=== PATIENT | female | born 1940 | race Caucasian/White ===

== ENCOUNTER 2016-08-24 09:14 | Outpatient (CLI) | payer MEDICARE | END 2016-08-24 09:15 | disposition home or self-care (01) | DX: Z12.31 Encounter for screening mammogram for malignant neoplasm of breast (principal) ==

== ENCOUNTER 2016-11-21 10:59 | Outpatient (CLI) | payer MEDICARE, OTHER ==
--- NOTE | 2016-11-21 13:09 | XRAY Report ---
BILATERAL HIPS AND PELVIS: 11/21/2016 CLINICAL INDICATION: Hip pain. FINDINGS: Frontal view of the hips and pelvis and bilateral frogleg lateral views of the hips were o btained. There is moderate right and mild left hip osteoarthritis. There is no evidence of acute frac ture or dislocation. Vascular calcifications are noted. IMPRESSION: RIGHT WORSE THAN LEFT OSTEOARTHRITIS. JOB #: [id number] EXT JOB #:[id number]
== END 2016-11-21 11:00 | disposition home or self-care (01) ==
LOC: DI 10:59
PROVIDERS: ATTEND Family Medicine
DX: M16.0 Bilateral primary osteoarthritis of hip (principal)
CPT/HCPCS: 73521

== ENCOUNTER 2017-01-02 12:12 | Outpatient (CLI) | payer MEDICARE ==
--- NOTE | 2017-01-02 14:59 | MRI Report ---
EXAM: MRI LUMBAR SPINE WITHOUT CONTRAST EXAM DATE: 01/02/2017 01:00 PM. CLINICAL HISTORY: Lumbar spinal stenosis. COMPARISON: None. TECHNIQUE: Multiplanar, multisequence T1-weighted and fluid-sensitive sequences of the lumbar spine f rom T12 to S1 without contrast. Other: None. FINDINGS: Spinal Cord: The conus terminates at L1-L2. No signal abnormality in the visualized spinal cord. Alignment: Normal. No scoliosis or spondylolisthesis. Bone Marrow: Five juj-sbj-sowxbzj lumbar vertebral bodies are assumed. No fractures. No marrow edema. Benign hemangiomas within T12. Disk Levels/Facets: All visualized intervertebral disks are desiccated. T9-T10: Unremarkable. T10-T11: Unremarkable. T11-T12: Unremarkable. T12-L1: Unremarkable. L1-L2: Unremarkable. L2-L3: A broad-based disk bulge and severe ligamentum flavum hypertrophy cause mild spinal canal, min imal right foraminal, and mild left foraminal narrowing. Type II endplate change is present. L3-L4: Anterior endplate spurring is seen. A broad-based disk bulge, severe ligamentum flavum hypertr ophy cause moderate spinal canal, minimal right foraminal, and mild left foraminal narrowing. L4-L5: A broad-based disk bulge, severe ligamentum flavum hypertrophy, and moderate facet hypertrophy cause moderate to severe spinal canal and moderate bilateral foraminal narrowing. L5-S1: A central posterior disk protrusion, moderate ligamentum flavum hypertrophy, and mild facet hy pertrophy result in mild spinal canal and bilateral foraminal narrowing. The protrusion abuts the lef t S1 nerve root in the subarticular zone. Musculature: Normal. No edema or fatty atrophy. Other: The visualized pelvic cavity is unremarkable. IMPRESSION: 1. Benign hemangioma within T12. 2. Mild spinal canal and left foraminal narrowing at L2-L3 due to disk and posterior element degenera tive changes. 3. Moderate spinal canal and mild left foraminal narrowing at L3-L4 due to disk and posterior element degenerative changes. 4. Moderate to severe spinal canal and moderate bilateral foraminal narrowing at L4-L5 due to disk an d posterior element degenerative changes. 5. Mild spinal canal and bilateral foraminal narrowing at L5-S1 due to disk and posterior element deg enerative changes. Comment: The following findings are so common in adults without low back pain that while we report th eir presence, they must be interpreted with caution and in the context of the clinical situation. (Re ascencion Huang et al, Spine 2001) Prevalence of findings in patients without low back pain: Disk degeneration (any evidence): 92% Disk desiccation/T2 signal loss: 83% Disk height loss: 56% Disk bulge: 64% Disk protrusion: 32% Annular tear/high intensity zone: 38% [facility] Referring Provider Line: [phone] SITE ID: [id number]
== END 2017-01-02 12:13 | disposition home or self-care (01) ==
LOC: DI 12:12
PROVIDERS: ATTEND Family Medicine
DX: M51.36 Other intervertebral disc degeneration, lumbar region (principal); M46.06 Spinal enthesopathy, lumbar region; M51.27 Other intervertebral disc displacement, lumbosacral region; D18.09 Hemangioma of other sites
CPT/HCPCS: 72148

== ENCOUNTER 2017-08-28 10:34 | Outpatient (CLI) | payer MEDICARE ==
--- NOTE | 2017-08-28 13:45 | XRAY Report ---
THREE VIEW LEFT KNEE: 08/28/2017 CLINICAL INDICATION: Osteoarthritis. FINDINGS: Frontal, lateral, sunrise views of the left knee demonstrate mild osteoarthritis, with small osteophytes. There is no evidence of fracture or dislocation. No effusion is present. IMPRESSION: MILD LEFT KNEE OSTEOARTHRITIS. TD: 08/28/2017 13:44
== END 2017-08-28 10:35 | disposition home or self-care (01) ==
LOC: DI 10:34
PROVIDERS: ATTEND Family Medicine
DX: M17.12 Unilateral primary osteoarthritis, left knee (principal)

== ENCOUNTER 2018-02-14 15:12 | Outpatient (CLI) | payer MEDICARE ==
[2018-02-14 19:48] LABS: BASOPHILS # (AUTO) 0.1 10^3/uL (0.0-0.1); BASOPHILS % (AUTO) 1.6 %; EOSINOPHILS # (AUTO) 0.2 10^3/uL (0.0-0.7); EOSINOPHILS % (AUTO) 3.1 %; HGB - HEMOGLOBIN 12.9 g/dL (12.0-16.0); LYMPHOCYTES % (AUTO) 28.1 %; MEAN CORPUSCULAR HGB CONC 34.1 g/dL (32.0-36.0); MEAN CORPUSCULAR VOLUME 96.8 fL (81.0-99.0); MEAN PLATELET VOLUME 8.4 fL (7.9-10.8); MONOCYTES # (AUTO) 0.6 10^3/uL (0.0-1.0); MONOCYTES % (AUTO) 8.5 %; NEUTROPHILS # (AUTO) 4.3 10^3/uL (1.5-6.6); NEUTROPHILS % (AUTO) 58.7 %; PLT - PLATELET COUNT 263 10^3/uL (130-450); RED CELL DISTRIBUTION WIDTH 17.4 % (12.0-15.0); WHITE BLOOD COUNT 7.3 x10^3/uL (4.8-10.8)
[2018-02-14 20:36] LABS: HB2 TOTAL 13.3 g/dL; HEMOGLOBIN A1C 0.51 g/dL; HEMOGLOBIN A1C % 5.7 % (4.6-6.2)
== END 2018-02-14 15:13 ==
LOC: LAB.WCP 15:12
PROVIDERS: ATTEND Family Medicine
DX: R73.01 Impaired fasting glucose (principal); E78.5 Hyperlipidemia, unspecified; I73.9 Peripheral vascular disease, unspecified
CPT/HCPCS: 36415; 80053; 80061; 83036; 83721; 85025

== ENCOUNTER 2018-02-15 08:00 | Outpatient (CLI) | payer MEDICARE ==
[2018-02-15 19:14] LABS: ALBUMIN 4.1 g/dL (3.2-5.5); ALBUMIN/GLOBULIN RATIO 1.4 (1.0-2.2); ALKALINE PHOSPHATASE 76 IU/L (42-121); ALT ALANINE AMINOTRANSFERASE 26 IU/L (10-60); AST ASPARTATE AMINOTRANSFERASE 29 IU/L (10-42); BILIRUBIN,TOTAL 0.6 mg/dL (0.2-1.0); BUN - BLOOD UREA NITROGEN 25 mg/dL (6-20); CALCIUM 9.6 mg/dL (8.5-10.3); CARBON DIOXIDE - CO2 30 mmol/L (21-32); CHLORIDE 102 mmol/L (101-111); CHOLESTEROL 145 mg/dL; CREATININE 0.7 mg/dL (0.4-1.0); GFR - MDRD 81 (>89); GLUCOSE 104 mg/dL (70-100); HDL CHOLESTEROL 48 mg/dL; LDL CHOLESTEROL,CALCULATED 70 mg/dL; LDL/HDL RATIO 1.5 (<4.4); SODIUM 141 mmol/L (135-145); VLDL CHOLESTEROL 27 mg/dL
== END 2018-02-15 08:01 ==
LOC: LAB.WCP 08:00
PROVIDERS: ATTEND Family Medicine
DX: R73.01 Impaired fasting glucose (principal); E78.5 Hyperlipidemia, unspecified
CPT/HCPCS: 80053; 80061; 83721

== ENCOUNTER 2018-07-24 10:09 | Outpatient (CLI) | payer MEDICARE ==
--- NOTE | 2018-07-26 08:46 | DEXA Report ---
Reason: BONE DISORDER Procedure Date: 07/24/2018 Accession Number: [id number] / [id number] Procedure: DEX - Dexa Spine and/or Hip CPT Code: FULL RESULT: EXAM: Dexa Spine and/or Hip DATE: 07/24/2018 10:49 AM CLINICAL HISTORY: BONE DISORDER TECHNIQUE: Dual energy x-ray absorptiometry (DXA) was performed on a [employer] System. Regions measured are the AP Spine, femoral neck, and if needed forearm. COMPARISON: None. In accordance with the International Society for Clinical Densitometry (ISCD) guidelines, data from previous exams may be reanalyzed using current recommendations and techniques. This is done to allow a more accurate basis for comparison with the current study. FINDINGS: The data for the lumbar spine is as follows: BMD (g/cm/cm) T-SCORE Z-SCORE REGION L1 1.157 0.2 1.9 L2 1.194 -0.1 1.7 L3 1.255 0.5 2.2 L4 1.240 0.3 2.1 TOTAL 1.215 0.3 2.0 NOTE: All evaluable vertebrae are used for classification The data for the hip is as follows: BMD (g/cm/cm) T-SCORE Z-SCORE REGION Neck 0.916 -0.9 1.1 TOTAL 0.959 -0.4 1.4 NOTE: The femoral neck or total proximal femur, whichever is lowest, is used for classification. IMPRESSION: THE WHO CLASSIFICATION BASED ON THE INTERNATIONAL REFERENCE STANDARD IS NORMAL. THE FRACTURE RISK IS NOT INCREASED. RECOMMENDATION: Patients with diagnosis of osteoporosis or osteopenia should have regular bone mineral density assessment. For those eligible for Medicare, routine testing is allowed once every 2 years. Testing frequency can be increased for patients who have rapidly progressing disease or for those who are receiving medical therapy to restore bone mass. COMMENT: World Health Organization (WHO) definitions for osteoporosis and osteopenia: NORMAL BMD: T-score at -1.0 or higher, fracture risk is low OSTEOPENIA BMD: T-score between -1.0 and -2.5, fracture risk is increased. OSTEOPOROSIS BMD: T-score at -2.5 or lower, fracture risk is high. National Osteoporosis Foundation recommends: 1. Obtain adequate dietary calcium (at least 1200 mg per day) and vitamin D (400-800 international units per day). 2. Participate, as appropriate, in regular weightbearing and muscle-strengthening exercise. 3. Avoid tobacco use and reduce alcohol and caffeine intake. 4. For more detailed information see the website at www.NOF.org.
== END 2018-07-24 10:10 | disposition home or self-care (01) ==
LOC: DI 10:09
PROVIDERS: ATTEND Family Medicine
DX: M89.9 Disorder of bone, unspecified (principal)
CPT/HCPCS: 77080

== ENCOUNTER 2018-11-08 08:40 | Outpatient (CLI) | payer MEDICARE ==
[2018-11-08 12:28] LABS: BASOPHILS # (AUTO) 0.1 10^3/uL (0.0-0.1); BASOPHILS % (AUTO) 1.4 %; EOSINOPHILS # (AUTO) 0.1 10^3/uL (0.0-0.7); EOSINOPHILS % (AUTO) 1.3 %; HGB - HEMOGLOBIN 13.8 g/dL (12.0-16.0); LYMPHOCYTES # (AUTO) 1.4 10^3/uL (1.5-3.5); LYMPHOCYTES % (AUTO) 13.4 %; MEAN CORPUSCULAR HEMOGLOBIN 32.2 pg (27.0-31.0); MEAN CORPUSCULAR HGB CONC 30.9 g/dL (32.0-36.0); MEAN CORPUSCULAR VOLUME 104.2 fL (81.0-99.0); MEAN PLATELET VOLUME 10.5 fL (7.9-10.8); MONOCYTES # (AUTO) 0.8 10^3/uL (0.0-1.0); MONOCYTES % (AUTO) 7.4 %; NEUTROPHILS # (AUTO) 7.7 10^3/uL (1.5-6.6); NEUTROPHILS % (AUTO) 76.1 %; PLT - PLATELET COUNT 258 10^3/uL (130-450); RED BLOOD COUNT 4.29 10^6/uL (4.20-5.40); RED CELL DISTRIBUTION WIDTH 14.5 % (12.0-15.0); WHITE BLOOD COUNT 10.1 x10^3/uL (4.8-10.8)
[2018-11-08 14:54] LABS: ALBUMIN 4.1 g/dL (3.2-5.5); ALBUMIN/GLOBULIN RATIO 1.3 (1.0-2.2); BILIRUBIN,TOTAL 0.8 mg/dL (0.2-1.0); CALCIUM 9.5 mg/dL (8.5-10.3); CREATININE 0.7 mg/dL (0.4-1.0); TOTAL PROTEIN 7.3 g/dL (6.7-8.2)
== END 2018-11-08 08:41 | disposition home or self-care (01) ==
LOC: LAB.WCP 08:40
PROVIDERS: ATTEND Physician Assistant
DX: L40.0 Psoriasis vulgaris (principal)
CPT/HCPCS: 36415; 80053; 85025

== ENCOUNTER 2019-01-15 11:34 | Outpatient (CLI) | payer MEDICARE ==
--- NOTE | 2019-01-15 13:48 | XRAY Report ---
Reason: CHRONIC LOW BACK PAIN Procedure Date: 01/15/2019 Accession Number: [id number] / [id number] Procedure: WCP - Lumbar Spine 2 View CPT Code: FULL RESULT: EXAM: LUMBOSACRAL SPINE RADIOGRAPHY EXAM DATE: 01/15/2019 11:34 AM. CLINICAL HISTORY: Chronic low back pain. No known injury. COMPARISONS: LUMBAR SPINE 2 VIEW 06/28/2016 2:09 PM. TECHNIQUE: 2 views. FINDINGS: Alignment: Increasing dextroscoliosis now 12 degrees centered at L4. Bones: Five vad-jrp-hdoddkf lumbar vertebral bodies are present. Old mild anterior wedging L3 and L4. Trabecular and cortical patterns are intact. Disks: Stable multilevel mild degenerative disk disease. Facets: Marked degenerative changes left L4-L5 facets. Sacroiliac Joints: Unremarkable. Soft Tissues: Remote stent placement in a right common iliac vessel. IMPRESSION: 1. Increasing mild dextroscoliosis. 2. Multilevel mild degenerative changes. [facility]
== END 2019-01-15 23:59 | disposition home or self-care (01) ==
LOC: DI.WCP 11:34 → EDSTATUS 13:20 → DI.WCP 23:59
PROVIDERS: ATTEND Family Medicine
DX: M51.36 Other intervertebral disc degeneration, lumbar region (principal); M47.816 Spondylosis without myelopathy or radiculopathy, lumbar region; M41.9 Scoliosis, unspecified
CPT/HCPCS: 72100

== ENCOUNTER 2019-01-29 10:50 | Outpatient (CLI) | payer MEDICARE ==
[2019-01-29 13:04] LABS: CHOL/HDL RATIO 2.9 (<4.4); CHOLESTEROL 132 mg/dL; HDL CHOLESTEROL 46 mg/dL; LDL CHOLESTEROL,CALCULATED 72 mg/dL; LDL/HDL RATIO 1.6 (<4.4); VLDL CHOLESTEROL 14 mg/dL
== END 2019-01-29 23:59 | disposition home or self-care (01) ==
LOC: LAB.WCP 10:50
PROVIDERS: ATTEND Family Medicine
DX: E78.5 Hyperlipidemia, unspecified (principal); M89.9 Disorder of bone, unspecified; M17.9 Osteoarthritis of knee, unspecified
CPT/HCPCS: 36415; 80061; 83721; 84443

== ENCOUNTER 2020-09-11 07:35 | Outpatient (CLI) | payer MEDICARE, OTHER ==
[2020-09-11 12:20] LABS: BASOPHILS # (AUTO) 0.1 10^3/uL (0.0-0.1); BASOPHILS % (AUTO) 1.9 %; EOSINOPHILS # (AUTO) 0.2 10^3/uL (0.0-0.7); EOSINOPHILS % (AUTO) 3.7 %; HGB - HEMOGLOBIN 11.9 g/dL (12.0-16.0); LYMPHOCYTES # (AUTO) 1.4 10^3/uL (1.5-3.5); LYMPHOCYTES % (AUTO) 22.3 %; MEAN CORPUSCULAR HEMOGLOBIN 32.9 pg (27.0-31.0); MEAN CORPUSCULAR HGB CONC 32.2 g/dL (32.0-36.0); MEAN CORPUSCULAR VOLUME 102.2 fL (81.0-99.0); MEAN PLATELET VOLUME 10.6 fL (7.9-10.8); MONOCYTES # (AUTO) 0.6 10^3/uL (0.0-1.0); MONOCYTES % (AUTO) 9.1 %; NEUTROPHILS # (AUTO) 4.1 10^3/uL (1.5-6.6); NEUTROPHILS % (AUTO) 62.8 %; PLT - PLATELET COUNT 218 10^3/uL (130-450); RED BLOOD COUNT 3.62 10^6/uL (4.20-5.40); RED CELL DISTRIBUTION WIDTH 14.1 % (12.0-15.0); WHITE BLOOD COUNT 6.5 x10^3/uL (4.8-10.8)
[2020-09-11 12:35] LABS: ALBUMIN 4.2 g/dL (3.2-5.5); ALBUMIN/GLOBULIN RATIO 1.4 (1.0-2.2); ALKALINE PHOSPHATASE 71 IU/L (42-121); ALT ALANINE AMINOTRANSFERASE 28 IU/L (10-60); AST ASPARTATE AMINOTRANSFERASE 36 IU/L (10-42); BILIRUBIN,TOTAL 0.5 mg/dL (0.2-1.0); BUN - BLOOD UREA NITROGEN 20 mg/dL (6-20); CALCIUM 9.5 mg/dL (8.5-10.3); CARBON DIOXIDE - CO2 28 mmol/L (21-32); CHLORIDE 102 mmol/L (101-111); CHOL/HDL RATIO 2.5 (<4.4); CHOLESTEROL 142 mg/dL; CREATININE 0.7 mg/dL (0.4-1.0); GFR - MDRD 81 (>89); GLUCOSE 117 mg/dL (70-100); HDL CHOLESTEROL 56 mg/dL; LDL CHOLESTEROL,CALCULATED 66 mg/dL; LDL/HDL RATIO 1.2 (<4.4); POTASSIUM 3.8 mmol/L (3.5-5.0); SODIUM 139 mmol/L (135-145); TOTAL PROTEIN 7.1 g/dL (6.7-8.2); TRIGLYCERIDES 101 mg/dL; URIC ACID 5.9 mg/dL (2.6-7.2); VLDL CHOLESTEROL 20 mg/dL
[2020-09-11 12:45] LABS: THYROID STIMULATING HORMONE 3.25 uIU/mL (0.34-5.60)
[2020-09-11 13:02] LABS: CRP - C-REACTIVE PROTEIN < 1.0 mg/dL (0-1.0)
[2020-09-11 13:19] LABS: ESTIMATED AVERAGE GLUCOSE 111 mg/dL (70-100); HEMOGLOBIN A1c% 5.5 % (4.27-6.07)
== END 2020-09-11 07:36 | disposition home or self-care (01) ==
LOC: LAB.N 07:35
PROVIDERS: ATTEND Family Medicine
DX: I73.81 Erythromelalgia (principal); E78.5 Hyperlipidemia, unspecified; R73.01 Impaired fasting glucose; I10 Essential (primary) hypertension
CPT/HCPCS: 36415; 80053; 80061; 83036; 83721; 84443; 84550; 85025; 85651; 86140

== ENCOUNTER 2020-09-11 07:43 | Outpatient (CLI) | payer MEDICARE, OTHER ==
--- NOTE | 2020-09-11 14:06 | XRAY Report ---
PROCEDURE: Hand 3 View BILAT INDICATIONS: BILATERALA HAND PAIN Hx OF PSORIASIS TECHNIQUE: 3 views of each hand(s) acquired. COMPARISON: None FINDINGS: Bones: Diffuse osteopenia. No acute fracture or dislocation. No suspicious osseous lesions. Left hand: Moderate degenerative changes of the left thumb interphalangeal joint, second and third di stal interphalangeal joint, and fifth distal interphalangeal joint. There is minimal subchondral luce ncy involving the head of the left third finger middle phalanx. Otherwise, no periarticular osteopeni a or other areas of suspicious osseous erosions. Right hand: Moderate degenerative changes of the right hand most pronounced in the interphalangeal keena int of the right thumb and distal interphalangeal joint of the right second finger. There are also de generative changes of the right fifth distal interphalangeal joint. Periarticular lucencies noted in the proximal phalanx of the right thumb. Soft tissues: No suspicious soft tissue calcifications. IMPRESSION: Moderate polyarticular degenerative changes of the bilateral hand most pronounced in the distal inter phalangeal joints of the bilateral index finger as well as the interphalangeal joints of the bilatera l thumb. There are small periarticular lucencies noted at the head of the right thumb proximal phalan x as well as the head of the third finger middle phalanx. These may represent osseous erosions and co mpatible with reported history of psoriatic arthritis. No acute osseous abnormalities identified. Reviewed by: Garret Doyle MD on 09/11/2020 1:05 PM JESUS Approved by: Garret Doyle MD on 09/11/2020 1:05 PM JESUS Station ID: [id number]
== END 2020-09-11 07:44 | disposition home or self-care (01) ==
LOC: DI.N 07:43
PROVIDERS: ATTEND Family Medicine
DX: M19.042 Primary osteoarthritis, left hand (principal); M19.041 Primary osteoarthritis, right hand; I73.81 Erythromelalgia; E78.5 Hyperlipidemia, unspecified; I10 Essential (primary) hypertension; R73.01 Impaired fasting glucose
CPT/HCPCS: 36415; 80053; 80061; 83036; 83721; 84443; 84550; 85025; 85651; 86140

== ENCOUNTER 2020-10-26 15:18 | Outpatient (CLI) | payer MEDICARE, OTHER ==
--- NOTE | 2020-10-27 09:09 | Ultrasound Report ---
PROCEDURE: Duplex Upr Ext Arterial Bilat INDICATIONS: ERYTHROMELALGIA, PERIPHERAL VASCULAR DISEASE TECHNIQUE: Color and pulse Doppler interrogation was performed of both upper extremity arterial systems, with im age documentation. COMPARISON: None. FINDINGS: Right upper extremity: Subclavian artery (mid): 56 cm/sec, with biphasic flow. Axillary artery: 67 cm/sec, with biphasic flow. Brachial artery (mid): 71 cm/sec, with biphasic flow. Radial artery (proximal): 39.5 cm/sec, with monophasic flow. Radial artery (mid): 37.5 cm/sec, with monophasic flow. Radial artery (distal): 36.1 cm/sec, with monophasic flow. Ulnar artery (proximal): 28.5 cm/sec, with biphasic flow. Ulnar artery (mid): 19.8 cm/sec. with biphasic flow. Ulnar artery (distal): 12.4 cm/sec, with biphasic flow. Bishop-scale imaging description: Mild scattered calcified plaque. Left upper extremity: Subclavian artery (mid): 87 cm/sec, with biphasic flow. Axillary artery: 56.2 cm/sec, with biphasic flow. Brachial artery (mid): 55.7 cm/sec, with biphasic flow. Radial artery (proximal): 53.0 cm/sec, wit h biphasic flow. Radial artery (mid): 55.7 cm/sec, with biphasic flow. Radial artery (distal): 48.8 cm/sec. with biphasic flow. Ulnar artery (proximal): 31.3 cm/sec, with biphasic flow. Ulnar artery (mid): 27.7 cm/sec, with biphasic flow. Ulnar artery (distal): 25.7 cm/sec. with biphasic flow. Bishop-scale imaging description: Mild scattered calcified plaque IMPRESSION: 1. Mild calcified atherosclerotic plaque with no significant focal stenosis in both arms. 2. Monophasic flow in the right radial artery with no elevated velocities consistent with diffuse ath erosclerotic disease. Reviewed by: Donovan Johnston on 10/27/2020 9:08 AM PDT Approved by: Donovan Johnston on 10/27/2020 9:08 AM PDT Station ID: [id number]
== END 2020-10-26 15:19 | disposition home or self-care (01) ==
LOC: DI 15:18
PROVIDERS: ATTEND Family Medicine
DX: I70.208 Unspecified atherosclerosis of native arteries of extremities, other extremity (principal)
CPT/HCPCS: 93930

== ENCOUNTER 2021-02-05 08:00 | Outpatient (CLI) | payer MEDICARE, OTHER ==
[2021-02-05 13:36] LABS: BASOPHILS # (AUTO) 0.1 10^3/uL (0.0-0.1); BASOPHILS % (AUTO) 1.2 %; EOSINOPHILS # (AUTO) 0.3 10^3/uL (0.0-0.7); EOSINOPHILS % (AUTO) 2.8 %; HCT - HEMATOCRIT 31.4 % (37.0-47.0); HGB - HEMOGLOBIN 9.5 g/dL (12.0-16.0); LYMPHOCYTES # (AUTO) 1.8 10^3/uL (1.5-3.5); LYMPHOCYTES % (AUTO) 20.1 %; MEAN CORPUSCULAR HEMOGLOBIN 29.3 pg (27.0-31.0); MEAN CORPUSCULAR HGB CONC 30.3 g/dL (32.0-36.0); MEAN CORPUSCULAR VOLUME 96.9 fL (81.0-99.0); MEAN PLATELET VOLUME 10.8 fL (7.9-10.8); MONOCYTES # (AUTO) 0.7 10^3/uL (0.0-1.0); MONOCYTES % (AUTO) 7.4 %; NEUTROPHILS % (AUTO) 68.2 %; PLT - PLATELET COUNT 246 10^3/uL (130-450); RED BLOOD COUNT 3.24 10^6/uL (4.20-5.40); RED CELL DISTRIBUTION WIDTH 16.1 % (12.0-15.0); WHITE BLOOD COUNT 8.9 x10^3/uL (4.8-10.8)
[2021-02-05 14:09] LABS: FERRITIN 10.5 ng/mL (11.0-306.8)
[2021-02-05 14:15] LABS: % IRON SATURATION 5 % (20-50); ALBUMIN/GLOBULIN RATIO 1.4 (1.0-2.2); ALKALINE PHOSPHATASE 62 IU/L (42-121); ALT ALANINE AMINOTRANSFERASE 24 IU/L (10-60); AST ASPARTATE AMINOTRANSFERASE 29 IU/L (10-42); BILIRUBIN,TOTAL 0.5 mg/dL (0.2-1.0); BUN - BLOOD UREA NITROGEN 23 mg/dL (6-20); CALCIUM 9.5 mg/dL (8.5-10.3); CARBON DIOXIDE - CO2 26 mmol/L (21-32); CHLORIDE 104 mmol/L (101-111); CHOL/HDL RATIO 2.7 (<4.4); CHOLESTEROL 137 mg/dL; CREATININE 0.7 mg/dL (0.4-1.0); GFR - MDRD 81 (>89); GLUCOSE 101 mg/dL (70-100); HDL CHOLESTEROL 50 mg/dL; IRON 26 ug/dL (28-170); LDL CHOLESTEROL,CALCULATED 65 mg/dL; LDL/HDL RATIO 1.3 (<4.4); SODIUM 140 mmol/L (135-145); TOTAL IRON BINDING CAPACITY 501 ug/dL (250-450); TOTAL PROTEIN 6.8 g/dL (6.7-8.2); TRANSFERRIN 358 mg/dL (192-382); TRIGLYCERIDES 109 mg/dL; VLDL CHOLESTEROL 22 mg/dL
[2021-02-05 15:01] LABS: ESTIMATED AVERAGE GLUCOSE 117 mg/dL (70-100); HEMOGLOBIN A1c% 5.7 % (4.27-6.07)
== END 2021-02-05 23:59 | disposition home or self-care (01) ==
LOC: LAB.WCP 08:00
PROVIDERS: ATTEND Family Medicine
DX: R73.01 Impaired fasting glucose (principal); D64.9 Anemia, unspecified; E78.5 Hyperlipidemia, unspecified
CPT/HCPCS: 36415; 80053; 80061; 82607; 82728; 83036; 83540; 83721; 84466; 85025

== ENCOUNTER 2021-02-09 08:00 | Outpatient (CLI) | payer MEDICARE, OTHER ==
[2021-02-09 13:48] LABS: FECAL OCCULT BLOOD (FIT) POSITIVE (NEGATIVE)
== END 2021-02-09 23:59 ==
LOC: LAB.R 08:00
PROVIDERS: ATTEND Family Medicine
DX: D64.9 Anemia, unspecified (principal)
CPT/HCPCS: 82274

== ENCOUNTER 2021-04-05 11:48 | Day surgery (SDC) | payer MEDICARE, OTHER ==
[2021-04-05 12:08] VITALS: BP 112/60
[2021-04-05] MEDS ORDERED: LACTATED RINGERS 1,000 ML IV ONE (12:15)
== END 2021-04-05 11:49 | disposition home or self-care (01) ==
LOC: SDS 11:48
PROVIDERS: ATTEND Surgery
DX: Z53.9 Procedure and treatment not carried out, unspecified reason (principal)

== ENCOUNTER 2021-04-19 06:22 | Day surgery (SDC) | payer MEDICARE, OTHER ==
[2021-04-19] MEDS ORDERED: LACTATED RINGERS 1,000 ML IV ONE ×2 (06:46→09:14)
--- NOTE | 2021-04-19 07:02 | ANESTHESIA ---
Pre-Anesthesia VS, & Labs - Diagnosis microcytic anemia, hx of colon polyps - Procedure EGD, Colonoscopy Vital Signs: Temp Pulse Resp BP Pulse Ox 36.3 C L 88 17 96/51 L 96 04/19/21 06:42 04/19/21 06:42 04/19/21 06:42 04/19/21 06:42 04/19/21 06:42 Height: 5 ft 3 in Weight (kg): 64.2 kg Body Mass Index: 25.0 BMI Classification: Overweight - NPO >8 hours - Is Patient ?: Not Applicable - Lab Results Lab results reviewed: Yes Home Medications and Allergies atenoloL [Tenormin] 50 mg PO DAILY 01/30/13 hydroCHLOROthiazide [Hydrodiuril] 12.5 mg PO DAILY 01/30/13 Aspirin 81 mg PO DAILY 01/31/13 Atorvastatin Calcium [Lipitor] 80 mg PO DAILY 04/01/21 Cholecalciferol (Vitamin D3) [Vitamin D3] 50 mcg PO DAILY 04/01/21 Clopidogrel [Plavix] 75 mg PO DAILY 04/01/21 Multivitamin 1 each PO DAILY 04/01/21 Allergies/Adverse Reactions: Allergies Allergy/AdvReac Type Severity Reaction Status Date / Time No Known Drug Allergies Allergy Verified 01/30/13 14:44 Anes History & Medical History - Anesthetic History Anesthesia Complications: reports: No previous complications Family history of Anesthesia Complications: Denies Family history of Malignant Hyperthermia: Denies - Medical History Cardiovascular: reports: Hypertension, High cholesterol, Coronary artery disease, Other (cardiac stents in 2008, no chest pains or problems since. Off Plavix on 04/15, ASA 81 mg instead per dispatcher motor vehicle) Pulmonary: reports: None Gastrointestinal: reports: Colon polyps Urinary: reports: None Neuro: reports: TIA Musculoskeletal: reports: None Endocrine/Autoimmune: reports: None Skin: reports: Psoriasis - Surgical History General: reports: Colonoscopy Cardiothoracic: reports: Coronary stent Orthopedic: reports: Other Exam General: Alert, Oriented x3, Cooperative, No acute distress Dental: WNL, Poor dentition Mouth Openin Fingerbreadth Neck Mobility: Normal Mallampati classification: II Respiratory: Lungs clear, Normal breath sounds, No respiratory distress, No accessory muscle use Cardiovascular: Regular rate, Normal S1, Normal S2, No murmurs Plan Anesthesia Type: General, Total IV Consent for Procedure(s) Verified and Reviewed: Yes Code Status: Attempt Resuscitation ASA classification: 3-Severe systemic disease Is this case an emergency?: No
[2021-04-19] MEDS ORDERED: NALOXONE 0.4 MG/ML VIAL IVP PRN (07:05)
[2021-04-19] MEDS ORDERED: HYDROmorphone 0.5 MG/0.5 ML SYRINGE IVP PRN (07:05)
[2021-04-19] MEDS ORDERED: METOCLOPRAMIDE 10 MG/2 ML VIAL IVP PRN (07:05)
[2021-04-19] MEDS ORDERED: ATROPINE ABBOJECT 1 MG/10 ML SYRINGE IVP PRN (07:05)
[2021-04-19] MEDS ORDERED: MORPHINE 2 MG/ML CARPUJECT IVP PRN (07:05)
[2021-04-19] MEDS ORDERED: ePHEDrine 50 MG/ML VIAL IVP PRN (07:05)
[2021-04-19] MEDS ORDERED: ONDANSETRON 4 MG/2 ML VIAL IVP PRN (07:05)
[2021-04-19] MEDS ORDERED: fentaNYL 100 MCG/2 ML VIAL IVP PRN (07:05)
[2021-04-19] MEDS ORDERED: PROPOFOL 500 MG/50 ML 500 MG/50 ML VIAL ONE (07:22)
[2021-04-19] MEDS ORDERED: LIDOCAINE-MPF 2% 5 ML VIAL ONE (07:22)
[2021-04-19] MEDS ORDERED: LACTATED RINGERS 1,000 ML IV SCH (08:00)
[2021-04-19] MEDS ORDERED: PHENYLEPHRINE 10 MG/ML VIAL ONE (08:24)
[2021-04-19 09:32] VITALS: BP 109/70
--- NOTE | 2021-04-19 10:42 | ANESTHESIA POST OP EVALUATION ---
Anesthesia Post Eval - Post Anesthesia Eval Vitals: Last Vital Signs Temp 36.2 C L 04/19/21 09:31 Pulse 72 04/19/21 09:31 Resp 14 04/19/21 09:31 BP 109/70 04/19/21 09:31 Pulse Ox 99 04/19/21 09:31 CV Function Including HR & BP: Stable Pain Control: Satisfactory Nausea & Vomiting: Negative Mental Status: Baseline Respiratory Status: Airway Patent Hydration Status: Satisfactory Anesthesia Complications: None
== END 2021-04-19 06:23 | disposition home or self-care (01) ==
LOC: SDS 06:22
PROVIDERS: ATTEND Surgery
PROC: 0DBP8ZZ Excision of Rectum, Via Natural or Artificial Opening Endoscopic (ICD-10-PCS; 2021-04-19)
PROC: 0DBN8ZZ Excision of Sigmoid Colon, Via Natural or Artificial Opening Endoscopic (ICD-10-PCS; 2021-04-19)
PROC: 0DB98ZX Excision of Duodenum, Via Natural or Artificial Opening Endoscopic, Diagnostic (ICD-10-PCS; 2021-04-19)
PROC: 0DB68ZX Excision of Stomach, Via Natural or Artificial Opening Endoscopic, Diagnostic (ICD-10-PCS; 2021-04-19)
PROC: 0DB58ZX Excision of Esophagus, Via Natural or Artificial Opening Endoscopic, Diagnostic (ICD-10-PCS; 2021-04-19)
PROC: 0DBH8ZZ Excision of Cecum, Via Natural or Artificial Opening Endoscopic (ICD-10-PCS; principal; 2021-04-19 07:30)
PROC: 0DBL8ZZ Excision of Transverse Colon, Via Natural or Artificial Opening Endoscopic (ICD-10-PCS; 2021-04-19 07:30)
DX: D50.9 Iron deficiency anemia, unspecified (principal); R19.5 Other fecal abnormalities; K44.9 Diaphragmatic hernia without obstruction or gangrene; K22.2 Esophageal obstruction; D12.0 Benign neoplasm of cecum; D12.3 Benign neoplasm of transverse colon; D12.5 Benign neoplasm of sigmoid colon; K62.1 Rectal polyp; K57.30 Diverticulosis of large intestine without perforation or abscess without bleeding; K64.8 Other hemorrhoids; K64.4 Residual hemorrhoidal skin tags; I65.29 Occlusion and stenosis of unspecified carotid artery; I73.9 Peripheral vascular disease, unspecified; K29.50 Unspecified chronic gastritis without bleeding; K92.1 Melena
CPT/HCPCS: 43239; 45380; 45385; J7120

== ENCOUNTER 2021-07-13 11:50 | Outpatient (CLI) | payer MEDICARE, OTHER ==
[2021-07-13 18:41] LABS: BASOPHILS # (AUTO) 0.1 10^3/uL (0.0-0.1); BASOPHILS % (AUTO) 1.3 %; EOSINOPHILS # (AUTO) 0.2 10^3/uL (0.0-0.7); EOSINOPHILS % (AUTO) 1.3 %; HCT - HEMATOCRIT 41.1 % (37.0-47.0); HGB - HEMOGLOBIN 13.2 g/dL (12.0-16.0); LYMPHOCYTES # (AUTO) 2.2 10^3/uL (1.5-3.5); MEAN CORPUSCULAR HEMOGLOBIN 32.8 pg (27.0-31.0); MEAN CORPUSCULAR HGB CONC 32.1 g/dL (32.0-36.0); MEAN CORPUSCULAR VOLUME 102.2 fL (81.0-99.0); MONOCYTES % (AUTO) 9.1 %; NEUTROPHILS # (AUTO) 7.6 10^3/uL (1.5-6.6); NEUTROPHILS % (AUTO) 67.9 %; PLT - PLATELET COUNT 250 10^3/uL (130-450); RED BLOOD COUNT 4.02 10^6/uL (4.20-5.40); RED CELL DISTRIBUTION WIDTH 13.9 % (12.0-15.0); WHITE BLOOD COUNT 11.2 x10^3/uL (4.8-10.8)
[2021-07-13 19:00] LABS: ALBUMIN 4.1 g/dL (3.2-5.5); ALBUMIN/GLOBULIN RATIO 1.2 (1.0-2.2); BILIRUBIN,TOTAL 0.7 mg/dL (0.2-1.0); CALCIUM 9.6 mg/dL (8.5-10.3); CREATININE 0.7 mg/dL (0.4-1.0); POTASSIUM 3.6 mmol/L (3.5-5.0); TOTAL PROTEIN 7.5 g/dL (6.7-8.2)
== END 2021-07-13 11:51 | disposition home or self-care (01) ==
LOC: LAB.N 11:50
PROVIDERS: ATTEND Family Medicine
DX: D64.9 Anemia, unspecified (principal)
CPT/HCPCS: 36415; 80053; 82728; 83540; 84466; 85025

== ENCOUNTER 2021-10-12 15:47 | Outpatient (CLI) | payer MEDICARE, OTHER ==
--- NOTE | 2021-10-12 17:24 | XRAY Report ---
PROCEDURE: Ribs w/PA Chest LT INDICATIONS: L SIDE RIB PX TECHNIQUE: 3 views of the left ribs were acquired, along with a single view chest. COMPARISON: None FINDINGS: Surgical changes and devices: None. Bones and chest wall: No fractures or dislocations. No suspicious bony lesions. Overlying soft tis sues appear unremarkable. Lungs and pleura: No pleural effusions or pneumothorax. Lungs appear clear. Mediastinum: Mediastinal contours appear normal. Heart size is normal. IMPRESSION: No displaced left rib fractures. Reviewed by: CESILIA Manzanares on 10/12/2021 5:22 PM PDT Approved by: Mary Govea MD on 10/12/2021 5:22 PM PDT Station ID: [id number]
== END 2021-10-12 15:48 | disposition home or self-care (01) ==
LOC: DI.N 15:47
PROVIDERS: ATTEND Family Medicine
DX: R07.81 Pleurodynia (principal)

== ENCOUNTER 2021-12-20 14:33 | Outpatient (CLI) | payer MEDICARE, OTHER ==
--- NOTE | 2021-12-21 09:12 | Mammography Report ---
BILATERAL DIGITAL SCREENING MAMMOGRAM 3D/2D: 12/20/2021 CLINICAL: Routine screening. Comparison is made to exams dated: 08/24/2016 mammogram, 08/24/2015 mammogram, 07/12/2014 mammogram, and 06/26/2013 mammogram - [facility]. There are scattered fibroglandular elements in adam th breasts. There are benign vascular calcifications in both breasts. No significant masses, calcifications, or other findings are seen in either breast. There has been no significant interval change. IMPRESSION: BENIGN There is no mammographic evidence of malignancy. A 1 year screening mammogram is recommended. Based on the Tyrer Cuzick model (a risk assessment model) the patients lifetime risk is 1.3% and her 10 year risk is 0.0%. According to the ACR, ACS, and NCCN guidelines, an annual breast MRI exam duane g with mammogram is recommended if the patients lifetime risk is 20% or greater. This exam was interpreted at Station ID: [id number]. NOTE: For mammograms, a report in lay terms will be sent to the patient. Approximately 15% of breast malignancies will not be visualized mammographically. In the management of a palpable breast mass, a negative mammogram must not discourage biopsy of a clinically suspicious lesion. Electronically Signed By: Calvin pryor/lilian:12/21/2021 07:46:23 ACR BI-RADS Category 2: Benign Finding(s) 3342F PARENCHYMAL PATTERN: (A) - The breast(s) demonstrate(s) scattered fibroglandular densities. BI-RADS CATEGORY: (2) - 2 RECOMMENDATION: (ANNUAL) - Recommend routine annual screening mammography. [id number] 1 year screening LATERALITY: (B)
== END 2021-12-20 14:34 | disposition home or self-care (01) ==
LOC: DI 14:33
DX: Z12.31 Encounter for screening mammogram for malignant neoplasm of breast (principal)

== ENCOUNTER 2022-02-15 09:01 | Outpatient (CLI) | payer MEDICARE, OTHER ==
[2022-02-15 12:25] LABS: HCT - HEMATOCRIT 31.4 % (37.0-47.0); HGB - HEMOGLOBIN 10.4 g/dL (12.0-16.0); MEAN CORPUSCULAR HEMOGLOBIN 32.8 pg (27.0-31.0); MEAN CORPUSCULAR HGB CONC 33.1 g/dL (32.0-36.0); MEAN CORPUSCULAR VOLUME 99.1 fL (81.0-99.0); MEAN PLATELET VOLUME 10.9 fL (7.9-10.8); RED BLOOD COUNT 3.17 10^6/uL (4.20-5.40); RED CELL DISTRIBUTION WIDTH 13.9 % (12.0-15.0); WHITE BLOOD COUNT 9.8 x10^3/uL (4.8-10.8)
[2022-02-15 13:03] LABS: ALBUMIN 3.6 g/dL (3.2-5.5); ALBUMIN/GLOBULIN RATIO 1.2 (1.0-2.2); ALKALINE PHOSPHATASE 83 IU/L (42-121); ALT ALANINE AMINOTRANSFERASE 26 IU/L (10-60); AST ASPARTATE AMINOTRANSFERASE 35 IU/L (10-42); BILIRUBIN,TOTAL 0.9 mg/dL (0.2-1.0); BUN - BLOOD UREA NITROGEN 20 mg/dL (6-20); CALCIUM 9.7 mg/dL (8.5-10.3); CARBON DIOXIDE - CO2 29 mmol/L (21-32); CHLORIDE 96 mmol/L (101-111); CHOL/HDL RATIO 2.7 (<4.4); CHOLESTEROL 122 mg/dL; CREATININE 0.8 mg/dL (0.4-1.0); GFR - MDRD 69 (>89); GLUCOSE 107 mg/dL (70-100); HDL CHOLESTEROL 45 mg/dL; LDL CHOLESTEROL,CALCULATED 65 mg/dL; LDL/HDL RATIO 1.4 (<4.4); POTASSIUM 3.9 mmol/L (3.5-5.0); SODIUM 134 mmol/L (135-145); TOTAL PROTEIN 6.7 g/dL (6.7-8.2); TRIGLYCERIDES 60 mg/dL; VLDL CHOLESTEROL 12 mg/dL
== END 2022-02-15 09:02 | disposition home or self-care (01) ==
LOC: LAB.N 09:01
PROVIDERS: ATTEND Nurse Practitioner
DX: I65.23 Occlusion and stenosis of bilateral carotid arteries (principal); I73.9 Peripheral vascular disease, unspecified; E78.5 Hyperlipidemia, unspecified
CPT/HCPCS: 36415; 80053; 80061; 83721; 85027

== ENCOUNTER 2022-04-03 12:16 | Outpatient (CLI) | payer MEDICARE, OTHER | END 2022-04-03 23:59 | disposition critical access hospital (66) | LOC: EMS 12:16 | DX: R47.9 Unspecified speech disturbances (principal) | CPT/HCPCS: A0425; A0429 ==

== ENCOUNTER 2022-04-03 12:27 | Emergency (ER) | payer MEDICARE, OTHER ==
[2022-04-03 13:16] LABS: BASOPHILS # (AUTO) 0.1 10^3/uL (0.0-0.1); BASOPHILS % (AUTO) 1.3 %; EOSINOPHILS # (AUTO) 0.2 10^3/uL (0.0-0.7); EOSINOPHILS % (AUTO) 2.6 %; HCT - HEMATOCRIT 30.8 % (37.0-47.0); HGB - HEMOGLOBIN 9.6 g/dL (12.0-16.0); LYMPHOCYTES # (AUTO) 1.3 10^3/uL (1.5-3.5); LYMPHOCYTES % (AUTO) 14.7 %; MEAN CORPUSCULAR HEMOGLOBIN 29.3 pg (27.0-31.0); MEAN CORPUSCULAR HGB CONC 31.2 g/dL (32.0-36.0); MEAN CORPUSCULAR VOLUME 93.9 fL (81.0-99.0); MEAN PLATELET VOLUME 10.6 fL (7.9-10.8); MONOCYTES # (AUTO) 0.8 10^3/uL (0.0-1.0); MONOCYTES % (AUTO) 8.6 %; NEUTROPHILS # (AUTO) 6.5 10^3/uL (1.5-6.6); NEUTROPHILS % (AUTO) 72.6 %; PLT - PLATELET COUNT 228 10^3/uL (130-450); RED BLOOD COUNT 3.28 10^6/uL (4.20-5.40); RED CELL DISTRIBUTION WIDTH 14.5 % (12.0-15.0)
--- NOTE | 2022-04-03 13:19 | XRAY Report ---
PROCEDURE: Chest 1 View X-Ray INDICATIONS: Chest Pain TECHNIQUE: One view of the chest was acquired. COMPARISON: None. FINDINGS: Surgical changes and devices: None. Lungs and pleura: Mildly prominent interstitium without consolidation or pleural Mediastinum: Heart size is within normal limits. There are aortic calcifications. Bones and chest wall: No suspicious bony lesions. Overlying soft tissues appear unremarkable. IMPRESSION: Prominence of the interstitium could represent mild edema or senescent lung markings. No dense consol idation. No pleural effusion. Reviewed by: Toby Beaver MD on 04/03/2022 1:18 PM PST Approved by: Toby Beaver MD on 04/03/2022 1:18 PM PST Station ID: [id number]
[2022-04-03] MEDS ORDERED: SODIUM CHLORIDE 0.9% 1,000 ML IV STA (13:21)
--- NOTE | 2022-04-03 13:23 | ED Physician Documentation ---
History of Present Illness - Stated complaint Stated Complaint: TIA - Chief complaint Chief Complaint: Neuro - Additonal information Additional information: 81-year-old female presents to the emergency department for evaluation of what she believes to be a TIA. She reports that around noon she began to get suddenly confused and had difficulty getting her words out. 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 She states that when EMS arrived today showed her a pen but she was unable to say what it was. The symptoms fully resolved after about 15 minutes. She was not hypoglycemic. On presentation to the ER her symptoms have fully resolved and she is now an NIHSS of 0. The patient denies any history of atrial fibrillation. She denies Any previous CVA but does endorse TIAs. At the time of the initial complaint there were no palpitations, reports of chest pain or dyspnea. 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 Currently takes Plavix daily. She does have a history of hypotension for which she is taking half doses of hydrochlorothiazide and atenolol. Her blood pressure here is 103/38. She reports that it is high for her and she is typically in the 90s over 50s. Review of Systems Constitutional: reports: Reviewed and negative Eyes: denies: Loss of vision Ears: reports: Reviewed and negative Throat: reports: Reviewed and negative Cardiac: reports: Reviewed and negative Respiratory: reports: Reviewed and negative GI: reports: Reviewed and negative : reports: Reviewed and negative Skin: reports: Reviewed and negative Musculoskeletal: reports: Reviewed and negative Neurologic: reports: Difficulty speaking. denies: Focal weakness, Numbness, Near syncope, Syncope, Seizure, Confused, Headache, Head injury, LOC Psychiatric: reports: Reviewed and negative Endocrine: reports: Reviewed and negative PD PAST MEDICAL HISTORY - Past Medical History Past Medical History: Yes Cardiovascular: Hypertension, High cholesterol, Coronary artery disease, Other Respiratory: None Neuro: TIA Endocrine/Autoimmune: None GI: Colon polyps : None HEENT: None Psych: None Musculoskeletal: None Derm: Psoriasis - Past Surgical History General: Colonoscopy Ortho: Other Cardiovascular: Coronary stent - Present Medications Home Medications: Ambulatory Orders Medication Instructions Recorded Confirmed atenoloL [Tenormin] 50 mg PO DAILY 01/30/13 04/19/21 hydroCHLOROthiazide [Hydrodiuril] 12.5 mg PO DAILY 01/30/13 04/19/21 Aspirin 81 mg PO DAILY 01/31/13 04/19/21 Atorvastatin Calcium [Lipitor] 80 mg PO DAILY 04/01/21 04/19/21 Cholecalciferol (Vitamin D3) 50 mcg PO DAILY 04/01/21 04/19/21 [Vitamin D3] Clopidogrel [Plavix] 75 mg PO DAILY 04/01/21 04/19/21 Multivitamin 1 each PO DAILY 04/01/21 04/19/21 - Allergies Allergies/Adverse Reactions: Allergies Allergy/AdvReac Type Severity Reaction Status Date / Time No Known Drug Allergies Allergy Verified 01/30/13 14:44 - Social History Does the pt smoke?: No Smoking Status: Never smoker PD ED PE EXPANDED - General General: Alert, No acute distress, Well developed/nourished - Cardiac Cardiac: Regular Rate, Radial strong equal, Pedal strong equal, Cap refill < 2 sec. No: Murmur Present - Respiratory Respiratory: Clear to ausultation imtiaz. No: Distress, Labored - Abdomen Abdomen: Normal Bowel sounds. No: Tender to palpation - Derm Derm: Normal color, Warm and dry. No: Rash - Neuro Neuro: Alert and Oriented X 3, CNII-XII intact, Normal gait, Normal finger nose, Normal speech - GCS Eye Opening: Spontaneous Motor: Obeys Commands Verbal: Oriented Total: 15 Results - Vitals Vitals: Vital Signs - 24 hr 04/03/22 04/03/22 04/03/22 12:30 13:32 15:27 Temperature 37.0 C Heart Rate 79 Heart Rate [ 84 87 Sitting] Heart Rate [ 96 89 Standing] Heart Rate [ 78 99 Supine] Respiratory 18 Rate Blood Pressure 125/76 Blood Pressure 80/61 L 116/50 L [Sitting] Blood Pressure 85/48 L 115/50 L [Standing] Blood Pressure 111/45 L 92/58 L [Supine] O2 Saturation 99 04/03/22 04/03/22 16:05 16:30 Temperature Heart Rate 94 86 Heart Rate [ Sitting] Heart Rate [ Standing] Heart Rate [ Supine] Respiratory 22 21 Rate Blood Pressure 126/53 L 149/85 H Blood Pressure [Sitting] Blood Pressure [Standing] Blood Pressure [Supine] O2 Saturation 97 97 Oxygen O2 Source Room air - EKG (time done) 1323 Rate: Rate (enter#) (78) Rhythm: NSR [place]: Normal Intervals: No: Prolonged QT QRS: Normal Ischemia: Non specific changes Compare to prior EKG: Unchanged from prior EKG Computer interpretation: Agree with computer - Labs Labs: Laboratory Tests 04/03/22 04/03/22 04/03/22 13:07 13:07 13:07 WBC 9.0 RBC 3.28 L Hgb 9.6 L Hct 30.8 L MCV 93.9 MCH 29.3 MCHC 31.2 L RDW 14.5 Plt Count 228 MPV 10.6 Neut # (Auto) 6.5 Lymph # (Auto) 1.3 L [place] # (Auto) 0.8 Eos # (Auto) 0.2 Baso # (Auto) 0.1 Absolute Nucleated RBC 0.00 Nucleated RBC % 0.0 Sodium 133 L Potassium 3.7 Chloride 97 L Carbon Dioxide 28 Anion Gap 8.0 BUN 14 Creatinine 0.8 Estimated GFR (MDRD) 69 L Glucose 111 H Calcium 9.4 Total Bilirubin 0.7 AST 33 ALT 21 Alkaline Phosphatase 84 Troponin I High Sens 8.2 B-Natriuretic Peptide Total Protein 6.6 L Albumin 3.7 Globulin 2.9 Albumin/Globulin Ratio 1.3 Lipase 29 04/03/22 13:07 WBC RBC Hgb Hct MCV MCH MCHC RDW Plt Count MPV Neut # (Auto) Lymph # (Auto) [place] # (Auto) Eos # (Auto) Baso # (Auto) Absolute Nucleated RBC Nucleated RBC % Sodium Potassium Chloride Carbon Dioxide Anion Gap BUN Creatinine Estimated GFR (MDRD) Glucose Calcium Total Bilirubin AST ALT Alkaline Phosphatase Troponin I High Sens B-Natriuretic Peptide 265 H Total Protein Albumin Globulin Albumin/Globulin Ratio Lipase - Rads (name of study) CTA head Radiology: Final report received (High-grade irregularity of the right vertebral artery which is occluded more proximally on the same day CT neck concerning for dissection or thromboembolism) CTA neck Radiology: Final report received (Suspected occlusion/dissection of the right vertebral artery. There may also be dissection of the left vertebral artery) PD MEDICAL DECISION MAKING - ED course Complexity details: reviewed results, re-evaluated patient, considered differential, d/w patient, d/w family ED course: This is a very pleasant and well-appearing 81-year-old female that presents to the emergency department for evaluation of what she calls TIA-like event. She states she got suddenly confused and had difficulty speaking. The symptoms lasted about 15 minutes before fully resolving. The patient's [id number] who is incidentally a nurse as well as an [employer] student presented to the emergency department with the patient. Here in the emergency department her NIHSS is 0. She has no focal or obvious cerebellar deficits. She does not describe being dizzy or off balance. The patient is followed closely by blocking machine operator Dr. Wu in [place]. She does have a history of hypertension and over the last few months they have been having to slowly titrate her blood pressure medications down due to hypotension. She reports that she routinely has blood pressures in the 80s or 90s at home but has no history of syncope. Here in the emergency department CBC and electrolytes were obtained without acute worrisome findings. Her EKG is sinus rhythm and she has not had entered into any atrial fibrillation or ectopic arrhythmia while being monitored in the ER. Her high-sensitivity troponin is negative. We did obtain CT angios of the head and neck. 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 CT imaging was forwarded to [facility]. I did speak on the phone with neurologist Dr. Jefferson. He was able to fully review the imaging and he also spoke with his attending. The patient's presenting symptoms are not consistent with vertebral artery occlusion. He feels that these are most likely chronic in nature. He would recommend the patient to have an MRI within the week. I did offer the patient and her daughter to board in the emergency department to obtain an MRI tomorrow but they feel that they can adequately do this as an outpatient which is reasonable given her lack of focal findings at this time. Dr. Jefferson would also recommend dual antiplatelet therapy for 21 days. She was loaded with aspirin here in the emergency department. At this time she is stable for discharge home. We discussed that should she have any other TIA like event she should return immediately to the ER. Departure - Departure Disposition: 01 Home, Self Care Clinical Impression: Stroke-like symptoms, History of orthostatic hypotension Condition: Stable Record reviewed to determine appropriate education?: Yes Comments: Trinh you came to the emergency department today because at home you began to get confused and had difficulty speaking. By the time he arrived to the emergency department all of the symptoms had fully resolved. It is possible that you had a mini stroke or a TIA. We did do a CT angiogram of your head and neck. The most worrisome findings were that which suggested right and left vertebral artery occlusion/dissection. However your neurological findings do not go along with vertebral artery disease. Your CT imaging was discussed with [facility] neurologist Dr. Jefferson. After discussion he feels that the vertebral artery findings are likely chronic in nature and do not explain the symptoms today However the recommendation is for you to follow closely with your blocking machine operator. You should have a repeat echocardiogram done. You should also obtain an outpatient MRI of your brain. This MRI should be done within the week. You should also begin taking aspirin 81 mg every day for the next 3 weeks. If at any point at home you have worsening symptoms, slurred speech, facial droop, feel suddenly off balance or have uncontrolled vomiting you should return immediately to the emergency department. NIHSS - Time Time: 13:15 - Level of Consciousness Level of consciousness: (0) Alert, Keenly responsive LOC Questions: (0) Answers both Q's correct LOC Commands: (0) Performs both correctly - Gaze Best Gaze: (0) Normal - Visual Visual: (0) No loss - Facial Palsy Facial Palsy: (0) Normal, symmetrical movement - Motor Arms (both separate) Motor Arm (right): (0) No drift Motor Arm (left): (0) No drift - Motor Legs (both separate) Motor Leg (right): (0) No drift - Limb Ataxia Limb Ataxia: (0) Absent - Sensory Sensory: (0) Normal - Dysarthria Dysarthria: (0) Normal - Extinction and Inattention (formally neg Extinction and inattention: (0) No abnormality
[2022-04-03] MEDS ORDERED: iohexoL-300 100 ML VIAL ONE (13:25)
[2022-04-03 13:32] LABS: ALBUMIN 3.7 g/dL (3.2-5.5); ALBUMIN/GLOBULIN RATIO 1.3 (1.0-2.2); BILIRUBIN,TOTAL 0.7 mg/dL (0.2-1.0); CALCIUM 9.4 mg/dL (8.5-10.3); CREATININE 0.8 mg/dL (0.4-1.0); POTASSIUM 3.7 mmol/L (3.5-5.0); TOTAL PROTEIN 6.6 g/dL (6.7-8.2)
[2022-04-03] MEDS ORDERED: iohexoL-300 100 ML VIAL IVP ONE (14:05)
--- NOTE | 2022-04-03 14:25 | CT Report ---
PROCEDURE: ANGIO HEAD W/WO INDICATIONS: confusion difficulty word finding CONTRAST: 80ML OMNI 300 TECHNIQUE: Precontrast 4.5 mm thick angled axial sections acquired from the foramen magnum to the vertex. Afte r the administration of intravenous contrast, 1 mm thick sections acquired through the [place] of [place] is. Postcontrast 4.5 mm thick sections then re-acquired from the foramen magnum to the vertex. 3-di mensional gnroymq-gameyiidy-hcdoecclni (MIP) and/or volume rendering reformats were acquired of the c entral intracranial vasculature. For radiation dose reduction, the following was used: automated ex posure control, adjustment of mA and/or kV according to patient size. COMPARISON: None FINDINGS: Image quality: Excellent CSF spaces: Basal cisterns are patent. Lateral ventricles are symmetric. Volume: Lateral brain moderate Brain: No intracranial hemorrhage. Bishop-white differentiation is grossly maintained. Craniofacial structures: No displaced fracture. Left maxillary cyst. Orbits are intact. Head angiography Anterior circulation: ICAs: Mild to moderate cavernous calcifications. This is seen bilaterally. Noncalcified plaque is pre sent, slightly more on the left side. ACAs: normal and symmetric MCAs: normal and symmetric AComm: no aneurysm Posterior circulation: Dominance: Left Vertebral arteries: High-grade irregularity of the right vertebral artery at the V3 and V4 segments. Extradural portion of the left posterior inferior cerebellar artery Basilar artery: unremarkable PComms: no aneurysm cookie padder: normal and symmetric The dural venous sinuses are patent on this arterial phase study. IMPRESSION: High-grade irregularity of the right vertebral artery, which is occluded more proximally on same-day CT neck concerning for dissection or thromboembolism On noncontrast CT head, there is no acute intracranial abnormality. Consider MRI for further evaluati on for infarction if there is sufficient. Bilateral cavernous carotid narrowing as above. Reviewed by: Toby Beaver MD on 04/03/2022 2:23 PM PST Approved by: Toby Beaver MD on 04/03/2022 2:23 PM PST Station ID: [id number]
--- NOTE | 2022-04-03 14:30 | CT Report ---
PROCEDURE: ANGIO NECK W INDICATIONS: confusion; difficulty word finding CONTRAST: 80ML OMNI 300 TECHNIQUE: After the administration of intravenous contrast, 1.5 mm axial sections acquired from the aortic arch to the [place] of [place]. Coronal 3-D maximum intensity projection (MIP) and/or volume rendering ref ormats were then performed. For radiation dose reduction, the following was used: automated exposur e control, adjustment of mA and/or kV according to patient size. COMPARISON: None. FINDINGS: Neck angiography Aortic arch and subclavian arteries: Mild to moderate atherosclerotic calcifications of the arch. Mod erate to severe atherosclerotic calcifications of the right brachiocephalic artery, left subclavian. CCAs: Moderate atherosclerotic calcifications of the left CCA. Mild atherosclerotic calcifications of the right CCA. ICA origins (by NASCET criteria): About 50-70% narrowing of the left ICA origin. About 30-50% narrowi ng right ICA origin. ICAs: Please also see separately dictated CT report. There is kinking of the mid right cervical ICA. ECAs: origins are patent. Vertebral arteries: Mild narrowing of the left vertebral origin, which is dominant. There is irregula rity of the left vertebral artery at the level of C1 There is occlusion of the V1 and V2 segments of the right vertebral artery with incomplete reconstitu tion distally. Soft tissues: mo significant mass, aneurysm, or lymphadenopathy Lung apices: Emphysema, partially seen Bones: Degenerative changes. IMPRESSION: Multifocal areas of narrowing in the great arch vessels as above. Suspected occlusion/dissection of the right vertebral. There may also be dissection of the left verte bral artery, versus chronic irregularity, at the level of C1-C2 (2/156). CT head findings are separat oli dictated. The estimate of stenosis included in the report of the imaging study was calculated using the NASCET method Reviewed by: Toby Beaver MD on 04/03/2022 2:29 PM PST Approved by: Toby Beaver MD on 04/03/2022 2:29 PM PST Station ID: [id number]
[2022-04-03 16:30] VITALS: BP 149/85
[2022-04-03] MEDS ORDERED: ASPIRIN CHEW 81 MG TABLET PO STA (16:41)
== END 2022-04-03 16:53 | disposition home or self-care (01) ==
LOC: EDUNIT# → ED 12:27
DX: R41.0 Disorientation, unspecified (principal); R47.02 Dysphasia; I10 Essential (primary) hypertension; I95.1 Orthostatic hypotension; I65.01 Occlusion and stenosis of right vertebral artery; Z20.822 Contact with and (suspected) exposure to COVID-19
CPT/HCPCS: 36415; 70496; 70498; 71045; 80053; 83690; 83880; 84484; 85025; 87635; 93005; 96360; 99283; 99284; A9270; Q9967

== ENCOUNTER 2022-04-12 09:30 | Outpatient (CLI) | payer MEDICARE, OTHER ==
[~2022-04-12 09:30] MED LIST: GADOBUTROL 7.5 MMOL/7.5 ML VIAL ONE
--- NOTE | 2022-04-12 13:25 | MRI Report ---
PROCEDURE: MRI brain with and without contrast INDICATIONS: TIA CONTRAST: 6.4ml gadavist TECHNIQUE: Noncontrast axial T1 spin echo, axial T2 fast spin echo, sagittal and axial FLAIR, panda l T2 fast spin echo, axial gradient echo, axial diffusion and ADC through the brain. After the admin istration of contrast, axial and coronal T1 spin echo with fat saturation through the brain. COMPARISON: None. FINDINGS: Image quality: Excellent. CSF spaces: Basal cisterns are patent. No extra-axial fluid collections. Ventricles are normal in size and shape. Brain: No midline shift. No intracranial bleeds or masses. No abnormal intracranial enhancement. There is cerebral volume loss for age. There is periventricular white matter chronic small vessel is chemic change. The brainstem appears normal. Diffusion-weighted images demonstrate no acute infarct . Normal intravascular flow voids are present. Old right occipital infarct noted in the lingual gyrus. No hemorrhagic or mass effect Skull and face: Calvarial marrow is normal in signal. Orbits appear normal. Bilateral intraocular lens replacements noted. Sinuses: Sinuses and mastoids appear clear. IMPRESSION: Moderate atrophy and chronic ischemic change without acute infarct, hemorrhage or mass lesion. 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
[2022-04-12] MEDS ORDERED: GADOBUTROL 7.5 MMOL/7.5 ML VIAL IVP ONE (16:22)
== END 2022-04-12 09:31 | disposition home or self-care (01) ==
LOC: DI 09:30
PROVIDERS: ATTEND Family Medicine
DX: G45.9 Transient cerebral ischemic attack, unspecified (principal); I67.82 Cerebral ischemia; G31.9 Degenerative disease of nervous system, unspecified
CPT/HCPCS: 70553; A9585

== ENCOUNTER 2022-04-21 14:25 | Emergency (ER) | payer MEDICARE, OTHER ==
[2022-04-21] MEDS ORDERED: SODIUM CHLORIDE 0.9% 1,000 ML IV STA ×3 (14:35→18:33)
[2022-04-21 14:40] LABS: BASOPHILS # (AUTO) 0.1 10^3/uL (0.0-0.1); BASOPHILS % (AUTO) 1.1 %; EOSINOPHILS # (AUTO) 0.1 10^3/uL (0.0-0.7); EOSINOPHILS % (AUTO) 0.4 %; HCT - HEMATOCRIT 26.6 % (37.0-47.0); HGB - HEMOGLOBIN 8.3 g/dL (12.0-16.0); LYMPHOCYTES # (AUTO) 1.2 10^3/uL (1.5-3.5); LYMPHOCYTES % (AUTO) 10.2 %; MEAN CORPUSCULAR HEMOGLOBIN 28.6 pg (27.0-31.0); MEAN CORPUSCULAR HGB CONC 31.2 g/dL (32.0-36.0); MEAN CORPUSCULAR VOLUME 91.7 fL (81.0-99.0); MEAN PLATELET VOLUME 10.6 fL (7.9-10.8); MONOCYTES # (AUTO) 0.9 10^3/uL (0.0-1.0); MONOCYTES % (AUTO) 7.4 %; NEUTROPHILS # (AUTO) 9.4 10^3/uL (1.5-6.6); NEUTROPHILS % (AUTO) 80.4 %; PLT - PLATELET COUNT 243 10^3/uL (130-450); RED CELL DISTRIBUTION WIDTH 15.8 % (12.0-15.0); WHITE BLOOD COUNT 11.7 x10^3/uL (4.8-10.8)
[2022-04-21 14:55] LABS: ALBUMIN 3.5 g/dL (3.2-5.5); ALBUMIN/GLOBULIN RATIO 1.1 (1.0-2.2); BILIRUBIN,TOTAL 0.9 mg/dL (0.2-1.0); CREATININE 0.6 mg/dL (0.4-1.0); POTASSIUM 2.8 mmol/L (3.5-5.0); TOTAL PROTEIN 6.6 g/dL (6.7-8.2)
--- NOTE | 2022-04-21 15:13 | XRAY Report ---
PROCEDURE: Chest 1 View X-Ray INDICATIONS: syncope TECHNIQUE: One view of the chest was acquired. COMPARISON: Chest x-ray 04/03/2022 FINDINGS: Surgical changes and devices: None. Lungs and pleura: No pleural effusions or pneumothorax. Lungs are clear. Mediastinum: Mediastinal contours appear normal. Heart size is enlarged. Bones and chest wall: No suspicious bony lesions. Overlying soft tissues appear unremarkable. IMPRESSION: No acute pulmonary process. Reviewed by: Mary Govea MD on 04/21/2022 3:12 PM PST Approved by: Mary Govea MD on 04/21/2022 3:12 PM [facility] Station ID: [id number]
[2022-04-21] MEDS ORDERED: POTASSIUM CHLORIDE 20 MEQ TABLET PO STA (15:45)
--- NOTE | 2022-04-21 15:52 | ED Physician Documentation ---
History of Present Illness - Stated complaint Stated Complaint: HYPOTENSION/GLF - Chief complaint Chief Complaint: Neuro - History obtained from History obtained from: Patient, EMS - Additonal information Additional information: Patient is an 81-year-old female presenting for evaluation of feeling lightheaded and weak starting earlier today.She was in her kitchen getting something to eat when she felt lightheaded and lowered herself down to the ground. She did not hit her head or have LOC.She is very certain of these. She was able to crawl to her recliner and able to sit in it. She did try and get up several times but felt too weak to. EMS was called. When EMS arrived they noted that she was hypotensive with blood pressures in the 60s and was orthostatic. They initiated fluid resuscitation and patient reports trying to feel better. She has reported recently having nausea and vomiting Although she was today able to eat a bowl of cereal and some cheddar crackers. She denies headache, cough, congestion, chest pain, difficulty breathing, abdominal pain, diarrhea, dysuria. Review of Systems Constitutional: denies: Fever Nose: denies: Congestion Cardiac: denies: Chest pain / pressure Respiratory: denies: Dyspnea, Cough GI: reports: Nausea, Vomiting. denies: Abdominal Pain, Diarrhea, Bloody / black stool : denies: Dysuria Neurologic: reports: Generalized weakness. denies: Syncope, Headache, Head injury PD PAST MEDICAL HISTORY - Past Medical History Cardiovascular: Hypertension, High cholesterol, Coronary artery disease, Other Respiratory: None Neuro: TIA Endocrine/Autoimmune: None GI: Colon polyps : None HEENT: None Psych: None Musculoskeletal: None Derm: Psoriasis - Past Surgical History General: Colonoscopy Ortho: Other Cardiovascular: Coronary stent - Present Medications Home Medications: Ambulatory Orders Medication Instructions Recorded Confirmed atenoloL [Tenormin] 50 mg PO DAILY 01/30/13 04/19/21 hydroCHLOROthiazide [Hydrodiuril] 12.5 mg PO DAILY 01/30/13 04/19/21 Aspirin 81 mg PO DAILY 01/31/13 04/19/21 Atorvastatin Calcium [Lipitor] 80 mg PO DAILY 04/01/21 04/19/21 Cholecalciferol (Vitamin D3) 50 mcg PO DAILY 04/01/21 04/19/21 [Vitamin D3] Clopidogrel [Plavix] 75 mg PO DAILY 04/01/21 04/19/21 Multivitamin 1 each PO DAILY 04/01/21 04/19/21 - Allergies Allergies/Adverse Reactions: Allergies Allergy/AdvReac Type Severity Reaction Status Date / Time No Known Drug Allergies Allergy Verified 01/30/13 14:44 - Social History Does the pt smoke?: No Smoking Status: Never smoker PD ED PE NORMAL - General General: Alert and oriented X 3, No acute distress, Well developed/nourished - HEENT HEENT: Atraumatic, PERRL, EOMI, Pharynx benign - Neck Neck: Supple, no meningeal sign, No bony TTP - Cardiac Cardiac: RRR, No murmur - Respiratory Respiratory: No respiratory distress, Clear bilaterally - Abdomen Abdomen: Soft, Non tender, Non distended - Derm Derm: Warm and dry - Extremities Extremities: No edema - Neuro Neuro: Alert and oriented X 3, publicity consultant 2-12 intact, No motor deficit, No sensory deficit, Normal speech Results - Vitals Vitals: Vital Signs - 24 hr 04/21/22 04/21/22 04/21/22 14:30 15:05 15:30 Temperature 37.1 C Heart Rate 102 H 100 76 Heart Rate [ Sitting] Heart Rate [ Standing] Heart Rate [ Supine] Respiratory 13 18 18 Rate Blood Pressure 100/47 L 112/51 L 107/66 Blood Pressure [Sitting] Blood Pressure [Standing] Blood Pressure [Supine] O2 Saturation 92 99 99 04/21/22 04/21/22 04/21/22 16:00 16:18 17:30 Temperature Heart Rate 100 96 Heart Rate [ 100 Sitting] Heart Rate [ 107 H Standing] Heart Rate [ 97 Supine] Respiratory 19 18 Rate Blood Pressure 114/50 L 106/50 L Blood Pressure 83/48 L [Sitting] Blood Pressure 73/36 L [Standing] Blood Pressure 106/54 L [Supine] O2 Saturation 98 99 04/21/22 04/21/22 04/21/22 18:00 18:28 18:30 Temperature Heart Rate 95 95 Heart Rate [ 102 H Sitting] Heart Rate [ 113 H Standing] Heart Rate [ 99 Supine] Respiratory 18 16 Rate Blood Pressure 101/50 L 109/50 L Blood Pressure 86/50 L [Sitting] Blood Pressure 68/55 L [Standing] Blood Pressure 102/56 L [Supine] O2 Saturation 99 92 04/21/22 20:06 Temperature 36.6 C Heart Rate 101 H Heart Rate [ Sitting] Heart Rate [ Standing] Heart Rate [ Supine] Respiratory Rate Blood Pressure 105/65 Blood Pressure [Sitting] Blood Pressure [Standing] Blood Pressure [Supine] O2 Saturation 97 Oxygen O2 Source Room air - EKG (time done) 1444 Rate: Rate (enter#) (100) Rhythm: Sinus tachycardia [place]: Normal Intervals: Prolonged QT (QTc 532) Ischemia: ST depression (lateral leads). No: ST elevation c/w ischemia - Labs Labs: Laboratory Tests 04/21/22 04/21/22 04/21/22 14:33 14:33 14:33 WBC 11.7 H RBC 2.90 L Hgb 8.3 L Hct 26.6 L MCV 91.7 MCH 28.6 MCHC 31.2 L RDW 15.8 H Plt Count 243 MPV 10.6 Neut # (Auto) 9.4 H Lymph # (Auto) 1.2 L [place] # (Auto) 0.9 Eos # (Auto) 0.1 Baso # (Auto) 0.1 Absolute Nucleated RBC 0.00 Nucleated RBC % 0.0 Sodium 134 L Potassium 2.8 L Chloride 98 L Carbon Dioxide 27 Anion Gap 9.0 BUN 17 Creatinine 0.6 Estimated GFR (MDRD) 96 Glucose 129 H Calcium 9.0 Magnesium 1.8 Total Bilirubin 0.9 AST 37 ALT 22 Alkaline Phosphatase 66 Total Protein 6.6 L Albumin 3.5 Globulin 3.1 Albumin/Globulin Ratio 1.1 Lipase 32 Urine Color Urine Clarity Urine pH Ur Specific [place] Urine Protein Urine Glucose (UA) Urine Ketones Urine Occult Blood Urine Nitrite Urine Bilirubin Urine Urobilinogen Ur Leukocyte Esterase Urine RBC Urine WBC Ur Squamous Epith Cells Urine Bacteria Ur Microscopic Review Urine Culture Comments 04/21/22 16:04 WBC RBC Hgb Hct MCV MCH MCHC RDW Plt Count MPV Neut # (Auto) Lymph # (Auto) [place] # (Auto) Eos # (Auto) Baso # (Auto) Absolute Nucleated RBC Nucleated RBC % Sodium Potassium Chloride Carbon Dioxide Anion Gap BUN Creatinine Estimated GFR (MDRD) Glucose Calcium Magnesium Total Bilirubin AST ALT Alkaline Phosphatase Total Protein Albumin Globulin Albumin/Globulin Ratio Lipase Urine Color YELLOW Urine Clarity HAZY Urine pH 6.0 Ur Specific [place] 1.015 Urine Protein NEGATIVE Urine Glucose (UA) NEGATIVE Urine Ketones NEGATIVE Urine Occult Blood TRACE-INTA Urine Nitrite NEGATIVE Urine Bilirubin NEGATIVE Urine Urobilinogen 0.2 (NORMAL) Ur Leukocyte Esterase LARGE H Urine RBC 0-5 Urine WBC >25 H Ur Squamous Epith Cells MANY Squamous H Urine Bacteria Many H Ur Microscopic Review INDICATED Urine Culture Comments NOT INDICATED PD MEDICAL DECISION MAKING - ED course Complexity details: reviewed results, re-evaluated patient, d/w patient, d/w family ED course: Patient presenting for evaluation of weakness and near syncope. She denies head injury or LOC And has no signs of trauma. She was noted to be hypotensive. She has had recent decreased p.o. intake.She saw her geomatics professor earlier this week and they have titrated down her blood pressure medications. She continues on HCTZ as She is prone to retaining fluid And they are trying to balance that with her blood pressures. Per her [id number]-ia-ddj who is at the bedside she normally runs in the 80s and 90s. Patient denies any pain, specifically she denies chest pain or difficulty breathing. She has no symptoms to suggest AK/ACS. She has no focal deficits to suggest stroke or TIA.Her labs were reviewed And she is noted to have a low potassium of 2.8. Her hemoglobin is slightly lower than previous. However she denies symptoms of GI bleed. I do not believe she is septic.Her blood pressure did improve with fluids And she is able to ambulate more steadily. Her blood pressures when standing are still low and so she is being given additional fluids. The patient to be signed out to oncoming provider at shift change. Departure - Departure Disposition: 01 Home, Self Care Clinical Impression: Orthostatic hypotension, Hypokalemia Condition: Stable Instructions: ED Hypotension Orthostatic, ED Potassium Deficiency Discharge Date/Time: 04/21/22 20:20
[2022-04-21 16:28] LABS: BILIRUBIN,URINE NEGATIVE (NEGATIVE); GLUCOSE, URINE (UA) NEGATIVE (NEGATIVE); KETONES,URINE (UA) NEGATIVE (NEGATIVE); LEUKOCYTE ESTERASE, URINE LARGE (NEGATIVE); NITRITE,URINE NEGATIVE (NEGATIVE); OCCULT BLOOD,URINE TRACE-INTA (NEGATIVE); PROTEIN,URINE NEGATIVE (NEGATIVE); UROBILINOGEN,URINE 0.2 (NORMAL) E.U./dL (NORMAL)
[2022-04-21 16:31] LABS: CLARITY,URINE HAZY (CLEAR)
[2022-04-21 16:41] LABS: BACTERIA,URINE Many /HPF (None Seen); RBC,URINE 0-5 /HPF (0-5); SQUAMOUS EPITHELIAL CELL,UR MANY Squamous (<= Few); WBC,URINE >25 /HPF (0-5)
[2022-04-21 20:06] VITALS: BP 105/65
--- NOTE | 2022-05-15 09:47 | ED Physician Documentation ---
ED Addendum - Addendum Addendum: 05/15/22 09:45 I received signout on this patient from Dr. Delcid at the end of her shift. Please see her note for complete H&P. Patient had near syncopal episode tonight with improvement in her symptoms with intravenous fluids, but she is noted to recurrently have positive orthostatic vital signs. She is finishing a third liter of normal saline at the time of change of shift. Once this third liter of NS completed infusion, she was able to stand and ambulate without symptoms and standing BP is normal. She is comfortable with discharge. Return precautions d/w patient (and daughter who is at bedside). 05/15/22 09:49 FINAL IMPRESSION: orthostatic hypotension, near syncope, hypokalemia
== END 2022-04-21 20:20 | disposition home or self-care (01) ==
LOC: EDUNIT# → ED 14:25
DX: I95.1 Orthostatic hypotension (principal); E87.6 Hypokalemia; I10 Essential (primary) hypertension
CPT/HCPCS: 36415; 71045; 80053; 81001; 83690; 83735; 85025; 93005; 96360; 96361; 99284; A9270; 81003; 87086

== ENCOUNTER → 2022-04-21 | Outpatient (CLI) | payer MEDICARE, OTHER | END | disposition critical access hospital (66) | LOC: EMS 14:07 | DX: R55 Syncope and collapse (principal); R42 Dizziness and giddiness; I95.9 Hypotension, unspecified | CPT/HCPCS: A0425; A0429 ==

== ENCOUNTER 2022-07-06 10:45 | Outpatient (CLI) | payer MEDICARE, OTHER ==
[2022-07-06 11:04] LABS: BASOPHILS # (AUTO) 0.2 10^3/uL (0.0-0.1); BASOPHILS % (AUTO) 1.9 %; EOSINOPHILS # (AUTO) 0.1 10^3/uL (0.0-0.7); EOSINOPHILS % (AUTO) 1.5 %; HCT - HEMATOCRIT 35.7 % (37.0-47.0); HGB - HEMOGLOBIN 10.3 g/dL (12.0-16.0); LYMPHOCYTES # (AUTO) 1.6 10^3/uL (1.5-3.5); LYMPHOCYTES % (AUTO) 16.4 %; MEAN CORPUSCULAR HEMOGLOBIN 26.6 pg (27.0-31.0); MEAN CORPUSCULAR HGB CONC 28.9 g/dL (32.0-36.0); MEAN CORPUSCULAR VOLUME 92.2 fL (81.0-99.0); MEAN PLATELET VOLUME 10.9 fL (7.9-10.8); MONOCYTES # (AUTO) 0.8 10^3/uL (0.0-1.0); MONOCYTES % (AUTO) 8.4 %; NEUTROPHILS # (AUTO) 6.8 10^3/uL (1.5-6.6); NEUTROPHILS % (AUTO) 71.3 %; PLT - PLATELET COUNT 265 10^3/uL (130-450); RED BLOOD COUNT 3.87 10^6/uL (4.20-5.40); RED CELL DISTRIBUTION WIDTH 16.2 % (12.0-15.0); WHITE BLOOD COUNT 9.5 x10^3/uL (4.8-10.8)
[2022-07-06 11:28] LABS: ALBUMIN 3.4 g/dL (3.2-5.5); ALBUMIN/GLOBULIN RATIO 1.1 (1.0-2.2); BILIRUBIN,TOTAL 0.7 mg/dL (0.2-1.0); CREATININE 0.6 mg/dL (0.4-1.0); POTASSIUM 3.5 mmol/L (3.5-5.0); TOTAL PROTEIN 6.6 g/dL (6.7-8.2)
[2022-07-06 11:41] LABS: FERRITIN 15.6 ng/mL (11.0-306.8)
[2022-07-06 11:44] LABS: FOLATE 11.97 ng/mL (5.90 - >24.8)
== END 2022-07-06 10:46 | disposition home or self-care (01) ==
LOC: LAB 10:45
PROVIDERS: ATTEND Physician Assistant
DX: E87.6 Hypokalemia (principal); D64.9 Anemia, unspecified
CPT/HCPCS: 36415; 80053; 82607; 82728; 82746; 83540; 84466; 85025

== ENCOUNTER 2022-12-03 08:50 | Outpatient (CLI) | payer MEDICARE, OTHER ==
[2022-12-03 09:08] LABS: BASOPHILS # (AUTO) 0.1 10^3/uL (0.0-0.1); BASOPHILS % (AUTO) 1.3 %; EOSINOPHILS # (AUTO) 0.2 10^3/uL (0.0-0.7); EOSINOPHILS % (AUTO) 2.2 %; HCT - HEMATOCRIT 34.5 % (37.0-47.0); HGB - HEMOGLOBIN 10.7 g/dL (12.0-16.0); LYMPHOCYTES # (AUTO) 1.4 10^3/uL (1.5-3.5); LYMPHOCYTES % (AUTO) 16.6 %; MEAN CORPUSCULAR HEMOGLOBIN 28.2 pg (27.0-31.0); MEAN CORPUSCULAR VOLUME 90.8 fL (81.0-99.0); MEAN PLATELET VOLUME 10.9 fL (7.9-10.8); MONOCYTES # (AUTO) 0.8 10^3/uL (0.0-1.0); MONOCYTES % (AUTO) 9.7 %; NEUTROPHILS # (AUTO) 5.9 10^3/uL (1.5-6.6); PLT - PLATELET COUNT 266 10^3/uL (130-450); RED CELL DISTRIBUTION WIDTH 16.1 % (12.0-15.0); WHITE BLOOD COUNT 8.4 x10^3/uL (4.8-10.8)
[2022-12-03 09:29] LABS: ALBUMIN 3.5 g/dL (3.2-5.5); ALBUMIN/GLOBULIN RATIO 1.1 (1.0-2.2); BILIRUBIN,TOTAL 0.5 mg/dL (0.2-1.0); CALCIUM 9.1 mg/dL (8.5-10.3); CREATININE 0.5 mg/dL (0.4-1.0); MAGNESIUM 1.7 mg/dL (1.7-2.8); POTASSIUM 3.3 mmol/L (3.5-5.0); TOTAL PROTEIN 6.8 g/dL (6.7-8.2)
[2022-12-03 09:43] LABS: THYROID STIMULATING HORMONE 1.68 uIU/mL (0.34-5.60)
== END 2022-12-03 08:51 | disposition home or self-care (01) ==
LOC: LAB 08:50
PROVIDERS: ATTEND Physician Assistant
DX: R11.2 Nausea with vomiting, unspecified (principal)
CPT/HCPCS: 36415; 80053; 82150; 83690; 83735; 84443; 85025

== ENCOUNTER 2022-12-12 14:44 | Outpatient (CLI) | payer MEDICARE, OTHER ==
--- NOTE | 2022-12-12 15:49 | Ultrasound Report ---
PROCEDURE: Retroperitoneal INDICATIONS: RENAL MASS TECHNIQUE: Real-time scanning was performed of the retroperitoneal organs, with image documentation. COMPARISON: None. FINDINGS: Kidneys: Kidneys are normal in size. Right kidney measures 11.4 cm long; left kidney measures 10.8 cm long. Right renal cortical thickness is 1.5 cm; left renal cortical thickness is 1.4 cm. No ritika d masses, hydronephrosis, or nephrolithiasis. The right kidney has pelviectasis. Bladder: Pre-void bladder volume is 556 mL. Post-void residual is 192 mL. Pre-void images demonstr ate no intraluminal masses or stones. On pre-void images, bilateral ureteral jets are noted with col or Doppler interrogation. (Of note, ureteral jets may not be detectable in up to 25% of cases due to insufficient differences in specific gravity between ureteral and bladder urine). Miscellaneous: No free abdominal fluid. IMPRESSION: 1. Simple left renal cyst of the inferior pole measuring 4.3 x 4.3 x 4.8 cm. 2. Post void residual of 192 mL. Reviewed by: Donovan Johnston on 12/12/2022 3:47 PM PDT Approved by: Donovan Johnston on 12/12/2022 3:47 PM PDT Station ID: [id number]
== END 2022-12-12 14:45 | disposition home or self-care (01) ==
LOC: DI 14:44
PROVIDERS: ATTEND Physician Assistant
DX: N28.1 Cyst of kidney, acquired (principal)

== ENCOUNTER 2023-01-01 11:18 | Outpatient (CLI) | payer MEDICARE, OTHER | END 2023-01-01 23:59 | disposition critical access hospital (66) | LOC: EMS 11:18 | DX: R53.1 Weakness (principal); R53.83 Other fatigue; R03.1 Nonspecific low blood-pressure reading | CPT/HCPCS: A0425; A0427 ==

== ENCOUNTER 2023-02-24 10:14 | Outpatient (CLI) | payer MEDICARE, OTHER ==
[2023-02-24 10:35] LABS: BASOPHILS # (AUTO) 0.2 10^3/uL (0.0-0.1); EOSINOPHILS # (AUTO) 0.2 10^3/uL (0.0-0.7); EOSINOPHILS % (AUTO) 2.6 %; HCT - HEMATOCRIT 34.3 % (37.0-47.0); HGB - HEMOGLOBIN 10.4 g/dL (12.0-16.0); LYMPHOCYTES # (AUTO) 1.3 10^3/uL (1.5-3.5); MEAN CORPUSCULAR HEMOGLOBIN 30.9 pg (27.0-31.0); MEAN CORPUSCULAR HGB CONC 30.3 g/dL (32.0-36.0); MEAN CORPUSCULAR VOLUME 101.8 fL (81.0-99.0); MONOCYTES # (AUTO) 0.6 10^3/uL (0.0-1.0); MONOCYTES % (AUTO) 8.5 %; NEUTROPHILS % (AUTO) 68.8 %; PLT - PLATELET COUNT 226 10^3/uL (130-450); RED BLOOD COUNT 3.37 10^6/uL (4.20-5.40); RED CELL DISTRIBUTION WIDTH 15.4 % (12.0-15.0); WHITE BLOOD COUNT 7.3 x10^3/uL (4.8-10.8)
[2023-02-24 10:50] LABS: % IRON SATURATION 8 % (20-50); ALBUMIN 3.9 g/dL (3.2-5.5); ALBUMIN/GLOBULIN RATIO 1.6 (1.0-2.2); ALKALINE PHOSPHATASE 66 IU/L (42-121); ALT ALANINE AMINOTRANSFERASE 13 IU/L (10-60); AST ASPARTATE AMINOTRANSFERASE 23 IU/L (10-42); BILIRUBIN,TOTAL 0.6 mg/dL (0.2-1.0); BUN - BLOOD UREA NITROGEN 18 mg/dL (6-20); CALCIUM 9.6 mg/dL (8.5-10.3); CARBON DIOXIDE - CO2 30 mmol/L (21-32); CHLORIDE 105 mmol/L (101-111); CHOL/HDL RATIO 2.6 (<4.4); CHOLESTEROL 141 mg/dL; CREATININE 0.5 mg/dL (0.6-1.3); GFR - MDRD 118 (>89); GLUCOSE 131 mg/dL (74-104); HDL CHOLESTEROL 55 mg/dL; IRON 33 ug/dL (50-212); LDL CHOLESTEROL,CALCULATED 71 mg/dL; LDL/HDL RATIO 1.3 (<4.4); MAGNESIUM 1.5 mg/dL (1.7-2.3); POTASSIUM 3.8 mmol/L (3.5-4.5); SODIUM 141 mmol/L (135-145); TOTAL IRON BINDING CAPACITY 416 ug/dL (250-450); TOTAL PROTEIN 6.4 g/dL (6.4-8.9); TRANSFERRIN 297 mg/dL (203-362); TRIGLYCERIDES 75 mg/dL (48-352); VLDL CHOLESTEROL 15 mg/dL
== END 2023-02-24 10:15 | disposition home or self-care (01) ==
LOC: LAB 10:14
PROVIDERS: ATTEND Family Medicine
DX: E78.5 Hyperlipidemia, unspecified (principal); R11.2 Nausea with vomiting, unspecified; E87.6 Hypokalemia; I95.9 Hypotension, unspecified; D64.9 Anemia, unspecified
CPT/HCPCS: 36415; 80053; 80061; 83540; 83721; 83735; 84466; 85025

== ENCOUNTER 2023-03-27 10:29 | Outpatient (CLI) | payer MEDICARE, OTHER ==
[2023-03-27 10:40] LABS: BASOPHILS # (AUTO) 0.1 10^3/uL (0.0-0.1); BASOPHILS % (AUTO) 1.1 %; EOSINOPHILS # (AUTO) 0.1 10^3/uL (0.0-0.7); EOSINOPHILS % (AUTO) 0.5 %; HCT - HEMATOCRIT 29.9 % (37.0-47.0); HGB - HEMOGLOBIN 9.2 g/dL (12.0-16.0); LYMPHOCYTES # (AUTO) 1.2 10^3/uL (1.5-3.5); MEAN CORPUSCULAR HEMOGLOBIN 28.3 pg (27.0-31.0); MEAN CORPUSCULAR HGB CONC 30.8 g/dL (32.0-36.0); MONOCYTES # (AUTO) 0.8 10^3/uL (0.0-1.0); MONOCYTES % (AUTO) 6.5 %; NEUTROPHILS % (AUTO) 81.6 %; PLT - PLATELET COUNT 346 10^3/uL (130-450); RED BLOOD COUNT 3.25 10^6/uL (4.20-5.40); RED CELL DISTRIBUTION WIDTH 14.6 % (12.0-15.0); WHITE BLOOD COUNT 12.3 x10^3/uL (4.8-10.8)
[2023-03-27 11:07] LABS: ALBUMIN 3.5 g/dL (3.2-5.5); ALBUMIN/GLOBULIN RATIO 1.2 (1.0-2.2); BILIRUBIN,TOTAL 0.6 mg/dL (0.2-1.0); CALCIUM 9.4 mg/dL (8.5-10.3); CREATININE 0.5 mg/dL (0.6-1.3); MAGNESIUM 1.4 mg/dL (1.7-2.3); POTASSIUM 3.6 mmol/L (3.5-4.5); TOTAL PROTEIN 6.5 g/dL (6.4-8.9)
== END 2023-03-27 10:30 | disposition home or self-care (01) ==
LOC: LAB 10:29
PROVIDERS: ATTEND Physician Assistant
DX: E87.6 Hypokalemia (principal); D64.9 Anemia, unspecified; R11.2 Nausea with vomiting, unspecified
CPT/HCPCS: 36415; 80053; 83540; 83735; 84466; 85025

== ENCOUNTER 2023-04-11 16:53 | Emergency (ER) | payer MEDICARE, OTHER ==
[2023-04-11 17:58] LABS: BASOPHILS # (AUTO) 0.1 10^3/uL (0.0-0.1); BASOPHILS % (AUTO) 1.3 %; EOSINOPHILS # (AUTO) 0.2 10^3/uL (0.0-0.7); EOSINOPHILS % (AUTO) 2.2 %; HCT - HEMATOCRIT 28.1 % (37.0-47.0); HGB - HEMOGLOBIN 8.3 g/dL (12.0-16.0); LYMPHOCYTES # (AUTO) 1.5 10^3/uL (1.5-3.5); LYMPHOCYTES % (AUTO) 16.6 %; MEAN CORPUSCULAR HGB CONC 29.5 g/dL (32.0-36.0); MEAN CORPUSCULAR VOLUME 94.9 fL (81.0-99.0); MEAN PLATELET VOLUME 10.7 fL (7.9-10.8); MONOCYTES # (AUTO) 0.7 10^3/uL (0.0-1.0); MONOCYTES % (AUTO) 8.5 %; NEUTROPHILS # (AUTO) 6.2 10^3/uL (1.5-6.6); NEUTROPHILS % (AUTO) 70.9 %; PLT - PLATELET COUNT 289 10^3/uL (130-450); RED BLOOD COUNT 2.96 10^6/uL (4.20-5.40); RED CELL DISTRIBUTION WIDTH 19.9 % (12.0-15.0); WHITE BLOOD COUNT 8.7 x10^3/uL (4.8-10.8)
[2023-04-11 18:09] LABS: INR 1.3 (0.8-1.2); PT - PROTHROMBIN TIME 13.4 secs (9.9-12.6)
[2023-04-11 18:13] LABS: ALBUMIN 3.7 g/dL (3.2-5.5); ALBUMIN/GLOBULIN RATIO 1.6 (1.0-2.2); BILIRUBIN,TOTAL 0.5 mg/dL (0.2-1.0); CALCIUM 9.3 mg/dL (8.5-10.3); CREATININE 0.5 mg/dL (0.6-1.3); POTASSIUM 2.9 mmol/L (3.5-4.5)
--- NOTE | 2023-04-11 18:44 | ED Physician Documentation ---
PD HPI FOCAL NEURO - Stated complaint Stated Complaint: EYE PX/STROKE SYMPTOM - Chief complaint Chief Complaint: Neuro - History obtained from History obtained from: Patient - Additional information Additional information: 82 yo with hx paroxysmal afib, cva/tia lost vision n left eye 5 days ago. Seen at opt and has retinal occlusion. Sent here for CVA w/u. Had recent EGD with AVM and ulcers. Therefore not anticoagulated and no ASA as well. PD PAST MEDICAL HISTORY - Past Medical History Past Medical History: Yes Cardiovascular: Hypertension, High cholesterol, Coronary artery disease, Other Respiratory: None Neuro: TIA Endocrine/Autoimmune: None GI: Colon polyps : None HEENT: None Psych: None Musculoskeletal: None Derm: Psoriasis - Past Surgical History Past Surgical History: Yes General: Colonoscopy Ortho: Other Cardiovascular: Coronary stent - Present Medications Home Medications: Ambulatory Orders Medication Instructions Recorded Confirmed Aspirin 81 mg PO DAILY 01/31/13 03/21/23 Atorvastatin Calcium [Lipitor] 40 mg PO HS 04/01/21 03/21/23 Digoxin [Lanoxin] 125 mcg PO DAILY 01/01/23 03/21/23 Ferrous Fumarate/Ascorbic Acid 1 each PO DAILY 01/01/23 03/21/23 [Dneny-Sequels 65-25 mg Caplet] - Allergies Allergies/Adverse Reactions: Allergies Allergy/AdvReac Type Severity Reaction Status Date / Time No Known Drug Allergies Allergy Verified 04/11/23 17:07 - Social History Does the pt smoke?: No Smoking Status: Never smoker Does the pt drink ETOH?: No Does the pt have substance abuse?: No - Immunizations Immunizations are current?: Yes - POLST Patient has POLST: No PD ED PE NORMAL - Vitals Vital signs reviewed: Yes - General General: Alert and oriented X 3, No acute distress - HEENT HEENT: PERRL, EOMI - Neck Neck: Supple, no meningeal sign, No bony TTP - Cardiac Cardiac: No murmur, Other (irreg/irreg) - Respiratory Respiratory: No respiratory distress, Clear bilaterally - Abdomen Abdomen: Soft, Non tender - Back Back: No CVA TTP, No spinal TTP - Derm Derm: Normal color, Warm and dry - Extremities Extremities: No edema, No calf tenderness / cord - Neuro Neuro: Alert and oriented X 3, Normal speech Eye Opening: Spontaneous Motor: Obeys Commands Verbal: Oriented GCS Score: 15 Results - Vitals Vitals: Vital Signs - 24 hr 04/11/23 04/11/23 04/11/23 17:02 18:34 18:56 Temperature 36 C L Heart Rate 97 97 Respiratory 16 18 17 Rate Blood Pressure 118/54 L 127/63 O2 Saturation 95 99 04/11/23 20:00 Temperature Heart Rate 90 Respiratory 17 Rate Blood Pressure 130/61 O2 Saturation 95 Oxygen O2 Source Room air - EKG (time done) 1843 EKG releavant findings:: EKG personally interpreted by author of this note. Relevant findings are: Rate: Rate (enter#) (2725) Rhythm: Atrial fibrillation QRS: LVH Ischemia: ST depression Computer interpretation: Agree with computer - Labs Labs: Laboratory Tests 04/11/23 04/11/23 04/11/23 17:46 17:46 17:46 WBC 8.7 RBC 2.96 L Hgb 8.3 L Hct 28.1 L MCV 94.9 MCH 28.0 MCHC 29.5 L RDW 19.9 H Plt Count 289 MPV 10.7 Neut # (Auto) 6.2 Lymph # (Auto) 1.5 [place] # (Auto) 0.7 Eos # (Auto) 0.2 Baso # (Auto) 0.1 Absolute Nucleated RBC 0.00 Nucleated RBC % 0.0 PT 13.4 H INR 1.3 H Sodium 141 Potassium 2.9 L Chloride 104 Carbon Dioxide 30 Anion Gap 7.0 BUN 20 Creatinine 0.5 L Estimated GFR (MDRD) 118 Glucose 95 Calcium 9.3 Total Bilirubin 0.5 AST 21 ALT 13 Alkaline Phosphatase 86 Total Protein 6.0 L Albumin 3.7 Globulin 2.3 Albumin/Globulin Ratio 1.6 Lipase 21 Last Dose Date Last Dose Time Digoxin 04/11/23 17:46 WBC RBC Hgb Hct MCV MCH MCHC RDW Plt Count MPV Neut # (Auto) Lymph # (Auto) [place] # (Auto) Eos # (Auto) Baso # (Auto) Absolute Nucleated RBC Nucleated RBC % PT INR Sodium Potassium Chloride Carbon Dioxide Anion Gap BUN Creatinine Estimated GFR (MDRD) Glucose Calcium Total Bilirubin AST ALT Alkaline Phosphatase Total Protein Albumin Globulin Albumin/Globulin Ratio Lipase Last Dose Date Not Reportable Last Dose Time Not Reportable Digoxin 0.7 PD Medical Decision Making - ED course ED course: 82-year-old woman presents with retinal occlusion, 5 days old so not a tPA candidate. Has paroxysmal A-fib and is A-fib right now. I was able to speak with her family member, Sara who is a medical professional who relayed that she is not anticoagulated due to recent AVM and ulcers. Recommended consideration of watchman. 82-year-old there was a significant delay to CT angiography given staffing issues and care to Dr. Delcid at shift change pending CT angiography. Departure - Departure Clinical Impression: Retinal artery occlusion, Paroxysmal atrial fibrillation, At high risk for bleeding Forms: PCP List
[2023-04-11 18:58] LABS: DIGOXIN 0.7 ng/mL
--- NOTE | 2023-04-12 00:46 | CT Report ---
PROCEDURE: HEAD WO INDICATIONS: CVA TECHNIQUE: Noncontrast 4.5 mm thick angled axial sections acquired from the foramen magnum to the vertex. For r adiation dose reduction, the following was used: automated exposure control, adjustment of mA and/or kV according to patient size. COMPARISON: CTA head and neck 04/03/2022, MRI brain 04/12/2022 FINDINGS: Image quality: Excellent. The ventricular system and cortical sulci demonstrate atrophy, consistent for patient's stated age. There are areas of hypodensity in the periventricular and subcortical whi te matter. Punctate calcifications are scattered throughout the brain. No surrounding edema. There i s no acute intra or extra-axial fluid collection. No acute hemorrhage, mass lesion or midline shift. Brainstem is unremarkable. Globes are symmetrical. Sinuses are aerated. Osseous structures are intact. IMPRESSION: 1. No acute intracranial process. 2. Moderate atrophy and chronic microvascular ischemic changes. 3. Punctate areas of intracranial calcifications without edema. These may be reflective of prior infe ction or inflammation which also can include neurocysticercosis. Reviewed by: Mary Govea MD on 04/12/2023 12:45 AM PST Approved by: Mary Govea MD on 04/12/2023 12:45 AM PST Station ID: [id number]
--- NOTE | 2023-04-12 00:51 | CT Report ---
PROCEDURE: CT Angio Head/Neck INDICATIONS: CVA TECHNIQUE: After the administration of intravenous contrast, 1 mm thick sections acquired from the aortic arch t hrough the [place]. 3-dimensional sinomrl-qpwcxhzry-ltnkscabfm (MIP) and/or volume renderin g reformats were acquired of the central intracranial vasculature and neck separately. For radiation dose reduction, the following was used: automated exposure control, adjustment of mA and/or kV acco rding to patient size. COMPARISON: CT head 04/12/2023, CTA head 04/03/2022, MRI brain 04/12/2022 FINDINGS: Image quality: Diagnostic. HEAD CT: CSF Spaces: Basal cisterns are patent. No extra-axial fluid collections. Ventricles are normal in size and shape. Brain: The brain is within normal limits for age and scanning technique. Skull and face: Calvarium and visualized facial bones appear intact, without suspicious lesions. Sinuses: Visualized sinuses and mastoids are clear. HEAD CT ANGIOGRAPHY: Anterior circulation: Intracranial internal carotid arteries are normal in size and flow. The flow within the paired anterior cerebral arteries is normal and symmetric. The flow within the middle cer ebral arteries is normal and symmetric. The anterior communicating artery is seen. No aneurysms are seen. Posterior circulation: Left vertebral artery dominance. Visualized portions of the vertebral arterie s demonstrate normal caliber, and join to form a normal appearing basilar artery. Flow within the po sterior cerebral arteries is normal and symmetric. No aneurysms are seen. NECK CT ANGIOGRAPHY: Carotid system: The great vessels demonstrate a conventional anatomy as they arise from the aortic a rch. The origins of the common carotid arteries appear patent. The common carotid arteries demonstr ate normal caliber and courses. The bifurcation regions are both widely patent. The right internal c arotid artery demonstrates approximately 50% at the origin. There is approximately 60-70% narrowing a t the origin of the left internal carotid artery. Appearances are similar compared to prior exam. Posterior circulation: Right vertebral artery is markedly diminutive with areas of calcification. As identified on prior exam, no visualized luminal calcification is present within the T1 and V2 segment s. The more superior extracranial portions of both vertebral arteries also demonstrate normal courses and calibers. They join to form a normal appearing basilar artery. Soft tissues: Visualized neck soft tissues demonstrate no suspicious abnormalities. Mild bilateral pleural effusions. Bones: No suspicious bony lesions. Visualized cervical spine appears normally aligned. IMPRESSION: Unchanged appearance of nonvisualization of flow within the T1 and T2 segments of the right vertebral artery with diminutive flow distally. This may represent chronic occlusion, markedly congenital atre ricky and/or retrograde flow from the [place]. Calcification with stenosis at the origin the internal carotid artery most significant on the left as above, stable. Bilateral pleural effusions. The estimate of stenosis included in the report of the imaging study was calculated using the NASCET method Reviewed by: Mary Govea MD on 04/12/2023 12:50 AM PST Approved by: Mary Govea MD on 04/12/2023 12:50 AM PST Station ID: [id number]
--- NOTE | 2023-04-12 01:16 | ED Physician Documentation ---
ED Addendum - Addendum Addendum: 04/12/23 Patient received in signout from Dr. Mccain at shift change. Patient is pending CT head and angio of the head and neck. 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 IMPRESSION: Unchanged appearance of nonvisualization of flow within the T1 and T2 segments of the right vertebral artery with diminutive flow distally. This may represent chronic occlusion, markedly congenital atresia and/or retrograde flow from the [place]. Calcification with stenosis at the origin the internal carotid artery most significant on the left as above, stable. I reviewed the CT results and patient does have stenosis Of the left carotid artery Which is approximately 60 to 70%. Patient tells me that she has seen a vascular surgeon in [place]. They have evaluated her for an endarterectomy but have for unclear reasons to the pt at this time held off. Patient cannot explain exactly why they are not recommending doing the procedure yet. I am concerned as she does have symptoms here of a stroke and has known stenosis so will reach out to vascular surgery to see if now with the symptoms patient is a candidate for a procedure. 04/12/23 02:23 - D/W Dr. Edmondson (Vascular Surgery, [place]). He recommends transfer to [facility] in [place] where she can be evaluated by the vascular surgery team to see if at this time she should have a procedure done given that her symptoms are concerning for a stroke and she does have known stenosis.Patient has not been taking her aspirin. She has been taking her statin. Departure - Departure Disposition: 02 Transfer Acute Care [facility] Clinical Impression: Retinal artery occlusion, Paroxysmal atrial fibrillation, At high risk for bleeding, Carotid artery stenosis Condition: Stable Forms: PCP List
[2023-04-12] MEDS ORDERED: ASPIRIN CHEW 81 MG TABLET PO STA (02:37)
[2023-04-12] MEDS ORDERED: iohexoL-300 100 ML VIAL IVP ONE (05:20)
[2023-04-12] MEDS ORDERED: DIGOXIN 125 MCG TABLET PO SCH (09:00)
[2023-04-12] MEDS ORDERED: ASPIRIN CHEW 81 MG TABLET PO SCH (09:00)
--- NOTE | 2023-04-12 10:29 | ED Physician Documentation ---
ED Addendum - Addendum Addendum: 04/12/23 10:29 The patient was stable this morning and overnight without any particular complaints. Had breakfast okay. We did receive a call from [facility] that they are expecting discharges and should be able to accommodate the patient later this morning. They will have vascular hospitalist call us back to review.
[2023-04-12 11:59] VITALS: O2SAT 95
[2023-04-12 13:16] VITALS: BP 105/53
--- NOTE | 2023-04-12 14:14 | ED Physician Documentation ---
ED Addendum - Addendum Addendum: 04/12/23 14:13 Received a call from the hospitalist at [facility], Dr. Elías Mendoza. They do have beds available now. I conveyed the presentation and findings with him and he accepts transfer. Arrangements will be made by our nursing unit coordinator. Disposition: The patient is transferred to acute care facility in stable condition Diagnoses: 1. Acute partial vision loss in the right eye 2. Vaso-occlusive process 3. Carotid stenosis
[2023-04-12] MEDS ORDERED: ATORVASTATIN 40 MG TABLET PO SCH (21:00)
== END 2023-04-12 15:03 | disposition short-term general hospital (02) ==
LOC: ED 16:53
DX: I63.9 Cerebral infarction, unspecified (principal); H53.8 Other visual disturbances; H34.9 Unspecified retinal vascular occlusion; I65.22 Occlusion and stenosis of left carotid artery; I48.0 Paroxysmal atrial fibrillation; Q27.30 Arteriovenous malformation, site unspecified; Z75.1 Person awaiting admission to adequate facility elsewhere
CPT/HCPCS: 36415; 70450; 70496; 70498; 80053; 80162; 83690; 85025; 85610; 93005; 99285; A9270; Q9967

== ENCOUNTER 2023-04-12 14:57 | Outpatient (CLI) | payer MEDICARE, OTHER | END 2023-04-12 23:59 | disposition short-term general hospital (02) | LOC: EMS 14:57 | PROVIDERS: ATTEND Emergency Medicine | DX: I63.9 Cerebral infarction, unspecified (principal); I65.29 Occlusion and stenosis of unspecified carotid artery | CPT/HCPCS: A0425; A0428 ==

== ENCOUNTER 2023-05-01 08:28 | Outpatient (CLI) | payer MEDICARE, OTHER ==
[2023-05-01 08:46] LABS: BASOPHILS # (AUTO) 0.1 10^3/uL (0.0-0.1); BASOPHILS % (AUTO) 1.6 %; EOSINOPHILS # (AUTO) 0.1 10^3/uL (0.0-0.7); EOSINOPHILS % (AUTO) 1.8 %; HCT - HEMATOCRIT 30.4 % (37.0-47.0); HGB - HEMOGLOBIN 9.3 g/dL (12.0-16.0); LYMPHOCYTES # (AUTO) 1.6 10^3/uL (1.5-3.5); LYMPHOCYTES % (AUTO) 20.4 %; MEAN CORPUSCULAR HEMOGLOBIN 30.4 pg (27.0-31.0); MEAN CORPUSCULAR HGB CONC 30.6 g/dL (32.0-36.0); MEAN CORPUSCULAR VOLUME 99.3 fL (81.0-99.0); MEAN PLATELET VOLUME 10.5 fL (7.9-10.8); MONOCYTES # (AUTO) 0.6 10^3/uL (0.0-1.0); MONOCYTES % (AUTO) 7.2 %; NEUTROPHILS # (AUTO) 5.5 10^3/uL (1.5-6.6); NEUTROPHILS % (AUTO) 68.7 %; PLT - PLATELET COUNT 222 10^3/uL (130-450); RED BLOOD COUNT 3.06 10^6/uL (4.20-5.40); RED CELL DISTRIBUTION WIDTH 21.5 % (12.0-15.0)
[2023-05-01 08:50] LABS: RBC MORPHOLOGY (MULTIPLE) 4+ ANISOCYTOSIS (NORMAL); SLIDE REVIEW? Indicated
[2023-05-01 09:04] LABS: CALCIUM 9.5 mg/dL (8.5-10.3); CREATININE 0.4 mg/dL (0.6-1.3); MAGNESIUM 1.5 mg/dL (1.7-2.3); POTASSIUM 4.1 mmol/L (3.5-4.5)
[2023-05-01 09:21] LABS: FERRITIN 171.4 ng/mL (11.0-306.8)
== END 2023-05-01 08:29 | disposition home or self-care (01) ==
LOC: LAB 08:28
PROVIDERS: ATTEND Physician Assistant
DX: E87.6 Hypokalemia (principal); D50.9 Iron deficiency anemia, unspecified; E83.42 Hypomagnesemia
CPT/HCPCS: 36415; 80048; 82728; 83540; 83735; 84466; 85025

== ENCOUNTER 2023-05-19 08:00 | Outpatient (CLI) | payer MEDICARE, OTHER ==
[2023-05-19 16:03] LABS: BASOPHILS # (AUTO) 0.1 10^3/uL (0.0-0.1); BASOPHILS % (AUTO) 1.6 %; EOSINOPHILS # (AUTO) 0.1 10^3/uL (0.0-0.7); EOSINOPHILS % (AUTO) 1.8 %; HCT - HEMATOCRIT 27.2 % (37.0-47.0); HGB - HEMOGLOBIN 8.5 g/dL (12.0-16.0); LYMPHOCYTES # (AUTO) 1.1 10^3/uL (1.5-3.5); LYMPHOCYTES % (AUTO) 19.7 %; MEAN CORPUSCULAR HEMOGLOBIN 29.8 pg (27.0-31.0); MEAN CORPUSCULAR HGB CONC 31.3 g/dL (32.0-36.0); MEAN CORPUSCULAR VOLUME 95.4 fL (81.0-99.0); MEAN PLATELET VOLUME 11.3 fL (7.9-10.8); MONOCYTES # (AUTO) 0.4 10^3/uL (0.0-1.0); MONOCYTES % (AUTO) 7.9 %; NEUTROPHILS # (AUTO) 3.8 10^3/uL (1.5-6.6); NEUTROPHILS % (AUTO) 68.6 %; PLT - PLATELET COUNT 226 10^3/uL (130-450); RED BLOOD COUNT 2.85 10^6/uL (4.20-5.40); WHITE BLOOD COUNT 5.6 x10^3/uL (4.8-10.8)
== END 2023-05-19 23:59 | disposition home or self-care (01) ==
LOC: LAB 08:00
PROVIDERS: ATTEND Physician Assistant
DX: D50.0 Iron deficiency anemia secondary to blood loss (chronic) (principal); I48.0 Paroxysmal atrial fibrillation; I50.33 Acute on chronic diastolic (congestive) heart failure; I65.23 Occlusion and stenosis of bilateral carotid arteries
CPT/HCPCS: 36415; 82728; 83540; 84466; 85025

== ENCOUNTER 2023-05-19 09:49 | Emergency (ER) | payer MEDICARE, OTHER ==
--- NOTE | 2023-05-19 10:09 | ED Physician Documentation ---
PD HPI HEAD INJURY - Stated complaint Stated Complaint: GLF/HIT HEAD - Chief complaint Chief Complaint: Neuro - History obtained from History obtained from: Patient - History of Present Illness Mechanism of head injury: Fell Where head injury occurred: Home Timing - onset: Yesterday (she felt she lost balance and fell, striking forehead on counter or floor in kitchen. 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, states balance poor usually.) Location of injury: Left, Front Quality of pain: Aching, Dull (frontal area at contusion) Associated symptoms: No: LOC, AMS Symptoms worsen with: Palpation Contributing factors: Anticoagulated (Plavix usp use.) Review of Systems Constitutional: denies: Fever, Chills Cardiac: denies: Chest pain / pressure, Palpitations Respiratory: denies: Dyspnea, Cough GI: denies: Nausea, Vomiting, Diarrhea, Bloody / black stool Skin: denies: Abrasion (s), Laceration (s) PD PAST MEDICAL HISTORY - Past Medical History Cardiovascular: Hypertension, High cholesterol, Coronary artery disease, Other Respiratory: None Neuro: CVA, TIA Endocrine/Autoimmune: None GI: Colon polyps : None HEENT: None Psych: None Musculoskeletal: None Derm: Psoriasis - Past Surgical History Past Surgical History: Yes General: Colonoscopy Ortho: Other Cardiovascular: Coronary stent - Present Medications Home Medications: Ambulatory Orders Medication Instructions Recorded Confirmed Aspirin 81 mg PO DAILY 01/31/13 04/12/23 Atorvastatin Calcium [Lipitor] 40 mg PO HS 04/01/21 04/12/23 Digoxin [Lanoxin] 125 mcg PO DAILY 01/01/23 04/12/23 Clopidogrel [Plavix] 05/19/23 - Allergies Allergies/Adverse Reactions: Allergies Allergy/AdvReac Type Severity Reaction Status Date / Time No Known Drug Allergies Allergy Verified 05/19/23 09:57 - Social History Does the pt smoke?: No Smoking Status: Never smoker Does the pt drink ETOH?: No Does the pt have substance abuse?: No - Immunizations Immunizations are current?: Yes - POLST Patient has POLST: No PD ED PE NORMAL - Vitals Vital signs reviewed: Yes - General General: Alert and oriented X 3, No acute distress, Well developed/nourished - HEENT HEENT: Other (left frontal forehead with local swelling and bruisng, mild tender. ) - Neck Neck: Supple, no meningeal sign, No bony TTP, No adenopathy - Cardiac Cardiac: RRR - Respiratory Respiratory: No respiratory distress, Clear bilaterally - Abdomen Abdomen: Soft, Non tender - Derm Derm: Normal color, Warm and dry - Extremities Extremities: Normal ROM s pain - Neuro Neuro: Alert and oriented X 3, No motor deficit, No sensory deficit, Normal speech Results - Vitals Vitals: Vital Signs - 24 hr 05/19/23 05/19/23 05/19/23 09:53 11:00 11:30 Temperature 36.8 C Heart Rate 89 83 75 Respiratory 16 18 18 Rate Blood Pressure 106/43 L 100/45 L 99/49 L O2 Saturation 99 99 98 Oxygen O2 Source Room air - Rads (name of study) head CT Relevant Findings:: Prelim report reviewed, EMP independent interpretation of test (prior calcific rounded lesions, present on prior CTs, consider prior infectious? No acute ICH.Stable prior occipital infarcts. ) PD Medical Decision Making - ED course Complexity details: reviewed results, considered differential (on Plavix with accidental fall and struck head. CT does not show ICH. Has prior changes of old CVAs and also calcific lesions possible prior infection? Presnet on prior CTs. Pt states has had it commented previosuly. ), d/w patient Departure - Departure Disposition: 01 Home, Self Care Clinical Impression: Antiplatelet or antithrombotic long-term use, Head contusion, Accidental fall Condition: Stable Record reviewed to determine appropriate education?: Yes Follow-Up: Mary Hector PA [Primary Care Provider] - Comments: Your head CT is good without any signs of acute bleeding. There are chronic old changes noted that have been present for a while with some calcifications and prior stroke but no change from prior. Activity as tolerated. Continue with usual medicines. Tylenol if needed for pains. Forms: PCP List Discharge Date/Time: 05/19/23 12:08
--- NOTE | 2023-05-19 11:44 | CT Report ---
PROCEDURE: HEAD WO INDICATIONS: fall, struck head, on Plavix. TECHNIQUE: Noncontrast 4.5 mm thick angled axial sections acquired from the foramen magnum to the vertex. For r adiation dose reduction, the following was used: automated exposure control, adjustment of mA and/or kV according to patient size. COMPARISON: 8 04/12/2023 FINDINGS: Image quality: Excellent. CSF spaces: Basal cisterns are patent. No extra-axial fluid collections. Ventricles are normal in size and shape. Brain: No midline shift. No intracranial masses or hemorrhage. Bishop-white matter interface is norm al. Age-appropriate brain parenchymal volume loss and chronic small vessel ischemic change can be seen. Focal volume loss can be seen involving both occipital lobes, as before. Age-appropriate brain parenc hymal volume loss and chronic small vessel ischemic change can be seen. Scattered areas of small rupert cification can be seen along the surface of the brain, which are stable compared to the prior examina tion. Skull and face: Calvarium and visualized facial bones are intact, without suspicious lesions. Sinuses: Visualized sinuses and mastoids are clear. IMPRESSION: No intracranial hemorrhage is seen. No acute intracranial pathology. Stable remote infarctions are seen involving both occipital lobes. Stable areas of calcification can be seen along the surface of the brain, as before. Please correlate with known patient history, including prior parasite exposure. Reviewed by: Andrés Fuentes MD on 05/19/2023 10:42 AM [facility] Approved by: Andrés Fuentes MD on 05/19/2023 10:42 AM [facility] Station ID: [id number]
[2023-05-19 12:07] VITALS: BP 99/49; O2SAT 98
== END 2023-05-19 12:08 | disposition home or self-care (01) ==
LOC: ED 09:49
DX: S00.93XA Contusion of unspecified part of head, initial encounter (principal); W19.XXXA Unspecified fall, initial encounter; D50.0 Iron deficiency anemia secondary to blood loss (chronic); I48.0 Paroxysmal atrial fibrillation; I50.33 Acute on chronic diastolic (congestive) heart failure; I65.23 Occlusion and stenosis of bilateral carotid arteries; H54.7 Unspecified visual loss
CPT/HCPCS: 36415; 82728; 83540; 84466; 85025; 99283; 99284

== ENCOUNTER 2023-05-19 15:37 | Outpatient (CLI) | payer MEDICARE, OTHER ==
[2023-05-19 10:34] LABS: BASOPHILS # (AUTO) 0.1 10^3/uL (0.0-0.1); BASOPHILS % (AUTO) 1.9 %; EOSINOPHILS # (AUTO) 0.1 10^3/uL (0.0-0.7); EOSINOPHILS % (AUTO) 1.3 %; HCT - HEMATOCRIT 29.7 % (37.0-47.0); HGB - HEMOGLOBIN 8.8 g/dL (12.0-16.0); LYMPHOCYTES # (AUTO) 1.4 10^3/uL (1.5-3.5); LYMPHOCYTES % (AUTO) 20.2 %; MEAN CORPUSCULAR HEMOGLOBIN 29.6 pg (27.0-31.0); MEAN CORPUSCULAR HGB CONC 29.6 g/dL (32.0-36.0); MEAN PLATELET VOLUME 11.4 fL (7.9-10.8); MONOCYTES # (AUTO) 0.5 10^3/uL (0.0-1.0); MONOCYTES % (AUTO) 7.5 %; NEUTROPHILS # (AUTO) 4.8 10^3/uL (1.5-6.6); NEUTROPHILS % (AUTO) 68.8 %; PLT - PLATELET COUNT 251 10^3/uL (130-450); RED BLOOD COUNT 2.97 10^6/uL (4.20-5.40); RED CELL DISTRIBUTION WIDTH 17.2 % (12.0-15.0)
[2023-05-19 10:54] LABS: FERRITIN 41.5 ng/mL (11.0-306.8)
== END 2023-05-19 15:38 | disposition home or self-care (01) ==
LOC: LAB 15:37
PROVIDERS: ATTEND Physician Assistant
DX: D50.9 Iron deficiency anemia, unspecified (principal)
CPT/HCPCS: 36415; 82728; 83540; 84466; 85025

== ENCOUNTER 2023-05-25 20:09 | Outpatient (CLI) | payer MEDICARE, OTHER | END 2023-05-25 20:10 | disposition critical access hospital (66) | LOC: EMS 20:09 | DX: R55 Syncope and collapse (principal); R53.1 Weakness; R11.10 Vomiting, unspecified | CPT/HCPCS: A0425; A0427 ==

== ENCOUNTER 2023-05-25 20:24 | Emergency (ER) | payer MEDICARE, OTHER ==
[2023-05-25] MEDS ORDERED: PANTOPRAZOLE 40 MG VIAL IVP STA (20:52)
[2023-05-25] MEDS ORDERED: METOCLOPRAMIDE 10 MG/2 ML VIAL IVP STA (20:53)
--- NOTE | 2023-05-25 20:54 | ED Physician Documentation ---
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 She started to feel ill today with coffee-ground emesis and melena. She denies pain, she is nauseous. She had near syncope and sat down on the floor but was not injured per se. 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 We briefly discussed goals of care and initial evaluation. She states she would not want to be on life support or have surgery but was okay with endoscopies. Her daughter is a nurse at [facility] and was updated shortly after initial evaluation but before labs. Her preference would be once stabilized to be transported to [facility]. PD PAST MEDICAL HISTORY - Past Medical History Cardiovascular: Hypertension, High cholesterol, Coronary artery disease, Other Respiratory: None Neuro: CVA, TIA Endocrine/Autoimmune: None GI: Colon polyps : None HEENT: None Psych: None Musculoskeletal: None Derm: Psoriasis - Past Surgical History Past Surgical History: Yes General: Colonoscopy Ortho: Other Cardiovascular: Coronary stent - Present Medications Home Medications: Ambulatory Orders Medication Instructions Recorded Confirmed Aspirin 81 mg PO DAILY 01/31/13 04/12/23 Atorvastatin Calcium [Lipitor] 40 mg PO HS 04/01/21 04/12/23 Digoxin [Lanoxin] 125 mcg PO DAILY 01/01/23 04/12/23 Clopidogrel [Plavix] 05/19/23 - Allergies Allergies/Adverse Reactions: Allergies Allergy/AdvReac Type Severity Reaction Status Date / Time No Known Drug Allergies Allergy Verified 05/25/23 20:38 - Social History Does the pt smoke?: No Smoking Status: Never smoker Does the pt drink ETOH?: No Does the pt have substance abuse?: No - Immunizations Immunizations are current?: Yes - POLST Patient has POLST: No PD ED PE NORMAL - Vitals Vital signs reviewed: Yes - General General: Alert and oriented X 3, Other (She appears ill and is retching. On arrival she had a large BM with melena.) - Cardiac Cardiac: Other (Tachycardic) - Respiratory Respiratory: No respiratory distress, Clear bilaterally - Abdomen Abdomen: Non tender - Derm Derm: Normal color, Warm and dry - Neuro Neuro: Alert and oriented X 3, Normal speech Results - Vitals Vitals: Vital Signs - 24 hr 05/25/23 05/25/23 05/25/23 20:34 22:00 22:16 Temperature 36 C L 36.5 C 36.6 C Heart Rate 112 H Heart Rate [ 111 H 105 H Radial] Respiratory 20 21 20 Rate Blood Pressure 115/49 L Blood Pressure 114/46 L 152/62 H [Left Brachial artery] O2 Saturation 93 94 95 05/25/23 05/25/23 05/25/23 22:28 22:34 22:38 Temperature 36.5 C 36.5 C Heart Rate 103 H Heart Rate [ 101 H 104 H Radial] Respiratory 18 18 18 Rate Blood Pressure 163/57 H Blood Pressure 145/73 H 163/57 H [Left Brachial artery] O2 Saturation 100 98 99 05/25/23 05/25/23 22:59 23:14 Temperature 36.6 C 36.6 C Heart Rate Heart Rate [ 101 H 99 Radial] Respiratory 18 16 Rate Blood Pressure Blood Pressure 161/64 H 157/55 H [Left Brachial artery] O2 Saturation 98 97 Oxygen O2 Source Room air - EKG (time done) 2052 EKG releavant findings:: EKG personally interpreted by author of this note. Relevant findings are: Rate: Rate (enter#) (103) Rhythm: Sinus tachycardia Elizabeth: Normal Intervals: Prolonged QT QRS: LVH Ischemia: Normal ST segments - Labs Labs: Laboratory Tests 05/25/23 05/25/23 05/25/23 20:52 20:52 20:52 WBC 13.6 H RBC 2.38 L Hgb 7.0 L* Hct 23.7 L MCV 99.6 H MCH 29.4 MCHC 29.5 L RDW 16.9 H Plt Count 310 MPV 10.9 H Neut # (Auto) 11.0 H Lymph # (Auto) 1.6 [place] # (Auto) 0.8 Eos # (Auto) 0.1 Baso # (Auto) 0.2 H Absolute Nucleated RBC 0.00 Nucleated RBC % 0.0 PT 15.2 H INR 1.4 H Sodium 139 Potassium 3.5 Chloride 105 Carbon Dioxide 25 Anion Gap 9.0 BUN 37 H Creatinine 0.5 L Estimated GFR (MDRD) 118 Glucose 141 H Calcium 8.7 Total Bilirubin 0.4 AST 17 ALT 11 Alkaline Phosphatase 57 Total Protein 5.8 L Albumin 3.6 Globulin 2.2 Albumin/Globulin Ratio 1.6 Blood Type Antibody Screen Crossmatch IS Only 05/25/23 20:52 WBC RBC Hgb Hct MCV MCH MCHC RDW Plt Count MPV Neut # (Auto) Lymph # (Auto) [place] # (Auto) Eos # (Auto) Baso # (Auto) Absolute Nucleated RBC Nucleated RBC % PT INR Sodium Potassium Chloride Carbon Dioxide Anion Gap BUN Creatinine Estimated GFR (MDRD) Glucose Calcium Total Bilirubin AST ALT Alkaline Phosphatase Total Protein Albumin Globulin Albumin/Globulin Ratio Blood Type O POSITIVE Antibody Screen NEGATIVE Crossmatch IS Only See Detail - Rads (name of study) Single view chest x-ray demonstrates right CVC at the superior vena cava/cavoatrial junction Relevant Findings:: Final report received, EMP independent interpretation of test PD Medical Decision Making - ED course ED course: 82-year-old woman presents with upper GI bleed that is brisk and profuse. She is tachycardic with a low diastolic pressure. She is frequently retching and early in her ED course has several bouts of melena into the bedpan. 2 IVs were placed and also a central line. Her initial hemoglobin is 7, this is lower than her usual but she has been anemic for quite some time. She is on Plavix, and I went over the blood bank to see if we had any platelets in house, we do not. 2 units of PRBCs were ordered to be transfused. I updated her daughter who is an HAND TACKER who prefers that she come up to [place] where she had a prior endoscopy an specialist consultation. They were called early in the course for potential transfer. She did receive 40 mg of IV Protonix push and IV Rocephin. Care to overnight ED MD pending call back from [facility]. Departure - Departure Disposition: 02 Transfer Acute Care Hosp Clinical Impression: Upper GI bleed Condition: Critical Forms: PCP List
[2023-05-25 21:01] LABS: BASOPHILS # (AUTO) 0.2 10^3/uL (0.0-0.1); BASOPHILS % (AUTO) 1.2 %; EOSINOPHILS # (AUTO) 0.1 10^3/uL (0.0-0.7); EOSINOPHILS % (AUTO) 0.5 %; HCT - HEMATOCRIT 23.7 % (37.0-47.0); LYMPHOCYTES # (AUTO) 1.6 10^3/uL (1.5-3.5); LYMPHOCYTES % (AUTO) 11.8 %; MEAN CORPUSCULAR HEMOGLOBIN 29.4 pg (27.0-31.0); MEAN CORPUSCULAR HGB CONC 29.5 g/dL (32.0-36.0); MEAN CORPUSCULAR VOLUME 99.6 fL (81.0-99.0); MEAN PLATELET VOLUME 10.9 fL (7.9-10.8); MONOCYTES # (AUTO) 0.8 10^3/uL (0.0-1.0); MONOCYTES % (AUTO) 5.5 %; NEUTROPHILS % (AUTO) 80.6 %; PLT - PLATELET COUNT 310 10^3/uL (130-450); RED BLOOD COUNT 2.38 10^6/uL (4.20-5.40); RED CELL DISTRIBUTION WIDTH 16.9 % (12.0-15.0); WHITE BLOOD COUNT 13.6 x10^3/uL (4.8-10.8)
[2023-05-25 21:08] LABS: INR 1.4 (0.8-1.2); PT - PROTHROMBIN TIME 15.2 secs (9.9-12.6)
[2023-05-25] MEDS ORDERED: cefTRIAXone 1 GM VIAL IVP STA (21:12)
[2023-05-25 21:15] LABS: ALBUMIN 3.6 g/dL (3.2-5.5); ALBUMIN/GLOBULIN RATIO 1.6 (1.0-2.2); BILIRUBIN,TOTAL 0.4 mg/dL (0.2-1.0); CALCIUM 8.7 mg/dL (8.5-10.3); CREATININE 0.5 mg/dL (0.6-1.3); POTASSIUM 3.5 mmol/L (3.5-4.5); TOTAL PROTEIN 5.8 g/dL (6.4-8.9)
[2023-05-25] MEDS ORDERED: ONDANSETRON 4 MG/2 ML VIAL IVP STA (21:40)
--- NOTE | 2023-05-25 21:54 | XRAY Report ---
PROCEDURE: Chest for Line Placement INDICATIONS: RIJ CVC TECHNIQUE: One view of the chest was acquired. COMPARISON: Chest x-ray 01/01/2023 FINDINGS: Surgical changes and devices: Right central venous catheter with tip in the superior vena cava cava/ cavoatrial junction.. Lungs and pleura: No pleural effusions or pneumothorax. Hyperinflated Lungs with flattening of the d iaphragm, most consistent with COPD. Unchanged compared to prior. Lungs are clear. Mediastinum: Mediastinal contours appear normal. Heart size is normal. Bones and chest wall: No suspicious bony lesions. Overlying soft tissues appear unremarkable. IMPRESSION: No acute cardiopulmonary process. Right central venous catheter with tip in the superior vena cava/ca voatrial junction. Reviewed by: Juan Carlos Venegas MD on 05/25/2023 9:53 PM PST Approved by: Juan Carlos Venegas MD on 05/25/2023 9:53 PM PST Station ID: [id number]
--- NOTE | 2023-05-26 02:34 | ED Physician Documentation ---
ED Addendum - Addendum Addendum: 05/26/23 02:32 Patient endorsed to me by Dr. Mccain at 11 PM shift change. Patient has been resting comfortably overnight, sleeping. I just spoke with her and confirms she is ANO x 3. Patient states that she is not currently on hospice despite telling me that she has some hospice care visits on her epic chart. She does confirm she is DNR/DNI but would like to undergo endoscopy or colonoscopy if this could save her life. She has had no further melanotic episodes in the emergency department since I came on shift. Feeling better status post blood transfusions. Will continue to try to transfer her. In the meantime she will board in the emergency department. Discussed with transfer center who will try to put me in touch with the medicine attending. However they state that they do not have beds. Plan to endorse to incoming daytime EDMD at 7 AM shift change if she is still here. 05/26/23 04:31 d/w Dr. Sanchez, hospitalist at who states service is over capacity. She would prefer if we send patient to another hospital since over capacity. 05/26/23 04:36 d/w [facility] transfer center who will call back. 05/26/23 04:49 Dr. Alexis, [facility] icu attending - states patient may be candidate for the floor. they will call back. 05/26/23 06:10 Patient with another large volume melanotic stool just now. d/w Dr. Junior Hoyos, hospitalist service at [facility] who accepts in transfer. Disposition: transfer Impression: 1. melena 2. UGIB 3. tachycardia 4. anemia condition fair 05/26/23 06:14
[2023-05-26] MEDS ORDERED: ONDANSETRON 4 MG/2 ML VIAL IVP PRN (02:35)
[2023-05-26] MEDS ORDERED: ACETAMINOPHEN 500 MG TABLET PO PRN (02:35)
[2023-05-26 04:03] LABS: B. PARAPERTUSSIS- RESP PCR PAN NOT DETECTED; B. PERTUSSIS- RESP PCR PANEL NOT DETECTED; C. PNEUMONIAE- RESP PCR PANEL NOT DETECTED; CORONAVIRUS 229E-RESP PCR NOT DETECTED; CORONAVIRUS HKU1-RESP PCR NOT DETECTED; CORONAVIRUS NL63-RESP PCR NOT DETECTED; CORONAVIRUS OC43-RESP PCR NOT DETECTED; HUMAN METAPNEUMOVIRUS NOT DETECTED; INFLUENZA A- RESP PCR PANEL NOT DETECTED; INFLUENZA B - RESP PCR PANEL NOT DETECTED; M. PNEUMONIAE- RESP PCR PANEL NOT DETECTED; PARAINFLUENZA VIRUS 1 NOT DETECTED; PARAINFLUENZA VIRUS 2 NOT DETECTED; PARAINFLUENZA VIRUS 3 NOT DETECTED; PARAINFLUENZA VIRUS 4 NOT DETECTED; RHINOVIRUS/ENTEROVIRUS NOT DETECTED; RSV- RESP PCR PANEL DETECTED; SARS-CoV-2 -RESP PCR PANEL NOT DETECTED
[2023-05-26 05:59] LABS: BASOPHILS # (AUTO) 0.1 10^3/uL (0.0-0.1); BASOPHILS % (AUTO) 0.4 %; EOSINOPHILS % (AUTO) 0.1 %; HCT - HEMATOCRIT 29.3 % (37.0-47.0); HGB - HEMOGLOBIN 9.2 g/dL (12.0-16.0); LYMPHOCYTES # (AUTO) 2.1 10^3/uL (1.5-3.5); LYMPHOCYTES % (AUTO) 11.3 %; MEAN CORPUSCULAR HEMOGLOBIN 28.9 pg (27.0-31.0); MEAN CORPUSCULAR HGB CONC 31.4 g/dL (32.0-36.0); MEAN CORPUSCULAR VOLUME 92.1 fL (81.0-99.0); MEAN PLATELET VOLUME 10.6 fL (7.9-10.8); MONOCYTES # (AUTO) 1.1 10^3/uL (0.0-1.0); MONOCYTES % (AUTO) 5.9 %; NEUTROPHILS # (AUTO) 14.8 10^3/uL (1.5-6.6); NEUTROPHILS % (AUTO) 81.9 %; PLT - PLATELET COUNT 234 10^3/uL (130-450); RED BLOOD COUNT 3.18 10^6/uL (4.20-5.40); RED CELL DISTRIBUTION WIDTH 17.7 % (12.0-15.0); WHITE BLOOD COUNT 18.1 x10^3/uL (4.8-10.8)
[2023-05-26 06:17] LABS: CALCIUM 8.6 mg/dL (8.5-10.3); CREATININE 0.4 mg/dL (0.6-1.3); POTASSIUM 3.5 mmol/L (3.5-4.5)
[2023-05-26] MEDS ORDERED: PANTOPRAZOLE 40 MG VIAL IVP STA (06:37)
[2023-05-26] MEDS ORDERED: PANTOPRAZOLE 40 MG TABLET PO SCH (07:00)
[2023-05-26 07:17] VITALS: BP 111/48; O2SAT 95
== END 2023-05-26 07:25 | disposition short-term general hospital (02) ==
LOC: EDUNIT# → ED 20:24
DX: K92.0 Hematemesis (principal); K92.1 Melena; R00.0 Tachycardia, unspecified; D64.9 Anemia, unspecified; Z79.02 Long term (current) use of antithrombotics/antiplatelets
CPT/HCPCS: 36415; 36430; 80048; 80053; 85025; 85610; 86850; 86900; 86901; 86920; 87633; 93005; 96374; 96375; 99285; J2765; P9016; 87635

== ENCOUNTER 2023-05-26 07:30 | Outpatient (CLI) | payer MEDICARE, OTHER | END 2023-05-26 23:59 | disposition short-term general hospital (02) | LOC: EMS 07:30 | PROVIDERS: ATTEND Emergency Medicine | DX: K92.2 Gastrointestinal hemorrhage, unspecified (principal); K92.1 Melena; D64.9 Anemia, unspecified | CPT/HCPCS: A0425; A0426 ==

== ENCOUNTER 2023-06-12 10:11 | Outpatient (CLI) | payer MEDICARE, OTHER ==
[2023-06-12 10:34] LABS: BASOPHILS # (AUTO) 0.1 10^3/uL (0.0-0.1); BASOPHILS % (AUTO) 2.3 %; EOSINOPHILS # (AUTO) 0.1 10^3/uL (0.0-0.7); EOSINOPHILS % (AUTO) 2.3 %; HCT - HEMATOCRIT 33.5 % (37.0-47.0); HGB - HEMOGLOBIN 10.4 g/dL (12.0-16.0); LYMPHOCYTES # (AUTO) 1.2 10^3/uL (1.5-3.5); LYMPHOCYTES % (AUTO) 19.7 %; MEAN CORPUSCULAR HEMOGLOBIN 30.1 pg (27.0-31.0); MEAN CORPUSCULAR VOLUME 97.1 fL (81.0-99.0); MEAN PLATELET VOLUME 10.8 fL (7.9-10.8); MONOCYTES # (AUTO) 0.5 10^3/uL (0.0-1.0); MONOCYTES % (AUTO) 7.8 %; NEUTROPHILS # (AUTO) 4.1 10^3/uL (1.5-6.6); NEUTROPHILS % (AUTO) 67.4 %; PLT - PLATELET COUNT 296 10^3/uL (130-450); RED BLOOD COUNT 3.45 10^6/uL (4.20-5.40); RED CELL DISTRIBUTION WIDTH 17.7 % (12.0-15.0); WHITE BLOOD COUNT 6.1 x10^3/uL (4.8-10.8)
[2023-06-12 10:49] LABS: % IRON SATURATION 21 % (20-50); IRON 82 ug/dL (50-212); TOTAL IRON BINDING CAPACITY 384 ug/dL (250-450); TRANSFERRIN 274 mg/dL (203-362)
== END 2023-06-12 10:12 | disposition home or self-care (01) ==
LOC: LAB 10:11
PROVIDERS: ATTEND Physician Assistant
DX: D50.9 Iron deficiency anemia, unspecified (principal)
CPT/HCPCS: 36415; 83540; 84466; 85025

== ENCOUNTER 2023-06-26 17:53 | Outpatient (CLI) | payer MEDICARE, OTHER | END 2023-06-26 17:54 | disposition critical access hospital (66) | LOC: EMS 17:53 | DX: R11.2 Nausea with vomiting, unspecified (principal); R19.7 Diarrhea, unspecified | CPT/HCPCS: A0425; A0429 ==

== ENCOUNTER 2023-06-26 18:05 | Inpatient (IN) | payer MEDICARE, OTHER ==
[2023-06-26 18:31] LABS: BASOPHILS # (AUTO) 0.1 10^3/uL (0.0-0.1); EOSINOPHILS % (AUTO) 0.1 %; HCT - HEMATOCRIT 27.5 % (37.0-47.0); HGB - HEMOGLOBIN 8.3 g/dL (12.0-16.0); LYMPHOCYTES # (AUTO) 1.6 10^3/uL (1.5-3.5); MEAN CORPUSCULAR HEMOGLOBIN 31.9 pg (27.0-31.0); MEAN CORPUSCULAR HGB CONC 30.2 g/dL (32.0-36.0); MEAN CORPUSCULAR VOLUME 105.8 fL (81.0-99.0); MEAN PLATELET VOLUME 11.2 fL (7.9-10.8); MONOCYTES # (AUTO) 0.5 10^3/uL (0.0-1.0); NEUTROPHILS % (AUTO) 82.5 %; PLT - PLATELET COUNT 257 10^3/uL (130-450); RED CELL DISTRIBUTION WIDTH 18.2 % (12.0-15.0); WHITE BLOOD COUNT 13.3 x10^3/uL (4.8-10.8)
[2023-06-26 18:42] LABS: ALBUMIN 3.6 g/dL (3.2-5.5); ALBUMIN/GLOBULIN RATIO 1.6 (1.0-2.2); BILIRUBIN,TOTAL 0.4 mg/dL (0.2-1.0); CALCIUM 9.3 mg/dL (8.5-10.3); CREATININE 0.7 mg/dL (0.6-1.3); POTASSIUM 3.5 mmol/L (3.5-4.5); TOTAL PROTEIN 5.8 g/dL (6.4-8.9)
--- NOTE | 2023-06-26 20:43 | ED Physician Documentation ---
History of Present Illness - Stated complaint Stated Complaint: N/V/D - Chief complaint Chief Complaint: Abd Pain - History obtained from History obtained from: Patient - History of Present Illness Timing: Today Pain level max: 0 Pain level now: 0 - Additonal information Additional information: Patient is an 82-year-old female who presents to the emergency department complaint of nausea, vomiting and diarrhea today. She states the vomit has been black in color along with the stool. Has had several GI bleeds in the past. She states that she was transferred to [facility] in [place] in May of this year. She states she does not know what was done but states she did have a colonoscopy and endoscopy. She states that she does not believe she is on a blood thinner. She states that she slipped and fell today and hit her head. Review of Systems Constitutional: denies: Fever, Chills Throat: denies: Sore throat Cardiac: denies: Chest pain / pressure, Palpitations Respiratory: denies: Cough GI: reports: Hematemesis (Coffee-ground emesis), Bloody / black stool : denies: Dysuria, Frequency, Hesitancy Skin: denies: Rash Musculoskeletal: denies: Neck pain, Back pain Neurologic: reports: Head injury. denies: Seizure, Confused, Headache PD PAST MEDICAL HISTORY - Past Medical History Past Medical History: Yes Cardiovascular: Hypertension, High cholesterol, Coronary artery disease, Other Respiratory: None Neuro: CVA, TIA Endocrine/Autoimmune: None GI: Colon polyps : None HEENT: None Psych: None Musculoskeletal: None Derm: Psoriasis - Past Surgical History Past Surgical History: Yes General: Colonoscopy Ortho: Other Cardiovascular: Coronary stent - Present Medications Home Medications: Ambulatory Orders Medication Instructions Recorded Confirmed Aspirin 81 mg PO DAILY 01/31/13 06/26/23 Atorvastatin Calcium [Lipitor] 40 mg PO HS 04/01/21 06/26/23 Digoxin [Lanoxin] 125 mcg PO DAILY 01/01/23 06/26/23 Clopidogrel [Plavix] 75 mg PO DAILY 06/26/23 06/26/23 Pantoprazole Sodium [Protonix] 20 mg PO DAILY 06/26/23 06/26/23 - Allergies Allergies/Adverse Reactions: Allergies Allergy/AdvReac Type Severity Reaction Status Date / Time No Known Drug Allergies Allergy Verified 06/26/23 18:21 - Social History Does the pt smoke?: No Smoking Status: Never smoker Does the pt drink ETOH?: No Does the pt have substance abuse?: No - Immunizations Immunizations are current?: Yes - POLST Patient has POLST: No PD ED PE NORMAL - Vitals Vital signs reviewed: Yes - General General: Alert and oriented X 3, Other (Thin frail female) - HEENT HEENT: PERRL, Moist mucous membranes, Pharynx benign, Other (Dark emesis around her lips) - Neck Neck: Supple, no meningeal sign - Cardiac Cardiac: RRR - Respiratory Respiratory: No respiratory distress, Clear bilaterally - Abdomen Abdomen: Soft, Non distended, Other (Mild diffuse tenderness to palpation. No peritoneal signs) - Back Back: No CVA TTP, No spinal TTP - Derm Derm: Warm and dry - Extremities Extremities: No edema, No calf tenderness / cord - Neuro Neuro: Alert and oriented X 3 - Psych Psych: Normal mood, Normal affect Results - Vitals Vitals: Vital Signs - 24 hr 06/26/23 06/26/23 06/26/23 18:21 18:38 20:23 Temperature 36.8 C Heart Rate 88 107 H 93 Respiratory 16 20 16 Rate Blood Pressure 122/40 L 93/50 L 133/50 H O2 Saturation 96 100 99 06/26/23 22:00 Temperature Heart Rate 94 Respiratory 16 Rate Blood Pressure 140/43 H O2 Saturation 97 Oxygen O2 Source Room air - Labs Labs: Laboratory Tests 06/26/23 06/26/23 06/26/23 18:20 18:20 18:20 WBC 13.3 H RBC 2.60 L Hgb 8.3 L Hct 27.5 L MCV 105.8 H MCH 31.9 H MCHC 30.2 L RDW 18.2 H Plt Count 257 MPV 11.2 H Neut # (Auto) 11.0 H Lymph # (Auto) 1.6 [place] # (Auto) 0.5 Eos # (Auto) 0.0 Baso # (Auto) 0.1 Absolute Nucleated RBC 0.00 Nucleated RBC % 0.0 PT 13.4 H INR 1.3 H APTT 26.1 Sodium 138 Potassium 3.5 Chloride 103 Carbon Dioxide 22 Anion Gap 13.0 BUN 50 H Creatinine 0.7 Estimated GFR (MDRD) 80 L Glucose 209 H Calcium 9.3 Total Bilirubin 0.4 AST 16 ALT 12 Alkaline Phosphatase 47 Total Protein 5.8 L Albumin 3.6 Globulin 2.2 Albumin/Globulin Ratio 1.6 Lipase 30 Blood Type Antibody Screen 06/26/23 21:25 WBC RBC Hgb Hct MCV MCH MCHC RDW Plt Count MPV Neut # (Auto) Lymph # (Auto) [place] # (Auto) Eos # (Auto) Baso # (Auto) Absolute Nucleated RBC Nucleated RBC % PT INR APTT Sodium Potassium Chloride Carbon Dioxide Anion Gap BUN Creatinine Estimated GFR (MDRD) Glucose Calcium Total Bilirubin AST ALT Alkaline Phosphatase Total Protein Albumin Globulin Albumin/Globulin Ratio Lipase Blood Type O POSITIVE Antibody Screen NEGATIVE - Rads (name of study) head CT Relevant Findings:: Final report received, See rad report abd/pel CT Relevant Findings:: Final report received, See rad report PD Medical Decision Making - ED course Complexity details: reviewed results, re-evaluated patient, considered differential, d/w patient ED course: 82-year-old female with likely upper GI bleed. She was given Protonix IV. Head CT does not show any acute abnormalities. She did fall and strike her head earlier today. Abdomen pelvis CT showed diffuse colonic decompression and hyperemia in the mucosa. Possible colitis, ischemic versus infectious versus inflammatory. I did receive the discharge summary from [facility] in [place]. She was admitted on 05/26/2023 and discharged on 05/31/2023. She had no further bleeding there. She was given a PPI there as well. Her hemoglobin remained stable and she remained hemodynamically stable in [place]. She had an EGD and colonoscopy that did not show any obvious source of bleeding and there was no further bleeding observed. They decided to stop her Plavix and only use aspirin for stroke prevention. Patient will need a repeat H&H in the emergency department, if she does not drop significantly and has no further bleeding overnight, likely can be discharged home tomorrow. If she has a drop in her hemoglobin, or further bleeding, will likely need to be admitted for blood transfusion and further monitoring. Unclear utility of a repeat EGD and colonoscopy less than a month after her last procedures. Patient signed out to Dr. Lewis for further care. This document was made in part using voice recognition software. While efforts are made to proofread this document, sound alike and grammatical errors may occur. Departure - Departure Clinical Impression: Upper GI bleed Condition: Stable Forms: PCP List
[2023-06-26 20:56] LABS: PARTIAL THROMBOPLASTIN TIME 26.1 secs (24.9-33.3)
[2023-06-26] MEDS: SODIUM CHLORIDE 0.9% 1,000 ML IV STA (20:59)
[2023-06-26 21:00] LABS: INR 1.3 (0.8-1.2); PT - PROTHROMBIN TIME 13.4 secs (9.9-12.6)
[2023-06-26] MEDS: PANTOPRAZOLE 40 MG VIAL IVP STA (21:00)
[2023-06-26] MEDS ORDERED: iohexoL-300 100 ML VIAL ONE (21:04)
[2023-06-26] MEDS: iohexoL-300 100 ML VIAL IVP ONE (21:51)
--- NOTE | 2023-06-26 22:32 | CT Report ---
PROCEDURE: Head WO INDICATIONS: fall, head injury TECHNIQUE: Noncontrast 4.5 mm thick angled axial sections acquired from the foramen magnum to the vertex. For r adiation dose reduction, the following was used: automated exposure control, adjustment of mA and/or kV according to patient size. COMPARISON: 05/19/2023 FINDINGS: Image quality: Excellent. CSF spaces: Basal cisterns are patent. No extra-axial fluid collections. Ventricles are normal in size and shape. Brain: No midline shift. No intracranial masses or hemorrhage. Cortical loss and underlying gliosi s involving both occipital lobes, similar compared to prior. Findings are a background of moderate pe riventricular white matter hypodensity indicating microvascular ischemia. Stable scattered punctate c ortical calcifications. No acute vasogenic edema. Skull and face: Calvarium and visualized facial bones are intact, without suspicious lesions. Sinuses: Visualized sinuses and mastoids are clear. IMPRESSION: No CT evidence of acute intracranial process. Stable exam including chronic microvascular ischemic changes and superimposed bilateral occipital inf arcts. Reviewed by: Christine Hurtado MD on 06/26/2023 10:30 PM PST Approved by: Chirstine Hurtado MD on 06/26/2023 10:30 PM PST Station ID: [id number]
--- NOTE | 2023-06-26 23:14 | CT Report ---
PROCEDURE: Abdomen/Pelvis W INDICATIONS: abd pain, melena, coffee ground emesis CONTRAST: 100mL Omni 300 TECHNIQUE: After the administration of intravenous contrast, a CT scan of the abdomen and pelvis was performed. Images were recorded and evaluated at appropriate window settings. Reformats: coronal and sagittal. F or radiation dose reduction, the following was used: automated exposure control, adjustment of mA and /or kV according to patient size. COMPARISON: None. FINDINGS: Image quality: Diagnostic. Lower chest: 3 mm subpleural right lower lobe lung nodule. No acute consolidations or pleural effusio ns. Mild distal esophageal wall thickening. No hiatal hernia. Liver: Tiny hepatic cyst. No solid mass. Gallbladder and biliary tree: decompressed gallbladder.. No stones. Nondilated biliary tree. Spleen: No splenomegaly. Pancreas: No pancreatic ductal dilation. Adrenals: No adrenal nodule. Kidneys and ureters: No hydronephrosis. Symmetric enhancement. No renal cystic lesion which requires follow up. No solid mass. Large left renal cyst. No hydroureter. Stomach, bowel and peritoneum: Fluid-filled proximal stomach. Decompressed small bowel loops. The col on is decompressed. There is mild diffuse wall thickening of the colon where it can be seen and mild mucosal hyperemia. Pericolonic fat stranding seen at the splenic flexure. There is high density mater ial within the decompressed descending colon lumen. No free fluid or free air seen. Lymph nodes: No central or retroperitoneal adenopathy. Vessels: Normal caliber abdominal aorta with very heavy calcification. There is branch artery origin heavy calcification. PELVIS Reproductive organs: Age-appropriate Bladder: No abnormal wall thickening, accounting for underdistention. Pelvic lymph nodes: No pelvic adenopathy by size criteria. Bones: No aggressive osseous abnormality. Other: No significant ventral or inguinal hernia. IMPRESSION: Diffuse colonic decompression, mucosal hyperemia, mild wall thickening and slight pericolonic inflamm ation. This may indicate ischemic colitis, infectious, or inflammatory colitis. There is heavy athero sclerotic calcification of the aorta and branch arteries. No visible free fluid or free air. No pneumatosis coli. Reviewed by: Christine Hurtado MD on 06/26/2023 11:12 PM PST Approved by: Christine Hurtado MD on 06/26/2023 11:12 PM PST Station ID: [id number]
[2023-06-26] MEDS: cefTRIAXone 1 GM VIAL IVP STA (23:57)
[2023-06-27 01:18] LABS: HCT - HEMATOCRIT 25.4 % (37.0-47.0); HGB - HEMOGLOBIN 7.8 g/dL (12.0-16.0)
[2023-06-27 04:10] LABS: HCT - HEMATOCRIT 23.9 % (37.0-47.0); HGB - HEMOGLOBIN 7.5 g/dL (12.0-16.0)
--- NOTE | 2023-06-27 05:40 | HISTORY & PHYSICAL EXAMINATION ---
Chief Complaint - Chief Complaint Chief Complaint: N/V History of Present Illness - Admitted From Admitted From:: ER - History Obtained From Records Reviewed: Yes History obtained from: Pt, staff, chart Exam Limitations: Virtual exam - History of Present Illness HPI Comment/Other: H&P was conducted via video remotely, using [employer] video via phone. Patient is in [place]. Physician is in [place]. ER Staff, Maryam, is at bedside. 82 yo F with PMH of GI Bleed, Anemia, Afib-not on AC, CAD, HTN, HLD, CVA presented to the ER with c/o 2 day h/o N/V with hematemesis, melena. Pt was previously admitted to hospital in [place] for GI bleed in 05/2023 and had EGD/Cscope on 05/29/23, which showed healed gastric ulcer, erosions, polyps. Pt now c/o 2 day h/o nausea and vomiting up black emesis, as well as loose black stools. No abdo pain. No dysuria. No dizziness. No CP/SOB/cough/F/C. No h/o DM. Pt does not drink ETOH. +Weakness. Pt had also reported falling and hitting her head. In the ER, Hgb 8.3-7.5, MCV 105.8, Glc 209, WBC 13.3 CT Head: NAD CT Abdo: possible Colitis Pt was given IVF, Rocephin, Protonix in the ER and 2U PRBC transfusion ordered. History - Past Medical History Cardiovascular: reports: Hypertension, High cholesterol, Coronary artery disease, Other Respiratory: reports: None Neuro: reports: CVA, TIA Endocrine/Autoimmune: reports: None GI: reports: Colon polyps : reports: None HEENT: reports: None Psych: reports: None Musculoskeletal: reports: None Derm: reports: Psoriasis MRSA Hx?: No - Past Surgical History General: reports: Colonoscopy Ortho: reports: Other Cardiovascular: reports: Coronary stent - POLST Patient has POLST: No Meds/Allgy - Home Medications Home Medications: Ambulatory Orders Medication Instructions Recorded Confirmed Aspirin 81 mg PO DAILY 01/31/13 06/26/23 Atorvastatin Calcium [Lipitor] 40 mg PO HS 04/01/21 06/26/23 Digoxin [Lanoxin] 125 mcg PO DAILY 01/01/23 06/26/23 Clopidogrel [Plavix] 75 mg PO DAILY 06/26/23 06/26/23 Pantoprazole Sodium [Protonix] 20 mg PO DAILY 06/26/23 06/26/23 - Allergies Allergies/Adverse Reactions: Allergies Allergy/AdvReac Type Severity Reaction Status Date / Time No Known Drug Allergies Allergy Verified 06/26/23 18:21 Review of Systems - All Other Systems All Other Systems: reports: Reviewed and negative Exam - Vital Signs Reviewed Vital Signs: Yes Vital Signs: Vital Signs x48h Pulse Resp BP Pulse Ox 06/27/23 04:00 102 H 15 115/38 L 97 06/27/23 02:00 95 16 111/44 L 95 06/27/23 00:00 50 L 15 111/45 L 96 06/26/23 22:00 94 16 140/43 H 97 - Physical Exam General Appearance: positive: No acute distress Eyes Bilateral: positive: Other (+pallor) ENT: positive: Dry mucous membranes Respiratory: positive: Other (Access cart stethoscope not working; per ER Provider: CTA B/L) Cardiovascular: positive: Other (Access cart stethoscope not working; per ER Provider: RRR, no murmurs) Abdomen: positive: Other (per ER Provider: non-distended, NT, Soft) Extremities: positive: Other (per ER Provider: moves all extrem, no edema) Neurologic/Psychiatric: positive: Oriented x3, Mood/affect nml Conclusion/Plan - Problem List (1) GI bleed Conclusion/Plan: GI bleed Anemia, macrocytic Hematemesis Melena -Hgb 8.3-7.5, MCV 105.8 -CT Abdo: possible Colitis -Pt was given IVF, Rocephin, Protonix in the ER and 2U PRBC transfusion ordered. -admit to Med Surg -continue IVF -continue 2U PRBC txn ordered by ER -H/H q6h -continue Protonix 40 mg IV daily -anti-emetics PRN -hold home medications: ASA/Plavix -NPO -check iron studies, B12/Folate -stool culture and CDiff -consider General Surgery consult if continues to bleed Fall Weakness -CT Head: NAD -PT/OT consults Leukocytosis -WBC 13.3 -check U/A, CXR Hyperglycemia -Glc 209 -accuchecks, SS Insulin, Hypoglycemic protocol -check Hgba1c Afib-not on AC CAD HTN HLD CVA -continue home medications: Digoxin, statin -hold home medications: ASA/Plavix d/t GI bleed VTE Prophylaxis: SCDs only d/t GI Bleed Code Status: D/W pt; she is DNR/DNI ~Mame Matson MD Hospitalist Qualifiers: GI bleed type/associated pathology: unspecified gastrointestinal hemorrhage type Qualified Code(s): K92.2 - Gastrointestinal hemorrhage, unspecified - Lab Results Lab results reviewed: Yes Fish Bones: 06/27/23 04:00 06/26/23 18:20
[2023-06-27] MEDS ORDERED: ONDANSETRON 4 MG/2 ML VIAL IVP PRN (06:05)
[2023-06-27] MEDS ORDERED: ACETAMINOPHEN 325 MG TABLET PO PRN (06:05)
--- NOTE | 2023-06-27 08:32 | XRAY Report ---
PROCEDURE: Chest 1V INDICATIONS: Leukocytosis TECHNIQUE: One view of the chest was acquired. COMPARISON: 05/25/2023. FINDINGS: Surgical changes and devices: None. Lungs and pleura: No pleural effusions or pneumothorax. Chronic emphysematous changes are seen. No focal infiltrate. Mediastinum: Mediastinal contours appear normal. Heart size is normal. Bones and chest wall: No suspicious bony lesions. Overlying soft tissues appear unremarkable. IMPRESSION: No acute cardiopulmonary process. COPD. Reviewed by: Quinten Granger MD on 06/27/2023 8:30 AM PST Approved by: Quinten Granger MD on 06/27/2023 8:30 AM PST Station ID: [id number]
--- NOTE | 2023-06-27 08:50 | PHARMACY PROGRESS NOTE ---
- Best Possible Medication History Admit Date and Time: 06/27/23604 Processed by: Pharmacy Medication History completed: Yes Patient Interview: Completed Secondary Source(s): Insurance records As the person ultimately responsible for medication therapy, providers are able to order a medication from an existing home medication list in [facility] via the "Reconcile Routine" prior to Confirmation of that medication by production support manager. Such practice is discouraged except when the physician, in their clinical judgment, deems that a medical need exists for a medication without regard to previous use.
--- NOTE | 2023-06-27 10:23 | CONSULTATION NOTE ---
Consultation Report: Called for assist with PIV start. History of difficult start and multiple failed attempts. Currently using 22ga at L FA. NO IV starts @R. 20ga IV placed at L basilic v. attempt x2. Hematoma formed rapidly after attempt #1. Pressure and dressing to site. New 20 ga placed 2 inches proximal to infiltration. Secured. Patient tolerated procedure.
[2023-06-27] MEDS: SODIUM CHLORIDE 0.9% 1,000 ML IV SCH (12:37)
[2023-06-27] MEDS: INSULIN LISPRO 300 UNIT/3 ML PEN SUBQ SCH (12:38)
[2023-06-27] MEDS: SODIUM CHLORIDE FLUSH 0.9% 10 ML SYRINGE IVP SCH (12:39)
[2023-06-27] MEDS: DIGOXIN 125 MCG TABLET PO SCH (12:39)
[2023-06-27 13:53] LABS: BILIRUBIN,URINE NEGATIVE (NEGATIVE); GLUCOSE, URINE (UA) NEGATIVE (NEGATIVE); KETONES,URINE (UA) NEGATIVE (NEGATIVE); LEUKOCYTE ESTERASE, URINE SMALL (NEGATIVE); NITRITE,URINE NEGATIVE (NEGATIVE); OCCULT BLOOD,URINE SMALL (NEGATIVE); PH,URINE 5.5 PH (5.0-7.5); PROTEIN,URINE NEGATIVE (NEGATIVE); UROBILINOGEN,URINE 0.2 (NORMAL) E.U./dL (NORMAL)
[2023-06-27] MEDS ORDERED: PROCHLORPERAZINE 10 MG/2 ML VIAL IVP PRN (13:54)
[2023-06-27 13:59] LABS: CLARITY,URINE HAZY (CLEAR)
[2023-06-27 14:00] LABS: BACTERIA,URINE Few /HPF (None Seen); RBC,URINE 0-5 /HPF (0-5); SQUAMOUS EPITHELIAL CELL,UR FEW Squamous (<= Few); WBC,URINE >25 /HPF (0-5)
--- NOTE | 2023-06-27 14:37 | PROVIDER PROGRESS NOTE ---
Hospitalist Cross-cover Note - Cross-Cover Note Cross-Cover Note: Patient was being moved from ER to her bed on [facility] as I came in on Hospitalist dayshift. I reviewed entire chart: labs, VS, adm H&P and ER provider note. The ER Provider Dr Lewis came to speak to me, and told me about his conversation with the patient's daughter's (Lina) spouse (the [id number], Sara) at [phone] who is an OB GYN. Sara said that family would prefer the patient be hospitalized at [facility]. Dr. Lewis called [facility] and there were no open beds. He then called Sara and Sara said it was fine to have pt stay here because the request was just for proximity to where Sara and her spouse live The [facility] RN then told me that patient only has a 22-gauge peripheral IV in place Patient is about to get 2U of blood so Anesthesia was contacted to put in a larger bore peripheral IV since only 1 arm can be used Pt started to get the blood transfused and blood pressure dropped to 83/39. Exam: Cachectic (was re-weighed and wighs 43 kg not 76 kg) Chest clear , No murmurs, Abd w/out pain or organomegaly, Extrem w/oout edema Impression: Acute GI blood loss anemia Hypotension due to anemia Recent PUD diagnosed by EGD Plan: Clear liquid diet and advance if no melena or hematochezia Transfer pt to the ICU, for closer monitoring on telemetry and with vital signs General surgery consult for poss EGD. I discussed case with Dr Mike Napoles blood transfusion(s) Follow Hgb q6h I updated [id number] Sara OB GYN on phone, while talking to daughter at bedside. CRITICAL CARE TIME SPENT: 45 min
[2023-06-27 17:26] LABS: BASOPHILS # (AUTO) 0.1 10^3/uL (0.0-0.1); BASOPHILS % (AUTO) 0.8 %; EOSINOPHILS % (AUTO) 0.3 %; HCT - HEMATOCRIT 24.1 % (37.0-47.0); HGB - HEMOGLOBIN 7.8 g/dL (12.0-16.0); LYMPHOCYTES # (AUTO) 0.9 10^3/uL (1.5-3.5); LYMPHOCYTES % (AUTO) 8.4 %; MEAN CORPUSCULAR HEMOGLOBIN 30.7 pg (27.0-31.0); MEAN CORPUSCULAR HGB CONC 32.4 g/dL (32.0-36.0); MEAN CORPUSCULAR VOLUME 94.9 fL (81.0-99.0); MONOCYTES # (AUTO) 0.5 10^3/uL (0.0-1.0); MONOCYTES % (AUTO) 4.9 %; NEUTROPHILS # (AUTO) 9.1 10^3/uL (1.5-6.6); NEUTROPHILS % (AUTO) 85.4 %; RED BLOOD COUNT 2.54 10^6/uL (4.20-5.40); RED CELL DISTRIBUTION WIDTH 22.3 % (12.0-15.0); WHITE BLOOD COUNT 10.6 x10^3/uL (4.8-10.8)
[2023-06-27 17:44] LABS: PLATELET ESTIMATE, MANUAL DECREASED (<130,000) (NORMAL); PLATELET MORPHOLOGY PLATELET CLUMPING (NORMAL)
--- NOTE | 2023-06-27 18:20 | CONSULTATION NOTE ---
Referring Provider Name of Referring Provider:: Jaydon Tyler) Consult Date: 06/27/23 Chief Complaint - Chief Complaint Chief Complaint: GI bleed History of Present Illness - Admitted From Admitted From:: ED - History Obtained From Records Reviewed: yes History obtained from: patient, family (mostly daughter Sara, [employer]), primary team Exam Limitations: none - History of Present Illness HPI Comment/Other: This is an 82 y/o F admitted with a GI bleed. She usually gets her care in [place], but no beds were available for transfer at the time of her presentation. She came in with nausea, vomiting and diarrhea. She's had dark stools for the last one day, prior to admission. The patient does have a history of upper GI bleeding related to gastritis and erosions, diagnosed last year, and responsive to PPI. She was admitted with similar symptoms to [place] in May of this year, and EGD and CE at that time were unrevealing and the patient's hemoglobin was stable during that hospital stay. Her daughter, Sara, reports that the patient told them she had not been taking her PPI for the last couple of weeks when they saw her last weekend. Her history reports she's been on plavix for CAD, but it appears this was stopped during her recent hospital stay and that she is only taking ASA at this time. In the ED, the patient had a CT which demonstrated colitis. She has been transfused one unit of RBC's today. She has had a soft diet throughout the day and recently ate some jello. She had a dark BM with some bright red streaking at about 1600. I am consulted for repeat EGD. At the time of my exam, the patient is comfortable and denies pain or nausea. History - Past Medical History Cardiovascular: reports: Hypertension, High cholesterol, Coronary artery disease, Other Respiratory: reports: None Neuro: reports: CVA, TIA Endocrine/Autoimmune: reports: None GI: reports: GI bleed, Ulcers (healed on EGD in 05/2023), Colon polyps : reports: None HEENT: reports: None Psych: reports: None Musculoskeletal: reports: None Derm: reports: Psoriasis MRSA Hx?: No - Past Surgical History General: reports: Colonoscopy Ortho: reports: Other Cardiovascular: reports: Coronary stent - Substance History Use: Uses substance without health or social issues: NONE - POLST Patient has POLST: No Meds/Allgy - Home Medications Home Medications: Ambulatory Orders Medication Instructions Recorded Confirmed Aspirin 81 mg PO DAILY 01/31/13 06/27/23 Atorvastatin Calcium [Lipitor] 40 mg PO HS 04/01/21 06/27/23 Digoxin [Lanoxin] 125 mcg PO DAILY 01/01/23 06/27/23 Clopidogrel [Plavix] 75 mg PO DAILY 06/26/23 06/27/23 Pantoprazole Sodium [Protonix] 20 mg PO DAILY 06/26/23 06/27/23 - Allergies Allergies/Adverse Reactions: Allergies Allergy/AdvReac Type Severity Reaction Status Date / Time No Known Drug Allergies Allergy Verified 06/26/23 18:21 Review of Systems - Constitutional Constitutional: reports: Fatigue, Weakness, Poor appetite - Eyes Eyes: denies: Blurred vision, Vision loss - Ears, Nose & Throat Ears, Nose & Throat: denies: Tinnitus, Vertigo - Cardiovascular Cariovascular: denies: Chest pain, Syncope - Respiratory Respiratory: denies: Cough - Gastrointestinal Gastrointestinal: reports: Diarrhea, Black stools, Bloody stools, Nausea, Vomiting - Integumentary Integumentary: denies: Rash - Neurological Neurological: reports: General weakness - Hematologic/Lymphatic Hematologic/Lymphatic: reports: Anemia Exam - Vital Signs Vital Signs: Vital Signs x48h Temp Pulse Resp BP Pulse Ox 06/27/23 17:05 98.4 C H 95 15 81/50 L 97 06/27/23 17:00 89 16 81/50 L 98 06/27/23 16:54 98.4 C H 93 17 82/53 L 97 06/27/23 16:00 37.2 C 06/27/23 14:32 36.9 C 101 H 16 93/43 L 96 06/27/23 12:49 36.7 C 86 16 82/38 L 94 06/27/23 12:45 36.7 C 80 16 82/38 L 96 06/27/23 12:34 36.8 C 14 75/39 L 90 L 06/27/23 12:31 36.7 C 73 14 80/37 L 91 L - Physical Exam General Appearance: positive: No acute distress, Alert Eyes Bilateral: positive: Normal inspection, PERRL, EOMI ENT: negative: No signs of dehydration Neck: positive: Trachea midline Respiratory: positive: No respiratory distress Cardiovascular: positive: Regular rate & rhythm Peripheral Pulses: positive: 1+ Abdomen: negative: No distention, Tenderness, Guarding, Rebound Skin: positive: No rash, Pallor Extremities: positive: Non-tender, Full ROM Neurologic/Psychiatric: positive: Oriented x3 Conclusion and Plan - Lab Results Laboratory Results 06/27/23 17:20: Troponin I High Sens 123.5 H* 06/27/23 17:20: WBC 10.6, RBC 2.54 L, Hgb 7.8 L, Hct 24.1 L, MCV 94.9, MCH 30.7, MCHC 32.4, RDW 22.3 H, Plt Count TNP, MPV 11.0 H, Neut # (Auto) 9.1 H, Lymph # (Auto) 0.9 L, [place] # (Auto) 0.5, Eos # (Auto) 0.0, Baso # (Auto) 0.1, Absolute Nucleated RBC 0.00, Nucleated RBC % 0.0, Platelet Estimate DECREASED (<130,000), Platelet Morphology PLATELET CLUMPING, RBC Morph Micro Appear 1+ SCHISTOCYTES 06/27/23 16:47: POC Whole Bld Glucose 99 06/27/23 14:20: Troponin I High Sens 113.0 H* 06/27/23 14:10: Nasal Screen MRSA (PCR) NEGATIVE 06/27/23 13:30: Stl C. diff Tox B Gene NEGATIVE 06/27/23 13:30: Urine Color YELLOW, Urine Clarity HAZY, Urine pH 5.5, Ur Specific [place] 1.020, Urine Protein NEGATIVE, Urine Glucose (UA) NEGATIVE, Urine Ketones NEGATIVE, Urine Occult Blood SMALL H, Urine Nitrite NEGATIVE, Urine Bilirubin NEGATIVE, Urine Urobilinogen 0.2 (NORMAL), Ur Leukocyte Esterase SMALL H, Urine RBC 0-5, Urine WBC >25 H, Ur Squamous Epith Cells FEW Squamous, Urine Bacteria Few, Ur Microscopic Review Cancelled, Urine Culture Comments INDICATED 06/27/23 12:20: POC Whole Bld Glucose 81 06/27/23 04:00: Hgb 7.5 L, Hct 23.9 L 06/27/23 01:11: Hgb 7.8 L, Hct 25.4 L 06/26/23 21:25: Blood Type O POSITIVE, Antibody Screen NEGATIVE, Crossmatch IS Only See Detail 06/26/23 18:20: PT 13.4 H, INR 1.3 H, APTT 26.1 06/26/23 18:20: Sodium 138, Potassium 3.5, Chloride 103, Carbon Dioxide 22, Anion Gap 13.0, BUN 50 H, Creatinine 0.7, Estimated GFR (MDRD) 80 L, Glucose 209 H, Calcium 9.3, Total Bilirubin 0.4, AST 16, ALT 12, Alkaline Phosphatase 47, Total Protein 5.8 L, Albumin 3.6, Globulin 2.2, Albumin/Globulin Ratio 1.6, Lipase 30 06/26/23 18:20: WBC 13.3 H, RBC 2.60 L, Hgb 8.3 L, Hct 27.5 L, MCV 105.8 H, MCH 31.9 H, MCHC 30.2 L, RDW 18.2 H, Plt Count 257, MPV 11.2 H, Neut # (Auto) 11.0 H, Lymph # (Auto) 1.6, [place] # (Auto) 0.5, Eos # (Auto) 0.0, Baso # (Auto) 0.1, Absolute Nucleated RBC 0.00, Nucleated RBC % 0.0 - Diagnostic Imaging Results Diagnostic Imaging Results: positive: Final report reviewed Diagnostic Imaging Results Comments: inflammation about the colon at the splenic flexure, no free air, no free fluid. - Consultation Note Consultation Note: 82 y/o F with: 1. gi bleeding - patient has received one unit pRBC's today - hypotensive throughout the day (MAP 60-65) - additional 2 units ordered - patient had diet ordered and was drinking, eating jello as late at 1630. I ordered the patient to be NPO. - patient has history of upper GI bleed and CT consistent with colitis (c diff negative) - plan to allow patient to receive transfusion and follow lactate level, vitals. If lactate is elevated after blood, plan for emergent EGD tonight. If not, plan for EGD tomorrow. If no findings on EGD, would proceed with colon prep to evaluate for ischemic colitis. - agree with PPI BID IV - recommend avoiding blood thinning medications at this time. 2. elevated troponin - relatively stable, felt not to be an PA at this time 3. atrial fibrillation, CAD, HTN, HPL, h/o CVA - as per primary team Thank you for consulting me in the care of this patient. Surgery will continue to follow closely.
[2023-06-27] MEDS: PANTOPRAZOLE 40 MG VIAL IVP SCH (19:21)
[2023-06-27] MEDS: SODIUM CHLORIDE FLUSH 0.9% 10 ML SYRINGE IVP PRN (19:42)
[2023-06-27] MEDS: METOCLOPRAMIDE 10 MG/2 ML VIAL IVP SCH (19:42)
[2023-06-27] MEDS: ATORVASTATIN 40 MG TABLET PO SCH (21:09)
[2023-06-28] MEDS: INSULIN LISPRO 300 UNIT/3 ML PEN SUBQ SCH ×2 (00:15→11:41)
[2023-06-28 04:42] LABS: BASOPHILS # (AUTO) 0.1 10^3/uL (0.0-0.1); EOSINOPHILS # (AUTO) 0.1 10^3/uL (0.0-0.7); EOSINOPHILS % (AUTO) 1.2 %; HCT - HEMATOCRIT 28.9 % (37.0-47.0); HGB - HEMOGLOBIN 9.2 g/dL (12.0-16.0); LYMPHOCYTES # (AUTO) 1.2 10^3/uL (1.5-3.5); LYMPHOCYTES % (AUTO) 10.8 %; MEAN CORPUSCULAR HEMOGLOBIN 29.9 pg (27.0-31.0); MEAN CORPUSCULAR HGB CONC 31.8 g/dL (32.0-36.0); MEAN CORPUSCULAR VOLUME 93.8 fL (81.0-99.0); MEAN PLATELET VOLUME 11.3 fL (7.9-10.8); MONOCYTES # (AUTO) 0.7 10^3/uL (0.0-1.0); MONOCYTES % (AUTO) 5.9 %; NEUTROPHILS # (AUTO) 9.1 10^3/uL (1.5-6.6); NEUTROPHILS % (AUTO) 80.7 %; PLT - PLATELET COUNT 119 10^3/uL (130-450); RED BLOOD COUNT 3.08 10^6/uL (4.20-5.40); RED CELL DISTRIBUTION WIDTH 20.2 % (12.0-15.0); WHITE BLOOD COUNT 11.2 x10^3/uL (4.8-10.8)
[2023-06-28 04:46] LABS: CALCIUM, IONIZED 1.1 mmol/L (1.15-1.33); VBG PH 7.479 (7.31-7.41)
[2023-06-28 04:47] LABS: SLIDE REVIEW? Indicated
[2023-06-28 04:51] LABS: DIGOXIN 0.3 ng/mL; MAGNESIUM 1.5 mg/dL (1.7-2.3); PHOSPHORUS 2.9 mg/dL (2.5-5.0)
[2023-06-28 04:52] LABS: CALCIUM 8.2 mg/dL (8.5-10.3); CREATININE 0.3 mg/dL (0.6-1.3); POTASSIUM 3.3 mmol/L (3.5-4.5)
[2023-06-28] MEDS: CALCIUM CARBONATE CHEW 500 MG TABLET PO SCH (05:56)
[2023-06-28] MEDS: MAGNESIUM OXIDE 400 MG TABLET PO ONE (05:56)
[2023-06-28] MEDS: POTASSIUM CHLORIDE 20 MEQ TABLET PO SCH (05:57)
[2023-06-28 06:17] LABS: PLATELET ESTIMATE, MANUAL DECREASED (<130,000) (NORMAL)
--- NOTE | 2023-06-28 06:47 | PROVIDER PROGRESS NOTE ---
Subjective - General Admit Date: 06/27/23 - Review of Systems All Other Systems: positive: Reviewed and negative - Other Other Information/Narrative: No BM or vomiting overnight. Patient did recieve an additional 2 units of pRBC's. No pain, no nausea. Feeling better this AM. Objective - Patient Data Vital Signs: Vital Signs x48h Temp Pulse Resp BP BP Pulse Ox O2 Flow Rate 06/28/23 06:00 37.1 C 93 16 94/53 L 96 1 06/28/23 05:00 89 14 90/67 97 1 06/28/23 04:00 37 C 95 14 92/54 L 97 2 06/28/23 03:00 95 14 80/50 L 92 06/28/23 02:30 37.0 C 94 14 84/51 L 93 06/28/23 02:00 90 16 73/51 L 93 06/28/23 01:30 93 14 81/51 L 94 06/28/23 01:00 37.0 C 96 15 80/54 L 93 06/28/23 00:18 37 C 93 14 86/54 L 96 06/28/23 00:04 37 C 93 15 84/50 L 95 06/27/23 23:30 36.5 C 99 16 92/53 L 96 06/27/23 23:18 36.5 C 99 16 98/56 L 96 06/27/23 23:11 36.6 C 100 15 89/55 L 95 06/27/23 23:00 36.6 C 15 89/55 L 95 Weight: Weight 06/26/23 06/27/23 06/28/23 23:59 23:59 23:59 Weight (kg) 44.452 kg 43.5 kg 43.5 kg Intake & Output: Intake and Output Totals x24h 06/26/23 06/27/23 06/28/23 23:59 23:59 23:59 Intake Total 2010 450 Output Total 1120 355 Balance 890 95 - Lab Results Lab Results: 06/28/23 04:18 06/28/23 04:18 Other Lab Results: Lab Results x24hrs 06/28/23 06/28/23 06/28/23 Range/Units 06:03 04:18 04:18 WBC (4.8-10.8) x10^3/uL RBC (4.20-5.40) 10^6/uL Hgb (12.0-16.0) g/dL Hct (37.0-47.0) % MCV (81.0-99.0) fL MCH (27.0-31.0) pg MCHC (32.0-36.0) g/dL RDW (12.0-15.0) % Plt Count MPV (7.9-10.8) fL Neut # (Auto) (1.5-6.6) 10^3/uL Lymph # (Auto) (1.5-3.5) 10^3/uL [place] # (Auto) (0.0-1.0) 10^3/uL Eos # (Auto) (0.0-0.7) 10^3/uL Baso # (Auto) (0.0-0.1) 10^3/uL Absolute Nucleated RBC x10^3/uL Nucleated RBC % /100WBC Manual Slide Review Platelet Estimate (NORMAL) Platelet Morphology (NORMAL) RBC Morph Micro Appear (NORMAL) VBG pH 7.479 H (7.31-7.41) Ionized Calcium 1.10 L (1.15-1.33) mmol/L Sodium (135-145) mmol/L Potassium (3.5-4.5) mmol/L Chloride (101-111) mmol/L Carbon Dioxide (21-32) mmol/L Anion Gap (6-13) BUN (6-20) mg/dL Creatinine (0.6-1.3) mg/dL Estimated GFR (MDRD) (>89) Glucose (74-104) mg/dL POC Whole Bld Glucose 87 (70 - 100) mg/dL Lactic Acid (0.5-2.2) mmol/L Calcium (8.5-10.3) mg/dL Phosphorus 2.9 (2.5-5.0) mg/dL Magnesium 1.5 L (1.7-2.3) mg/dL Iron (50-212) ug/dL TIBC (250-450) ug/dL % Saturation (20-50) % Transferrin (203-362) mg/dL Troponin I High Sens (2.3-14.8) ng/L Vitamin B12 (180-914) pg/mL Urine Color Urine Clarity (CLEAR) Urine pH (5.0-7.5) PH Ur Specific [place] (1.002-1.030) Urine Protein (NEGATIVE) mg/dL Urine Glucose (UA) (NEGATIVE) mg/dL Urine Ketones (NEGATIVE) mg/dL Urine Occult Blood (NEGATIVE) Urine Nitrite (NEGATIVE) Urine Bilirubin (NEGATIVE) Urine Urobilinogen (NORMAL) E.U./dL Ur Leukocyte Esterase (NEGATIVE) Urine RBC (0-5) /HPF Urine WBC (0-5) /HPF Ur Squamous Epith Cells (<= Few) Urine Bacteria (None Seen) /HPF Ur Microscopic Review Urine Culture Comments Nasal Screen MRSA (PCR) (NEGATIVE) Stl C. diff Tox B Gene (NEGATIVE) Last Dose Date 06-27-23 Last Dose Time 0900 Digoxin 0.3 ng/mL Blood Type Antibody Screen Crossmatch IS Only 06/28/23 06/28/23 06/28/23 Range/Units 04:18 04:18 00:15 WBC 11.2 H (4.8-10.8) x10^3/uL RBC 3.08 L (4.20-5.40) 10^6/uL Hgb 9.2 L (12.0-16.0) g/dL Hct 28.9 L (37.0-47.0) % MCV 93.8 (81.0-99.0) fL MCH 29.9 (27.0-31.0) pg MCHC 31.8 L (32.0-36.0) g/dL RDW 20.2 H (12.0-15.0) % Plt Count 119 L MPV 11.3 H (7.9-10.8) fL Neut # (Auto) 9.1 H (1.5-6.6) 10^3/uL Lymph # (Auto) 1.2 L (1.5-3.5) 10^3/uL [place] # (Auto) 0.7 (0.0-1.0) 10^3/uL Eos # (Auto) 0.1 (0.0-0.7) 10^3/uL Baso # (Auto) 0.1 (0.0-0.1) 10^3/uL Absolute Nucleated RBC 0.00 x10^3/uL Nucleated RBC % 0.0 /100WBC Manual Slide Review Indicated Platelet Estimate DECREASED (<130,000) (NORMAL) Platelet Morphology (NORMAL) RBC Morph Micro Appear 1+ OVALOCYTES (NORMAL) VBG pH (7.31-7.41) Ionized Calcium (1.15-1.33) mmol/L Sodium 141 (135-145) mmol/L Potassium 3.3 L (3.5-4.5) mmol/L Chloride 112 H (101-111) mmol/L Carbon Dioxide 25 (21-32) mmol/L Anion Gap 4.0 L (6-13) BUN 35 H (6-20) mg/dL Creatinine 0.3 L (0.6-1.3) mg/dL Estimated GFR (MDRD) 214 (>89) Glucose 84 (74-104) mg/dL POC Whole Bld Glucose 87 (70 - 100) mg/dL Lactic Acid (0.5-2.2) mmol/L Calcium 8.2 L (8.5-10.3) mg/dL Phosphorus (2.5-5.0) mg/dL Magnesium (1.7-2.3) mg/dL Iron 107 (50-212) ug/dL TIBC 246 L (250-450) ug/dL % Saturation 43 (20-50) % Transferrin 176 L (203-362) mg/dL Troponin I High Sens (2.3-14.8) ng/L Vitamin B12 236 (180-914) pg/mL Urine Color Urine Clarity (CLEAR) Urine pH (5.0-7.5) PH Ur Specific [place] (1.002-1.030) Urine Protein (NEGATIVE) mg/dL Urine Glucose (UA) (NEGATIVE) mg/dL Urine Ketones (NEGATIVE) mg/dL Urine Occult Blood (NEGATIVE) Urine Nitrite (NEGATIVE) Urine Bilirubin (NEGATIVE) Urine Urobilinogen (NORMAL) E.U./dL Ur Leukocyte Esterase (NEGATIVE) Urine RBC (0-5) /HPF Urine WBC (0-5) /HPF Ur Squamous Epith Cells (<= Few) Urine Bacteria (None Seen) /HPF Ur Microscopic Review Urine Culture Comments Nasal Screen MRSA (PCR) (NEGATIVE) Stl C. diff Tox B Gene (NEGATIVE) Last Dose Date Last Dose Time Digoxin ng/mL Blood Type Antibody Screen Crossmatch IS Only 06/27/23 06/27/23 06/27/23 Range/Units 18:51 17:20 17:20 WBC 10.6 (4.8-10.8) x10^3/uL RBC 2.54 L (4.20-5.40) 10^6/uL Hgb 7.8 L (12.0-16.0) g/dL Hct 24.1 L (37.0-47.0) % MCV 94.9 (81.0-99.0) fL MCH 30.7 (27.0-31.0) pg MCHC 32.4 (32.0-36.0) g/dL RDW 22.3 H (12.0-15.0) % Plt Count TNP MPV 11.0 H (7.9-10.8) fL Neut # (Auto) 9.1 H (1.5-6.6) 10^3/uL Lymph # (Auto) 0.9 L (1.5-3.5) 10^3/uL [place] # (Auto) 0.5 (0.0-1.0) 10^3/uL Eos # (Auto) 0.0 (0.0-0.7) 10^3/uL Baso # (Auto) 0.1 (0.0-0.1) 10^3/uL Absolute Nucleated RBC 0.00 x10^3/uL Nucleated RBC % 0.0 /100WBC Manual Slide Review Platelet Estimate DECREASED (<130,000) (NORMAL) Platelet Morphology PLATELET CLUMPING (NORMAL) RBC Morph Micro Appear 1+ SCHISTOCYTES (NORMAL) VBG pH (7.31-7.41) Ionized Calcium (1.15-1.33) mmol/L Sodium (135-145) mmol/L Potassium (3.5-4.5) mmol/L Chloride (101-111) mmol/L Carbon Dioxide (21-32) mmol/L Anion Gap (6-13) BUN (6-20) mg/dL Creatinine (0.6-1.3) mg/dL Estimated GFR (MDRD) (>89) Glucose (74-104) mg/dL POC Whole Bld Glucose (70 - 100) mg/dL Lactic Acid 0.6 (0.5-2.2) mmol/L Calcium (8.5-10.3) mg/dL Phosphorus (2.5-5.0) mg/dL Magnesium (1.7-2.3) mg/dL Iron (50-212) ug/dL TIBC (250-450) ug/dL % Saturation (20-50) % Transferrin (203-362) mg/dL Troponin I High Sens 123.5 H* (2.3-14.8) ng/L Vitamin B12 (180-914) pg/mL Urine Color Urine Clarity (CLEAR) Urine pH (5.0-7.5) PH Ur Specific [place] (1.002-1.030) Urine Protein (NEGATIVE) mg/dL Urine Glucose (UA) (NEGATIVE) mg/dL Urine Ketones (NEGATIVE) mg/dL Urine Occult Blood (NEGATIVE) Urine Nitrite (NEGATIVE) Urine Bilirubin (NEGATIVE) Urine Urobilinogen (NORMAL) E.U./dL Ur Leukocyte Esterase (NEGATIVE) Urine RBC (0-5) /HPF Urine WBC (0-5) /HPF Ur Squamous Epith Cells (<= Few) Urine Bacteria (None Seen) /HPF Ur Microscopic Review Urine Culture Comments Nasal Screen MRSA (PCR) (NEGATIVE) Stl C. diff Tox B Gene (NEGATIVE) Last Dose Date Last Dose Time Digoxin ng/mL Blood Type Antibody Screen Crossmatch IS Only 06/27/23 06/27/23 06/27/23 Range/Units 16:47 14:20 14:10 WBC (4.8-10.8) x10^3/uL RBC (4.20-5.40) 10^6/uL Hgb (12.0-16.0) g/dL Hct (37.0-47.0) % MCV (81.0-99.0) fL MCH (27.0-31.0) pg MCHC (32.0-36.0) g/dL RDW (12.0-15.0) % Plt Count MPV (7.9-10.8) fL Neut # (Auto) (1.5-6.6) 10^3/uL Lymph # (Auto) (1.5-3.5) 10^3/uL [place] # (Auto) (0.0-1.0) 10^3/uL Eos # (Auto) (0.0-0.7) 10^3/uL Baso # (Auto) (0.0-0.1) 10^3/uL Absolute Nucleated RBC x10^3/uL Nucleated RBC % /100WBC Manual Slide Review Platelet Estimate (NORMAL) Platelet Morphology (NORMAL) RBC Morph Micro Appear (NORMAL) VBG pH (7.31-7.41) Ionized Calcium (1.15-1.33) mmol/L Sodium (135-145) mmol/L Potassium (3.5-4.5) mmol/L Chloride (101-111) mmol/L Carbon Dioxide (21-32) mmol/L Anion Gap (6-13) BUN (6-20) mg/dL Creatinine (0.6-1.3) mg/dL Estimated GFR (MDRD) (>89) Glucose (74-104) mg/dL POC Whole Bld Glucose 99 (70 - 100) mg/dL Lactic Acid (0.5-2.2) mmol/L Calcium (8.5-10.3) mg/dL Phosphorus (2.5-5.0) mg/dL Magnesium (1.7-2.3) mg/dL Iron (50-212) ug/dL TIBC (250-450) ug/dL % Saturation (20-50) % Transferrin (203-362) mg/dL Troponin I High Sens 113.0 H* (2.3-14.8) ng/L Vitamin B12 (180-914) pg/mL Urine Color Urine Clarity (CLEAR) Urine pH (5.0-7.5) PH Ur Specific [place] (1.002-1.030) Urine Protein (NEGATIVE) mg/dL Urine Glucose (UA) (NEGATIVE) mg/dL Urine Ketones (NEGATIVE) mg/dL Urine Occult Blood (NEGATIVE) Urine Nitrite (NEGATIVE) Urine Bilirubin (NEGATIVE) Urine Urobilinogen (NORMAL) E.U./dL Ur Leukocyte Esterase (NEGATIVE) Urine RBC (0-5) /HPF Urine WBC (0-5) /HPF Ur Squamous Epith Cells (<= Few) Urine Bacteria (None Seen) /HPF Ur Microscopic Review Urine Culture Comments Nasal Screen MRSA (PCR) NEGATIVE (NEGATIVE) Stl C. diff Tox B Gene (NEGATIVE) Last Dose Date Last Dose Time Digoxin ng/mL Blood Type Antibody Screen Crossmatch IS Only 06/27/23 06/27/23 06/27/23 Range/Units 13:30 13:30 12:20 WBC (4.8-10.8) x10^3/uL RBC (4.20-5.40) 10^6/uL Hgb (12.0-16.0) g/dL Hct (37.0-47.0) % MCV (81.0-99.0) fL MCH (27.0-31.0) pg MCHC (32.0-36.0) g/dL RDW (12.0-15.0) % Plt Count MPV (7.9-10.8) fL Neut # (Auto) (1.5-6.6) 10^3/uL Lymph # (Auto) (1.5-3.5) 10^3/uL [place] # (Auto) (0.0-1.0) 10^3/uL Eos # (Auto) (0.0-0.7) 10^3/uL Baso # (Auto) (0.0-0.1) 10^3/uL Absolute Nucleated RBC x10^3/uL Nucleated RBC % /100WBC Manual Slide Review Platelet Estimate (NORMAL) Platelet Morphology (NORMAL) RBC Morph Micro Appear (NORMAL) VBG pH (7.31-7.41) Ionized Calcium (1.15-1.33) mmol/L Sodium (135-145) mmol/L Potassium (3.5-4.5) mmol/L Chloride (101-111) mmol/L Carbon Dioxide (21-32) mmol/L Anion Gap (6-13) BUN (6-20) mg/dL Creatinine (0.6-1.3) mg/dL Estimated GFR (MDRD) (>89) Glucose (74-104) mg/dL POC Whole Bld Glucose 81 (70 - 100) mg/dL Lactic Acid (0.5-2.2) mmol/L Calcium (8.5-10.3) mg/dL Phosphorus (2.5-5.0) mg/dL Magnesium (1.7-2.3) mg/dL Iron (50-212) ug/dL TIBC (250-450) ug/dL % Saturation (20-50) % Transferrin (203-362) mg/dL Troponin I High Sens (2.3-14.8) ng/L Vitamin B12 (180-914) pg/mL Urine Color YELLOW Urine Clarity HAZY (CLEAR) Urine pH 5.5 (5.0-7.5) PH Ur Specific [place] 1.020 (1.002-1.030) Urine Protein NEGATIVE (NEGATIVE) mg/dL Urine Glucose (UA) NEGATIVE (NEGATIVE) mg/dL Urine Ketones NEGATIVE (NEGATIVE) mg/dL Urine Occult Blood SMALL H (NEGATIVE) Urine Nitrite NEGATIVE (NEGATIVE) Urine Bilirubin NEGATIVE (NEGATIVE) Urine Urobilinogen 0.2 (NORMAL) (NORMAL) E.U./dL Ur Leukocyte Esterase SMALL H (NEGATIVE) Urine RBC 0-5 (0-5) /HPF Urine WBC >25 H (0-5) /HPF Ur Squamous Epith Cells FEW Squamous (<= Few) Urine Bacteria Few (None Seen) /HPF Ur Microscopic Review Cancelled Urine Culture Comments INDICATED Nasal Screen MRSA (PCR) (NEGATIVE) Stl C. diff Tox B Gene NEGATIVE (NEGATIVE) Last Dose Date Last Dose Time Digoxin ng/mL Blood Type Antibody Screen Crossmatch IS Only 06/26/23 Range/Units 21:25 WBC (4.8-10.8) x10^3/uL RBC (4.20-5.40) 10^6/uL Hgb (12.0-16.0) g/dL Hct (37.0-47.0) % MCV (81.0-99.0) fL MCH (27.0-31.0) pg MCHC (32.0-36.0) g/dL RDW (12.0-15.0) % Plt Count MPV (7.9-10.8) fL Neut # (Auto) (1.5-6.6) 10^3/uL Lymph # (Auto) (1.5-3.5) 10^3/uL [place] # (Auto) (0.0-1.0) 10^3/uL Eos # (Auto) (0.0-0.7) 10^3/uL Baso # (Auto) (0.0-0.1) 10^3/uL Absolute Nucleated RBC x10^3/uL Nucleated RBC % /100WBC Manual Slide Review Platelet Estimate (NORMAL) Platelet Morphology (NORMAL) RBC Morph Micro Appear (NORMAL) VBG pH (7.31-7.41) Ionized Calcium (1.15-1.33) mmol/L Sodium (135-145) mmol/L Potassium (3.5-4.5) mmol/L Chloride (101-111) mmol/L Carbon Dioxide (21-32) mmol/L Anion Gap (6-13) BUN (6-20) mg/dL Creatinine (0.6-1.3) mg/dL Estimated GFR (MDRD) (>89) Glucose (74-104) mg/dL POC Whole Bld Glucose (70 - 100) mg/dL Lactic Acid (0.5-2.2) mmol/L Calcium (8.5-10.3) mg/dL Phosphorus (2.5-5.0) mg/dL Magnesium (1.7-2.3) mg/dL Iron (50-212) ug/dL TIBC (250-450) ug/dL % Saturation (20-50) % Transferrin (203-362) mg/dL Troponin I High [place]ens (2.3-14.8) ng/L Vitamin B12 (180-914) pg/mL Urine Color Urine Clarity (CLEAR) Urine pH (5.0-7.5) PH Ur Specific [place] (1.002-1.030) Urine Protein (NEGATIVE) mg/dL Urine Glucose (UA) (NEGATIVE) mg/dL Urine Ketones (NEGATIVE) mg/dL Urine Occult Blood (NEGATIVE) Urine Nitrite (NEGATIVE) Urine Bilirubin (NEGATIVE) Urine Urobilinogen (NORMAL) E.U./dL Ur Leukocyte Esterase (NEGATIVE) Urine RBC (0-5) /HPF Urine WBC (0-5) /HPF Ur Squamous Epith Cells (<= Few) Urine Bacteria (None Seen) /HPF Ur Microscopic Review Urine Culture Comments Nasal Screen MRSA (PCR) (NEGATIVE) Stl C. diff Tox B Gene (NEGATIVE) Last Dose Date Last Dose Time Digoxin ng/mL Blood Type O POSITIVE Antibody Screen NEGATIVE Crossmatch IS Only See Detail - Current Medications Current Medications: Current Medications Generic Name Dose Route Start Last Admin Trade Name Freq PRN Reason Stop Dose Admin Atorvastatin Calcium 40 mg 06/27/23 21:00 06/27/23 21:09 Atorvastatin 40 Mg Tablet PO 40 mg HS ANI Administration Calcium Carbonate/Glycine 1,250 mg 06/28/23 06:00 06/28/23 05:56 Calcium Carbonate Chew 500 Mg Tablet PO 06/28/23 10:01 1,250 mg Q4H ANI Administration Protocol Digoxin 125 mcg 06/27/23 09:00 06/27/23 12:39 Digoxin 125 Mcg Tablet PO Not Given DAILY ANI Sodium Chloride 1,000 mls @ 100 mls/hr 06/27/23 07:00 06/27/23 22:28 Normal Saline 0.9% IV 100 mls/hr .Q10H ANI Administration Insulin Human Lispro 0 unit 06/28/23 00:00 06/28/23 06:06 Insulin Lispro 300 Unit/3 Ml Pen SUBQ Not Given Q6H [facility] Protocol Pantoprazole Sodium 40 mg 06/27/23 09:00 06/27/23 21:09 Pantoprazole 40 Mg Vial IVP 40 mg BID ANI Administration Potassium Chloride 20 meq 06/28/23 06:00 06/28/23 05:57 Potassium Chloride 20 Meq Tablet PO 06/28/23 08:01 20 meq Q2H ANI Administration Protocol Sodium Chloride 10 ml 06/27/23 06:05 06/27/23 19:42 Sodium Chloride Flush 0.9% 10 Ml Syringe IVP 10 ml PRN PRN Administration NEEDED PER PROVIDER ORDERS Sodium Chloride 10 ml 06/27/23 09:00 06/27/23 21:09 Sodium Chloride Flush 0.9% 10 Ml Syringe IVP 10 ml [id number],1700 ANI Administration Impression/Plan - Problem List Problem List: 82 y/o F with: 1. gi bleeding - patient has received three units pRBC's since presentation, hgb 9.2 this AM - blood pressure is slightly improved, but remains soft - patient NPO for likely procedure today - patient has history of upper GI bleed and CT consistent with colitis (c diff negative) - lactate level wnl yesterday. - Plan for EGD today. I discussed the r/b/a of this procedure with the patient and her daughter at bedside. There is low risk of bleeding or perforation. There is also risk associated with anesthesia, likely this patient's greatest risk given her frail state. The patient and her daughter voiced understanding, their questions were answered, and they wished to proceed. A consent was signed. We also discussed that the EGD is unlikely to change how the patient is feeling but will provide useful diagnostic information. If no findings on EGD, would cons ider colon prep to evaluate for ischemic colitis if patient continues to bleed. - agree with PPI BID IV - recommend avoiding blood thinning medications at this time. 2. elevated troponin - relatively stable, felt not to be an MO at this time 3. atrial fibrillation, CAD, HTN, HPL, h/o CVA - as per primary team Patient reports she lives at home alone but has excellent support. At baseline, she does all of her ADL's herself. Thank you for consulting me in the care of this patient. Surgery will continue to follow closely.
--- NOTE | 2023-06-28 07:39 | ANESTHESIA ---
Pre-Anesthesia VS, & Labs - Diagnosis UGI BLEED - Procedure EGD Vital Signs: Temp Pulse Resp BP Pulse Ox O2 Flow Rate 37.1 C 91 21 94/49 L 95 1 06/28/23 06:00 06/28/23 07:00 06/28/23 07:00 06/28/23 07:00 06/28/23 07:00 06/28/23 07:00 Height: 5 ft 3 in Weight (kg): 43.5 kg Body Mass Index: 16.9 BMI Classification: Underweight - Is Patient ?: No - Lab Results Current Lab Results: Laboratory Tests 06/28/23 06:03: POC Whole Bld Glucose 87 06/28/23 04:18: VBG pH 7.479 H, Ionized Calcium 1.10 L 06/28/23 04:18: Phosphorus 2.9, Magnesium 1.5 L, Last Dose Date 06-27-23, Last Dose Time 0900, Digoxin 0.3 06/28/23 04:18: Sodium 141, Potassium 3.3 L, Chloride 112 H, Carbon Dioxide 25, Anion Gap 4.0 L, BUN 35 H, Creatinine 0.3 L, Estimated GFR (MDRD) 214, Glucose 84, Calcium 8.2 L, Iron 107, TIBC 246 L, % Saturation 43, Transferrin 176 L, Vitamin B12 236 06/28/23 04:18: WBC 11.2 H, RBC 3.08 L, Hgb 9.2 L, Hct 28.9 L, MCV 93.8, MCH 29.9, MCHC 31.8 L, RDW 20.2 H, Plt Count 119 L, MPV 11.3 H, Neut # (Auto) 9.1 H, Lymph # (Auto) 1.2 L, [place] # (Auto) 0.7, Eos # (Auto) 0.1, Baso # (Auto) 0.1, Absolute Nucleated RBC 0.00, Nucleated RBC % 0.0, Manual Slide Review Indicated, Platelet Estimate DECREASED (<130,000), RBC Morph Micro Appear 1+ OVALOCYTES 06/28/23 00:15: POC Whole Bld Glucose 87 06/27/23 18:51: Lactic Acid 0.6 06/27/23 17:20: Troponin I High Sens 123.5 H* 06/27/23 17:20: WBC 10.6, RBC 2.54 L, Hgb 7.8 L, Hct 24.1 L, MCV 94.9, MCH 30.7, MCHC 32.4, RDW 22.3 H, Plt Count TNP, MPV 11.0 H, Neut # (Auto) 9.1 H, Lymph # (Auto) 0.9 L, [place] # (Auto) 0.5, Eos # (Auto) 0.0, Baso # (Auto) 0.1, Absolute Nucleated RBC 0.00, Nucleated RBC % 0.0, Platelet Estimate DECREASED (<130,000), Platelet Morphology PLATELET CLUMPING, RBC Morph Micro Appear 1+ SCHISTOCYTES 06/27/23 16:47: POC Whole Bld Glucose 99 06/27/23 14:20: Troponin I High Sens 113.0 H* 06/27/23 12:20: POC Whole Bld Glucose 81 06/27/23 04:00: Hgb 7.5 L, Hct 23.9 L 06/27/23 01:11: Hgb 7.8 L, Hct 25.4 L 06/26/23 21:25: Blood Type O POSITIVE, Antibody Screen NEGATIVE, Crossmatch IS Only See Detail 06/26/23 18:20: PT 13.4 H, INR 1.3 H, APTT 26.1 06/26/23 18:20: Sodium 138, Potassium 3.5, Chloride 103, Carbon Dioxide 22, Anion Gap 13.0, BUN 50 H, Creatinine 0.7, Estimated GFR (MDRD) 80 L, Glucose 209 H, Calcium 9.3, Total Bilirubin 0.4, AST 16, ALT 12, Alkaline Phosphatase 47, Total Protein 5.8 L, Albumin 3.6, Globulin 2.2, Albumin/Globulin Ratio 1.6, Lipase 30 06/26/23 18:20: WBC 13.3 H, RBC 2.60 L, Hgb 8.3 L, Hct 27.5 L, MCV 105.8 H, MCH 31.9 H, MCHC 30.2 L, RDW 18.2 H, Plt Count 257, MPV 11.2 H, Neut # (Auto) 11.0 H , Lymph # (Auto) 1.6, [place] # (Auto) 0.5, Eos # (Auto) 0.0, Baso # (Auto) 0.1, Absolute Nucleated RBC 0.00, Nucleated RBC % 0.0 Fish Bones: 06/28/23 04:18 06/28/23 04:18 Home Medications and Allergies Home Medications: Ambulatory Orders Clopidogrel [Plavix] 75 mg PO DAILY 06/26/23 Pantoprazole Sodium [Protonix] 20 mg PO DAILY 06/26/23 Active Medications Acetaminophen (Acetaminophen 325 Mg Tablet) 650 mg PO Q4HR PRN PRN Reason: Pain 1 to 4, or Fever Atorvastatin Calcium (Atorvastatin 40 Mg Tablet) 40 mg PO HS [facility] Last Admin: 06/27/23 21:09 Dose: 40 mg Calcium Carbonate/Glycine (Calcium Carbonate Chew 500 Mg Tablet) 1,250 mg PO Q4H ANI; Protocol Stop: 06/28/23 10:01 Last Admin: 06/28/23 05:56 Dose: 1,250 mg Digoxin (Digoxin 125 Mcg Tablet) 125 mcg PO DAILY [facility] Last Admin: 06/27/23 12:39 Dose: Not Given Sodium Chloride (Normal Saline 0.9%) 1,000 mls @ 100 mls/hr IV .Q10H [facility] Last Admin: 06/27/23 22:28 Dose: 100 mls/hr Insulin Human Lispro (Insulin Lispro 300 Unit/3 Ml Pen) 0 unit SUBQ Q6H ANI; Protocol Last Admin: 06/28/23 06:06 Dose: Not Given Ondansetron HCl (Ondansetron 4 Mg/2 Ml Vial) 4 mg IVP Q6HR PRN PRN Reason: Nausea / Vomiting Pantoprazole Sodium (Pantoprazole 40 Mg Vial) 40 mg IVP BID [facility] Last Admin: 06/27/23 21:09 Dose: 40 mg Potassium Chloride (Potassium Chloride 20 Meq Tablet) 20 meq PO Q2H ANI; Protocol Stop: 06/28/23 08:01 Last Admin: 06/28/23 05:57 Dose: 20 meq Prochlorperazine Edisylate (Prochlorperazine 10 Mg/2 Ml Vial) 10 mg IVP Q6HR PRN PRN Reason: Nausea / Vomiting Sodium Chloride (Sodium Chloride Flush 0.9% 10 Ml Syringe) 10 ml IVP PRN PRN PRN Reason: NEEDED PER PROVIDER ORDERS Last Admin: 06/27/23 19:42 Dose: 10 ml Sodium Chloride (Sodium Chloride Flush 0.9% 10 Ml Syringe) 10 ml IVP 0100,0900,1700 ANI Last Admin: 06/27/23 21:09 Dose: 10 ml Aspirin 81 mg PO DAILY 01/31/13 Atorvastatin Calcium [Lipitor] 40 mg PO HS 04/01/21 Digoxin [Lanoxin] 125 mcg PO DAILY 01/01/23 Clopidogrel [Plavix] 75 mg PO DAILY 06/26/23 Pantoprazole Sodium [Protonix] 20 mg PO DAILY 06/26/23 Allergies/Adverse Reactions: Allergies Allergy/AdvReac Type Severity Reaction Status Date / Time No Known Drug Allergies Allergy Verified 06/26/23 18:21 Anes History & Medical History - Anesthetic History Anesthesia Complications: reports: No previous complications Family history of Anesthesia Complications: Denies Family history of Malignant Hyperthermia: Denies (HX PAROXYSMAL AFIB) - Medical History Cardiovascular: reports: Hypertension, High cholesterol, Coronary artery di sease, Other Pulmonary: reports: None Gastrointestinal: reports: GI bleed, Ulcers (healed on EGD in 05/2023), Colon polyps Urinary: reports: None Neuro: reports: CVA, TIA Musculoskeletal: reports: None Endocrine/Autoimmune: reports: None Blood Disorders: reports: Anemia Skin: reports: Psoriasis Smoking Status: Former smoker - Surgical History General: reports: Colonoscopy Cardiothoracic: reports: Coronary stent Orthopedic: reports: Other Results - EKG Results EKG Comparison: Reviewed EKG Exam General: Alert Dental: WNL Mouth Openin Fingerbreadth Neck Mobility: Normal Mallampati classification: II Thyromental Distance: 4-6 cm Respiratory: Lungs clear Cardiovascular: Regular rate Plan Anesthesia Type: Total IV Consent for Procedure(s) Verified and Reviewed: Yes Code Status: Do Not Attempt Resuscitation ASA classification: 3-Severe systemic disease Is this case an emergency?: Yes (URGENT)
[2023-06-28] MEDS ORDERED: LIDOCAINE-MPF 2% 5 ML VIAL ONE (07:41)
[2023-06-28] MEDS ORDERED: PROPOFOL 200 MG/20 ML VIAL IVP ONE (07:41)
[2023-06-28] MEDS ORDERED: PHENYLEPHRINE HCL 0.5 MG/5 ML AMPULE ONE (08:02)
[2023-06-28 08:10] LABS: ADENOVIRUS F 40/41 Not Detected (Not Detected); ASTROVIRUS Not Detected (Not Detected); C DIFFICILE TOXIN A/B Not Detected (Not Detected); CAMPYLOBACTER Not Detected (Not Detected); CRYPTOSPORIDIUM Not Detected (Not Detected); CYCLOSPORA CAYETANENSIS Not Detected (Not Detected); ENTAMOEBA HISTOLYTICA Not Detected (Not Detected); ENTEROAGGREGATIVE E COLI Not Detected (Not Detected); ENTEROPATHOGENIC E COLI Not Detected (Not Detected); ENTEROTOXIGENIC E COLI Not Detected (Not Detected); GIARDIA LAMBLIA Not Detected (Not Detected); NOROVIRUS GI/GII Not Detected (Not Detected); PLESIOMONAS SHIGELLOIDES Not Detected (Not Detected); ROTAVIRUS A Not Detected (Not Detected); SALMONELLA Not Detected (Not Detected); SAPOVIRUS Not Detected (Not Detected); SHIGA-TOXIN-PRODUCING E COLI Not Detected (Not Detected); SHIGELLA/ENTEROINVASIVE E COLI Not Detected (Not Detected); VIBRIO Not Detected (Not Detected); VIBRIO CHOLERAE Not Detected (Not Detected); YERSINIA ENTEROCOLITICA Not Detected (Not Detected)
--- NOTE | 2023-06-28 08:27 | ED Physician Documentation ---
ED Addendum - Addendum Addendum: 06/28/23 08:24 I received signout on this patient from Dr. Tomas at the end of his shift; please see his note for complete H&P. In brief, patient presents with coffee-ground emesis and maroon stool. Similar presentation last month at which time she was found to be anemic and was [facility] sferred to [facility] in [place] for further workup based on patient and family request for transfer. At the time of turnover of care tonight, patient's hemoglobin was 8.3. Repeat hemoglobins during my shift show downward trend with 7.8 and then 7.5. I discussed these results with the patient and I recommended to her that we proceed with transfusion of packed red blood cells. Patient agrees with this plan. I discussed the case with the on-duty [facility] physician who agrees with admission to [facility]. Shortly prior to the patient being transferred to the floor, I received a phone call from the patient's [id number] (Debi). She asks if transfer the patient to [facility] in [place] is an option; she says she is only requesting this for [id number] as well as proximity to her and other family members. She says that she is comfortable with the patient being admitted to [facility] if [facility] is not an option. I had the ED NURSE FIRST AID contact [facility] to inquire about bed availability and was informed that there are no beds available. I re-contacted Debi and informed her of the lack of beds available at [facility] and she reiterates that she is comfortable with patient being admitted to [facility]. The patient has also been agreeable to admission to [facility].
[2023-06-28] MEDS: POTASSIUM CHLOR 10 MEQ/100 ML 10 MEQ/100 ML BAG IV SCH (09:16)
[2023-06-28 09:25] LABS: ESTIMATED AVERAGE GLUCOSE 126 mg/dL (70-100)
[2023-06-28 13:17] LABS: CALCIUM, IONIZED 1.16 mmol/L (1.15-1.33); VBG PH 7.375 (7.31-7.41)
[2023-06-28 13:41] LABS: MAGNESIUM 1.5 mg/dL (1.7-2.3); POTASSIUM 4.5 mmol/L (3.5-4.5)
[2023-06-28 13:46] LABS: PHOSPHORUS 2.5 mg/dL (2.5-5.0)
[2023-06-28] MEDS: SODIUM CHLORIDE 0.9% 1,000 ML IV SCH (14:04)
[2023-06-28] MEDS: MAGNESIUM SULFATE 2 GRAM 2 GM/50 ML BAG IV ONE ×2 (14:04→18:11)
--- NOTE | 2023-06-28 14:24 | ANESTHESIA POST OP EVALUATION ---
Anesthesia Post Eval - Post Anesthesia Eval Vitals: Last Vital Signs Temp 37.0 C 06/28/23 12:00 Pulse 96 06/28/23 14:00 Resp 19 06/28/23 14:00 BP 112/46 L 06/28/23 14:00 Pulse Ox 96 06/28/23 14:00 O2 Flow Rate 1 06/28/23 14:00 CV Function Including HR & BP: Stable Pain Control: Satisfactory Nausea & Vomiting: Negative Mental Status: Baseline Respiratory Status: Airway Patent Hydration Status: Satisfactory Anesthesia Complications: None
--- NOTE | 2023-06-28 17:41 | PROVIDER PROGRESS NOTE ---
Subjective - Subjective Pt reports feeling: Improved (Feeling better, less weak and lethargic. She had her EGD this morning and was told the results) Objective - Vital Signs/Intake & Output Reviewed Vital Signs: Yes Vital Signs: Vital Signs Temp Pulse Resp BP Pulse Ox O2 Flow Rate 06/28/23 17:00 94 17 88/40 L 94 1 06/28/23 16:00 37.1 C 92 18 101/49 L 96 06/28/23 15:00 97 19 94/51 L 93 1 06/28/23 14:30 99 20 107/52 L 93 1 06/28/23 14:00 96 19 112/46 L 96 1 Intake & Output: Intake & Output 06/25/23 06/26/23 06/27/23 06/28/23 23:59 23:59 23:59 23:59 Intake Total 2009 2281.000 Output Total 1120 1240 Balance 890 1041.000 - Objective General Appearance: positive: No acute distress, Alert, Other (Cachectic with sunken eyes and sunken cheeks) Eyes Bilateral: positive: EOMI, No lid inflammation ENT: positive: ENT inspection nml, No signs of dehydration Neck: positive: Nml inspection, No JVD Respiratory: positive: No respiratory distress, Breath sounds nml Cardiovascular: positive: Regular rate & rhythm, No murmur Abdomen: positive: Non-tender, Nml bowel sounds, No distention Skin: positive: Warm, Dry, Pallor Extremities: positive: Non-tender, No pedal edema Neurologic/Psychiatric: positive: Oriented x3, CN's nml (2-12), Motor nml - Lab Results Fish Bones: 06/28/23 13:09 06/28/23 13:09 Other Labs: Lab Results x24hrs 06/28/23 06/28/23 06/28/23 Range/Units 17:03 16:13 13:09 WBC (4.8-10.8) x10^3/uL RBC (4.20-5.40) 10^6/uL Hgb 10.1 L (12.0-16.0) g/dL Hct (37.0-47.0) % MCV (81.0-99.0) fL MCH (27.0-31.0) pg MCHC (32.0-36.0) g/dL RDW (12.0-15.0) % Plt Count MPV (7.9-10.8) fL Neut # (Auto) (1.5-6.6) 10^3/uL Lymph # (Auto) (1.5-3.5) 10^3/uL [place] # (Auto) (0.0-1.0) 10^3/uL Eos # (Auto) (0.0-0.7) 10^3/uL Baso # (Auto) (0.0-0.1) 10^3/uL Absolute Nucleated RBC x10^3/uL Nucleated RBC % /100WBC Manual Slide Review Platelet Estimate (NORMAL) Platelet Morphology (NORMAL) RBC Morph Micro Appear (NORMAL) VBG pH (7.31-7.41) Ionized Calcium (1.15-1.33) mmol/L Sodium (135-145) mmol/L Potassium (3.5-4.5) mmol/L Chloride (101-111) mmol/L Carbon Dioxide (21-32) mmol/L Anion Gap (6-13) BUN (6-20) mg/dL Creatinine (0.6-1.3) mg/dL Estimated GFR (MDRD) (>89) Glucose (74-104) mg/dL POC Whole Bld Glucose 77 (70 - 100) mg/dL Estimat Average Glucose (70-100) mg/dL Hemoglobin A1c % (4.27-6.07) % Lactic Acid (0.5-2.2) mmol/L Calcium (8.5-10.3) mg/dL Phosphorus (2.5-5.0) mg/dL Magnesium 1.7 (1.7-2.3) mg/dL Iron (50-212) ug/dL TIBC (250-450) ug/dL % Saturation (20-50) % Transferrin (203-362) mg/dL Troponin I High Sens (2.3-14.8) ng/L Vitamin B12 (180-914) pg/mL Nasal Screen MRSA (PCR) (NEGATIVE) Stl C. cayetanensis PCR (Not Detected) Stool Rotavirus A PCR (Not Detected) Stl Adenov F 40/41 PCR (Not Detected) Stool Astrovirus (PCR) (Not Detected) Stool Campylobacter PCR (Not Detected) Stl C. diff Tox A/B PCR (Not Detected) Stool Cryptosporidium PCR (Not Detected) Stl Sh Tox Pr E STEC PCR (Not Detected) Stool E coli O157 PCR (Not Detected) Stl Enterotoxigenic E PCR (Not Detected) Stool EPEC (PCR) (Not Detected) Stl E. histolytica PCR (Not Detected) Stool Giardia Lamblia PCR (Not Detected) Stl P. shigelloides PCR (Not Detected) Stool Salmonella PCR (Not Detected) Stool Sapovirus (PCR) (Not Detected) Stl Shigella/EIEC PCR (Not Detected) St Y.enterocolitica PCR (Not Detected) Stool Vibrio (PCR) (Not Detected) Stl Vibrio cholerae PCR (Not Detected) Stl Enteroaggr Ecoli PCR (Not Detected) Stl Norovirus GI/GII PCR (Not Detected) Last Dose Date Last Dose Time Digoxin ng/mL Blood Type Antibody Screen Crossmatch IS Only 06/28/23 06/28/23 06/28/23 Range/Units 13:09 13:09 11:40 WBC (4.8-10.8) x10^3/uL RBC (4.20-5.40) 10^6/uL Hgb (12.0-16.0) g/dL Hct (37.0-47.0) % MCV (81.0-99.0) fL MCH (27.0-31.0) pg MCHC (32.0-36.0) g/dL RDW (12.0-15.0) % Plt Count MPV (7.9-10.8) fL Neut # (Auto) (1.5-6.6) 10^3/uL Lymph # (Auto) (1.5-3.5) 10^3/uL [place] # (Auto) (0.0-1.0) 10^3/uL Eos # (Auto) (0.0-0.7) 10^3/uL Baso # (Auto) (0.0-0.1) 10^3/uL Absolute Nucleated RBC x10^3/uL Nucleated RBC % /100WBC Manual Slide Review Platelet Estimate (NORMAL) Platelet Morphology (NORMAL) RBC Morph Micro Appear (NORMAL) VBG pH 7.375 (7.31-7.41) Ionized Calcium 1.16 (1.15-1.33) mmol/L Sodium (135-145) mmol/L Potassium 4.5 (3.5-4.5) mmol/L Chloride (101-111) mmol/L Carbon Dioxide (21-32) mmol/L Anion Gap (6-13) BUN (6-20) mg/dL Creatinine (0.6-1.3) mg/dL Estimated GFR (MDRD) (>89) Glucose (74-104) mg/dL POC Whole Bld Glucose 95 (70 - 100) mg/dL Estimat Average Glucose (70-100) mg/dL Hemoglobin A1c % (4.27-6.07) % Lactic Acid (0.5-2.2) mmol/L Calcium (8.5-10.3) mg/dL Phosphorus 2.5 (2.5-5.0) mg/dL Magnesium 1.5 L (1.7-2.3) mg/dL Iron (50-212) ug/dL TIBC (250-450) ug/dL % Saturation (20-50) % Transferrin (203-362) mg/dL Troponin I High Sens (2.3-14.8) ng/L Vitamin B12 (180-914) pg/mL Nasal Screen MRSA (PCR) (NEGATIVE) Stl C. cayetanensis PCR (Not Detected) Stool Rotavirus A PCR (Not Detected) Stl Adenov F 40/41 PCR (Not Detected) Stool Astrovirus (PCR) (Not Detected) Stool Campylobacter PCR (Not Detected) Stl C. diff Tox A/B PCR (Not Detected) Stool Cryptosporidium PCR (Not Detected) Stl Sh Tox Pr E STEC PCR (Not Detected) Stool E coli O157 PCR (Not Detected) Stl Enterotoxigenic E PCR (Not Detected) Stool EPEC (PCR) (Not Detected) Stl E. histolytica PCR (Not Detected) Stool Giardia Lamblia PCR (Not Detected) Stl P. shigelloides PCR (Not Detected) Stool Salmonella PCR (Not Detected) Stool Sapovirus (PCR) (Not Detected) Stl Shigella/EIEC PCR (Not Detected) St Y.enterocolitica PCR (Not Detected) Stool Vibrio (PCR) (Not Detected) Stl Vibrio cholerae PCR (Not Detected) Stl Enteroaggr Ecoli PCR (Not Detected) Stl Norovirus GI/GII PCR (Not Detected) Last Dose Date Last Dose Time Digoxin ng/mL Blood Type Antibody Screen Crossmatch IS Only 06/28/23 06/28/23 06/28/23 Range/Units 06:03 04:18 04:18 WBC (4.8-10.8) x10^3/uL RBC (4.20-5.40) 10^6/uL Hgb (12.0-16.0) g/dL Hct (37.0-47.0) % MCV (81.0-99.0) fL MCH (27.0-31.0) pg MCHC (32.0-36.0) g/dL RDW (12.0-15.0) % Plt Count MPV (7.9-10.8) fL Neut # (Auto) (1.5-6.6) 10^3/uL Lymph # (Auto) (1.5-3.5) 10^3/uL [place] # (Auto) (0.0-1.0) 10^3/uL Eos # (Auto) (0.0-0.7) 10^3/uL Baso # (Auto) (0.0-0.1) 10^3/uL Absolute Nucleated RBC x10^3/uL Nucleated RBC % /100WBC Manual Slide Review Platelet Estimate (NORMAL) Platelet Morphology (NORMAL) RBC Morph Micro Appear (NORMAL) VBG pH 7.479 H (7.31-7.41) Ionized Calcium 1.10 L (1.15-1.33) mmol/L Sodium (135-145) mmol/L Potassium (3.5-4.5) mmol/L Chloride (101-111) mmol/L Carbon Dioxide (21-32) mmol/L Anion Gap (6-13) BUN (6-20) mg/dL Creatinine (0.6-1.3) mg/dL Estimated GFR (MDRD) (>89) Glucose (74-104) mg/dL POC Whole Bld Glucose 87 (70 - 100) mg/dL Estimat Average Glucose (70-100) mg/dL Hemoglobin A1c % (4.27-6.07) % Lactic Acid (0.5-2.2) mmol/L Calcium (8.5-10.3) mg/dL Phosphorus 2.9 (2.5-5.0) mg/dL Magnesium 1.5 L (1.7-2.3) mg/dL Iron (50-212) ug/dL TIBC (250-450) ug/dL % Saturation (20-50) % Transferrin (203-362) mg/dL Troponin I High Sens (2.3-14.8) ng/L Vitamin B12 (180-914) pg/mL Nasal Screen MRSA (PCR) (NEGATIVE) Stl C. cayetanensis PCR (Not Detected) Stool Rotavirus A PCR (Not Detected) Stl Adenov F 40/41 PCR (Not Detected) Stool Astrovirus (PCR) (Not Detected) Stool Campylobacter PCR (Not Detected) Stl C. diff Tox A/B PCR (Not Detected) Stool Cryptosporidium PCR (Not Detected) Stl Sh Tox Pr E STEC PCR (Not Detected) Stool E coli O157 PCR (Not Detected) Stl Enterotoxigenic E PCR (Not Detected) Stool EPEC (PCR) (Not Detected) Stl E. histolytica PCR (Not Detected) Stool Giardia Lamblia PCR (Not Detected) Stl P. shigelloides PCR (Not Detected) Stool Salmonella PCR (Not Detected) Stool Sapovirus (PCR) (Not Detected) Stl Shigella/EIEC PCR (Not Detected) St Y.enterocolitica PCR (Not Detected) Stool Vibrio (PCR) (Not Detected) Stl Vibrio cholerae PCR (Not Detected) Stl Enteroaggr Ecoli PCR (Not Detected) Stl Norovirus GI/GII PCR (Not Detected) Last Dose Date 06-27-23 Last Dose Time 0900 Digoxin 0.3 ng/mL Blood Type Antibody Screen Crossmatch IS Only 06/28/23 06/28/23 06/28/23 Range/Units 04:18 04:18 04:18 WBC 11.2 H (4.8-10.8) x10^3/uL RBC 3.08 L (4.20-5.40) 10^6/uL Hgb 9.2 L (12.0-16.0) g/dL Hct 28.9 L (37.0-47.0) % MCV 93.8 (81.0-99.0) fL MCH 29.9 (27.0-31.0) pg MCHC 31.8 L (32.0-36.0) g/dL RDW 20.2 H (12.0-15.0) % Plt Count 119 L MPV 11.3 H (7.9-10.8) fL Neut # (Auto) 9.1 H (1.5-6.6) 10^3/uL Lymph # (Auto) 1.2 L (1.5-3.5) 10^3/uL [place] # (Auto) 0.7 (0.0-1.0) 10^3/uL Eos # (Auto) 0.1 (0.0-0.7) 10^3/uL Baso # (Auto) 0.1 (0.0-0.1) 10^3/uL Absolute Nucleated RBC 0.00 x10^3/uL Nucleated RBC % 0.0 /100WBC Manual Slide Review Indicated Platelet Estimate DECREASED (<130,000) (NORMAL) Platelet Morphology (NORMAL) RBC Morph Micro Appear 1+ OVALOCYTES (NORMAL) VBG pH (7.31-7.41) Ionized Calcium (1.15-1.33) mmol/L Sodium 141 (135-145) mmol/L Potassium 3.3 L (3.5-4.5) mmol/L Chloride 112 H (101-111) mmol/L Carbon Dioxide 25 (21-32) mmol/L Anion Gap 4.0 L (6-13) BUN 35 H (6-20) mg/dL Creatinine 0.3 L (0.6-1.3) mg/dL Estimated GFR (MDRD) 214 (>89) Glucose 84 (74-104) mg/dL POC Whole Bld Glucose (70 - 100) mg/dL Estimat Average Glucose 126 H (70-100) mg/dL Hemoglobin A1c % 6.0 (4.27-6.07) % Lactic Acid (0.5-2.2) mmol/L Calcium 8.2 L (8.5-10.3) mg/dL Phosphorus (2.5-5.0) mg/dL Magnesium (1.7-2.3) mg/dL Iron 107 (50-212) ug/dL TIBC 246 L (250-450) ug/dL % Saturation 43 (20-50) % Transferrin 176 L (203-362) mg/dL Troponin I High Sens (2.3-14.8) ng/L Vitamin B12 236 (180-914) pg/mL Nasal Screen MRSA (PCR) (NEGATIVE) Stl C. cayetanensis PCR (Not Detected) Stool Rotavirus A PCR (Not Detected) Stl Adenov F 40/41 PCR (Not Detected) Stool Astrovirus (PCR) (Not Detected) Stool Campylobacter PCR (Not Detected) Stl C. diff Tox A/B PCR (Not Detected) Stool Cryptosporidium PCR (Not Detected) Stl Sh Tox Pr E STEC PCR (Not Detected) Stool E coli O157 PCR (Not Detected) Stl Enterotoxigenic E PCR (Not Detected) Stool EPEC (PCR) (Not Detected) Stl E. histolytica PCR (Not Detected) Stool Giardia Lamblia PCR (Not Detected) Stl P. shigelloides PCR (Not Detected) Stool Salmonella PCR (Not Detected) Stool Sapovirus (PCR) (Not Detected) Stl Shigella/EIEC PCR (Not Detected) St Y.enterocolitica PCR (Not Detected) Stool Vibrio (PCR) (Not Detected) Stl Vibrio cholerae PCR (Not Detected) Stl Enteroaggr Ecoli PCR (Not Detected) Stl Norovirus GI/GII PCR (Not Detected) Last Dose Date Last Dose Time Digoxin ng/mL Blood Type Antibody Screen Crossmatch IS Only 06/28/23 06/27/23 06/27/23 Range/Units 00:15 18:51 17:20 WBC (4.8-10.8) x10^3/uL RBC (4.20-5.40) 10^6/uL Hgb (12.0-16.0) g/dL Hct (37.0-47.0) % MCV (81.0-99.0) fL MCH (27.0-31.0) pg MCHC (32.0-36.0) g/dL RDW (12.0-15.0) % Plt Count MPV (7.9-10.8) fL Neut # (Auto) (1.5-6.6) 10^3/uL Lymph # (Auto) (1.5-3.5) 10^3/uL [place] # (Auto) (0.0-1.0) 10^3/uL Eos # (Auto) (0.0-0.7) 10^3/uL Baso # (Auto) (0.0-0.1) 10^3/uL Absolute Nucleated RBC x10^3/uL Nucleated RBC % /100WBC Manual Slide Review Platelet Estimate (NORMAL) Platelet Morphology (NORMAL) RBC Morph Micro Appear (NORMAL) VBG pH (7.31-7.41) Ionized Calcium (1.15-1.33) mmol/L Sodium (135-145) mmol/L Potassium (3.5-4.5) mmol/L Chloride (101-111) mmol/L Carbon Dioxide (21-32) mmol/L Anion Gap (6-13) BUN (6-20) mg/dL Creatinine (0.6-1.3) mg/dL Estimated GFR (MDRD) (>89) Glucose (74-104) mg/dL POC Whole Bld Glucose 87 (70 - 100) mg/dL Estimat Average Glucose (70-100) mg/dL Hemoglobin A1c % (4.27-6.07) % Lactic Acid 0.6 (0.5-2.2) mmol/L Calcium (8.5-10.3) mg/dL Phosphorus (2.5-5.0) mg/dL Magnesium (1.7-2.3) mg/dL Iron (50-212) ug/dL TIBC (250-450) ug/dL % Saturation (20-50) % Transferrin (203-362) mg/dL Troponin I High Sens 123.5 H* (2.3-14.8) ng/L Vitamin B12 (180-914) pg/mL Nasal Screen MRSA (PCR) (NEGATIVE) Stl C. cayetanensis PCR (Not Detected) Stool Rotavirus A PCR (Not Detected) Stl Adenov F 40/41 PCR (Not Detected) Stool Astrovirus (PCR) (Not Detected) Stool Campylobacter PCR (Not Detected) Stl C. diff Tox A/B PCR (Not Detected) Stool Cryptosporidium PCR (Not Detected) Stl Sh Tox Pr E STEC PCR (Not Detected) Stool E coli O157 PCR (Not Detected) Stl Enterotoxigenic E PCR (Not Detected) Stool EPEC (PCR) (Not Detected) Stl E. histolytica PCR (Not Detected) Stool Giardia Lamblia PCR (Not Detected) Stl P. shigelloides PCR (Not Detected) Stool Salmonella PCR (Not Detected) Stool Sapovirus (PCR) (Not Detected) Stl Shigella/EIEC PCR (Not Detected) St Y.enterocolitica PCR (Not Detected) Stool Vibrio (PCR) (Not Detected) Stl Vibrio cholerae PCR (Not Detected) Stl Enteroaggr Ecoli PCR (Not Detected) Stl Norovirus GI/GII PCR (Not Detected) Last Dose Date Last Dose Time Digoxin ng/mL Blood Type Antibody Screen Crossmatch IS Only 06/27/23 06/27/23 06/27/23 Range/Units 17:20 14:10 13:30 WBC 10.6 (4.8-10.8) x10^3/uL RBC 2.54 L (4.20-5.40) 10^6/uL Hgb 7.8 L (12.0-16.0) g/dL Hct 24.1 L (37.0-47.0) % MCV 94.9 (81.0-99.0) fL MCH 30.7 (27.0-31.0) pg MCHC 32.4 (32.0-36.0) g/dL RDW 22.3 H (12.0-15.0) % Plt Count TNP MPV 11.0 H (7.9-10.8) fL Neut # (Auto) 9.1 H (1.5-6.6) 10^3/uL Lymph # (Auto) 0.9 L (1.5-3.5) 10^3/uL [place] # (Auto) 0.5 (0.0-1.0) 10^3/uL Eos # (Auto) 0.0 (0.0-0.7) 10^3/uL Baso # (Auto) 0.1 (0.0-0.1) 10^3/uL Absolute Nucleated RBC 0.00 x10^3/uL Nucleated RBC % 0.0 /100WBC Manual Slide Review Platelet Estimate DECREASED (<130,000) (NORMAL) Platelet Morphology PLATELET CLUMPING (NORMAL) RBC Morph Micro Appear 1+ SCHISTOCYTES (NORMAL) VBG pH (7.31-7.41) Ionized Calcium (1.15-1.33) mmol/L Sodium (135-145) mmol/L Potassium (3.5-4.5) mmol/L Chloride (101-111) mmol/L Carbon Dioxide (21-32) mmol/L Anion Gap (6-13) BUN (6-20) mg/dL Creatinine (0.6-1.3) mg/dL Estimated GFR (MDRD) (>89) Glucose (74-104) mg/dL POC Whole Bld Glucose (70 - 100) mg/dL Estimat Average Glucose (70-100) mg/dL Hemoglobin A1c % (4.27-6.07) % Lactic Acid (0.5-2.2) mmol/L Calcium (8.5-10.3) mg/dL Phosphorus (2.5-5.0) mg/dL Magnesium (1.7-2.3) mg/dL Iron (50-212) ug/dL TIBC (250-450) ug/dL % Saturation (20-50) % Transferrin (203-362) mg/dL Troponin I High Sens (2.3-14.8) ng/L Vitamin B12 (180-914) pg/mL Nasal Screen MRSA (PCR) NEGATIVE (NEGATIVE) Stl C. cayetanensis PCR Not Detected (Not Detected) Stool Rotavirus A PCR Not Detected (Not Detected) Stl Adenov F 40/41 PCR Not Detected (Not Detected) Stool Astrovirus (PCR) Not Detected (Not Detected) Stool Campylobacter PCR Not Detected (Not Detected) Stl C. diff Tox A/B PCR Not Detected (Not Detected) Stool Cryptosporidium PCR Not Detected (Not Detected) Stl Sh Tox Pr E STEC PCR Not Detected (Not Detected) Stool E coli O157 PCR Not applicable (Not Detected) Stl Enterotoxigenic E PCR Not Detected (Not Detected) Stool EPEC (PCR) Not Detected (Not Detected) Stl E. histolytica PCR Not Detected (Not Detected) Stool Giardia Lamblia PCR Not Detected (Not Detected) Stl P. shigelloides PCR Not Detected (Not Detected) Stool Salmonella PCR Not Detected (Not Detected) Stool Sapovirus (PCR) Not Detected (Not Detected) Stl Shigella/EIEC PCR Not Detected (Not Detected) St Y.enterocolitica PCR Not Detected (Not Detected) Stool Vibrio (PCR) Not Detected (Not Detected) Stl Vibrio cholerae PCR Not Detected (Not Detected) Stl Enteroaggr Ecoli PCR Not Detected (Not Detected) Stl Norovirus GI/GII PCR Not Detected (Not Detected) Last Dose Date Last Dose Time Digoxin ng/mL Blood Type Antibody Screen Crossmatch IS Only 06/26/23 Range/Units 21:25 WBC (4.8-10.8) x10^3/uL RBC (4.20-5.40) 10^6/uL Hgb (12.0-16.0) g/dL Hct (37.0-47.0) % MCV (81.0-99.0) fL MCH (27.0-31.0) pg MCHC (32.0-36.0) g/dL RDW (12.0-15.0) % Plt Count MPV (7.9-10.8) fL Neut # (Auto) (1.5-6.6) 10^3/uL Lymph # (Auto) (1.5-3.5) 10^3/uL [place] # (Auto) (0.0-1.0) 10^3/uL Eos # (Auto) (0.0-0.7) 10^3/uL Baso # (Auto) (0.0-0.1) 10^3/uL Absolute Nucleated RBC x10^3/uL Nucleated RBC % /100WBC Manual Slide Review Platelet Estimate (NORMAL) Platelet Morphology (NORMAL) RBC Morph Micro Appear (NORMAL) VBG pH (7.31-7.41) Ionized Calcium (1.15-1.33) mmol/L Sodium (135-145) mmol/L Potassium (3.5-4.5) mmol/L Chloride (101-111) mmol/L Carbon Dioxide (21-32) mmol/L Anion Gap (6-13) BUN (6-20) mg/dL Creatinine (0.6-1.3) mg/dL Estimated GFR (MDRD) (>89) Glucose (74-104) mg/dL POC Whole Bld Glucose (70 - 100) mg/dL Estimat Average Glucose (70-100) mg/dL Hemoglobin A1c % (4.27-6.07) % Lactic Acid (0.5-2.2) mmol/L Calcium (8.5-10.3) mg/dL Phosphorus (2.5-5.0) mg/dL Magnesium (1.7-2.3) mg/dL Iron (50-212) ug/dL TIBC (250-450) ug/dL % Saturation (20-50) % Transferrin (203-362) mg/dL Troponin I High Sens (2.3-14.8) ng/L Vitamin B12 (180-914) pg/mL Nasal Screen MRSA (PCR) (NEGATIVE) Stl C. cayetanensis PCR (Not Detected) Stool Rotavirus A PCR (Not Detected) Stl Adenov F 40/41 PCR (Not Detected) Stool Astrovirus (PCR) (Not Detected) Stool Campylobacter PCR (Not Detected) Stl C. diff Tox A/B PCR (Not Detected) Stool Cryptosporidium PCR (Not Detected) Stl Sh Tox Pr E STEC PCR (Not Detected) Stool E coli O157 PCR (Not Detected) Stl Enterotoxigenic E PCR (Not Detected) Stool EPEC (PCR) (Not Detected) Stl E. histolytica PCR (Not Detected) Stool Giardia Lamblia PCR (Not Detected) Stl P. shigelloides PCR (Not Detected) Stool Salmonella PCR (Not Detected) Stool Sapovirus (PCR) (Not Detected) Stl Shigella/EIEC PCR (Not Detected) St Y.enterocolitica PCR (Not Detected) Stool Vibrio (PCR) (Not Detected) Stl Vibrio cholerae PCR (Not Detected) Stl Enteroaggr Ecoli PCR (Not Detected) Stl Norovirus GI/GII PCR (Not Detected) Last Dose Date Last Dose Time Digoxin ng/mL Blood Type O POSITIVE Antibody Screen NEGATIVE Crossmatch IS Only See Detail Assessment/Plan - Problem List (1) Upper GI bleed Impression: Patient had presented with melena mixed with some blood, also had coffee-ground emesis. There was a history of similar presentation about a month ago and she had EGD and colonoscopy at a different hospital then and findings were a peptic ulcer, non-bleeding This morning the patient underwent EGD here and the findings were a gastric ulcer. It was not bleeding. She also had gastric atrophy and biopsies were done to check for H. pylori Plan: Continue with Protonix IV twice daily I spoke to the general surgeon and got recommendations to have her on a clear liquid diet for the next 12 hours. If her hemoglobin is stable over the next 4 hours then her diet can advanced (2) Acute GI blood loss anemia Hgb was >7 but she was hypotensive and was moved to the ICU yesterday Since admission she has received 3 units of PRBCs Plan: Continue to treat the underlying source which we think was bleeding ulcer Follow her hemoglobin every 6-12 hours Transfuse if hemoglobin under 7 or if she is hypotensive and hemoglobin under 8 (3) Orthostatic hypotension Apparently this patient fell 3 times on the day of admission before coming to ER When she was hypotensive, bedrest was ordered. Today will be the first time she is OOB. Orthostatic vital signs were ordered and she is extremely orthostatic and symptomatic with that (VS checked) Plan: Remain in the ICU, monitor closely for rebleeding Continue to follow her hemoglobin closely with plan as in #1 and 2 She will need PT and OT evaluation but not yet while she is orthostatic (4) Severe protein calorie malnutrition This patient has a BMI of 17. Yesterday when I was on the phone with her [id number] the [facility], I was told she has lost alot of weight over the past 6 mos. Plan: Nutrition consult to give recommendations. The patient is interested in ideas to increase calories besides Ensure and boost
[2023-06-29 04:56] LABS: BASOPHILS # (AUTO) 0.1 10^3/uL (0.0-0.1); BASOPHILS % (AUTO) 1.3 %; EOSINOPHILS # (AUTO) 0.6 10^3/uL (0.0-0.7); EOSINOPHILS % (AUTO) 6.5 %; HCT - HEMATOCRIT 31.6 % (37.0-47.0); LYMPHOCYTES % (AUTO) 11.5 %; MEAN CORPUSCULAR HEMOGLOBIN 29.9 pg (27.0-31.0); MEAN CORPUSCULAR HGB CONC 31.6 g/dL (32.0-36.0); MEAN CORPUSCULAR VOLUME 94.6 fL (81.0-99.0); MONOCYTES # (AUTO) 0.4 10^3/uL (0.0-1.0); MONOCYTES % (AUTO) 5.1 %; NEUTROPHILS # (AUTO) 6.3 10^3/uL (1.5-6.6); NEUTROPHILS % (AUTO) 75.2 %; PLT - PLATELET COUNT 127 10^3/uL (130-450); RED BLOOD COUNT 3.34 10^6/uL (4.20-5.40); WHITE BLOOD COUNT 8.4 x10^3/uL (4.8-10.8)
[2023-06-29 04:58] LABS: CALCIUM, IONIZED 1.07 mmol/L (1.15-1.33); VBG PH 7.466 (7.31-7.41)
[2023-06-29 04:59] LABS: MEAN PLATELET VOLUME 11.6 fL (7.9-10.8); RED CELL DISTRIBUTION WIDTH 19.9 % (12.0-15.0)
[2023-06-29 05:11] LABS: CALCIUM 8.2 mg/dL (8.5-10.3); CREATININE 0.4 mg/dL (0.6-1.3); POTASSIUM 3.5 mmol/L (3.5-4.5)
[2023-06-29 05:13] LABS: MAGNESIUM 1.9 mg/dL (1.7-2.3); PHOSPHORUS 2.7 mg/dL (2.5-5.0)
[2023-06-29] MEDS: POTASSIUM CHLORIDE 20 MEQ TABLET PO SCH (06:06)
[2023-06-29] MEDS: CALCIUM CARBONATE CHEW 500 MG TABLET PO SCH (06:07)
--- NOTE | 2023-06-29 07:35 | PROVIDER PROGRESS NOTE ---
Subjective - General Admit Date: 06/27/23 Procedure Date: 06/28/23 Post Op Days: 1 Procedure Performed: EGD - Review of Systems All Other Systems: positive: Reviewed and negative - Other Other Information/Narrative: Patient without pain, nausea. Patient had one dark BM yesterday, but hgb has remained stable. No acute events overnight. Objective - Patient Data Reviewed Vital Signs: Yes Vital Signs: Vital Signs x48h Temp Pulse Resp BP Pulse Ox O2 Flow Rate 06/29/23 07:00 87 22 124/52 L 98 1 06/29/23 06:00 36.8 C 90 20 128/52 L 92 1 06/29/23 05:00 79 14 123/53 L 92 2 06/29/23 04:00 36.8 C 83 16 120/47 L 94 1 06/29/23 03:00 82 15 118/50 L 96 1 06/29/23 02:00 80 15 110/48 L 98 1 06/29/23 01:00 84 12 115/52 L 96 1 06/29/23 00:00 36.8 C 84 17 107/49 L 98 1 Weight: Weight 06/27/23 06/28/23 06/29/23 23:59 23:59 23:59 Weight (kg) 43.5 kg 43.5 kg 44 kg Intake & Output: Intake and Output Totals x24h 06/27/23 06/28/23 06/29/23 23:59 23:59 23:59 Intake Total 20098.333 250 Output Total 1120 1983 480 Balance 890 965.333 -230 - Lab Results Lab Results: 06/29/23 04:13 06/29/23 04:13 Other Lab Results: Lab Results x24hrs 06/29/23 06/29/23 06/29/23 Range/Units 04:13 04:13 04:13 WBC (4.8-10.8) x10^3/uL RBC (4.20-5.40) 10^6/uL Hgb (12.0-16.0) g/dL Hct (37.0-47.0) % MCV (81.0-99.0) fL MCH (27.0-31.0) pg MCHC (32.0-36.0) g/dL RDW (12.0-15.0) % Plt Count (130-450) 10^3/uL MPV (7.9-10.8) fL Neut # (Auto) (1.5-6.6) 10^3/uL Lymph # (Auto) (1.5-3.5) 10^3/uL Andrews # (Auto) (0.0-1.0) 10^3/uL Eos # (Auto) (0.0-0.7) 10^3/uL Baso # (Auto) (0.0-0.1) 10^3/uL Absolute Nucleated RBC x10^3/uL Nucleated RBC % /100WBC VBG pH 7.466 H (7.31-7.41) Ionized Calcium 1.07 L (1.15-1.33) mmol/L Sodium 138 (135-145) mmol/L Potassium 3.5 (3.5-4.5) mmol/L Chloride 107 (101-111) mmol/L Carbon Dioxide 27 (21-32) mmol/L Anion Gap 4.0 L (6-13) BUN 18 (6-20) mg/dL Creatinine 0.4 L (0.6-1.3) mg/dL Estimated GFR (MDRD) 153 (>89) Glucose 83 (74-104) mg/dL POC Whole Bld Glucose (70 - 100) mg/dL Estimat Average Glucose (70-100) mg/dL Hemoglobin A1c % (4.27-6.07) % Calcium 8.2 L (8.5-10.3) mg/dL Phosphorus 2.7 (2.5-5.0) mg/dL Magnesium 1.9 (1.7-2.3) mg/dL Stl C. cayetanensis PCR (Not Detected) Stool Rotavirus A PCR (Not Detected) Stl Adenov F 40/41 PCR (Not Detected) Stool Astrovirus (PCR) (Not Detected) Stool Campylobacter PCR (Not Detected) Stl C. diff Tox A/B PCR (Not Detected) Stool Cryptosporidium PCR (Not Detected) Stl Sh Tox Pr E STEC PCR (Not Detected) Stool E coli O157 PCR (Not Detected) Stl Enterotoxigenic E PCR (Not Detected) Stool EPEC (PCR) (Not Detected) Stl E. histolytica PCR (Not Detected) Stool Giardia Lamblia PCR (Not Detected) Stl P. shigelloides PCR (Not Detected) Stool Salmonella PCR (Not Detected) Stool Sapovirus (PCR) (Not Detected) Stl Shigella/EIEC PCR (Not Detected) St Y.enterocolitica PCR (Not Detected) Stool Vibrio (PCR) (Not Detected) Stl Vibrio cholerae PCR (Not Detected) Stl Enteroaggr Ecoli PCR (Not Detected) Stl Norovirus GI/GII PCR (Not Detected) 06/29/23 06/28/23 06/28/23 Range/Units 04:13 21:04 21:03 WBC 8.4 (4.8-10.8) x10^3/uL RBC 3.34 L (4.20-5.40) 10^6/uL Hgb 10.0 L (12.0-16.0) g/dL Hct 31.6 L (37.0-47.0) % MCV 94.6 (81.0-99.0) fL MCH 29.9 (27.0-31.0) pg MCHC 31.6 L (32.0-36.0) g/dL RDW 19.9 H (12.0-15.0) % Plt Count 127 L (130-450) 10^3/uL MPV 11.6 H (7.9-10.8) fL Neut # (Auto) 6.3 (1.5-6.6) 10^3/uL Lymph # (Auto) 1.0 L (1.5-3.5) 10^3/uL Andrews # (Auto) 0.4 (0.0-1.0) 10^3/uL Eos # (Auto) 0.6 (0.0-0.7) 10^3/uL Baso # (Auto) 0.1 (0.0-0.1) 10^3/uL Absolute Nucleated RBC 0.00 x10^3/uL Nucleated RBC % 0.0 /100WBC VBG pH (7.31-7.41) Ionized Calcium (1.15-1.33) mmol/L Sodium (135-145) mmol/L Potassium (3.5-4.5) mmol/L Chloride (101-111) mmol/L Carbon Dioxide (21-32) mmol/L Anion Gap (6-13) BUN (6-20) mg/dL Creatinine (0.6-1.3) mg/dL Estimated GFR (MDRD) (>89) Glucose (74-104) mg/dL POC Whole Bld Glucose 81 (70 - 100) mg/dL Estimat Average Glucose (70-100) mg/dL Hemoglobin A1c % (4.27-6.07) % Calcium (8.5-10.3) mg/dL Phosphorus (2.5-5.0) mg/dL Magnesium 2.2 (1.7-2.3) mg/dL Stl C. cayetanensis PCR (Not Detected) Stool Rotavirus A PCR (Not Detected) Stl Adenov F 40/41 PCR (Not Detected) Stool Astrovirus (PCR) (Not Detected) Stool Campylobacter PCR (Not Detected) Stl C. diff Tox A/B PCR (Not Detected) Stool Cryptosporidium PCR (Not Detected) Stl Sh Tox Pr E STEC PCR (Not Detected) Stool E coli O157 PCR (Not Detected) Stl Enterotoxigenic E PCR (Not Detected) Stool EPEC (PCR) (Not Detected) Stl E. histolytica PCR (Not Detected) Stool Giardia Lamblia PCR (Not Detected) Stl P. shigelloides PCR (Not Detected) Stool Salmonella PCR (Not Detected) Stool Sapovirus (PCR) (Not Detected) Stl Shigella/EIEC PCR (Not Detected) St Y.enterocolitica PCR (Not Detected) Stool Vibrio (PCR) (Not Detected) Stl Vibrio cholerae PCR (Not Detected) Stl Enteroaggr Ecoli PCR (Not Detected) Stl Norovirus GI/GII PCR (Not Detected) 06/28/23 06/28/23 06/28/23 Range/Units 19:20 17:03 16:13 WBC (4.8-10.8) x10^3/uL RBC (4.20-5.40) 10^6/uL Hgb 9.3 L (12.0-16.0) g/dL Hct (37.0-47.0) % MCV (81.0-99.0) fL MCH (27.0-31.0) pg MCHC (32.0-36.0) g/dL RDW (12.0-15.0) % Plt Count (130-450) 10^3/uL MPV (7.9-10.8) fL Neut # (Auto) (1.5-6.6) 10^3/uL Lymph # (Auto) (1.5-3.5) 10^3/uL Andrews # (Auto) (0.0-1.0) 10^3/uL Eos # (Auto) (0.0-0.7) 10^3/uL Baso # (Auto) (0.0-0.1) 10^3/uL Absolute Nucleated RBC x10^3/uL Nucleated RBC % /100WBC VBG pH (7.31-7.41) Ionized Calcium (1.15-1.33) mmol/L Sodium (135-145) mmol/L Potassium (3.5-4.5) mmol/L Chloride (101-111) mmol/L Carbon Dioxide (21-32) mmol/L Anion Gap (6-13) BUN (6-20) mg/dL Creatinine (0.6-1.3) mg/dL Estimated GFR (MDRD) (>89) Glucose (74-104) mg/dL POC Whole Bld Glucose 77 (70 - 100) mg/dL Estimat Average Glucose (70-100) mg/dL Hemoglobin A1c % (4.27-6.07) % Calcium (8.5-10.3) mg/dL Phosphorus (2.5-5.0) mg/dL Magnesium 1.7 (1.7-2.3) mg/dL Stl C. cayetanensis PCR (Not Detected) Stool Rotavirus A PCR (Not Detected) Stl Adenov F 40/41 PCR (Not Detected) Stool Astrovirus (PCR) (Not Detected) Stool Campylobacter PCR (Not Detected) Stl C. diff Tox A/B PCR (Not Detected) Stool Cryptosporidium PCR (Not Detected) Stl Sh Tox Pr E STEC PCR (Not Detected) Stool E coli O157 PCR (Not Detected) Stl Enterotoxigenic E PCR (Not Detected) Stool EPEC (PCR) (Not Detected) Stl E. histolytica PCR (Not Detected) Stool Giardia Lamblia PCR (Not Detected) Stl P. shigelloides PCR (Not Detected) Stool Salmonella PCR (Not Detected) Stool Sapovirus (PCR) (Not Detected) Stl Shigella/EIEC PCR (Not Detected) St Y.enterocolitica PCR (Not Detected) Stool Vibrio (PCR) (Not Detected) Stl Vibrio cholerae PCR (Not Detected) Stl Enteroaggr Ecoli PCR (Not Detected) Stl Norovirus GI/GII PCR (Not Detected) 06/28/23 06/28/23 06/28/23 Range/Units 13:09 13:09 13:09 WBC (4.8-10.8) x10^3/uL RBC (4.20-5.40) 10^6/uL Hgb 10.1 L (12.0-16.0) g/dL Hct (37.0-47.0) % MCV (81.0-99.0) fL MCH (27.0-31.0) pg MCHC (32.0-36.0) g/dL RDW (12.0-15.0) % Plt Count (130-450) 10^3/uL MPV (7.9-10.8) fL Neut # (Auto) (1.5-6.6) 10^3/uL Lymph # (Auto) (1.5-3.5) 10^3/uL Andrews # (Auto) (0.0-1.0) 10^3/uL Eos # (Auto) (0.0-0.7) 10^3/uL Baso # (Auto) (0.0-0.1) 10^3/uL Absolute Nucleated RBC x10^3/uL Nucleated RBC % /100WBC VBG pH 7.375 (7.31-7.41) Ionized Calcium 1.16 (1.15-1.33) mmol/L Sodium (135-145) mmol/L Potassium 4.5 (3.5-4.5) mmol/L Chloride (101-111) mmol/L Carbon Dioxide (21-32) mmol/L Anion Gap (6-13) BUN (6-20) mg/dL Creatinine (0.6-1.3) mg/dL Estimated GFR (MDRD) (>89) Glucose (74-104) mg/dL POC Whole Bld Glucose (70 - 100) mg/dL Estimat Average Glucose (70-100) mg/dL Hemoglobin A1c % (4.27-6.07) % Calcium (8.5-10.3) mg/dL Phosphorus 2.5 (2.5-5.0) mg/dL Magnesium 1.5 L (1.7-2.3) mg/dL Stl C. cayetanensis PCR (Not Detected) Stool Rotavirus A PCR (Not Detected) Stl Adenov F 40/41 PCR (Not Detected) Stool Astrovirus (PCR) (Not Detected) Stool Campylobacter PCR (Not Detected) Stl C. diff Tox A/B PCR (Not Detected) Stool Cryptosporidium PCR (Not Detected) Stl Sh Tox Pr E STEC PCR (Not Detected) Stool E coli O157 PCR (Not Detected) Stl Enterotoxigenic E PCR (Not Detected) Stool EPEC (PCR) (Not Detected) Stl E. histolytica PCR (Not Detected) Stool Giardia Lamblia PCR (Not Detected) Stl P. shigelloides PCR (Not Detected) Stool Salmonella PCR (Not Detected) Stool Sapovirus (PCR) (Not Detected) Stl Shigella/EIEC PCR (Not Detected) St Y.enterocolitica PCR (Not Detected) Stool Vibrio (PCR) (Not Detected) Stl Vibrio cholerae PCR (Not Detected) Stl Enteroaggr Ecoli PCR (Not Detected) Stl Norovirus GI/GII PCR (Not Detected) 06/28/23 06/28/23 06/27/23 Range/Units 11:40 04:18 13:30 WBC (4.8-10.8) x10^3/uL RBC (4.20-5.40) 10^6/uL Hgb (12.0-16.0) g/dL Hct (37.0-47.0) % MCV (81.0-99.0) fL MCH (27.0-31.0) pg MCHC (32.0-36.0) g/dL RDW (12.0-15.0) % Plt Count (130-450) 10^3/uL MPV (7.9-10.8) fL Neut # (Auto) (1.5-6.6) 10^3/uL Lymph # (Auto) (1.5-3.5) 10^3/uL Andrews # (Auto) (0.0-1.0) 10^3/uL Eos # (Auto) (0.0-0.7) 10^3/uL Baso # (Auto) (0.0-0.1) 10^3/uL Absolute Nucleated RBC x10^3/uL Nucleated RBC % /100WBC VBG pH (7.31-7.41) Ionized Calcium (1.15-1.33) mmol/L Sodium (135-145) mmol/L Potassium (3.5-4.5) mmol/L Chloride (101-111) mmol/L Carbon Dioxide (21-32) mmol/L Anion Gap (6-13) BUN (6-20) mg/dL Creatinine (0.6-1.3) mg/dL Estimated GFR (MDRD) (>89) Glucose (74-104) mg/dL POC Whole Bld Glucose 95 (70 - 100) mg/dL Estimat Average Glucose 126 H (70-100) mg/dL Hemoglobin A1c % 6.0 (4.27-6.07) % Calcium (8.5-10.3) mg/dL Phosphorus (2.5-5.0) mg/dL Magnesium (1.7-2.3) mg/dL Stl C. cayetanensis PCR Not Detected (Not Detected) Stool Rotavirus A PCR Not Detected (Not Detected) Stl Adenov F 40/41 PCR Not Detected (Not Detected) Stool Astrovirus (PCR) Not Detected (Not Detected) Stool Campylobacter PCR Not Detected (Not Detected) Stl C. diff Tox A/B PCR Not Detected (Not Detected) Stool Cryptosporidium PCR Not Detected (Not Detected) Stl Sh Tox Pr E STEC PCR Not Detected (Not Detected) Stool E coli O157 PCR Not applicable (Not Detected) Stl Enterotoxigenic E PCR Not Detected (Not Detected) Stool EPEC (PCR) Not Detected (Not Detected) Stl E. histolytica PCR Not Detected (Not Detected) Stool Giardia Lamblia PCR Not Detected (Not Detected) Stl P. shigelloides PCR Not Detected (Not Detected) Stool Salmonella PCR Not Detected (Not Detected) Stool Sapovirus (PCR) Not Detected (Not Detected) Stl Shigella/EIEC PCR Not Detected (Not Detected) St Y.enterocolitica PCR Not Detected (Not Detected) Stool Vibrio (PCR) Not Detected (Not Detected) Stl Vibrio cholerae PCR Not Detected (Not Detected) Stl Enteroaggr Ecoli PCR Not Detected (Not Detected) Stl Norovirus GI/GII PCR Not Detected (Not Detected) - Current Medications Current Medications: Current Medications Generic Name Dose Route Start Last Admin Trade Name Freq PRN Reason Stop Dose Admin Atorvastatin Calcium 40 mg 06/27/23 21:00 06/28/23 21:04 Atorvastatin 40 Mg Tablet PO 40 mg HS ANI Administration Calcium Carbonate/Glycine 1,250 mg 06/29/23 06:00 06/29/23 06:07 Calcium Carbonate Chew 500 Mg Tablet PO 06/29/23 10:01 1,250 mg Q4H ANI Administration Protocol Digoxin 125 mcg 06/27/23 09:00 06/28/23 08:41 Digoxin 125 Mcg Tablet PO 125 mcg DAILY ANI Administration Sodium Chloride 1,000 mls @ 40 mls/hr 06/28/23 12:21 06/28/23 19:30 Normal Saline 0.9% IV 40 mls/hr .Q25H ANI Infusion Insulin Human Lispro 0 unit 06/28/23 12:00 06/28/23 21:07 Insulin Lispro 300 Unit/3 Ml Pen SUBQ Not Given 0800,1200,1700,2100 [facility] Protocol Pantoprazole Sodium 40 mg 06/27/23 09:00 06/28/23 21:04 Pantoprazole 40 Mg Vial IVP 40 mg BID ANI Administration Potassium Chloride 20 meq 06/29/23 06:00 06/29/23 06:06 Potassium Chloride 20 Meq Tablet PO 06/29/23 08:01 20 meq Q2H ANI Administration Protocol Sodium Chloride 10 ml 06/27/23 06:05 06/27/23 19:42 Sodium Chloride Flush 0.9% 10 Ml Syringe IVP 10 ml PRN PRN Administration NEEDED PER PROVIDER ORDERS Sodium Chloride 10 ml 06/27/23 09:00 06/28/23 21:04 Sodium Chloride Flush 0.9% 10 Ml Syringe IVP 10 ml 0100,0900,1700 [facility] Administration - Physical Exam General Appearance: positive: No acute distress, Alert Eyes Bilateral: positive: Normal inspection, PERRL ENT: positive: No signs of dehydration Neck: positive: Trachea midline Respiratory: positive: No respiratory distress Cardiovascular: positive: Regular rate & rhythm Abdomen: positive: No distention. negative: Tenderness, Guarding, Rebound Skin: positive: No rash Extremities: positive: Non-tender Neurologic/Psychiatric: positive: Oriented x3 Impression/Plan - Problem List Problem List: 82 y/o F with: 1. gi bleeding, resolved - hgb stable at 10 this AM - EGD showed shallow ulcer in greater curve and atrophic gastritis. H pylori pending - BP much improved this AM - tolerating soft diet, ok to adat to regular from surgery standpoint. - Hgb stable for 24 hours, no signs of active bleeding. Ok to transfer patient to floor/discharge from surgery standpoint - I recommend life long PPI for this patient, agree with avoiding blood thinners as much as possible 3. atrial fibrillation, CAD, HTN, HPL, h/o CVA - as per primary team Patient reports she lives at home alone but has excellent support. At baseline, she does all of her ADL's herself. Thank you for consulting me in the care of this patient. Surgery will sign off. Please call with any questions or concerns.
[2023-06-29] MEDS: CYANOCOBALAMIN 500 MCG TABLET PO SCH (08:41)
[2023-06-29] MEDS: MULTIVITAMIN W/MINERALS TABLET PO SCH (08:41)
--- NOTE | 2023-06-29 09:24 | PROVIDER PROGRESS NOTE ---
Assessment/Plan - Problem List (1) Upper GI bleed Assessment/Plan: Patient had presented with melena mixed with some blood, also had coffee-ground emesis. There was a history of similar presentation about a month ago and she had EGD and colonoscopy at a different hospital then and findings were a peptic ulcer, non-bleeding Yesterday 06/28/23 the patient underwent EGD here and the findings were a gastric ulcer. It was not bleeding. She also had gastric atrophy and biopsies were done to check for H. pylori Plan: I will change her Protonix IV BID to po BID I spoke to the general surgeon today about meds and how to advance her diet. Gen surgery has signed off the case now Per our Social Work Specialist, will advance her diet to a gluten-free diet, given the findings of gastric atrophy (2) Anemia due to GI blood loss Hgb was >7 but she was hypotensive and was moved to the ICU. Since admission she has received 3 units of PRBCs. Hgb has been plateaued at 9 to 10 Plan: Continue to treat the underlying source which we think was bleeding ulcer Follow her hemoglobin every 12 hours Transfuse if hemoglobin under 7 or if she is hypotensive and hemoglobin under 8 (3) Orthostatic hypotension Apparently this patient fell 3 times on the day of admission before coming to ER. Yesterday, she was very orthostatic. No orthostasis or hypotension on VS today Plan: Transfer out of ICU PT and OT evaluations ordered, now that she is no longer orthostatic (4) Hyperglycemia Her A1c came back at 6.0, indicating she is a pre-Diabetic Plan: Will request diet recommendations from Social Work Specialist since the patient needs MORE calorie intake for #5 (5) Severe protein calorie malnutrition This patient has a BMI of 17. 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 Plan: Nutrition consult to give recommendations. The patient is interested in ideas to increase calories besides Ensure and boost I will stop her Lipitor 80 mg qpm dose entirely - Current Meds Current Meds: Current Medications Generic Name Dose Route Start Last Admin Trade Name Freq PRN Reason Stop Dose Admin Atorvastatin Calcium 40 mg 06/27/23 21:00 06/28/23 21:04 Atorvastatin 40 Mg Tablet PO 40 mg HS ANI Administration Calcium Carbonate/Glycine 1,250 mg 06/29/23 06:00 06/29/23 08:40 Calcium Carbonate Chew 500 Mg Tablet PO 06/29/23 10:01 1,250 mg Q4H [facility] Administration Protocol Cyanocobalamin 500 mcg 06/29/23 09:00 06/29/23 08:41 Cyanocobalamin 500 Mcg Tablet PO 500 mcg DAILY ANI Administration Digoxin 125 mcg 06/27/23 09:00 06/29/23 08:12 Digoxin 125 Mcg Tablet PO 125 mcg DAILY ANI Administration Sodium Chloride 1,000 mls @ 40 mls/hr 06/28/23 12:21 06/29/23 07:30 Normal Saline 0.9% IV 40 mls/hr .Q25H [facility] Infusion Insulin Human Lispro 0 unit 06/28/23 12:00 06/29/23 08:13 Insulin Lispro 300 Unit/3 Ml Pen SUBQ Not Given 0800,1200,1700,2100 [facility] Protocol Multivitamins/Minerals 1 tab 06/29/23 09:00 06/29/23 08:41 Multivitamin W/Minerals Tablet PO 1 tab DAILYWM ANI Administration Pantoprazole Sodium 40 mg 06/27/23 09:00 06/29/23 08:13 Pantoprazole 40 Mg Vial IVP 40 mg BID ANI Administration Sodium Chloride 10 ml 06/27/23 06:05 06/27/23 19:42 Sodium Chloride Flush 0.9% 10 Ml Syringe IVP 10 ml PRN PRN Administration NEEDED PER PROVIDER ORDERS Sodium Chloride 10 ml 06/27/23 09:00 06/29/23 08:13 Sodium Chloride Flush 0.9% 10 Ml Syringe IVP 10 ml 0100,0900,1700 [facility] Administration - Lab Result Fish Bone Diagrams: 06/29/23 15:58 06/29/23 04:13 - Additional Planning My Orders: My Active Orders 06/28/23 12:00 Insulin Lispro [Humalog Kwikpen U-100] See Protocol SUBQ 0800,1200,1700,2100 06/28/23 12:21 Sodium Chloride 0.9% [Normal Saline 0.9%] 1,000 ml IV 40 mls/hr 06/29/23 Evaluate and Treat OT [OT] Routine Evaluate and Treat PT [PT] Routine 06/29/23 06:00 Calcium Carbonate [Tums] 1,250 mg PO Q4H 06/29/23 09:00 Cyanocobalamin [Vitamin B-12] 500 mcg PO DAILY Multivitamin W/Minerals [Theragran M] 1 tab PO DAILYWM 06/29/23 12:00 Ferrous Gluconate [Fergon] 324 mg PO DAILYWM 06/29/23 16:00 HGB - HEMOGLOBIN [HEME] Timed 06/30/23 05:00 CBC W/O DIFF (HEMOGRAM) [HEME] DAILYLAB 07/01/23 05:00 CBC W/O DIFF (HEMOGRAM) [HEME] DAILYLAB Subjective - Subjective Patient Reports: Fatigue (Feels tired sitting up, but denies lightheadedness) Objective Vital Signs: Vital Signs - 24 hr 06/28/23 06/28/23 06/28/23 10:00 10:30 11:00 Temperature Heart Rate [ 94 100 100 Brachial] Heart Rate [ Monitoring electrodes] Respiratory 17 19 17 Rate Blood Pressure [Left Ankle] Blood Pressure 105/42 L 103/92 H 113/56 L [Left Brachial artery] O2 Saturation 95 94 93 If not protocol 1 1 1 : Oxygen Flow, liters/minute 06/28/23 06/28/23 06/28/23 12:00 13:00 14:00 Temperature 37.0 C Heart Rate [ 107 H 100 96 Brachial] Heart Rate [ Monitoring electrodes] Respiratory 21 17 19 Rate Blood Pressure [Left Ankle] Blood Pressure 90/51 L 111/45 L 112/46 L [Left Brachial artery] O2 Saturation 94 95 96 If not protocol 1 1 1 : Oxygen Flow, liters/minute 06/28/23 06/28/23 06/28/23 14:30 15:00 16:00 Temperature 37.1 C Heart Rate [ 99 97 92 Brachial] Heart Rate [ Monitoring electrodes] Respiratory 20 19 18 Rate Blood Pressure [Left Ankle] Blood Pressure 107/52 L 94/51 L 101/49 L [Left Brachial artery] O2 Saturation 93 93 96 If not protocol 1 1 : Oxygen Flow, liters/minute 06/28/23 06/28/23 06/28/23 17:00 18:13 19:00 Temperature Heart Rate [ 94 95 84 Brachial] Heart Rate [ Monitoring electrodes] Respiratory 17 19 19 Rate Blood Pressure [Left Ankle] Blood Pressure 88/40 L 90/40 L 86/40 L [Left Brachial artery] O2 Saturation 94 96 94 If not protocol 1 1 1 : Oxygen Flow, liters/minute 06/28/23 06/28/23 06/28/23 20:00 21:00 22:00 Temperature 37 C 36.8 C Heart Rate [ Brachial] Heart Rate [ 79 81 81 Monitoring electrodes] Respiratory 14 15 14 Rate Blood Pressure 104/70 90/56 L 101/52 L [Left Ankle] Blood Pressure [Left Brachial artery] O2 Saturation 96 96 95 If not protocol 1 1 1 : Oxygen Flow, liters/minute 06/28/23 06/29/23 06/29/23 23:00 00:00 01:00 Temperature 36.8 C Heart Rate [ Brachial] Heart Rate [ 80 84 84 Monitoring electrodes] Respiratory 15 17 12 Rate Blood Pressure 101/52 L 107/49 L 115/52 L [Left Ankle] Blood Pressure [Left Brachial artery] O2 Saturation 95 98 96 If not protocol 1 1 1 : Oxygen Flow, liters/minute 06/29/23 06/29/23 06/29/23 02:00 03:00 04:00 Temperature 36.8 C Heart Rate [ Brachial] Heart Rate [ 80 82 83 Monitoring electrodes] Respiratory 15 15 16 Rate Blood Pressure 110/48 L 118/50 L 120/47 L [Left Ankle] Blood Pressure [Left Brachial artery] O2 Saturation 98 96 94 If not protocol 1 1 1 : Oxygen Flow, liters/minute 06/29/23 06/29/23 06/29/23 05:00 06:00 07:00 Temperature 36.8 C Heart Rate [ Brachial] Heart Rate [ 79 90 87 Monitoring electrodes] Respiratory 14 20 22 Rate Blood Pressure 123/53 L 128/52 L 124/52 L [Left Ankle] Blood Pressure [Left Brachial artery] O2 Saturation 92 92 98 If not protocol 2 1 1 : Oxygen Flow, liters/minute 06/29/23 06/29/23 08:00 09:18 Temperature 36.8 C Heart Rate [ Brachial] Heart Rate [ 88 91 Monitoring electrodes] Respiratory 18 20 Rate Blood Pressure 127/53 L 127/81 H [Left Ankle] Blood Pressure [Left Brachial artery] O2 Saturation 96 94 If not protocol 1 : Oxygen Flow, liters/minute Oxygen O2 Source Room air I&O (Last 24 Hrs): Intake and Output Totals x24h 06/27/23 06/28/23 06/29/23 23:59 23:59 23:59 Intake Total 2009 2948.333 930 Output Total 1120 1983 490 Balance 890 965.333 440 General: Alert, Oriented x3 HEENT: Mucous membr. moist/pink, Other (Cachectic with sunken cheeks) Neuro: Alert, Non Focal Cardiovascular: Regular rate, No murmurs Respiratory: No respiratory distress, Breath sounds nml Abdomen: Normal bowel sounds, Soft, No tenderness Extremities: No clubbing, No edema, No tenderness/swelling - Results Results: Laboratory Results WBC 8.4 x10^3/uL (4.8-10.8) 06/29/23 04:13 RBC 3.34 10^6/uL (4.20-5.40) L 06/29/23 04:13 Hgb 10.0 g/dL (12.0-16.0) L 06/29/23 04:13 Hct 31.6 % (37.0-47.0) L 06/29/23 04:13 MCV 94.6 fL (81.0-99.0) 06/29/23 04:13 MCH 29.9 pg (27.0-31.0) 06/29/23 04:13 MCHC 31.6 g/dL (32.0-36.0) L 06/29/23 04:13 RDW 19.9 % (12.0-15.0) H 06/29/23 04:13 Plt Count 127 10^3/uL (130-450) L 06/29/23 04:13 MPV 11.6 fL (7.9-10.8) H 06/29/23 04:13 Neut # (Auto) 6.3 10^3/uL (1.5-6.6) 06/29/23 04:13 Lymph # (Auto) 1.0 10^3/uL (1.5-3.5) L 06/29/23 04:13 [place] # (Auto) 0.4 10^3/uL (0.0-1.0) 06/29/23 04:13 Eos # (Auto) 0.6 10^3/uL (0.0-0.7) 06/29/23 04:13 Baso # (Auto) 0.1 10^3/uL (0.0-0.1) 06/29/23 04:13 Absolute Nucleated RBC 0.00 x10^3/uL 06/29/23 04:13 Nucleated RBC % 0.0 /100WBC 06/29/23 04:13 Manual Slide Review Indicated 06/28/23 04:18 Platelet Estimate DECREASED (<130,000) (NORMAL) 06/28/23 04:18 Platelet Morphology PLATELET CLUMPING (NORMAL) 06/27/23 17:20 RBC Morph Micro Appear 1+ ANISOCYTOSIS (NORMAL) 1+ HYPOCHROMASIA (NORMAL) 1+ OVALOCYTES (NORMAL) 06/28/23 04:18 RBC Morph Micro Appear 1+ ANISOCYTOSIS (NORMAL) 1+ HYPOCHROMASIA (NORMAL) 1+ OVALOCYTES (NORMAL) 06/28/23 04:18 RBC Morph Micro Appear 1+ ANISOCYTOSIS (NORMAL) 1+ HYPOCHROMASIA (NORMAL) 1+ OVALOCYTES (NORMAL) 06/28/23 04:18 PT 13.4 secs (9.9-12.6) H 06/26/23 18:20 INR 1.3 (0.8-1.2) H 06/26/23 18:20 APTT 26.1 secs (24.9-33.3) 06/26/23 18:20 VBG pH 7.466 (7.31-7.41) H 06/29/23 04:13 Ionized Calcium 1.07 mmol/L (1.15-1.33) L 06/29/23 04:13 Sodium 138 mmol/L (135-145) 06/29/23 04:13 Potassium 3.5 mmol/L (3.5-4.5) 06/29/23 04:13 Chloride 107 mmol/L (101-111) 06/29/23 04:13 Carbon Dioxide 27 mmol/L (21-32) 06/29/23 04:13 Anion Gap 4.0 (6-13) L 06/29/23 04:13 BUN 18 mg/dL (6-20) 06/29/23 04:13 Creatinine 0.4 mg/dL (0.6-1.3) L 06/29/23 04:13 Estimated GFR (MDRD) 153 (>89) 06/29/23 04:13 Glucose 83 mg/dL (74-104) 06/29/23 04:13 POC Whole Bld Glucose 78 mg/dL (70 - 100) 06/29/23 08:01 Estimat Average Glucose 126 mg/dL (70-100) H 06/28/23 04:18 Hemoglobin A1c % 6.0 % (4.27-6.07) 06/28/23 04:18 Lactic Acid 0.6 mmol/L (0.5-2.2) 06/27/23 18:51 Calcium 8.2 mg/dL (8.5-10.3) L 06/29/23 04:13 Phosphorus 2.7 mg/dL (2.5-5.0) 06/29/23 04:13 Magnesium 1.9 mg/dL (1.7-2.3) 06/29/23 04:13 Iron 107 ug/dL (50-212) 06/28/23 04:18 TIBC 246 ug/dL (250-450) L 06/28/23 04:18 % Saturation 43 % (20-50) 06/28/23 04:18 Transferrin 176 mg/dL (203-362) L 06/28/23 04:18 Total Bilirubin 0.4 mg/dL (0.2-1.0) 06/26/23 18:20 AST 16 IU/L (10-42) 06/26/23 18:20 ALT 12 IU/L (10-60) 06/26/23 18:20 Alkaline Phosphatase 47 IU/L (42-121) 06/26/23 18:20 Troponin I High Sens 123.5 ng/L (2.3-14.8) H* 06/27/23 17:20 Total Protein 5.8 g/dL (6.4-8.9) L 06/26/23 18:20 Albumin 3.6 g/dL (3.2-5.5) 06/26/23 18:20 Globulin 2.2 g/dL (2.1-4.2) 06/26/23 18:20 Albumin/Globulin Ratio 1.6 (1.0-2.2) 06/26/23 18:20 Lipase 30 U/L (11-82) 06/26/23 18:20 Vitamin B12 236 pg/mL (180-914) 06/28/23 04:18 Urine Color YELLOW 06/27/23 13:30 Urine Clarity HAZY (CLEAR) 06/27/23 13:30 Urine pH 5.5 PH (5.0-7.5) 06/27/23 13:30 Ur Specific [place] 1.020 (1.002-1.030) 06/27/23 13:30 Urine Protein NEGATIVE mg/dL (NEGATIVE) 06/27/23 13:30 Urine Glucose (UA) NEGATIVE mg/dL (NEGATIVE) 06/27/23 13:30 Urine Ketones NEGATIVE mg/dL (NEGATIVE) 06/27/23 13:30 Urine Occult Blood SMALL (NEGATIVE) H 06/27/23 13:30 Urine Nitrite NEGATIVE (NEGATIVE) 06/27/23 13:30 Urine Bilirubin NEGATIVE (NEGATIVE) 06/27/23 13:30 Urine Urobilinogen 0.2 (NORMAL) E.U./dL (NORMAL) 06/27/23 13:30 Ur Leukocyte Esterase SMALL (NEGATIVE) H 06/27/23 13:30 Urine RBC 0-5 /HPF (0-5) 06/27/23 13:30 Urine WBC >25 /HPF (0-5) H 06/27/23 13:30 Ur Squamous Epith Cells FEW Squamous (<= Few) 06/27/23 13:30 Urine Bacteria Few /HPF (None Seen) 06/27/23 13:30 Ur Microscopic Review Cancelled 06/27/23 13:30 Urine Culture Comments INDICATED 06/27/23 13:30 Nasal Screen MRSA (PCR) NEGATIVE (NEGATIVE) 06/27/23 14:10 Stl C. cayetanensis PCR Not Detected (Not Detected) 06/27/23 13:30 Stool Rotavirus A PCR Not Detected (Not Detected) 06/27/23 13:30 Stl Adenov F 40/41 PCR Not Detected (Not Detected) 06/27/23 13:30 Stool Astrovirus (PCR) Not Detected (Not Detected) 06/27/23 13:30 Stool Campylobacter PCR Not Detected (Not Detected) 06/27/23 13:30 Stl C. diff Tox B Gene NEGATIVE (NEGATIVE) 06/27/23 13:30 Stl C. diff Tox A/B PCR Not Detected (Not Detected) 06/27/23 13:30 Stool Cryptosporidium PCR Not Detected (Not Detected) 06/27/23 13:30 Stl Sh Tox Pr E STEC PCR Not Detected (Not Detected) 06/27/23 13:30 Stool E coli O157 PCR Not applicable (Not Detected) 06/27/23 13:30 Stl Enterotoxigenic E PCR Not Detected (Not Detected) 06/27/23 13:30 Stool EPEC (PCR) Not Detected (Not Detected) 06/27/23 13:30 Stl E. histolytica PCR Not Detected (Not Detected) 06/27/23 13:30 Stool Giardia Lamblia PCR Not Detected (Not Detected) 06/27/23 13:30 Stl P. shigelloides PCR Not Detected (Not Detected) 06/27/23 13:30 Stool Salmonella PCR Not Detected (Not Detected) 06/27/23 13:30 Stool Sapovirus (PCR) Not Detected (Not Detected) 06/27/23 13:30 Stl Shigella/EIEC PCR Not Detected (Not Detected) 06/27/23 13:30 St Y.enterocolitica PCR Not Detected (Not Detected) 06/27/23 13:30 Stool Vibrio (PCR) Not Detected (Not Detected) 06/27/23 13:30 Stl Vibrio cholerae PCR Not Detected (Not Detected) 06/27/23 13:30 Stl Enteroaggr Ecoli PCR Not Detected (Not Detected) 06/27/23 13:30 Stl Norovirus GI/GII PCR Not Detected (Not Detected) 06/27/23 13:30 Last Dose Date 06-27-23 06/28/23 04:18 Last Dose Time 0900 06/28/23 04:18 Digoxin 0.3 ng/mL 06/28/23 04:18 Blood Type O POSITIVE 06/26/23 21:25 Antibody Screen NEGATIVE 06/26/23 21:25 Crossmatch IS Only See Detail 06/26/23 21:25 - Procedures Procedures: Procedures ENDO RECTUM POLYPECTOMY (01/31/13) ENDOSC POLYPECTOMY OF LG INTEST (01/31/13) EXCISION OF CECUM, ENDO (04/19/21) EXCISION OF DUODENUM, ENDO, DIAGN (04/19/21) EXCISION OF ESOPHAGUS, ENDO, DIAGN (04/19/21) EXCISION OF RECTUM, ENDO (04/19/21) EXCISION OF SIGMOID COLON, ENDO (04/19/21) EXCISION OF STOMACH, ENDO, DIAGN (04/19/21) EXCISION OF TRANSVERSE COLON, ENDO (04/19/21)
[2023-06-29] MEDS: FERROUS GLUCONATE 324 MG TABLET PO SCH (13:23)
[2023-06-29] MEDS ORDERED: ZINC OXIDE 20% OINT 30 GM TUBE TOP PRN (17:41)
[2023-06-29] MEDS: PANTOPRAZOLE 40 MG TABLET PO SCH (20:11)
[2023-06-30 05:50] LABS: HCT - HEMATOCRIT 32.5 % (37.0-47.0); HGB - HEMOGLOBIN 10.4 g/dL (12.0-16.0); MEAN CORPUSCULAR HEMOGLOBIN 30.1 pg (27.0-31.0); MEAN CORPUSCULAR VOLUME 93.9 fL (81.0-99.0); MEAN PLATELET VOLUME 11.4 fL (7.9-10.8); RED BLOOD COUNT 3.46 10^6/uL (4.20-5.40); RED CELL DISTRIBUTION WIDTH 19.2 % (12.0-15.0); WHITE BLOOD COUNT 10.4 x10^3/uL (4.8-10.8)
[2023-06-30 06:15] LABS: CALCIUM 8.5 mg/dL (8.5-10.3); CREATININE 0.4 mg/dL (0.6-1.3); POTASSIUM 3.7 mmol/L (3.5-4.5)
--- NOTE | 2023-06-30 09:28 | PROVIDER PROGRESS NOTE ---
Assessment/Plan - Problem List (1) Orthostatic hypotension Assessment/Plan: This patient fell 3 times on the day of admission before coming to ER. She was very orthostatic when being evaluated by PT and OT yesterday, despite her hemoglobin has been stable at 10 for 24 hours now. She is on no blood pressure meds or other meds that would drop her pressure Plan: She is not medically cleared to be discharged yet, needs further inpatient management I will give her a saline 500 cc bolus now Continue to follow orthostatic vital signs every shift (2) Upper GI bleed Assessment/Plan: Patient had presented with melena mixed with some blood, also had coffee-ground emesis. There was a history of similar presentation about a month ago and she had EGD and colonoscopy at a different hospital then and findings were a peptic ulcer, non-bleeding On 06/28/23 the patient underwent EGD here and the findings were a gastric ulcer. It was not bleeding. She also had gastric atrophy and biopsies were done to check for H. pylori. Gen surgery has signed off the case now Plan: I changed her Protonix IV BID to po BID Cont to advance her diet. Per our Roll Handler, will advance her diet to a gluten-free diet, given the findings of gastric atrophy her daily baby ASA is on hold (3) Anemia due to GI blood loss Hgb was >7 but she was hypotensive and was moved to the ICU. Since admission she has received 3 units of PRBCs. Hgb has been plateaued at 9 to 10 Plan: Continue to treat the underlying source which we think was bleeding ulcer Follow her hemoglobin daily Transfuse if hemoglobin under 7 or if she is hypotensive and hemoglobin under 8 (4) Hyperglycemia Her A1c came back at 6.0, indicating she is a pre-Diabetic Plan: Will request diet recommendations from Roll Handler since the patient needs MORE calorie intake for #5 (5) Severe protein calorie malnutrition This patient has a BMI of 17. Her [id number], the WATER TREATMENT PLANT OPERATOR, said she had lost alot of weight over the past 6 mos. Today I learned from the daughter at bedside that she lost the weight because she was afraid to eat because she was throwing up the last few mos from recurrent GI bleeds with N/V Plan: Nutrition consult to give recommendations. 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 (7) Hx of heart artery stent She had this in the year 1999. Plavix made her bleed excessively. She is just on 1 aspirin daily, and was on Atorvastatin which I stopped due to her malnutrition - Current Meds Current Meds: Current Medications Generic Name Dose Route Start Last Admin Trade Name Freq PRN Reason Stop Dose Admin Cyanocobalamin 500 mcg 06/29/23 09:00 06/30/23 08:28 Cyanocobalamin 500 Mcg Tablet PO 500 mcg DAILY ANI Administration Digoxin 125 mcg 06/27/23 09:00 06/30/23 08:28 Digoxin 125 Mcg Tablet PO 125 mcg DAILY ANI Administration Ferrous Gluconate 324 mg 06/29/23 12:00 06/30/23 08:28 Ferrous Gluconate 324 Mg Tablet PO 324 mg DAILYWM ANI Administration Insulin Human Lispro 0 unit 06/28/23 12:00 06/29/23 20:11 Insulin Lispro 300 Unit/3 Ml Pen SUBQ Not Given 0800,1200,1700,2100 [facility] Protocol Multivitamins/Minerals 1 tab 06/29/23 09:00 06/30/23 08:27 Multivitamin W/Minerals Tablet PO 1 tab DAILYWM ANI Administration Pantoprazole Sodium 40 mg 06/29/23 21:00 06/30/23 08:28 Pantoprazole 40 Mg Tablet PO 40 mg BID ANI Administration Sodium Chloride 10 ml 06/27/23 06:05 06/27/23 19:42 Sodium Chloride Flush 0.9% 10 Ml Syringe IVP 10 ml PRN PRN Administration NEEDED PER PROVIDER ORDERS Sodium Chloride 10 ml 06/27/23 09:00 06/30/23 00:44 Sodium Chloride Flush 0.9% 10 Ml Syringe IVP 10 ml 0100,0900,1700 ANI Administration - Lab Result Fish Bone Diagrams: 06/30/23 05:26 06/30/23 05:26 - Additional Planning My Orders: My Active Orders 06/29/23 09:00 Cyanocobalamin [Vitamin B-12] 500 mcg PO DAILY Multivitamin W/Minerals [Theragran M] 1 tab PO DAILYWM 06/29/23 12:00 Ferrous Gluconate [Fergon] 324 mg PO DAILYWM 06/29/23 12:31 Telemetry-Discontinue [RC] .ONCE 06/29/23 Dinner DIET [Gluten Free Diet] [DIET] 06/29/23 17:41 Zinc Oxide 20% Oint [Zinc Oxide] 1 applic TOP PRN PRN 06/29/23 21:00 Pantoprazole [Protonix] 40 mg PO BID 06/30/23 09:16 Orthostatic [Vital Signs - Orthostatic] [RC] QSHIFT 06/30/23 09:25 0.9% NS 500ML BOLUS X1 Sodium Chloride 0.9% [Normal Saline 0.9%] 500 ml IV ONCE 07/01/23 05:00 CBC W/O DIFF (HEMOGRAM) [HEME] DAILYLAB Subjective - Subjective Patient Reports: Other (Was dizzy in the morning. Got up saline bolus and improved significantly by the afternoon) Objective Vital Signs: Vital Signs - 24 hr 06/29/23 06/29/23 06/29/23 12:03 13:30 13:42 Temperature 36.7 C Heart Rate [ 92 86 Monitoring electrodes] Heart Rate [ 87 Sitting] Heart Rate [ 94 Standing] Heart Rate [ 92 Supine] Respiratory 20 18 Rate Blood Pressure 150/79 H 174/82 H [Left Ankle] Blood Pressure 99/40 L [Sitting] Blood Pressure 94/38 L [Standing] Blood Pressure 101/42 L [Supine] O2 Saturation 97 96 O2 Saturation [ 94 Sitting] If not protocol 1 : Oxygen Flow, liters/minute 06/29/23 06/29/23 06/30/23 16:28 19:35 00:34 Temperature 36.7 C 36.8 C 36.7 C Heart Rate [ 86 90 89 Monitoring electrodes] Heart Rate [ Sitting] Heart Rate [ Standing] Heart Rate [ Supine] Respiratory 20 21 20 Rate Blood Pressure 120/69 142/61 H 121/58 L [Left Ankle] Blood Pressure [Sitting] Blood Pressure [Standing] Blood Pressure [Supine] O2 Saturation 96 94 92 O2 Saturation [ Sitting] If not protocol : Oxygen Flow, liters/minute 06/30/23 06/30/23 05:00 08:53 Temperature 36.7 C 37.1 C Heart Rate [ 90 87 Monitoring electrodes] Heart Rate [ Sitting] Heart Rate [ Standing] Heart Rate [ Supine] Respiratory 16 18 Rate Blood Pressure 141/59 H 95/56 L [Left Ankle] Blood Pressure [Sitting] Blood Pressure [Standing] Blood Pressure [Supine] O2 Saturation 93 94 O2 Saturation [ Sitting] If not protocol : Oxygen Flow, liters/minute Oxygen O2 Source Room air I&O (Last 24 Hrs): Intake and Output Totals x24h 06/28/23 06/29/23 06/30/23 23:59 23:59 23:59 Intake Total 2948.333 2512.667 400 Output Total 1983 1040 980 Balance 252.080 5499.667 -580 General: Alert, Oriented x3 HEENT: Mucous membr. moist/pink, Other (Cachectic) Neck: Supple, No JVD Neuro: Alert, Non Focal Cardiovascular: Regular rate, No murmurs Respiratory: No respiratory distress, Breath sounds nml Abdomen: Normal bowel sounds, Soft, No tenderness Extremities: No clubbing, No edema, No tenderness/swelling - Results Results: Laboratory Results WBC 10.4 x10^3/uL (4.8-10.8) 06/30/23 05:26 RBC 3.46 10^6/uL (4.20-5.40) L 06/30/23 05:26 Hgb 10.4 g/dL (12.0-16.0) L 06/30/23 05:26 Hct 32.5 % (37.0-47.0) L 06/30/23 05:26 MCV 93.9 fL (81.0-99.0) 06/30/23 05:26 MCH 30.1 pg (27.0-31.0) 06/30/23 05:26 MCHC 32.0 g/dL (32.0-36.0) 06/30/23 05:26 RDW 19.2 % (12.0-15.0) H 06/30/23 05:26 Plt Count 151 10^3/uL (130-450) 06/30/23 05:26 MPV 11.4 fL (7.9-10.8) H 06/30/23 05:26 Neut # (Auto) 6.3 10^3/uL (1.5-6.6) 06/29/23 04:13 Lymph # (Auto) 1.0 10^3/uL (1.5-3.5) L 06/29/23 04:13 [place] # (Auto) 0.4 10^3/uL (0.0-1.0) 06/29/23 04:13 Eos # (Auto) 0.6 10^3/uL (0.0-0.7) 06/29/23 04:13 Baso # (Auto) 0.1 10^3/uL (0.0-0.1) 06/29/23 04:13 Absolute Nucleated RBC 0.00 x10^3/uL 06/29/23 04:13 Nucleated RBC % 0.0 /100WBC 06/29/23 04:13 Manual Slide Review Indicated 06/28/23 04:18 Platelet Estimate DECREASED (<130,000) (NORMAL) 06/28/23 04:18 Platelet Morphology PLATELET CLUMPING (NORMAL) 06/27/23 17:20 RBC Morph Micro Appear 1+ ANISOCYTOSIS (NORMAL) 1+ HYPOCHROMASIA (NORMAL) 1+ OVALOCYTES (NORMAL) 06/28/23 04:18 RBC Morph Micro Appear 1+ ANISOCYTOSIS (NORMAL) 1+ HYPOCHROMASIA (NORMAL) 1+ OVALOCYTES (NORMAL) 06/28/23 04:18 RBC Morph Micro Appear 1+ ANISOCYTOSIS (NORMAL) 1+ HYPOCHROMASIA (NORMAL) 1+ OVALOCYTES (NORMAL) 06/28/23 04:18 PT 13.4 secs (9.9-12.6) H 06/26/23 18:20 INR 1.3 (0.8-1.2) H 06/26/23 18:20 APTT 26.1 secs (24.9-33.3) 06/26/23 18:20 VBG pH 7.466 (7.31-7.41) H 06/29/23 04:13 Ionized Calcium 1.07 mmol/L (1.15-1.33) L 06/29/23 04:13 Sodium 136 mmol/L (135-145) 06/30/23 05:26 Potassium 3.7 mmol/L (3.5-4.5) 06/30/23 05:26 Chloride 103 mmol/L (101-111) 06/30/23 05:26 Carbon Dioxide 28 mmol/L (21-32) 06/30/23 05:26 Anion Gap 5.0 (6-13) L 06/30/23 05:26 BUN 15 mg/dL (6-20) 06/30/23 05:26 Creatinine 0.4 mg/dL (0.6-1.3) L 06/30/23 05:26 Estimated GFR (MDRD) 153 (>89) 06/30/23 05:26 Glucose 94 mg/dL (74-104) 06/30/23 05:26 POC Whole Bld Glucose 104 mg/dL (70 - 100) H 06/30/23 07:35 Estimat Average Glucose 126 mg/dL (70-100) H 06/28/23 04:18 Hemoglobin A1c % 6.0 % (4.27-6.07) 06/28/23 04:18 Lactic Acid 0.6 mmol/L (0.5-2.2) 06/27/23 18:51 Calcium 8.5 mg/dL (8.5-10.3) 06/30/23 05:26 Phosphorus 2.7 mg/dL (2.5-5.0) 06/29/23 04:13 Magnesium 1.9 mg/dL (1.7-2.3) 06/29/23 04:13 Iron 107 ug/dL (50-212) 06/28/23 04:18 TIBC 246 ug/dL (250-450) L 06/28/23 04:18 % Saturation 43 % (20-50) 06/28/23 04:18 Transferrin 176 mg/dL (203-362) L 06/28/23 04:18 Total Bilirubin 0.4 mg/dL (0.2-1.0) 06/26/23 18:20 AST 16 IU/L (10-42) 06/26/23 18:20 ALT 12 IU/L (10-60) 06/26/23 18:20 Alkaline Phosphatase 47 IU/L (42-121) 06/26/23 18:20 Troponin I High Sens 123.5 ng/L (2.3-14.8) H* 06/27/23 17:20 Total Protein 5.8 g/dL (6.4-8.9) L 06/26/23 18:20 Albumin 3.6 g/dL (3.2-5.5) 06/26/23 18:20 Globulin 2.2 g/dL (2.1-4.2) 06/26/23 18:20 Albumin/Globulin Ratio 1.6 (1.0-2.2) 06/26/23 18:20 Lipase 30 U/L (11-82) 06/26/23 18:20 Vitamin B12 236 pg/mL (180-914) 06/28/23 04:18 Urine Color YELLOW 06/27/23 13:30 Urine Clarity HAZY (CLEAR) 06/27/23 13:30 Urine pH 5.5 PH (5.0-7.5) 06/27/23 13:30 Ur Specific [place] 1.020 (1.002-1.030) 06/27/23 13:30 Urine Protein NEGATIVE mg/dL (NEGATIVE) 06/27/23 13:30 Urine Glucose (UA) NEGATIVE mg/dL (NEGATIVE) 06/27/23 13:30 Urine Ketones NEGATIVE mg/dL (NEGATIVE) 06/27/23 13:30 Urine Occult Blood SMALL (NEGATIVE) H 06/27/23 13:30 Urine Nitrite NEGATIVE (NEGATIVE) 06/27/23 13:30 Urine Bilirubin NEGATIVE (NEGATIVE) 06/27/23 13:30 Urine Urobilinogen 0.2 (NORMAL) E.U./dL (NORMAL) 06/27/23 13:30 Ur Leukocyte Esterase SMALL (NEGATIVE) H 06/27/23 13:30 Urine RBC 0-5 /HPF (0-5) 06/27/23 13:30 Urine WBC >25 /HPF (0-5) H 06/27/23 13:30 Ur Squamous Epith Cells FEW Squamous (<= Few) 06/27/23 13:30 Urine Bacteria Few /HPF (None Seen) 06/27/23 13:30 Ur Microscopic Review Cancelled 06/27/23 13:30 Urine Culture Comments INDICATED 06/27/23 13:30 Nasal Screen MRSA (PCR) NEGATIVE (NEGATIVE) 06/27/23 14:10 Stl C. cayetanensis PCR Not Detected (Not Detected) 06/27/23 13:30 Stool Rotavirus A PCR Not Detected (Not Detected) 06/27/23 13:30 Stl Adenov F 40/41 PCR Not Detected (Not Detected) 06/27/23 13:30 Stool Astrovirus (PCR) Not Detected (Not Detected) 06/27/23 13:30 Stool Campylobacter PCR Not Detected (Not Detected) 06/27/23 13:30 Stl C. diff Tox B Gene NEGATIVE (NEGATIVE) 06/27/23 13:30 Stl C. diff Tox A/B PCR Not Detected (Not Detected) 06/27/23 13:30 Stool Cryptosporidium PCR Not Detected (Not Detected) 06/27/23 13:30 Stl Sh Tox Pr E STEC PCR Not Detected (Not Detected) 06/27/23 13:30 Stool E coli O157 PCR Not applicable (Not Detected) 06/27/23 13:30 Stl Enterotoxigenic E PCR Not Detected (Not Detected) 06/27/23 13:30 Stool EPEC (PCR) Not Detected (Not Detected) 06/27/23 13:30 Stl E. histolytica PCR Not Detected (Not Detected) 06/27/23 13:30 Stool Giardia Lamblia PCR Not Detected (Not Detected) 06/27/23 13:30 Stl P. shigelloides PCR Not Detected (Not Detected) 06/27/23 13:30 Stool Salmonella PCR Not Detected (Not Detected) 06/27/23 13:30 Stool Sapovirus (PCR) Not Detected (Not Detected) 06/27/23 13:30 Stl Shigella/EIEC PCR Not Detected (Not Detected) 06/27/23 13:30 St Y.enterocolitica PCR Not Detected (Not Detected) 06/27/23 13:30 Stool Vibrio (PCR) Not Detected (Not Detected) 06/27/23 13:30 Stl Vibrio cholerae PCR Not Detected (Not Detected) 06/27/23 13:30 Stl Enteroaggr Ecoli PCR Not Detected (Not Detected) 06/27/23 13:30 Stl Norovirus GI/GII PCR Not Detected (Not Detected) 06/27/23 13:30 Last Dose Date 06-27-23 06/28/23 04:18 Last Dose Time 0900 06/28/23 04:18 Digoxin 0.3 ng/mL 06/28/23 04:18 Blood Type O POSITIVE 06/26/23 21:25 Antibody Screen NEGATIVE 06/26/23 21:25 Crossmatch IS Only See Detail 06/26/23 21:25 - Procedures Procedures: Procedures ENDO RECTUM POLYPECTOMY (01/31/13) ENDOSC POLYPECTOMY OF LG INTEST (01/31/13) EXCISION OF CECUM, ENDO (04/19/21) EXCISION OF DUODENUM, ENDO, DIAGN (04/19/21) EXCISION OF ESOPHAGUS, ENDO, DIAGN (04/19/21) EXCISION OF RECTUM, ENDO (04/19/21) EXCISION OF SIGMOID COLON, ENDO (04/19/21) EXCISION OF STOMACH, ENDO, DIAGN (04/19/21) EXCISION OF TRANSVERSE COLON, ENDO (04/19/21)
[2023-06-30] MEDS: SODIUM CHLORIDE 0.9% 500 ML IV ONE (10:20)
[2023-06-30 13:11] LABS: FOLATE HEMOLYSATE 299.4 ng/mL (Not Estab.); FOLATE RBC 1439 ng/mL (>498); HEMATOCRIT 20.8 % (34.0-46.6)
[2023-07-01 06:44] LABS: HCT - HEMATOCRIT 33.6 % (37.0-47.0); HGB - HEMOGLOBIN 10.7 g/dL (12.0-16.0); MEAN CORPUSCULAR HEMOGLOBIN 30.3 pg (27.0-31.0); MEAN CORPUSCULAR HGB CONC 31.8 g/dL (32.0-36.0); MEAN CORPUSCULAR VOLUME 95.2 fL (81.0-99.0); MEAN PLATELET VOLUME 11.5 fL (7.9-10.8); RED BLOOD COUNT 3.53 10^6/uL (4.20-5.40); RED CELL DISTRIBUTION WIDTH 19.1 % (12.0-15.0); WHITE BLOOD COUNT 7.8 x10^3/uL (4.8-10.8)
--- NOTE | 2023-07-01 08:16 | Discharge Plan ---
Discharge Plan Problem Reviewed?: Yes Disposition: Home Health Service Condition: Fair Prescriptions: Multivit-Minerals/Folic Acid [Centrum Adult 50 Plus Gummy] 80 mcg PO DAILY #30 tab Ferrous Gluconate 324 mg PO DAILY #30 tablet Pantoprazole [Protonix] 40 mg PO BID #60 tab Cyanocobalamin (Vitamin B-12) [Vitamin B-12] 2,000 mcg PO DAILY #14 lozenge Diet: Soft (Gluten free diet) Activity Restrictions: Activity as Tolerated Shower Restrictions: No Driving Restrictions: Yes Assistance Devices: Walker Weight Bearing: Full Weight Instruction Topics: Ulcer Bleeding Peptic Tx, Diet Soft Dc, Diet Gluten Free Celiac Health Concerns: You were hospitalized to treat bleeding from your gastrointestinal tract. The upper endoscopy found you had an ulcer. It was not bleeding at the time. Your anemia did get worse and you needed 3 units of blood transfused while you were here. The other finding was that you have atrophy of one section of your stomach, which makes the diagnosis of Celiac disease possible. Therefore you have been advised to eat a gluten-free diet. Our ornamental brick installer met with you to give you ideas for improving your calorie intake, since you had significant recent weight loss. You are being discharged home today. You should take no Plavix as we discussed. You should stay off your daily baby aspirin for the next 3 weeks. Check with your primary care provider if you can restart aspirin after that. You should be on Protonix pills twice a day for 30 days, then once a day for the rest of your life. I can only prescribe the first 30 days, in the future this prescription needs to come from your doctor. You are also prescribed iron tablets to build up your anemia, and vitamin B12 and a multivitamin. Your new prescriptions have been electronically sent to your [facility] pharmacy in [place]. I have ordered [facility] services to resume their services with you in your home. Please see your Primary Care Provider in the next 1 to 2 weeks for a hospital follow-up visit. Plan of Treatment: As above. Care Goals: Weight gain, improvement in symptoms, and stabilization are the goals. Assessment: The patient understands and is agreeable with the plan. Additional Instructions or Follow Up instructions: If you have new or worsening symptoms, call your PCP for advice, or come to the ER. Follow-Up Care: Home Health - RN, Home Health - PT, Home Health - OT No Smoking: If you smoke, Please STOP! Call for help.
--- NOTE | 2023-07-01 08:25 | DISCHARGE SUMMARY ---
Discharge Summary Admit Date: 06/27/23 Discharge Date: 07/01/23 Discharging Provider: Joy Aiken MD Primary Care Provider: FABIENNE Brush Condition at Discharge: Fair Discharge Disposition: [facility] Service - [facility] History of Present Illness: H&P was conducted via video remotely, using [employer] video via phone. 82 yo F with PMH of GI Bleed, Anemia, Afib-not on AC, CAD, HTN, HLD, CVA presented to the ER with c/o 2 day h/o N/V with hematemesis, melena. Pt was previously admitted just 1 mo ago to hospital in [place] for GI bleed in 05/2023 and had EGD and colonoscopy on 05/29/23, which showed healed gastric ulcer, erosions, polyps. Pt now c/o 2 day h/o nausea and vomiting up black emesis, as well as loose black stools. No abdo pain. No dysuria. No dizziness. No C P/SOB/cough/F/C. No h/o DM. Pt does not drink ETOH. +Weakness. Pt had also reported falling and hitting her head. In the ER, Hgb 8.3->7.5, MCV 105.8, Glc 209, WBC 13.3. CT Head: NAD. CT Abdo: possible Colitis. Her VSS. Pt was given IVF, Rocephin, Protonix in the ER and 2U PRBC transfusion ordered. She will be admitted for GI bleed. - HOSPITAL COURSE Hospital Course: (1) Upper GI bleed Patient presented with melena mixed with some blood, also had coffee-ground emesis. There was a history of similar presentation about a month ago and she had EGD and colonoscopy at a different hospital then and findings were a peptic ulcer, non-bleeding. On 06/28/23 the patient underwent EGD here and the findings were a gastric ulcer. It was not bleeding. She also had gastric atrophy and biopsies were done to check for H. pylori. Gen surgery advised to advance to a gluten-free diet and to treat with Protonix po BID for a month, then lifelong Protonix po daily. Her daily baby aspirin was put on old. (2) Anemia due to GI blood loss Hgb was >7 but she became hypotensive on Day 2, and was moved to the ICU. During this admission she received 3 units of PRBCs. Hgb plateaued at 9 to 10. She was discharged on po Iron. (3) Orthostatic hypotension This patient fell 3 times on the day of admission before coming to ER. Here she was very orthostatic when being evaluated by PT and OT, despite her hemoglobin being stable at 10. She needed a saline 500 cc boluswhich helped. (4) Hyperglycemia Her A1c came back at 6.0, indicating she is a pre-Diabetic. Buyer Agent saw her an her daughter in consult, and reviewed a diabetic and gluten-free diet. (5) Severe protein calorie malnutrition This patient has a BMI of 17. Her [id number], an HYDRAULIC LIFT DRIVER in [place], said she had lost alot of weight over the past 6 mos. It appeared she lost the weight because she was afraid to eat because she was throwing up the last few mos from recurrent GI bleeds causing N/V. I stopped her Lipitor 80 mg qpm dose entirely due to malnutrition. Buyer Agent saw her an her daughter in consult, and reviewed a a high protein, diabetic and gluten-free diet. 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 (7) Hx of heart artery stent She received a coronary stent in the year 1999. Plavix made her bleed excessively. She was just on 1 aspirin daily, and was on Atorvastatin which I stopped due to her malnutrition. Her daily baby aspirin was put on old. Resumption should be OKd by her PCP or Photo Lab Specialist. Consider QOD aspirin use. - ALLERGIES Allergies/Adverse Reactions: Allergies Allergy/AdvReac Type Severity Reaction Status Date / Time tomato AdvReac Cramps Verified 06/28/23 14:49 - MEDICATIONS Home Medications: Ambulatory Orders Medication Instructions Recorded Confirmed Digoxin [Lanoxin] 125 mcg PO DAILY 01/01/23 06/27/23 Cyanocobalamin (Vitamin B-12) 2,000 mcg PO DAILY #14 lozenge 07/01/23 [Vitamin B-12] Ferrous Gluconate 324 mg PO DAILY #30 tablet 07/01/23 Multivit-Minerals/Folic Acid 80 mcg PO DAILY #30 tab 07/01/23 [Centrum Adult 50 Plus Gummy] Pantoprazole [Protonix] 40 mg PO BID #60 tab 07/01/23 - PHYSICAL EXAM AT DISCHARGE General Appearance: positive: No acute distress, Alert Eyes Bilateral: positive: Normal inspection, EOMI ENT: positive: ENT inspection nml, No signs of dehydration, Other (Cachectic) Neck: positive: Nml inspection, No JVD Respiratory: positive: No respiratory distress, Breath sounds nml Cardiovascular: positive: Systolic murmur Abdomen: positive: Non-tender, No organomegaly, Nml bowel sounds, No distention Skin: positive: Warm, Dry, Pallor Neurologic/Psychiatric: positive: Oriented x3, CN's nml (2-12), Motor nml - LABS Result Diagrams: 07/01/23 06:20 06/30/23 05:26 - DIAGNOSTIC IMAGING Diagnostic Imaging Results: Final report reviewed - FOLLOW UP Follow Up: See PCP for a F/U visit. See Dr Mckeon to get biopsy results. - TIME SPENT Time Spent in Discharge (Minutes): 45
[2023-07-01 08:44] VITALS: O2SAT 91
[2023-07-01 11:38] VITALS: BP 101/52
== END 2023-07-01 12:59 | disposition home health service (06) | DRG 377 ==
LOC: EDUNIT# → ED 18:05 → MS2 06-27 06:05 → ICU 06-27 16:14 → MS2 06-29 11:34
PROVIDERS: ADMIT Internal Medicine; ATTEND Internal Medicine
PROC: 30233N1 Transfusion of Nonautologous Red Blood Cells into Peripheral Vein, Percutaneous Approach (ICD-10-PCS; 2023-06-27)
PROC: 0DB78ZX Excision of Stomach, Pylorus, Via Natural or Artificial Opening Endoscopic, Diagnostic (ICD-10-PCS; principal; 2023-06-28 07:30)
DX: K92.2 Gastrointestinal hemorrhage, unspecified (principal); K25.4 Chronic or unspecified gastric ulcer with hemorrhage; K59.89 Other specified functional intestinal disorders; E43 Unspecified severe protein-calorie malnutrition; D62 Acute posthemorrhagic anemia; Z68.1 Body mass index [BMI] 19.9 or less, adult; E78.00 Pure hypercholesterolemia, unspecified; Z86.73 Personal history of transient ischemic attack (TIA), and cerebral infarction without residual deficits; I95.1 Orthostatic hypotension; R73.03 Prediabetes; I69.398 Other sequelae of cerebral infarction; H54.62 Unqualified visual loss, left eye, normal vision right eye; Z79.82 Long term (current) use of aspirin; Z95.5 Presence of coronary angioplasty implant and graft; Z91.81 History of falling; I10 Essential (primary) hypertension; I25.10 Atherosclerotic heart disease of native coronary artery without angina pectoris; E78.5 Hyperlipidemia, unspecified; R53.1 Weakness; D72.829 Elevated white blood cell count, unspecified; I48.91 Unspecified atrial fibrillation; R79.89 Other specified abnormal findings of blood chemistry; I49.1 Atrial premature depolarization; K29.41 Chronic atrophic gastritis with bleeding; Z66 Do not resuscitate
CPT/HCPCS: 36415; 70450; 71045; 74177; 80048; 80053; 80162; 81001; 82330; 82607; 82747; 83036; 83540; 83605; 83690; 83735; 84100; 84132; 84466; 84484; 85014; 85018; 85025; 85027; 85610; 85730; 86850; 86900; 86901; 86920; 87086; 87150; 87493; 87507; 93005; 96374; 96375; 97161; 97166; 97530; 97535; 99285; A9270; J2372; J2765; P9016; Q9967; 81003

== ENCOUNTER 2024-01-04 10:08 | Outpatient (CLI) | payer MEDICARE, OTHER ==
[2024-01-04 10:21] LABS: BASOPHILS # (AUTO) 0.2 10^3/uL (0.0-0.1); BASOPHILS % (AUTO) 1.9 %; EOSINOPHILS # (AUTO) 0.1 10^3/uL (0.0-0.7); EOSINOPHILS % (AUTO) 1.3 %; HCT - HEMATOCRIT 38.8 % (37.0-47.0); HGB - HEMOGLOBIN 12.4 g/dL (12.0-16.0); LYMPHOCYTES # (AUTO) 1.3 10^3/uL (1.5-3.5); MEAN CORPUSCULAR VOLUME 103.2 fL (81.0-99.0); MEAN PLATELET VOLUME 10.3 fL (7.9-10.8); MONOCYTES # (AUTO) 0.5 10^3/uL (0.0-1.0); MONOCYTES % (AUTO) 6.5 %; NEUTROPHILS # (AUTO) 5.9 10^3/uL (1.5-6.6); PLT - PLATELET COUNT 260 10^3/uL (130-450); RED BLOOD COUNT 3.76 10^6/uL (4.20-5.40); RED CELL DISTRIBUTION WIDTH 13.8 % (12.0-15.0); WHITE BLOOD COUNT 7.9 x10^3/uL (4.8-10.8)
[2024-01-04 10:35] LABS: ALBUMIN 4.1 g/dL (3.2-5.5); ALBUMIN/GLOBULIN RATIO 1.6 (1.0-2.2); ALKALINE PHOSPHATASE 46 IU/L (42-121); ALT ALANINE AMINOTRANSFERASE 17 IU/L (10-60); AST ASPARTATE AMINOTRANSFERASE 24 IU/L (10-42); BILIRUBIN,TOTAL 0.4 mg/dL (0.2-1.0); BUN - BLOOD UREA NITROGEN 18 mg/dL (6-20); CALCIUM 9.5 mg/dL (8.5-10.3); CARBON DIOXIDE - CO2 29 mmol/L (21-32); CHLORIDE 103 mmol/L (101-111); CHOL/HDL RATIO 4.1 (<4.4); CHOLESTEROL 255 mg/dL; CREATININE 0.5 mg/dL (0.6-1.3); GFR - MDRD 118 (>89); GLUCOSE 96 mg/dL (74-104); HDL CHOLESTEROL 62 mg/dL; LDL CHOLESTEROL,CALCULATED 162 mg/dL; LDL/HDL RATIO 2.6 (<4.4); POTASSIUM 4.2 mmol/L (3.5-4.5); SODIUM 137 mmol/L (135-145); TOTAL PROTEIN 6.6 g/dL (6.4-8.9); TRIGLYCERIDES 156 mg/dL; VLDL CHOLESTEROL 31 mg/dL
[2024-01-04 10:52] LABS: THYROID STIMULATING HORMONE 2.65 uIU/mL (0.34-5.60)
[2024-01-04 11:00] LABS: FERRITIN 448.1 ng/mL (11.0-306.8)
== END 2024-01-04 10:09 | disposition home or self-care (01) ==
LOC: LAB 10:08
PROVIDERS: ATTEND Physician Assistant
DX: I10 Essential (primary) hypertension (principal); E78.5 Hyperlipidemia, unspecified; D50.9 Iron deficiency anemia, unspecified
CPT/HCPCS: 36415; 80053; 80061; 82728; 83721; 84443; 85025

== ENCOUNTER 2024-04-19 23:01 | Inpatient (IN) ==
--- NOTE | 2024-04-19 23:11 | ED Physician Documentation ---
History of Present Illness Stated complaint Stated Complaint: SOA Chief complaint Chief Complaint: Resp Additonal information Additional information: 83-year-old female with history of hypertension, anemia, atrial fibrillation, AVM, ulcers, hyperlipidemia, CAD, stent, GI bleed, CVA, malnutrition, left eye blindness, psoriasis presents via EMS with shortness of breath. History from patient as well as friend at bedside who helps care for her. Patient has been progressively short of breath for the last 2 days. On clarification, she has long history of smoking and also COPD. She has had wheezing, cough, without fevers, pain, nausea or vomiting or diarrhea, leg swelling or leg discomfort, chest or back or abdominal or flank discomfort, or other new concerns. In the setting of substantial dyspnea, history is otherwise limited. Patient is able to confirm she is full code. She received nebulizers en route; no IV medications in setting of no IV access. Per chart review, she has history of prior GI bleed with gastric ulcers. She had endoscopy and colonoscopy in the last year. She should be on lifelong Protonix. Review of Systems ROS Constitutional: no fever, no chills Eyes: no visual disturbance, no discharge Ears, Nose, Mouth, Throat: no rhinorrhea, no sore throat Cardiovascular: no chest pain, no palpitations Respiratory: +cough, shortness of breath Gastrointestinal: no abdominal pain, no vomiting, no diarrhea Genitourinary: no dysuria, no hematuria Musculoskeletal: no back pain, no neck stiffness Skin: no rash, no wound Neurological: no focal weakness, no focal numbness Meds/Allgy Home Medications Ambulatory Orders Medication Instructions Recorded Confirmed digoxin 125 mcg (0.125 mg) tablet 125 mcg PO DAILY 01/01/23 04/19/24 cyanocobalamin (vitamin B-12) 2,000 mcg PO DAILY #14 nataliya 07/01/23 04/19/24 2,000 mcg lozenges melatonin 3 mg tablet 3 mg PO HS PRN sleep 03/14/24 04/19/24 multivitamin-ferrous 1 tab PO QDAY 03/14/24 04/19/24 fumarate-folic acid 18 mg-400 mcg tablet (Centrum) nitroglycerin 0.4 mg sublingual 0.4 mg sublingual Q5M 03/14/24 04/19/24 tablet pantoprazole 20 mg tablet,delayed 20 mg PO BID 03/14/24 04/19/24 release Allergies Allergies Allergy/AdvReac Type Severity Reaction Status Date / Time gluten Allergy Severe GI bleed Verified 04/19/24 23:14 [facility] Medical History Medical History (Updated 04/20/24 @ 02:21 by Betina Gaspar MD) Paroxysmal atrial fibrillation (07/05/22) Carotid stenosis (07/21/06) Orthostatic hypotension Upper GI bleed Hypokalemia (07/05/22) Tubular adenoma of colon (07/13/21) Tobacco user (02/02/10) TIA (transient ischemic attack) (04/05/22) Subclavian artery stenosis, left (04/21/23) Spinal stenosis, lumbar (10/12/15) Embolism involving retinal artery (04/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) Renal mass (12/01/22) Psoriatic arthritis (09/11/20) Psoriasis (07/28/15) Peripheral vascular disease (01/31/07) Peptic ulcer disease (03/29/23) Peripheral vascular disease with claudication (02/15/07) Osteoarthritis of left knee (02/14/12) Osteoarthritis of right hip (03/30/15) Occlusion of right vertebral artery (04/21/23) Hypomagnesemia (04/21/23) Hyperlipidemia, unspecified (05/22/1959) Bilateral hand pain (08/27/18) Gluten enteropathy (09/14/23) Failure to thrive in adult (07/05/22) Diverticulitis (09/07/07) Acute respiratory failure with hypoxia (07/05/22) Acute on chronic diastolic heart failure (07/05/22) Actinic keratosis (10/01/07) Surgical History Surgical History Bunion, right foot bunion repair right foot Presence of stent in artery stents in R iliac artery and L subclavian artery (followed by [facility]) Family History Family History Mother Heart attack Father Heart attack Brother Heart attack Social History Social History (Updated 03/14/24 @ 11:47 by FABIENNE Scott) Smoking Status: Former smoker If you are a former smoker, when did you quit? (Date/Year): 2022 Number of Years Smoked: 40 How many cigarettes a day do you smoke? (20 cigarettes=1 Pk): 20 Do you dip or chew tobacco?: No Do you vape?: No Patient requests smoking cessation consult: No Initiate information on smoking cessation: No Living arrangement: At home Support Person: Yes Relationship: Home Mobility Equipment: Cane Do you feel safe in your home environment?: Yes Suffered physical, verbal, emotional, or financial abuse?: No History of Abuse: No ETOH Use: None Substance Use: denies use POLST Patient has POLST: No Exam Exam Const: Appears severely dyspneic, able to speak in a few words at a time; cachectic appearing; anxious, remains cooperative; receiving nebs Eyes: PERRLA, EOMI ENT: mucous membranes moist Neck: supple, non-tender Resp: Tachypnea to roughly 30, with very poor aeration bilaterally with faint expiratory wheezing, subcostal retractions noted Card: regular tachycardia to mid 100s, no murmurs Abd: non tender diffusely, no rigidity or rebound or guarding Back: no T or L spine tenderness, no CVA tenderness bilaterally Extrem: no deformities, no swelling bilateral lower extremities, 2+ distal pulses all extremities Neuro: ANOx4, community liaison grossly intact, grossly intact sensation and strength all extremities Skin: no rash, warm and dry POCUS myself of lungs shows bilateral lung slide with moderate B-lines Results Vitals Vitals: Vital Signs - 24 hr 04/19/24 23:05 04/19/24 23:07 04/19/24 23:20 Temperature 36.1 C L Temperature Source Temporal Artery Scan Pulse Rate 127 H 143 H Respiratory Rate 24 Blood Pressure 123/78 O2 Saturation 95 Oxygen Delivery Method Bi-pap O2 Source Simple Mask If not protocol: Oxygen Flow, liters/minute 15 Fraction of Inspired Oxygen (FIO2) 534 FiO2 (%) 50 Pain Intensity 0 04/19/24 23:22 04/19/24 23:35 04/20/24 00:05 Temperature Temperature Source Pulse Rate 132 H 100 H Respiratory Rate 20 23 Blood Pressure 103/71 O2 Saturation 95 Oxygen Delivery Method O2 Source BIPAP BIPAP If not protocol: Oxygen Flow, liters/minute Fraction of Inspired Oxygen (FIO2) 40 FiO2 (%) 50 Pain Intensity 0 04/20/24 00:11 04/20/24 00:30 04/20/24 00:33 Temperature Temperature Source Pulse Rate 106 H 98 H 100 H Respiratory Rate 26 H 18 Blood Pressure 93/51 L 113/61 O2 Saturation 98 98 Oxygen Delivery Method O2 Source BIPAP BIPAP If not protocol: Oxygen Flow, liters/minute Fraction of Inspired Oxygen (FIO2) 30 FiO2 (%) 50 Pain Intensity 0 0 04/20/24 01:00 04/20/24 01:41 04/20/24 02:00 Temperature Temperature Source Pulse Rate 94 H 99 H 101 H Respiratory Rate 20 26 H Blood Pressure 99/45 L 104/45 L O2 Saturation 97 91 L Oxygen Delivery Method O2 Source BIPAP BIPAP If not protocol: Oxygen Flow, liters/minute Fraction of Inspired Oxygen (FIO2) 25 FiO2 (%) Pain Intensity 0 0 Oxygen O2 Source BIPAP Labs Labs: Laboratory Tests 04/19/24 04/19/24 04/20/24 23:10 23:16 01:26 WBC 20.7 H RBC 4.32 Hgb 13.5 Hct 44.3 MCV 102.5 H MCH 31.3 H MCHC 30.5 L RDW 14.4 Plt Count 326 MPV 10.2 Neut # (Auto) 14.9 H Lymph # (Auto) 4.2 H Sanders # (Auto) 0.9 Eos # (Auto) 0.4 Baso # (Auto) 0.2 H Absolute Nucleated RBC 0.00 Band Neuts % (Manual) Not Reportable Abnorm Lymph % (Manual) Not Reportable Nucleated RBC % 0.0 Neutrophils # (Manual) Not Reportable Lymphocytes # (Manual) Not Reportable Monocytes # (Manual) Not Reportable Eosinophils # (Manual) Not Reportable Basophils # (Manual) Not Reportable Differential Comment MANUAL=AUTO DIFF WBC Morphology NORMAL APPEARANCE Platelet Estimate NORMAL (130-450,000) Platelet Morphology NORMAL APPEARANCE RBC Morph Micro Appear 1+ MACROCYTOSIS VBG pH 7.168 L* 7.350 VBG pCO2 73.3 H 44.5 VBG pO2 51.1 H 43.6 VBG HCO3 26.0 24.0 VBG Total CO2 28.3 25.4 VBG O2 Saturation 78.3 78.8 VBG Base Excess -4.4 L -1.7 Sodium 140 Potassium 3.8 Chloride 105 Carbon Dioxide 29 Anion Gap 6.0 BUN 25 H Creatinine 0.6 Estimated GFR (MDRD) 96 Glucose 215 H Calcium 9.7 Total Bilirubin 0.4 AST 205 H ALT 245 H Alkaline Phosphatase 82 Troponin I High Sens 41.0 H* 63.1 H* Total Protein 7.2 Albumin 4.4 Globulin 2.8 Albumin/Globulin Ratio 1.6 Nasal Influenza B PCR NOT DETECTED Nasal Influenza A PCR NOT DETECTED Nasal RSV (PCR) NOT DETECTED Nasal SARS-CoV-2 (PCR) NOT DETECTED Last Dose Date Not Reportable Last Dose Time Not Reportable Digoxin 0.4 PD Medical Decision Making ED course ED course: This patient presents critically ill with respiratory failure, with COPD exacerbation along with probable CHF exacerbation most likely, though I have considered a broad differential including not limited to pneumonia, viral syndrome, symptomatic anemia, ACS, pulmonary embolism, among others. Her exam as above does argue strongly for multifactorial COPD and CHF cause. I am immediately initiating BiPAP, continuous albuterol, 125 mg IV Solu-Medrol, ceftriaxone and doxycycline, 2 g magnesium sulfate and closely reassessing. If she does not rapidly improve, we will move to intubation, which I confirmed with patient is what she would want. I am obtaining broad workup with EKG, chest x- ray, viral swab, CBC, CMP, troponin, VBG, blood cultures. We are closely reassessing. Patient rapidly improving on BiPAP and treatment as above. I spoke with daughter on phone as well, who is POA, and she understands and agrees with current workup and plan. No other currently available information. They are on the way here. EKG showed narrow complex tachycardia that could be atrial fibrillation with RVR or aflutter versus MAT vs other SVT; QTc was prolonged in the setting, though difficult to interpret in the setting of elevated rate and some irregularity. In comparison to prior EKGs, morphology of QRS complexes does appear overall similar to EKG from June 27, 2023, and to EKG from May 25, 2023. Labs: CBC with leukocytosis to above 20, macrocytosis without anemia, no thrombocytopenia or thrombocytosis. VBG with respiratory acidosis as anticipated. CMP with anion gap within normal limits, creatinine similar to prior, hyperglycemia to 200s, AST and ALT in the 200s. No alk phos or bilirubin elevation. Troponin elevated to 41, though I do note elevation to 100s in June, and today's elevation may be secondary to rate; we will trend this. In June, she had upper GI bleed. Digoxin not elevated. Daughter arrived, and we spoke again. They agree with current plan. On reassessment of patient, she has substantially improved. Aeration is now moderate bilaterally with clear expiratory wheezing. We are targeting SPO2 low 90s. RT continues to bed at bedside assisting. Note family notes patient has history of known prior demand ischemia, consistent with troponin today. No chest pain. Labs: viral swab negative. CXR: I agree with radiology reads of imaging on my independent review of imaging. "FINDINGS: Surgical changes and devices: None. Lungs and pleura: Mild bilateral effusions. Mediastinum: Mediastinal contours appear normal. Heart size is enlarged. Bones and chest wall: No suspicious bony lesions. Overlying soft tissues appear unremarkable. IMPRESSION: Mild bilateral effusions. Underlying areas of pneumonia and/or atelectasis cannot be excluded. Reviewed by: Mary Govea MD on 04/20/2024 12:37 AM PST" Repeat EKG normal sinus rhythm without STEMI, with possible changes from lead placement. QTc prolongation in the setting of LVH. Patient already received mag sulfate. Repeat troponin pending. Hospitalist consult: I spoke at [address] Gaspar who reviewed case with me and kindly accepts, pending troponin. Repeat troponin: increased but still within reasonable limits for demand ischemia in context. Patient still has no chest pain. RN updating hospitalist. Repeat VBG: substantial improvement. Admitting in improving condition with what I suspect currently is multifactorial cause for respiratory failure including COPD, pulmonary edema, and potential concurrent pneumonia. CRITICAL CARE TIME: outside of procedures, I spent 65 minutes assessing, reassessing, resuscitating this patient, speaking with family and consultants, and interpreting studies and documentation, in the setting of respiratory failure requiring NIPPV. Discharge Plan Discharge Patient Disposition: 66 [facility] DC/Xfer Condition: Stable Clinical Impression: Dyspnea Prescriptions: No Action digoxin 125 MCG tablet 125 mcg PO DAILY cyanocobalamin (vitamin B-12) 2,000 MCG lozenge 2,000 mcg PO DAILY Qty: 14 0RF nitroglycerin 0.4 mg tablet, sublingual 0.4 mg sublingual Q5M Rx Instructions: Place 1 tablet under the tongue every 5 mins PRN for chest pain pantoprazole 20 mg tablet,delayed release (DR/EC) 20 mg PO BID Rx Instructions: Take 1 tablet by mouth twice a day Centrum 18-400 mg-mcg tablet 1 tab PO QDAY melatonin 3 mg tablet 3 mg PO HS PRN (Reason: sleep) Print Language: Vietnamese
[2024-04-19 23:24] LABS: BASOPHILS # (AUTO) 0.2 10^3/uL (0.0-0.1); BASOPHILS % (AUTO) 1.2 %; EOSINOPHILS # (AUTO) 0.4 10^3/uL (0.0-0.7); EOSINOPHILS % (AUTO) 1.7 %; HCT - HEMATOCRIT 44.3 % (37.0-47.0); HGB - HEMOGLOBIN 13.5 g/dL (12.0-16.0); LYMPHOCYTES # (AUTO) 4.2 10^3/uL (1.5-3.5); LYMPHOCYTES % (AUTO) 20.4 %; MEAN CORPUSCULAR HEMOGLOBIN 31.3 pg (27.0-31.0); MEAN CORPUSCULAR HGB CONC 30.5 g/dL (32.0-36.0); MEAN CORPUSCULAR VOLUME 102.5 fL (81.0-99.0); MEAN PLATELET VOLUME 10.2 fL (7.9-10.8); MONOCYTES # (AUTO) 0.9 10^3/uL (0.0-1.0); MONOCYTES % (AUTO) 4.2 %; NEUTROPHILS # (AUTO) 14.9 10^3/uL (1.5-6.6); PLT - PLATELET COUNT 326 10^3/uL (130-450); RED BLOOD COUNT 4.32 10^6/uL (4.20-5.40); RED CELL DISTRIBUTION WIDTH 14.4 % (12.0-15.0); WHITE BLOOD COUNT 20.7 x10^3/uL (4.8-10.8)
[2024-04-19] MEDS: ALBUTEROL NEB 2.5 MG/3 ML INH STA (23:34)
[2024-04-19] MEDS ORDERED: cefTRIAXone 1 GM VIAL ONE (23:38)
[2024-04-19 23:41] LABS: VBG BASE EXCESS -4.4 mmol/L (-2 - +2); VBG OXYGEN SATURATION 78.3 % (60-80); VBG PCO2 73.3 mmHg (41-51); VBG PO2 51.1 mmHg (25-47); VBG TOTAL CO2 28.3 mmol/L (24-29)
[2024-04-19] MEDS: cefTRIAXone 1 GM in SODIUM CHLORIDE 0.9% MINIBAG 100 ML IV STA (23:41)
[2024-04-19] MEDS: methylPREDNISolone SUCCINATE 125 MG/2 ML VIAL IVP STA (23:41)
[2024-04-19 23:42] LABS: DIGOXIN 0.4 ng/mL
[2024-04-19 23:43] LABS: ALBUMIN 4.4 g/dL (3.2-5.5); ALBUMIN/GLOBULIN RATIO 1.6 (1.0-2.2); BILIRUBIN,TOTAL 0.4 mg/dL (0.2-1.0); CALCIUM 9.7 mg/dL (8.5-10.3); CREATININE 0.6 mg/dL (0.6-1.3); POTASSIUM 3.8 mmol/L (3.5-4.5); TOTAL PROTEIN 7.2 g/dL (6.4-8.9)
[2024-04-19 23:44] LABS: VBG PH 7.168 (7.31-7.41)
[2024-04-19] MEDS: DOXYCYCLINE INJ 100 MG in SODIUM CHLORIDE 0.9% MINIBAG 100 ML IV STA (23:50)
[2024-04-19 23:57] LABS: PLATELET MORPHOLOGY NORMAL APPEARANCE (NORMAL); RBC MORPHOLOGY (MULTIPLE) 1+ MACROCYTOSIS (NORMAL)
[2024-04-19 23:58] LABS: DIFFERENTIAL COMMENT MANUAL=AUTO DIFF; PLATELET ESTIMATE, MANUAL NORMAL (130-450,000) (NORMAL); WBC MORPHOLOGY (MULTIPLE) NORMAL APPEARANCE (NORMAL)
[2024-04-20 00:17] LABS: INFLUENZA A- RESP PCR PANEL NOT DETECTED; INFLUENZA B - RESP PCR PANEL NOT DETECTED; RSV- RESP PCR PANEL NOT DETECTED; SARS-CoV-2 -RESP PCR PANEL NOT DETECTED
[2024-04-20] MEDS: MAGNESIUM SULFATE 2 GRAM 2 GM/50 ML BAG IV ONE (00:27)
--- NOTE | 2024-04-20 00:39 | XRAY Report ---
PROCEDURE: XR Chest 1V INDICATIONS: shortness of breath TECHNIQUE: One view of the chest was acquired. COMPARISON: Chest x-ray 06/27/2023 FINDINGS: Surgical changes and devices: None. Lungs and pleura: Mild bilateral effusions. Mediastinum: Mediastinal contours appear normal. Heart size is enlarged. Bones and chest wall: No suspicious bony lesions. Overlying soft tissues appear unremarkable. IMPRESSION: Mild bilateral effusions. Underlying areas of pneumonia and/or atelectasis cannot be excluded. Reviewed by: Mary Govea MD on 04/20/2024 12:37 AM PST Approved by: Mary Govea MD on 04/20/2024 12:37 AM [facility] Station ID: [id number]
[2024-04-20 01:39] LABS: VBG BASE EXCESS -1.7 mmol/L (-2 - +2); VBG PCO2 44.5 mmHg (41-51); VBG PH 7.35 (7.31-7.41); VBG PO2 43.6 mmHg (25-47); VBG TOTAL CO2 25.4 mmol/L (24-29)
[2024-04-20 01:40] LABS: VBG OXYGEN SATURATION 78.8 % (60-80)
--- NOTE | 2024-04-20 02:38 | HISTORY & PHYSICAL EXAMINATION ---
Chief Complaint Chief Complaint Chief Complaint: shortness of breath History of Present Illness Admitted From Admitted From:: home via ems History Obtained From Records Reviewed: yes History obtained from: ED physician, patient, family at bedside Exam Limitations: acute respiratory distress, telemedicine visit History of Present Illness HPI Comment/Other: Mrs. Torres is an 83 yoF with a history of COPD, Systolic heart failure, and atrial fibrillation. She presented with shortness of breath for week. She had cough with minimal sputum production, but this is her baseline. She denied any chestpain. she has not had any fever or known sick contacts. In the ED, she was hypoxic on room air. ABG was consistent with hypercapnic respiratory failure. chest xray was negative for large infiltrates but there were bibasilar opacities that could not be excluded as early pneumonia. After discussion with the ED physician, and the worsening of respiratory status, I have agreed to admit patient to the hospitalist service for further evaluation. during my evaluation patient remain on the BIPAP. she was able to communicate and was alert and oriented x 3. Daughter was at bedside. This evaluation was performed using telemedicine tools,including phone and live video. 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) Renal mass (12/01/22) Psoriatic arthritis (09/11/20) Psoriasis (07/28/15) Peripheral vascular disease (01/31/07) Peptic ulcer disease (03/29/23) Peripheral vascular disease with claudication (02/15/07) Osteoarthritis of left knee (02/14/12) Osteoarthritis of right hip (03/30/15) Occlusion of right vertebral artery (04/21/23) Hypomagnesemia (04/21/23) Hyperlipidemia, unspecified (05/22/1959) Bilateral hand pain (08/27/18) Gluten enteropathy (09/14/23) Failure to thrive in adult (07/05/22) Diverticulitis (09/07/07) Acute respiratory failure with hypoxia (07/05/22) Acute on chronic diastolic heart failure (07/05/22) Actinic keratosis (10/01/07) Surgical History Surgical History Bunion, right foot bunion repair right foot Presence of stent in artery stents in R iliac artery and L subclavian artery (followed by [facility]) Family History Family History Mother Heart attack Father Heart attack Brother Heart attack Social History Social History (Updated 03/14/24 @ 11:47 by FABIENNE Scott) Smoking Status: Former smoker If you are a former smoker, when did you quit? (Date/Year): 2022 Number of Years Smoked: 40 How many cigarettes a day do you smoke? (20 cigarettes=1 Pk): 20 Do you dip or chew tobacco?: No Do you vape?: No Patient requests smoking cessation consult: No Initiate information on smoking cessation: No Living arrangement: At home Support Person: Yes Relationship: Home Mobility Equipment: Cane Do you feel safe in your home environment?: Yes Suffered physical, verbal, emotional, or financial abuse?: No History of Abuse: No ETOH Use: None Substance Use: denies use POLST Patient has POLST: No Meds/Allgy Home Medications Ambulatory Orders Medication Instructions Recorded Confirmed digoxin 125 mcg (0.125 mg) tablet 125 mcg PO DAILY 01/01/23 04/19/24 cyanocobalamin (vitamin B-12) 2,000 mcg PO DAILY #14 nataliya 07/01/23 04/19/24 2,000 mcg lozenges melatonin 3 mg tablet 3 mg PO HS PRN sleep 03/14/24 04/19/24 multivitamin-ferrous 1 tab PO QDAY 03/14/24 04/19/24 fumarate-folic acid 18 mg-400 mcg tablet (Centrum) nitroglycerin 0.4 mg sublingual 0.4 mg sublingual Q5M 03/14/24 04/19/24 tablet pantoprazole 20 mg tablet,delayed 20 mg PO BID 03/14/24 04/19/24 release Allergies Allergies Allergy/AdvReac Type Severity Reaction Status Date / Time gluten Allergy Severe GI bleed Verified 04/19/24 23:14 Exam Exam physical examination, as recorded, was obtained from patient or staff reported information or was obtained from peripheral observation Constitutional distress noted (moderate) and abnormal body habitus (thin) Eyes PERRL Chest inspection of chest normal Respiratory breath sounds equal bilaterally, abnormal respiratory effort (labored), auscultation abnormal and no wheezes Cardiovascular heart rate abnormal (tachycardic) and rhythm abnormal (irregular) Gastrointestinal abdomen normal to inspection Extremities normal to inspection Neurology no movement abnormality noted and no focal motor deficit noted Psychiatry oriented x3 Conclusion/Plan Problem List (1) COPD exacerbation: Plan: - acute exacerbation as indication by increased shortness of breath, increased dyspnea, sputum production - chest xray: I reviewed on admission- bilateral opacity, can not exclude pneumonia -Labs reviewed: I reviewed ABG-consistent with hypercapnic and hypoxic respiratory failure -I will continue with supplemental oxygen and titrate BIPAP usage as appropriate to maintain oxygen saturation of 88-94% - I will monitor for CO2 retention and loss of hypoemic respiratory drive -I will order continuous telemetry and pulse oximetry -I have reviewed viral studies, I will initiate empiric antibiotics to cover common CAP pathogens: Rocephin -I have placed patient on a regimen of Duonebs, solumedrol 40mg BID, I will monitor drug levels as appropriate and for clinical signs of toxicity -I will add an order for incentive spirometry adn turn and cough to prevent atelectasis and encourage mucous mobilization and clearance (2) Acute respiratory failure with hypoxia and hypercapnia: Plan: secondary to copd exacerbation -will continue to manage as above (3) Elevated troponin: Plan: I suspect it to be secodnary to demand ischemia in the setting of acute respiratory failure and copd exacerbation - I will continue to monitor with troponin trending and follow up ekg as needed -I will continue to closely monitor patient vitals with telemetry (4) Paroxysmal atrial fibrillation: Plan: chart reviewed. Non-valvular, currently rate controlled. -home medication reviewed. will resume digoxin 125mcg daily, monitor drug level for toxicity -patient is not on anticoagulation -monitor and replace electrolytes -continue with telemetry monitoring (5) Chronic diastolic heart failure: Plan: patient appears euvolemic -i will continue with fluid and sodium restriction once patient diet is advance Lab Results Lab results reviewed: Yes 04/19/24 23:16 04/19/24 23:16 Diagnostic Imaging Results Diagnostic Imaging Results: positive Final report reviewed EKG Results EKG Interpreted Independently: Yes Core Measures Anticipated LOS I expect patient to be DC'd or transferred within 96 hours.: Yes DVT/VTE - Prophylaxis VTE/DVT Device ordered at admit?: Yes Telemedicine Consult Details Provider Location & Consult Time Telemedicine consultation conducted via videoconferencing?: Yes
[2024-04-20 05:21] LABS: CALCIUM, IONIZED 1.11 mmol/L (1.15-1.33); VBG PH 7.353 (7.31-7.41)
[2024-04-20 05:22] LABS: BASOPHILS % (AUTO) 0.3 %; HCT - HEMATOCRIT 37.4 % (37.0-47.0); HGB - HEMOGLOBIN 11.5 g/dL (12.0-16.0); LYMPHOCYTES # (AUTO) 0.3 10^3/uL (1.5-3.5); LYMPHOCYTES % (AUTO) 2.3 %; MEAN CORPUSCULAR HEMOGLOBIN 31.5 pg (27.0-31.0); MEAN CORPUSCULAR HGB CONC 30.7 g/dL (32.0-36.0); MEAN CORPUSCULAR VOLUME 102.5 fL (81.0-99.0); MONOCYTES # (AUTO) 0.1 10^3/uL (0.0-1.0); NEUTROPHILS # (AUTO) 10.3 10^3/uL (1.5-6.6); PLT - PLATELET COUNT 235 10^3/uL (130-450); RED BLOOD COUNT 3.65 10^6/uL (4.20-5.40); RED CELL DISTRIBUTION WIDTH 14.5 % (12.0-15.0); WHITE BLOOD COUNT 10.7 x10^3/uL (4.8-10.8)
[2024-04-20 05:28] LABS: MAGNESIUM 2.2 mg/dL (1.7-2.3)
[2024-04-20 05:34] LABS: PHOSPHORUS 3.5 mg/dL (2.5-5.0)
[2024-04-20 05:38] LABS: CREATININE 0.6 mg/dL (0.6-1.3); POTASSIUM 3.4 mmol/L (3.5-4.5)
[2024-04-20 05:47] LABS: TROPONIN I HIGH SENSITIVITY 94.5 ng/L (2.3-14.8)
[2024-04-20] MEDS: POTASSIUM CHLORIDE 20 MEQ TABLET PO SCH (06:13)
[2024-04-20] MEDS: PANTOPRAZOLE 40 MG TABLET PO SCH (06:13)
[2024-04-20 08:18] LABS: ABG PH 7.44 (7.35-7.45)
[2024-04-20 08:19] LABS: ABG BASE EXCESS -1.1 mmol/L (-2.0-3.0); ABG HCO3 22.4 mmol/L (22.0-26.0); ABG OXYGEN SATURATION 95 % (94-98); ABG PCO2 33 mmHg (34-45); ABG PO2 74 mmHg (80-100); ABG TCO2 23.4 MMOL/L (21.0-29.0); ALLEN TEST POSITIVE
[2024-04-20 08:21] LABS: ABG SATURATION PULSE OXIMETRY% 94 %
[2024-04-20] MEDS: SODIUM CHLORIDE FLUSH 0.9% 10 ML SYRINGE IVP SCH (08:29)
[2024-04-20] MEDS: DIGOXIN 125 MCG TABLET PO SCH (08:29)
[2024-04-20] MEDS: methylPREDNISolone SUCCINATE 40 MG/ML VIAL IVP SCH (08:29)
--- NOTE | 2024-04-20 09:26 | PROVIDER PROGRESS NOTE ---
Subjective Prog Note Date Prog Note Date: 04/20/24 Subjective Pt reports feeling: Improved Subjective: Mrs. Torres is an 83 yoF with a history of COPD, Systolic heart failure, and atrial fibrillation. She presented with shortness of breath for week. She had cough with minimal sputum production, but this is her baseline. She denied any chestpain. she has not had any fever or known sick contacts. In the ED, she was hypoxic on room air. ABG was consistent with hypercapnic respiratory failure. chest xray was negative for large infiltrates but there were bibasilar opacities that could not be excluded as early pneumonia. After discussion with the ED physician, and the worsening of respiratory status, I have agreed to admit patient to the hospitalist service for further evaluation. during my evaluation patient remain on the BIPAP. she was able to communicate and was alert and oriented x 3. Daughter was at bedside. This evaluation was performed using telemedicine tools,including phone and live video. 04/20/2024:Patient feels fine after being taken off BiPAP. Patient denies nausea, chest pain or respiratory distress. Current Medications Current Medications Current Medications: Current Medications Generic Name Dose Route Start Last Admin Trade Name Freq PRN Reason Stop Dose Admin Albuterol/Ipratropium 3 ml 04/20/24 06:00 Ipratropium/Albuterol 3 Ml Neb INH Q6HR ANI Digoxin 125 mcg 04/20/24 09:00 04/20/24 08:29 Digoxin 125 Mcg Tablet PO 125 mcg DAILY ANI Administration Ceftriaxone Sodium 2 gm/ 100 mls @ 200 mls/hr 04/20/24 21:00 Sodium Chloride IV Q24H ANI Methylprednisolone 40 mg 04/20/24 09:00 04/20/24 08:29 Methylprednisolone Succinate 40 Mg/Ml Vial IVP 40 mg BID ANI Administration Ondansetron HCl 4 mg 04/20/24 02:18 Ondansetron 4 Mg/2 Ml Vial IVP Q6HR PRN Nausea / Vomiting Pantoprazole Sodium 40 mg 04/20/24 07:00 04/20/24 06:13 Pantoprazole 40 Mg Tablet PO 40 mg QDAC ANI Administration Sodium Chloride 10 ml 04/20/24 02:13 Sodium Chloride Flush 0.9% 10 Ml Syringe IVP PRN PRN NEEDED PER PROVIDER ORDERS Sodium Chloride 10 ml 04/20/24 09:00 04/20/24 08:29 Sodium Chloride Flush 0.9% 10 Ml Syringe IVP 10 ml 0100,0900,1700 ANI Administration Objective Vital Signs/Intake & Output Reviewed Vital Signs: Yes Vital Signs: Vital Signs x48h Temp Pulse Pulse Resp BP BP Pulse Ox 04/20/24 09:00 101 H 20 89/46 L 93 04/20/24 08:00 36.6 C 100 H 18 97/48 L 94 04/20/24 07:59 04/20/24 07:45 04/20/24 07:00 36.7 C 93 H 15 96/48 L 95 04/20/24 06:55 04/20/24 06:00 97 H 25 H 102/65 94 04/20/24 05:00 04/20/24 05:00 97 H 16 93/49 L 95 04/20/24 04:00 99 H 16 99/48 L 96 04/20/24 03:43 98 H 04/20/24 03:09 36.6 C 98 H 19 88/55 L 90 L 04/20/24 03:00 04/20/24 03:00 04/20/24 02:45 106 H 04/20/24 02:00 101 H 26 H 104/45 L 91 L 04/20/24 01:41 99 H O2 Flow Rate 04/20/24 09:00 3 04/20/24 08:00 2 04/20/24 07:59 2 04/20/24 07:45 3 04/20/24 07:00 04/20/24 06:55 3 04/20/24 06:00 04/20/24 05:00 3 04/20/24 05:00 04/20/24 04:00 04/20/24 03:43 04/20/24 03:09 2 04/20/24 03:00 2 04/20/24 03:00 2 04/20/24 02:45 04/20/24 02:00 04/20/24 01:41 Intake & Output: Intake & Output 04/18/24 04/19/24 04/20/24 04/21/24 05:59 05:59 05:59 05:59 Intake Total 250 / 250 Output Total 0 / 0 Balance 250 / 250 0 / 0 Weight (kg) 48 kg 48 kg Objective General Appearance: positive No acute distress and Alert Eyes Bilateral: positive Normal inspection, PERRL and EOMI ENT: positive ENT inspection nml and Pharynx nml Neck: positive Nml inspection, Thyroid nml, No JVD and Trachea midline Respiratory: positive Chest non-tender, No respiratory distress and Breath sounds nml Cardiovascular: positive Regular rate & rhythm and Other (Ejection murmur) Abdomen: positive Non-tender, No organomegaly and No distention Skin: positive Color nml, No rash and Warm Extremities: positive Non-tender and Full ROM Neurologic/Psychiatric: positive Oriented x3 and CN's nml (2-12) Lab Results 04/20/24 05:14 04/20/24 16:05 Other Labs: Lab Results x24hrs 04/20/24 04/20/24 04/20/24 Range/Units 08:05 05:14 05:14 WBC 10.7 (4.8-10.8) x10^3/uL RBC 3.65 L (4.20-5.40) 10^6/uL Hgb 11.5 L (12.0-16.0) g/dL Hct 37.4 (37.0-47.0) % MCV 102.5 H (81.0-99.0) fL MCH 31.5 H (27.0-31.0) pg MCHC 30.7 L (32.0-36.0) g/dL RDW 14.5 (12.0-15.0) % Plt Count 235 (130-450) 10^3/uL MPV 10.0 (7.9-10.8) fL Neut # (Auto) 10.3 H (1.5-6.6) 10^3/uL Lymph # (Auto) 0.3 L (1.5-3.5) 10^3/uL [place] # (Auto) 0.1 (0.0-1.0) 10^3/uL Eos # (Auto) 0.0 (0.0-0.7) 10^3/uL Baso # (Auto) 0.0 (0.0-0.1) 10^3/uL Absolute Nucleated RBC 0.00 x10^3/uL Band Neuts % (Manual) Abnorm Lymph % (Manual) Nucleated RBC % 0.0 /100WBC Neutrophils # (Manual) Lymphocytes # (Manual) Monocytes # (Manual) Eosinophils # (Manual) Basophils # (Manual) Differential Comment WBC Morphology (NORMAL) Platelet Estimate (NORMAL) Platelet Morphology (NORMAL) RBC Morph Micro Appear (NORMAL) Bld Gas Analysis Time 0816 Sample Site LEFT RADIAL ABG pH 7.44 (7.35-7.45) ABG pCO2 33 L (34-45) mmHg ABG pO2 74 L (80-100) mmHg ABG HCO3 22.4 (22.0-26.0) mmol/L ABG Total CO2 23.4 (21.0-29.0) MMOL/L ABG O2 Saturation 95 (94-98) % ABG Oximetry Spot Check 94 % ABG Base Excess -1.1 (-2.0-3.0) mmol/L Rodolfo Test POSITIVE VBG pH 7.353 (7.31-7.41) VBG pCO2 (41-51) mmHg VBG pO2 (25-47) mmHg VBG HCO3 (23-28) mmol/L VBG Total CO2 (24-29) mmol/L VBG O2 Saturation (60-80) % VBG Base Excess (-2 - +2) mmol/L Ionized Calcium 1.11 L (1.15-1.33) mmol/L O2 Delivery Device NASAL CANNULA O2 Liters/Min 2.00 LPM Sodium 141 (135-145) mmol/L Potassium 3.4 L 3.4 L (3.5-4.5) mmol/L Chloride 106 (101-111) mmol/L Carbon Dioxide 23 (21-32) mmol/L Anion Gap 12.0 (6-13) BUN 28 H (6-20) mg/dL Creatinine 0.6 (0.6-1.3) mg/dL Estimated GFR (MDRD) 96 (>89) Glucose 195 H (74-104) mg/dL Calcium 9.0 (8.5-10.3) mg/dL Phosphorus 3.5 (2.5-5.0) mg/dL Magnesium 2.2 (1.7-2.3) mg/dL Total Bilirubin (0.2-1.0) mg/dL AST (10-42) IU/L ALT (10-60) IU/L Alkaline Phosphatase (42-121) IU/L Troponin I High Sens 94.5 H* (2.3-14.8) ng/L Total Protein (6.4-8.9) g/dL Albumin (3.2-5.5) g/dL Globulin (2.1-4.2) g/dL Albumin/Globulin Ratio (1.0-2.2) Nasal Influenza B PCR Nasal Influenza A PCR Nasal RSV (PCR) Nasal Screen MRSA (PCR) (NEGATIVE) Nasal SARS-CoV-2 (PCR) Last Dose Date Last Dose Time Digoxin ng/mL 04/20/24 04/20/24 04/19/24 Range/Units 03:20 01:26 23:16 WBC 20.7 H (4.8-10.8) x10^3/uL RBC 4.32 (4.20-5.40) 10^6/uL Hgb 13.5 (12.0-16.0) g/dL Hct 44.3 (37.0-47.0) % MCV 102.5 H (81.0-99.0) fL MCH 31.3 H (27.0-31.0) pg MCHC 30.5 L (32.0-36.0) g/dL RDW 14.4 (12.0-15.0) % Plt Count 326 (130-450) 10^3/uL MPV 10.2 (7.9-10.8) fL Neut # (Auto) 14.9 H (1.5-6.6) 10^3/uL Lymph # (Auto) 4.2 H (1.5-3.5) 10^3/uL [place] # (Auto) 0.9 (0.0-1.0) 10^3/uL Eos # (Auto) 0.4 (0.0-0.7) 10^3/uL Baso # (Auto) 0.2 H (0.0-0.1) 10^3/uL Absolute Nucleated RBC 0.00 x10^3/uL Band Neuts % (Manual) Not Reportable Abnorm Lymph % (Manual) Not Reportable Nucleated RBC % 0.0 /100WBC Neutrophils # (Manual) Not Reportable Lymphocytes # (Manual) Not Reportable Monocytes # (Manual) Not Reportable Eosinophils # (Manual) Not Reportable Basophils # (Manual) Not Reportable Differential Comment MANUAL=AUTO DIFF WBC Morphology NORMAL APPEARANCE (NORMAL) Platelet Estimate NORMAL (130-450,000) (NORMAL) Platelet Morphology NORMAL APPEARANCE (NORMAL) RBC Morph Micro Appear 1+ MACROCYTOSIS (NORMAL) Bld Gas Analysis Time Sample Site ABG pH (7.35-7.45) ABG pCO2 (34-45) mmHg ABG pO2 (80-100) mmHg ABG HCO3 (22.0-26.0) mmol/L ABG Total CO2 (21.0-29.0) MMOL/L ABG O2 Saturation (94-98) % ABG Oximetry Spot Check % ABG Base Excess (-2.0-3.0) mmol/L Rodolfo Test VBG pH 7.350 7.168 L* (7.31-7.41) VBG pCO2 44.5 73.3 H (41-51) mmHg VBG pO2 43.6 51.1 H (25-47) mmHg VBG HCO3 24.0 26.0 (23-28) mmol/L VBG Total CO2 25.4 28.3 (24-29) mmol/L VBG O2 Saturation 78.8 78.3 (60-80) % VBG Base Excess -1.7 -4.4 L (-2 - +2) mmol/L Ionized Calcium (1.15-1.33) mmol/L O2 Delivery Device O2 Liters/Min LPM Sodium 140 (135-145) mmol/L Potassium 3.8 (3.5-4.5) mmol/L Chloride 105 (101-111) mmol/L Carbon Dioxide 29 (21-32) mmol/L Anion Gap 6.0 (6-13) BUN 25 H (6-20) mg/dL Creatinine 0.6 (0.6-1.3) mg/dL Estimated GFR (MDRD) 96 (>89) Glucose 215 H (74-104) mg/dL Calcium 9.7 (8.5-10.3) mg/dL Phosphorus (2.5-5.0) mg/dL Magnesium (1.7-2.3) mg/dL Total Bilirubin 0.4 (0.2-1.0) mg/dL AST 205 H (10-42) IU/L ALT 245 H (10-60) IU/L Alkaline Phosphatase 82 (42-121) IU/L Troponin I High Sens 63.1 H* 41.0 H* (2.3-14.8) ng/L Total Protein 7.2 (6.4-8.9) g/dL Albumin 4.4 (3.2-5.5) g/dL Globulin 2.8 (2.1-4.2) g/dL Albumin/Globulin Ratio 1.6 (1.0-2.2) Nasal Influenza B PCR Nasal Influenza A PCR Nasal RSV (PCR) Nasal Screen MRSA (PCR) NEGATIVE (NEGATIVE) Nasal SARS-CoV-2 (PCR) Last Dose Date Not Reportable Last Dose Time Not Reportable Digoxin 0.4 ng/mL 04/19/24 Range/Units 23:10 WBC (4.8-10.8) x10^3/uL RBC (4.20-5.40) 10^6/uL Hgb (12.0-16.0) g/dL Hct (37.0-47.0) % MCV (81.0-99.0) fL MCH (27.0-31.0) pg MCHC (32.0-36.0) g/dL RDW (12.0-15.0) % Plt Count (130-450) 10^3/uL MPV (7.9-10.8) fL Neut # (Auto) (1.5-6.6) 10^3/uL Lymph # (Auto) (1.5-3.5) 10^3/uL [place] # (Auto) (0.0-1.0) 10^3/uL Eos # (Auto) (0.0-0.7) 10^3/uL Baso # (Auto) (0.0-0.1) 10^3/uL Absolute Nucleated RBC x10^3/uL Band Neuts % (Manual) Abnorm Lymph % (Manual) Nucleated RBC % /100WBC Neutrophils # (Manual) Lymphocytes # (Manual) Monocytes # (Manual) Eosinophils # (Manual) Basophils # (Manual) Differential Comment WBC Morphology (NORMAL) Platelet Estimate (NORMAL) Platelet Morphology (NORMAL) RBC Morph Micro Appear (NORMAL) Bld Gas Analysis Time Sample Site ABG pH (7.35-7.45) ABG pCO2 (34-45) mmHg ABG pO2 (80-100) mmHg ABG HCO3 (22.0-26.0) mmol/L ABG Total CO2 (21.0-29.0) MMOL/L ABG O2 Saturation (94-98) % ABG Oximetry Spot Check % ABG Base Excess (-2.0-3.0) mmol/L Rodolfo Test VBG pH (7.31-7.41) VBG pCO2 (41-51) mmHg VBG pO2 (25-47) mmHg VBG HCO3 (23-28) mmol/L VBG Total CO2 (24-29) mmol/L VBG O2 Saturation (60-80) % VBG Base Excess (-2 - +2) mmol/L Ionized Calcium (1.15-1.33) mmol/L O2 Delivery Device O2 Liters/Min LPM Sodium (135-145) mmol/L Potassium (3.5-4.5) mmol/L Chloride (101-111) mmol/L Carbon Dioxide (21-32) mmol/L Anion Gap (6-13) BUN (6-20) mg/dL Creatinine (0.6-1.3) mg/dL Estimated GFR (MDRD) (>89) Glucose (74-104) mg/dL Calcium (8.5-10.3) mg/dL Phosphorus (2.5-5.0) mg/dL Magnesium (1.7-2.3) mg/dL Total Bilirubin (0.2-1.0) mg/dL AST (10-42) IU/L ALT (10-60) IU/L Alkaline Phosphatase (42-121) IU/L Troponin I High Sens (2.3-14.8) ng/L Total Protein (6.4-8.9) g/dL Albumin (3.2-5.5) g/dL Globulin (2.1-4.2) g/dL Albumin/Globulin Ratio (1.0-2.2) Nasal Influenza B PCR NOT DETECTED Nasal Influenza A PCR NOT DETECTED Nasal RSV (PCR) NOT DETECTED Nasal Screen MRSA (PCR) (NEGATIVE) Nasal SARS-CoV-2 (PCR) NOT DETECTED Last Dose Date Last Dose Time Digoxin ng/mL Diagnostic Imaging Diagnostic Imaging Results: positive Final report reviewed Assessment/Plan Problem List (1) COPD exacerbation: Impression: Patient now off BiPAP. Status post BiPAP ABG indicates pH of 7.44, pCO2 of 33.4, pO2 71.1. Continue patient on nasal cannulae. Monitor respiratory status, BiPAP as needed, duo nebs as needed Continue steroid taper. (2) Acute respiratory failure with hypoxia and hypercapnia: Impression: Resolved, Patient off BiPAP now on nasal cannulae, Bipap prn O2 saturation test before discharge Obtain respiratory viral panel (3) Elevated troponin: Impression: Troponins been trending up from 46 to a high of 94.5. This most likely secondary to demand ischemia. Elevated trops seem to be chronic upon review of prior labs Patient does have a systolic ejection murmur. Obtain echo, continue to trend troponin. (4) Paroxysmal atrial fibrillation: Impression: Currently patient with rate controlled, Continue digoxin Patient is not on pharmaceutical anticoagulant as an outpatient due to prev. GI bleeds (5) Chronic diastolic heart failure: Impression: at this time no exacerbation Continue to monitor (6) Community acquired bacterial pneumonia: Impression: On chest xray, bilateral opacities. Pt is afebrile, no Leukocytosis Obtain respiratory viral panel Empiric abx: rocephin, azithromycin, in elderly high risk pt (extensive past smoking hx)
[2024-04-20] MEDS: IPRATROPIUM/ALBUTEROL 3 ML NEB INH SCH (10:39)
[2024-04-20] MEDS: HEPARIN 5,000 UNIT/ML VIAL SUBQ SCH (11:11)
[2024-04-20 13:00] LABS: B. PARAPERTUSSIS- RESP PCR PAN NOT DETECTED; B. PERTUSSIS- RESP PCR PANEL NOT DETECTED; C. PNEUMONIAE- RESP PCR PANEL NOT DETECTED; CORONAVIRUS 229E-RESP PCR NOT DETECTED; CORONAVIRUS HKU1-RESP PCR NOT DETECTED; CORONAVIRUS NL63-RESP PCR NOT DETECTED; CORONAVIRUS OC43-RESP PCR NOT DETECTED; HUMAN METAPNEUMOVIRUS NOT DETECTED; INFLUENZA A- RESP PCR PANEL NOT DETECTED; INFLUENZA B - RESP PCR PANEL NOT DETECTED; M. PNEUMONIAE- RESP PCR PANEL NOT DETECTED; PARAINFLUENZA VIRUS 1 NOT DETECTED; PARAINFLUENZA VIRUS 2 NOT DETECTED; PARAINFLUENZA VIRUS 3 NOT DETECTED; PARAINFLUENZA VIRUS 4 NOT DETECTED; RHINOVIRUS/ENTEROVIRUS NOT DETECTED; RSV- RESP PCR PANEL NOT DETECTED; SARS-CoV-2 -RESP PCR PANEL NOT DETECTED
[2024-04-20] MEDS: SODIUM CHLORIDE 0.9% 500 ML IV ONE (16:18)
[2024-04-20] MEDS ORDERED: IPRATROPIUM/ALBUTEROL 3 ML NEB INH PRN (17:40)
[2024-04-20] MEDS: cefTRIAXone 2 GM in SODIUM CHLORIDE 0.9% MINIBAG 100 ML IV SCH (20:39)
[2024-04-21 04:37] LABS: HCT - HEMATOCRIT 36.8 % (37.0-47.0); HGB - HEMOGLOBIN 11.6 g/dL (12.0-16.0); LYMPHOCYTES # (AUTO) 0.5 10^3/uL (1.5-3.5); LYMPHOCYTES % (AUTO) 3.9 %; MEAN CORPUSCULAR HEMOGLOBIN 32.1 pg (27.0-31.0); MEAN CORPUSCULAR HGB CONC 31.5 g/dL (32.0-36.0); MEAN CORPUSCULAR VOLUME 101.9 fL (81.0-99.0); MONOCYTES # (AUTO) 0.3 10^3/uL (0.0-1.0); MONOCYTES % (AUTO) 2.5 %; NEUTROPHILS # (AUTO) 12.1 10^3/uL (1.5-6.6); NEUTROPHILS % (AUTO) 93.4 %; PLT - PLATELET COUNT 244 10^3/uL (130-450); RED BLOOD COUNT 3.61 10^6/uL (4.20-5.40); RED CELL DISTRIBUTION WIDTH 14.7 % (12.0-15.0)
[2024-04-21 04:40] LABS: CALCIUM, IONIZED 1.18 mmol/L (1.15-1.33); VBG PH 7.405 (7.31-7.41)
[2024-04-21 04:48] LABS: MAGNESIUM 2.2 mg/dL (1.7-2.3)
[2024-04-21 04:53] LABS: CALCIUM 9.6 mg/dL (8.5-10.3); CREATININE 0.6 mg/dL (0.6-1.3); PHOSPHORUS 4.1 mg/dL (2.5-5.0); POTASSIUM 4.8 mmol/L (3.5-4.5)
--- NOTE | 2024-04-21 08:10 | PROVIDER PROGRESS NOTE ---
Subjective Prog Note Date Prog Note Date: 04/21/24 Subjective Pt reports feeling: Improved Subjective: Mrs. Torres is an 83 yoF with a history of COPD, Systolic heart failure, and atrial fibrillation. She presented with shortness of breath for week. She had cough with minimal sputum production, but this is her baseline. She denied any chestpain. she has not had any fever or known sick contacts. In the ED, she was hypoxic on room air. ABG was consistent with hypercapnic respiratory failure. chest xray was negative for large infiltrates but there were bibasilar opacities that could not be excluded as early pneumonia. After discussion with the ED physician, and the worsening of respiratory status, I have agreed to admit patient to the hospitalist service for further evaluation. during my evaluation patient remain on the BIPAP. she was able to communicate and was alert and oriented x 3. Daughter was at bedside. This evaluation was performed using telemedicine tools,including phone and live video. 04/20/2024:Patient feels fine after being taken off BiPAP. Patient denies nausea, chest pain or respiratory distress. 04/21/2024:Patient states that she feels better, patient was on intermittent BiPAP overnight As ordered. Current Medications Current Medications Current Medications: Current Medications Generic Name Dose Route Start Last Admin Trade Name Freq PRN Reason Stop Dose Admin Albuterol/Ipratropium 3 ml 04/20/24 17:40 Ipratropium/Albuterol 3 Ml Neb INH Q4HR PRN Wheezing Azithromycin 250 mg 04/21/24 09:00 Azithromycin 250 Mg Tablet PO DAILY ANI Digoxin 125 mcg 04/20/24 09:00 04/20/24 08:29 Digoxin 125 Mcg Tablet PO 125 mcg DAILY ANI Administration Heparin Sodium (Porcine) 5,000 unit 04/20/24 11:00 04/20/24 20:42 Heparin 5,000 Unit/Ml Vial SUBQ 5,000 unit BID ANI Administration Ceftriaxone Sodium 2 gm/ 100 mls @ 200 mls/hr 04/20/24 21:00 04/20/24 21:22 Sodium Chloride IV Infused Q24H ANI Infusion Ondansetron HCl 4 mg 04/20/24 02:18 Ondansetron 4 Mg/2 Ml Vial IVP Q6HR PRN Nausea / Vomiting Pantoprazole Sodium 40 mg 04/20/24 07:00 04/21/24 06:43 Pantoprazole 40 Mg Tablet PO 40 mg QDAC ANI Administration Sodium Chloride 10 ml 04/20/24 02:13 Sodium Chloride Flush 0.9% 10 Ml Syringe IVP PRN PRN NEEDED PER PROVIDER ORDERS Sodium Chloride 10 ml 04/20/24 09:00 04/20/24 20:37 Sodium Chloride Flush 0.9% 10 Ml Syringe IVP 10 ml 0100,0900,1700 ANI Administration Objective Vital Signs/Intake & Output Reviewed Vital Signs: Yes Vital Signs: Vital Signs x48h Temp Pulse Pulse Resp BP Pulse Ox O2 Flow Rate 04/21/24 07:00 99 H 21 103/51 L 93 2 04/21/24 06:43 2 04/21/24 06:00 91 H 15 107/59 L 96 04/21/24 05:30 89 04/21/24 05:00 36.6 C 90 16 105/52 L 95 04/21/24 04:00 96 H 18 112/59 L 94 04/21/24 03:00 88 16 98/59 L 92 04/21/24 02:15 108 H 04/21/24 02:00 104 H 17 104/53 L 92 2 04/21/24 01:00 37.3 C 102 H 17 93/52 L 92 2 04/21/24 00:45 108 H 2 04/21/24 00:00 97 H 18 98/52 L 94 Intake & Output: Intake & Output 04/19/24 04/20/24 04/21/24 04/22/24 05:59 05:59 05:59 05:59 Intake Total 250 / 250 1000 / 1000 Output Total 500 / 500 Balance 250 / 250 500 / 500 Weight (kg) 48 kg 48 kg 47.5 kg Objective General Appearance: positive No acute distress and Alert Eyes Bilateral: positive Normal inspection, PERRL and EOMI ENT: positive ENT inspection nml and Pharynx nml Neck: positive Nml inspection, Thyroid nml, No JVD and Trachea midline Respiratory: positive Chest non-tender, No respiratory distress and Breath sounds nml Cardiovascular: positive Regular rate & rhythm and Other (Ejection murmur, Paroxysmal A-fib) Abdomen: positive Non-tender, No organomegaly and No distention Skin: positive Color nml, No rash and Warm Extremities: positive Non-tender and Full ROM Neurologic/Psychiatric: positive Oriented x3 and CN's nml (2-12) Lab Results 04/22/24 04:55 04/22/24 04:55 Other Labs: Lab Results x24hrs 04/21/24 04/20/24 04/20/24 Range/Units 04:30 16:05 11:54 WBC 13.0 H (4.8-10.8) x10^3/uL RBC 3.61 L (4.20-5.40) 10^6/uL Hgb 11.6 L (12.0-16.0) g/dL Hct 36.8 L (37.0-47.0) % MCV 101.9 H (81.0-99.0) fL MCH 32.1 H (27.0-31.0) pg MCHC 31.5 L (32.0-36.0) g/dL RDW 14.7 (12.0-15.0) % Plt Count 244 (130-450) 10^3/uL MPV 10.0 (7.9-10.8) fL Neut # (Auto) 12.1 H (1.5-6.6) 10^3/uL Lymph # (Auto) 0.5 L (1.5-3.5) 10^3/uL [place] # (Auto) 0.3 (0.0-1.0) 10^3/uL Eos # (Auto) 0.0 (0.0-0.7) 10^3/uL Baso # (Auto) 0.0 (0.0-0.1) 10^3/uL Absolute Nucleated RBC 0.00 x10^3/uL Nucleated RBC % 0.0 /100WBC Bld Gas Analysis Time Sample Site ABG pH (7.35-7.45) ABG pCO2 (34-45) mmHg ABG pO2 (80-100) mmHg ABG HCO3 (22.0-26.0) mmol/L ABG Total CO2 (21.0-29.0) MMOL/L ABG O2 Saturation (94-98) % ABG Oximetry Spot Check % ABG Base Excess (-2.0-3.0) mmol/L Rodolfo Test VBG pH 7.405 (7.31-7.41) Ionized Calcium 1.18 (1.15-1.33) mmol/L O2 Delivery Device O2 Liters/Min LPM Sodium 142 (135-145) mmol/L Potassium 4.8 H 4.8 H (3.5-4.5) mmol/L Chloride 108 (101-111) mmol/L Carbon Dioxide 28 (21-32) mmol/L Anion Gap 6.0 (6-13) BUN 29 H (6-20) mg/dL Creatinine 0.6 (0.6-1.3) mg/dL Estimated GFR (MDRD) 96 (>89) Glucose 127 H (74-104) mg/dL Calcium 9.6 (8.5-10.3) mg/dL Phosphorus 4.1 (2.5-5.0) mg/dL Magnesium 2.2 (1.7-2.3) mg/dL Troponin I High Sens (2.3-14.8) ng/L Nasal Adenovirus (PCR) NOT DETECTED Nasal B. parapertussis DNA (PCR) NOT DETECTED Nasal Coronavir 229E PCR NOT DETECTED Nasal Coronavir HKU1 PCR NOT DETECTED Nasal Coronavir NL63 PCR NOT DETECTED Nasal Coronavir OC43 PCR NOT DETECTED Nasal Enterovir/Rhinovir PCR NOT DETECTED Nasal Influenza B PCR NOT DETECTED Nasal Influenza A PCR NOT DETECTED Nasal Parainfluen 1 PCR NOT DETECTED Nasal Parainfluen 2 PCR NOT DETECTED Nasal Parainfluen 3 PCR NOT DETECTED Nasal Parainfluen 4 PCR NOT DETECTED Nasal RSV (PCR) NOT DETECTED Nasal Screen MRSA (PCR) (NEGATIVE) Nasal B.pertussis DNA PCR NOT DETECTED Nasal C.pneumoniae (PCR) NOT DETECTED Paul Human Metapneumo PCR NOT DETECTED Nasal M.pneumoniae (PCR) NOT DETECTED Nasal SARS-CoV-2 (PCR) NOT DETECTED 04/20/24 04/20/24 04/20/24 Range/Units 11:04 08:05 05:14 WBC (4.8-10.8) x10^3/uL RBC (4.20-5.40) 10^6/uL Hgb (12.0-16.0) g/dL Hct (37.0-47.0) % MCV (81.0-99.0) fL MCH (27.0-31.0) pg MCHC (32.0-36.0) g/dL RDW (12.0-15.0) % Plt Count (130-450) 10^3/uL MPV (7.9-10.8) fL Neut # (Auto) (1.5-6.6) 10^3/uL Lymph # (Auto) (1.5-3.5) 10^3/uL [place] # (Auto) (0.0-1.0) 10^3/uL Eos # (Auto) (0.0-0.7) 10^3/uL Baso # (Auto) (0.0-0.1) 10^3/uL Absolute Nucleated RBC x10^3/uL Nucleated RBC % /100WBC Bld Gas Analysis Time 0816 Sample Site LEFT RADIAL ABG pH 7.44 (7.35-7.45) ABG pCO2 33 L (34-45) mmHg ABG pO2 74 L (80-100) mmHg ABG HCO3 22.4 (22.0-26.0) mmol/L ABG Total CO2 23.4 (21.0-29.0) MMOL/L ABG O2 Saturation 95 (94-98) % ABG Oximetry Spot Check 94 % ABG Base Excess -1.1 (-2.0-3.0) mmol/L Rodolfo Test POSITIVE VBG pH (7.31-7.41) Ionized Calcium (1.15-1.33) mmol/L O2 Delivery Device NASAL CANNULA O2 Liters/Min 2.00 LPM Sodium (135-145) mmol/L Potassium 3.4 L (3.5-4.5) mmol/L Chloride (101-111) mmol/L Carbon Dioxide (21-32) mmol/L Anion Gap (6-13) BUN (6-20) mg/dL Creatinine (0.6-1.3) mg/dL Estimated GFR (MDRD) (>89) Glucose (74-104) mg/dL Calcium (8.5-10.3) mg/dL Phosphorus (2.5-5.0) mg/dL Magnesium (1.7-2.3) mg/dL Troponin I High Sens 107.0 H* (2.3-14.8) ng/L Nasal Adenovirus (PCR) Nasal B. parapertussis DNA (PCR) Nasal Coronavir 229E PCR Nasal Coronavir HKU1 PCR Nasal Coronavir NL63 PCR Nasal Coronavir OC43 PCR Nasal Enterovir/Rhinovir PCR Nasal Influenza B PCR Nasal Influenza A PCR Nasal Parainfluen 1 PCR Nasal Parainfluen 2 PCR Nasal Parainfluen 3 PCR Nasal Parainfluen 4 PCR Nasal RSV (PCR) Nasal Screen MRSA (PCR) (NEGATIVE) Nasal B.pertussis DNA PCR Nasal C.pneumoniae (PCR) Paul Human Metapneumo PCR Nasal M.pneumoniae (PCR) Nasal SARS-CoV-2 (PCR) 04/20/24 Range/Units 03:20 WBC (4.8-10.8) x10^3/uL RBC (4.20-5.40) 10^6/uL Hgb (12.0-16.0) g/dL Hct (37.0-47.0) % MCV (81.0-99.0) fL MCH (27.0-31.0) pg MCHC (32.0-36.0) g/dL RDW (12.0-15.0) % Plt Count (130-450) 10^3/uL MPV (7.9-10.8) fL Neut # (Auto) (1.5-6.6) 10^3/uL Lymph # (Auto) (1.5-3.5) 10^3/uL [place] # (Auto) (0.0-1.0) 10^3/uL Eos # (Auto) (0.0-0.7) 10^3/uL Baso # (Auto) (0.0-0.1) 10^3/uL Absolute Nucleated RBC x10^3/uL Nucleated RBC % /100WBC Bld Gas Analysis Time Sample Site ABG pH (7.35-7.45) ABG pCO2 (34-45) mmHg ABG pO2 (80-100) mmHg ABG HCO3 (22.0-26.0) mmol/L ABG Total CO2 (21.0-29.0) MMOL/L ABG O2 Saturation (94-98) % ABG Oximetry Spot Check % ABG Base Excess (-2.0-3.0) mmol/L Rodolfo Test VBG pH (7.31-7.41) Ionized Calcium (1.15-1.33) mmol/L O2 Delivery Device O2 Liters/Min LPM Sodium (135-145) mmol/L Potassium (3.5-4.5) mmol/L Chloride (101-111) mmol/L Carbon Dioxide (21-32) mmol/L Anion Gap (6-13) BUN (6-20) mg/dL Creatinine (0.6-1.3) mg/dL Estimated GFR (MDRD) (>89) Glucose (74-104) mg/dL Calcium (8.5-10.3) mg/dL Phosphorus (2.5-5.0) mg/dL Magnesium (1.7-2.3) mg/dL Troponin I High Sens (2.3-14.8) ng/L Nasal Adenovirus (PCR) Nasal B. parapertussis DNA (PCR) Nasal Coronavir 229E PCR Nasal Coronavir HKU1 PCR Nasal Coronavir NL63 PCR Nasal Coronavir OC43 PCR Nasal Enterovir/Rhinovir PCR Nasal Influenza B PCR Nasal Influenza A PCR Nasal Parainfluen 1 PCR Nasal Parainfluen 2 PCR Nasal Parainfluen 3 PCR Nasal Parainfluen 4 PCR Nasal RSV (PCR) Nasal Screen MRSA (PCR) NEGATIVE (NEGATIVE) Nasal B.pertussis DNA PCR Nasal C.pneumoniae (PCR) Paul Human Metapneumo PCR Nasal M.pneumoniae (PCR) Nasal SARS-CoV-2 (PCR) Diagnostic Imaging Diagnostic Imaging Results: positive Final report reviewed Assessment/Plan Problem List (1) COPD exacerbation: Impression: Start patient on nasal cannulae/BiPAP as needed. Patient Appears in no acute respiratory distress. Decreased steroid from 40-20mg twice daily. DuoNebs as needed Continue ABX 06/28 (2) Acute respiratory failure with hypoxia and hypercapnia: Impression: Hypercapnia has resolved, pt continues to be hypoxic at times Patient off continues BiPAP, nasal cannulae, Bipap prn Pt seems to have increased work of breathing O2 saturation test before discharge Respiratory viral panel is negative (3) Elevated troponin: Impression: Elevated troponins most likely secondary to demand ischemia. Elevated trops seem to be chronic upon review of prior labs Patient does have a systolic ejection murmur. Follow Cardiac echo read (4) Paroxysmal atrial fibrillation: Impression: Currently patient with rate controlled, Continue digoxin Patient is not on pharmaceutical anticoagulant as an outpatient due to prev. GI bleeds (5) Chronic diastolic heart failure: Impression: at this time no exacerbation Continue to monitor echo read is pending (6) Community acquired bacterial pneumonia: Impression: On chest xray, bilateral opacities. Pt is afebrile, no Leukocytosis Respiratory Viral panel negative Empiric abx: rocephin, azithromycin, in elderly high risk pt (extensive past smoking hx) Repeat chest x-ray for tomorrow Slight leukocytosis likely secondary to steroid use, continue to monitor (7) Hyperkalemia: Impression: Patient potassium increased from 3.4 to 4.8 overnight. This Is likely due to digoxin side effect. At this time patient is asymptomatic. Monitor potassium level Repeat K increased -> order D50, insulin and Ca-gluconate
[2024-04-21] MEDS: methylPREDNISolone SUCCINATE 40 MG/ML VIAL IVP SCH (08:18)
[2024-04-21] MEDS: AZITHROMYCIN 250 MG TABLET PO SCH (08:18)
[2024-04-21] MEDS ORDERED: INSULIN LISPRO 300 UNIT/3 ML PEN SUBQ STA (17:16)
[2024-04-21] MEDS: INSULIN LISPRO 300 UNIT/3 ML PEN IVP STA (17:30)
[2024-04-21] MEDS: DEXTROSE 50% ABBOJECT 25 GM/50 ML SYRINGE IVP ONE (17:35)
[2024-04-21] MEDS: CALCIUM GLUC 1,000MG/50ML-NACL 1,000 MG/50 ML BAG IV ONE (17:41)
[2024-04-21] MEDS: SODIUM CHLORIDE FLUSH 0.9% 10 ML SYRINGE IVP PRN (17:45)
[2024-04-21] MEDS: FUROSEMIDE 20 MG/2 ML VIAL IVP ONE (17:45)
[2024-04-21] MEDS ORDERED: INSULIN LISPRO 300 UNIT/3 ML PEN SUBQ SCH (18:00)
[2024-04-22 05:24] LABS: BASOPHILS % (AUTO) 0.1 %; EOSINOPHILS % (AUTO) 0.2 %; HCT - HEMATOCRIT 38.4 % (37.0-47.0); HGB - HEMOGLOBIN 12.2 g/dL (12.0-16.0); LYMPHOCYTES # (AUTO) 0.6 10^3/uL (1.5-3.5); LYMPHOCYTES % (AUTO) 4.5 %; MEAN CORPUSCULAR HEMOGLOBIN 32.2 pg (27.0-31.0); MEAN CORPUSCULAR HGB CONC 31.8 g/dL (32.0-36.0); MEAN CORPUSCULAR VOLUME 101.3 fL (81.0-99.0); MEAN PLATELET VOLUME 10.3 fL (7.9-10.8); MONOCYTES # (AUTO) 0.5 10^3/uL (0.0-1.0); MONOCYTES % (AUTO) 3.4 %; NEUTROPHILS # (AUTO) 12.2 10^3/uL (1.5-6.6); NEUTROPHILS % (AUTO) 91.6 %; PLT - PLATELET COUNT 262 10^3/uL (130-450); RED BLOOD COUNT 3.79 10^6/uL (4.20-5.40); RED CELL DISTRIBUTION WIDTH 14.6 % (12.0-15.0); WHITE BLOOD COUNT 13.3 x10^3/uL (4.8-10.8)
[2024-04-22 05:25] LABS: CALCIUM, IONIZED 1.19 mmol/L (1.15-1.33); VBG PH 7.443 (7.31-7.41)
[2024-04-22 05:39] LABS: CALCIUM 9.8 mg/dL (8.5-10.3); CREATININE 0.6 mg/dL (0.6-1.3); MAGNESIUM 1.9 mg/dL (1.7-2.3); POTASSIUM 4.4 mmol/L (3.5-4.5)
--- NOTE | 2024-04-22 08:05 | XRAY Report ---
PROCEDURE: XR Chest 1V INDICATIONS: pna TECHNIQUE: One view of the chest was acquired. COMPARISON: Chest x-ray 04/20/2024. FINDINGS: Surgical changes and devices: None. Lungs and pleura: Effusions mild bilateral effusions, greater than right. It is mildly left greater than right. It is mildly improved on the right improved on right in similar versus slightly worse an d similar versus slightly worse on the left.. Mediastinum: Mediastinal contours appear normal. Heart size is enlarged.. Bones and chest wall: No suspicious bony lesions. Overlying soft tissues appear unremarkable. IMPRESSION: Mild bilateral effusions bilateral effusions as described above. Areas of underlying pneumonia and/o r atelectasis cannot be excluded. Be excluded. Reviewed by: Mary Govea MD on 04/22/2024 8:04 AM [facility] Approved by: Mary Govea MD on 04/22/2024 8:04 AM [facility] Station ID: [id number]
--- NOTE | 2024-04-22 09:23 | PROVIDER PROGRESS NOTE ---
Subjective Prog Note Date Prog Note Date: 04/22/24 Subjective Pt reports feeling: Improved Subjective: Mrs. Torres is an 83 yoF with a history of COPD, Systolic heart failure, and atrial fibrillation. She presented with shortness of breath for week. She had cough with minimal sputum production, but this is her baseline. She denied any chestpain. she has not had any fever or known sick contacts. In the ED, she was hypoxic on room air. ABG was consistent with hypercapnic respiratory failure. chest xray was negative for large infiltrates but there were bibasilar opacities that could not be excluded as early pneumonia. After discussion with the ED physician, and the worsening of respiratory status, I have agreed to admit patient to the hospitalist service for further evaluation. during my evaluation patient remain on the BIPAP. she was able to communicate and was alert and oriented x 3. Daughter was at bedside. This evaluation was performed using telemedicine tools,including phone and live video. 04/20/2024:Patient feels fine after being taken off BiPAP. Patient denies nausea, chest pain or respiratory distress. 04/21/2024:Patient states that she feels better, patient was on intermittent BiPAP overnight As ordered. 04/22/2024:Patient that she had a good night, was on BiPAP most of the night. Patient is not hungry Current Medications Current Medications Current Medications: Current Medications Generic Name Dose Route Start Last Admin Trade Name Freq PRN Reason Stop Dose Admin Albuterol/Ipratropium 3 ml 04/20/24 17:40 Ipratropium/Albuterol 3 Ml Neb INH Q4HR PRN Wheezing Azithromycin 250 mg 04/21/24 09:00 04/22/24 08:32 Azithromycin 250 Mg Tablet PO 250 mg DAILY ANI Administration Digoxin 125 mcg 04/20/24 09:00 04/22/24 08:32 Digoxin 125 Mcg Tablet PO 125 mcg DAILY ANI Administration Heparin Sodium (Porcine) 5,000 unit 04/20/24 11:00 04/22/24 08:33 Heparin 5,000 Unit/Ml Vial SUBQ 5,000 unit BID ANI Administration Ceftriaxone Sodium 2 gm/ 100 mls @ 200 mls/hr 04/20/24 21:00 04/21/24 22:13 Sodium Chloride IV Infused Q24H ANI Infusion Methylprednisolone 20 mg 04/21/24 08:00 04/22/24 08:33 Methylprednisolone Succinate 40 Mg/Ml Vial IVP 20 mg BID ANI Administration Ondansetron HCl 4 mg 04/20/24 02:18 Ondansetron 4 Mg/2 Ml Vial IVP Q6HR PRN Nausea / Vomiting Pantoprazole Sodium 40 mg 04/20/24 07:00 04/22/24 06:13 Pantoprazole 40 Mg Tablet PO 40 mg QDAC ANI Administration Sodium Chloride 10 ml 04/20/24 02:13 04/21/24 20:57 Sodium Chloride Flush 0.9% 10 Ml Syringe IVP 10 ml PRN PRN Administration NEEDED PER PROVIDER ORDERS Sodium Chloride 10 ml 04/20/24 09:00 04/22/24 08:33 Sodium Chloride Flush 0.9% 10 Ml Syringe IVP 10 ml 0100,0900,1700 ANI Administration Objective Vital Signs/Intake & Output Reviewed Vital Signs: Yes Vital Signs: Vital Signs x48h Temp Pulse Pulse Resp BP Pulse Ox O2 Flow Rate 04/22/24 09:00 106 H 18 102/47 L 95 2 04/22/24 08:30 24 99/51 L 92 2 04/22/24 08:00 99 H 24 102/46 L 94 1 04/22/24 07:50 37.6 C 104 H 20 107/44 L 90 L 04/22/24 07:03 101 H 22 80/52 L 93 04/22/24 06:55 2 04/22/24 06:00 36.8 C 90 15 114/69 96 04/22/24 05:00 87 13 105/59 L 94 04/22/24 04:00 82 17 100/52 L 93 04/22/24 03:30 98 H 2 04/22/24 03:00 91 H 14 111/58 L 93 04/22/24 02:00 91 H 16 119/56 L 93 04/22/24 01:32 90 2 Intake & Output: Intake & Output 04/20/24 04/21/24 04/22/24 04/23/24 05:59 05:59 05:59 05:59 Intake Total 250 / 250 1000 / 1000 390 / 390 420 / 420 Output Total 500 / 500 1000 / 1000 350 / 350 Balance 250 / 250 500 / 500 -610 / -610 70 / 70 Weight (kg) 48 kg 48 kg 47.5 kg 47 kg Objective General Appearance: positive No acute distress and Alert Eyes Bilateral: positive Normal inspection, PERRL and EOMI ENT: positive ENT inspection nml and Pharynx nml Neck: positive Nml inspection, Thyroid nml, No JVD and Trachea midline Respiratory: positive Chest non-tender, No respiratory distress, Breath sounds nml and Other (Increased work of breathing) Cardiovascular: positive Regular rate & rhythm and Other (Ejection murmur, Paroxysmal A-fib) Abdomen: positive Non-tender, No organomegaly and No distention Skin: positive Color nml, No rash and Warm Extremities: positive Non-tender and Full ROM Neurologic/Psychiatric: positive Oriented x3 and CN's nml (2-12) Lab Results 04/22/24 04:55 04/22/24 04:55 Other Labs: Lab Results x24hrs 04/22/24 04/21/24 04/21/24 Range/Units 04:55 15:52 11:08 WBC 13.3 H (4.8-10.8) x10^3/uL RBC 3.79 L (4.20-5.40) 10^6/uL Hgb 12.2 (12.0-16.0) g/dL Hct 38.4 (37.0-47.0) % MCV 101.3 H (81.0-99.0) fL MCH 32.2 H (27.0-31.0) pg MCHC 31.8 L (32.0-36.0) g/dL RDW 14.6 (12.0-15.0) % Plt Count 262 (130-450) 10^3/uL MPV 10.3 (7.9-10.8) fL Neut # (Auto) 12.2 H (1.5-6.6) 10^3/uL Lymph # (Auto) 0.6 L (1.5-3.5) 10^3/uL [place] # (Auto) 0.5 (0.0-1.0) 10^3/uL Eos # (Auto) 0.0 (0.0-0.7) 10^3/uL Baso # (Auto) 0.0 (0.0-0.1) 10^3/uL Absolute Nucleated RBC 0.00 x10^3/uL Nucleated RBC % 0.0 /100WBC VBG pH 7.443 H (7.31-7.41) Ionized Calcium 1.19 (1.15-1.33) mmol/L Sodium 139 (135-145) mmol/L Potassium 4.4 4.9 H (3.5-4.5) mmol/L Chloride 103 (101-111) mmol/L Carbon Dioxide 31 (21-32) mmol/L Anion Gap 5.0 L (6-13) BUN 37 H (6-20) mg/dL Creatinine 0.6 (0.6-1.3) mg/dL Estimated GFR (MDRD) 96 (>89) Glucose 108 H (74-104) mg/dL Calcium 9.8 (8.5-10.3) mg/dL Phosphorus 4.0 (2.5-5.0) mg/dL Magnesium 1.9 (1.7-2.3) mg/dL Troponin I High Sens 94.1 H* (2.3-14.8) ng/L Diagnostic Imaging Diagnostic Imaging Results: positive Final report reviewed Assessment/Plan Problem List (1) COPD exacerbation: Impression: Continue patient on BiPAP as needed Versus nasal cannulae. Repeat chest x-ray today indicates some improvement of right with a mild bilateral pleural effusion. Continue prednisone taper, DuoNebs as needed, continue ABX (2) Acute respiratory failure with hypoxia and hypercapnia: Impression: Hypercapnia has resolved, pt continues to be hypoxic (O2 < 92%) at times at rest and exercise., Requires non invasive ventilator device . During nighttime patient quickly desaturates on NC 2L and requires BiPA. Currently pt is on 2l O2 at rest and 3L during ambulation Patient Work of breathing seems strenuous at times O2 saturation test before discharge Respiratory viral panel is negative (3) Elevated troponin: Impression: Elevated troponins most likely secondary to demand ischemia. Elevated trops seem to be chronic upon review of prior labs Patient does have a systolic ejection murmur. Follow Cardiac echo read (4) Paroxysmal atrial fibrillation: Impression: Currently patient with rate controlled, Continue digoxin Patient is not on pharmaceutical anticoagulant as an outpatient due to prev. GI bleeds (5) Chronic diastolic heart failure: Impression: at this time no exacerbation lasix 40 x1 o/n Continue to monitor echo read is pending (6) Community acquired bacterial pneumonia: Impression: Repeat chest x-ray indicates mild bilateral pleural effusions, underlying pneumonia can not be excluded Pt is afebrile, Slight leukocytosis likley due to steroid use Respiratory Viral panel negative Empiric abx: rocephin, azithromycin, in elderly high risk pt (extensive past smoking hx) Transition to oral abx upon discharge. (7) Hyperkalemia: Impression: Resolved after D50, insulin and Ca-gluconate Monitor potassium level
--- NOTE | 2024-04-22 14:12 | Discharge Summary ---
Discharge Summary Admit Date: 04/20/24 Discharge Date: 04/23/24 Code Status: Do Not Attempt Resuscitation DIAGNOSES Admission Diagnoses: Hypercapnic hypoxic respiratory failure Elevated troponin Chronic diastolic CHF COPD exacerbation Discharge Diagnoses with Status of Each Condition: Hypercapnic hypoxic respiratory failure - resolved, now on home O2 Elevated troponin - likely demand ischemia, hx of elevated trop., not related to ACS Chronic diastolic CHF - echo read pending COPD exacerbation - on steroid taper CAP - home po abx for completion of 7 days abx treatment HPI History of Present Illness: Mrs. Torres is an 83 yoF with a history of COPD, Systolic heart failure, and atrial fibrillation. She presented with shortness of breath for week. She had cough with minimal sputum production, but this is her baseline. She denied any chestpain. she has not had any fever or known sick contacts. In the ED, she was hypoxic on room air. ABG was consistent with hypercapnic respiratory failure. chest xray was negative for large infiltrates but there were bibasilar opacities that could not be excluded as early pneumonia. After discussion with the ED physician, and the worsening of respiratory status, I have agreed to admit patient to the hospitalist service for further evaluation. during my evaluation patient remain on the BIPAP. she was able to communicate and was alert and oriented x 3. Daughter was at bedside. This evaluation was performed using telemedicine tools,including phone and live video. 04/20/2024:Patient feels fine after being taken off BiPAP. Patient denies nausea, chest pain or respiratory distress. 04/21/2024:Patient states that she feels better, patient was on intermittent BiPAP overnight As ordered. 04/22/2024:Patient that she had a good night, was on BiPAP most of the night. Patient is not hungry HOSPITAL COURSE Hospital Course: Per admission, patient was started on BiPAP. Hypercapnic respiratory failure resolved. Patient was on as needed BiPAP during the hospital stay. Patient did have episodes of O2 desaturation, patient will be discharged on home oxygen. Community-acquired pneumonia with treated with IV Rocephin and azithromycin. Patient will be discharged on Augmentin for total of 7-day antibiotic treatment. Repeat chest x-ray indicated slight improvement of pneumonia. Elevated troponin trended. Elevated troponin most likely due to her heart failure and demand ischemia. Upon review of previous chart notes patient has chronic elevated troponin. Likely her respiratory failure was due to a COPD exasperation as well as. Patient was started on low-dose steroid taper. Patient had an episode of hyperkalemia which was treated with D50 and insulin IV. Hyperkalemia resolved. Patient was discharged in stable condition. ALLERGIES Allergies Allergy/AdvReac Type Severity Reaction Status Date / Time gluten Allergy Severe GI bleed Verified 04/19/24 23:14 MEDICATIONS Ambulatory Orders Medication Instructions Recorded Confirmed digoxin 125 mcg (0.125 mg) tablet 125 mcg PO DAILY 01/01/23 04/24/24 cyanocobalamin (vitamin B-12) 2,000 mcg PO DAILY #14 nataliya 07/01/23 04/24/24 2,000 mcg lozenges melatonin 3 mg tablet 3 mg PO HS PRN sleep 03/14/24 04/24/24 multivitamin-ferrous 1 tab PO QDAY 03/14/24 04/24/24 fumarate-folic acid 18 mg-400 mcg tablet (Centrum) nitroglycerin 0.4 mg sublingual 0.4 mg sublingual Q5M 03/14/24 04/24/24 tablet pantoprazole 20 mg tablet,delayed 20 mg PO BID 03/14/24 04/24/24 release amoxicillin 500 mg-potassium 1 tab PO BID #4 tabs 04/22/24 04/24/24 clavulanate 125 mg tablet (Augmentin) prednisone 20 mg tablet 40 mg (2 x 20 mg) PO DAILYWM 5 04/23/24 04/24/24 days #10 tabs LABS 04/23/24 05:03 04/23/24 05:03 Discharge Plan Discharge Patient Disposition: 06 Home Health Service Condition: Stable Prescriptions: New amoxicillin-pot clavulanate [Augmentin] 500-125 mg tablet 1 tab PO BID Qty: 4 0RF Rx Instructions: take 2 tabs twice a day for 3 days prednisone 20 mg Tablet 40 mg PO DAILYWM 5 Days Qty: 10 0RF Continued digoxin 125 MCG tablet 125 mcg PO DAILY cyanocobalamin (vitamin B-12) 2,000 MCG lozenge 2,000 mcg PO DAILY Qty: 14 0RF nitroglycerin 0.4 mg tablet, sublingual 0.4 mg sublingual Q5M Rx Instructions: Place 1 tablet under the tongue every 5 mins PRN for chest pain pantoprazole 20 mg tablet,delayed release (DR/EC) 20 mg PO BID Rx Instructions: Take 1 tablet by mouth twice a day Centrum 18-400 mg-mcg tablet 1 tab PO QDAY melatonin 3 mg tablet 3 mg PO HS PRN (Reason: sleep) Activity Restrictions: Activity as Tolerated Diet: Regular Assessment: You came in because you are having difficulty breathing. This was likely due to an exacerbation of your COPD. Although your symptoms have gotten better, you are still requiring oxygen. As such, we will sending you home with oxygen which you will use at rest and with activity. We were also concerned that you may have had a pneumonia as well. You received 5 days of antibiotics; I have sent 2 more days of antibiotics to your pharmacy, [facility]. I have also sent 4 more days of prednisone which she will take once a day to complete your steroid course. Cardiac echo, or an ultrasound of your heart was done, while you are here. The results are still not back; once I receive them, I will either give you a call or forward them to your primary care physician who will go over the results with you. While you are here, physical therapy/Occupational Therapy also saw you, and recommended home health assistance. This has been ordered for you. We are glad you are feeling better, and you have great support at home. Thank you for allowing us to take care of you. Print Language: Iraqi Patient Instructions: Heart Failure, Chronic Lung Disease Be Active, Chronic Lung Disease Dyspnea Scale Stand Alone Forms: PCP List
--- NOTE | 2024-04-22 16:13 | OT Plan of Care ---
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) Renal mass (12/01/22) Psoriatic arthritis (09/11/20) Psoriasis (07/28/15) Peripheral vascular disease (01/31/07) Peptic ulcer disease (03/29/23) Peripheral vascular disease with claudication (02/15/07) Osteoarthritis of left knee (02/14/12) Osteoarthritis of right hip (03/30/15) Occlusion of right vertebral artery (04/21/23) Hypomagnesemia (04/21/23) Hyperlipidemia, unspecified (05/22/1958) Bilateral hand pain (08/27/18) Gluten enteropathy (09/14/23) Failure to thrive in adult (07/05/22) Diverticulitis (09/07/07) Acute respiratory failure with hypoxia (07/05/22) Acute on chronic diastolic heart failure (07/05/22) Actinic keratosis (10/01/07) Surgical History Bunion, right foot bunion repair right foot Presence of stent in artery stents in R iliac artery and L subclavian artery (followed by ) Assessment and Goals ASSESSMENT Assessment: Pt seen today for OT evaluation 2/2 Hypercapnic respiratory failure 2/2 1 week SOB at home. Met supine in bed, A&Ox4, willing to participate with therapy. Daughter and DIL present. Pt on 2L NC, 3L NC for mobility. Vitals remains stable as follows: Rest Spo2 95%, HR 90s, RR 16. With mobility Spo2 desat 87%, HR max 120s, RR max 26 Sitting rest break with recovery of vitals within appropriate measures. Pt performed bed mobility, sit to stand, and ambulation house hold distances 50ft (x4 trials) using 2WW CGA Slowed pace but daughter stating this is baseline. Pt able to self initiate sitting rest breaks and use of PLB prn. Pt ascended and descended 2 stairs MIN A using B handrails- daughter present for training. Currently CGA ADLs with set up and increased ti me. Family supportive and articulates plan for home health and outside assistance in place for safe d/c. No further skilled OT needs at this time. Cont mobility as appropriate with nursing and rec d/c home with HH OT/PT services for progression to pts baseline functional status and integration of O2 prn. OT Inpatient Plan PLAN Treatment Frequency: Evaluation only, no further O.T. Duration: Until goals are met -Discharge Recommendations Discharge Location: Previous Living Situation Support/Services Needed: With assist and Home Health O.T. Recommended Equipment: Raised Toilet Seat, Commode, Grab bars, Shower/bath chair, Adaptive Self Care Devices and Other Transport Needs at Discharge: [place]
[2024-04-22] MEDS: predniSONE 5 MG TABLET PO SCH (20:47)
[2024-04-23 05:32] LABS: BASOPHILS % (AUTO) 0.1 %; EOSINOPHILS % (AUTO) 0.1 %; HCT - HEMATOCRIT 38.1 % (37.0-47.0); LYMPHOCYTES # (AUTO) 0.6 10^3/uL (1.5-3.5); LYMPHOCYTES % (AUTO) 5.8 %; MEAN CORPUSCULAR HEMOGLOBIN 31.6 pg (27.0-31.0); MEAN CORPUSCULAR HGB CONC 31.5 g/dL (32.0-36.0); MEAN CORPUSCULAR VOLUME 100.3 fL (81.0-99.0); MEAN PLATELET VOLUME 10.3 fL (7.9-10.8); MONOCYTES # (AUTO) 0.6 10^3/uL (0.0-1.0); MONOCYTES % (AUTO) 5.6 %; NEUTROPHILS # (AUTO) 9.6 10^3/uL (1.5-6.6); PLT - PLATELET COUNT 268 10^3/uL (130-450); RED CELL DISTRIBUTION WIDTH 14.3 % (12.0-15.0); WHITE BLOOD COUNT 10.9 x10^3/uL (4.8-10.8)
[2024-04-23 05:42] LABS: CALCIUM, IONIZED 1.16 mmol/L (1.15-1.33); VBG PH 7.448 (7.31-7.41)
[2024-04-23 05:48] LABS: CALCIUM 9.5 mg/dL (8.5-10.3); CREATININE 0.5 mg/dL (0.6-1.3); MAGNESIUM 1.7 mg/dL (1.7-2.3); PHOSPHORUS 3.2 mg/dL (2.5-5.0); POTASSIUM 4.3 mmol/L (3.5-4.5)
[2024-04-23] MEDS: MAGNESIUM OXIDE 400 MG TABLET PO ONE (08:53)
[2024-04-23] MEDS: LACTATED RINGERS 1,000 ML IV ONE (09:41)
[2024-04-23] MEDS: MULTIVITAMIN W/MINERALS TABLET PO SCH (09:41)
--- NOTE | 2024-04-23 11:44 | PROVIDER PROGRESS NOTE ---
Subjective Subjective Subjective: Patient is a 83-year-old female with a history of COPD not on home oxygen previously, CHF with unknown ejection fraction, atrial fibrillation not on anticoagulation due to history of GI bleed who presented initially for shortness of breath and dyspnea. Overnight, she did not require any BiPAP use. She still requiring 2 to 3 L. With any activity, she does get short of breath and winded. She still has a minor cough. She denies any fevers, chills. Plan is home with home care. She states that she has great family support. Respiratory therapy is working on getting her a trilogy device for noninvasive ventilation at home. Current Medications Current Medications Current Medications: Current Medications Generic Name Dose Route Start Last Admin Trade Name Freq PRN Reason Stop Dose Admin Albuterol/Ipratropium 3 ml 04/20/24 17:40 Ipratropium/Albuterol 3 Ml Neb INH Q4HR PRN Wheezing Digoxin 125 mcg 04/20/24 09:00 04/23/24 08:54 Digoxin 125 Mcg Tablet PO 125 mcg DAILY ANI Administration Heparin Sodium (Porcine) 5,000 unit 04/20/24 11:00 04/23/24 08:54 Heparin 5,000 Unit/Ml Vial SUBQ 5,000 unit BID ANI Administration Ceftriaxone Sodium 2 gm/ 100 mls @ 200 mls/hr 04/20/24 21:00 04/22/24 21:53 Sodium Chloride IV Infused Q24H ANI Infusion Lactated Ringer's 1,000 mls @ 250 mls/hr 04/23/24 09:15 04/23/24 09:41 Lr IV 04/23/24 13:14 250 mls/hr ONCE ONE Administration Multivitamins/Minerals 1 tab 04/23/24 10:00 04/23/24 09:41 Multivitamin W/Minerals Tablet PO 1 tab DAILYWM ANI Administration Ondansetron HCl 4 mg 04/20/24 02:18 Ondansetron 4 Mg/2 Ml Vial IVP Q6HR PRN Nausea / Vomiting Pantoprazole Sodium 40 mg 04/20/24 07:00 04/23/24 06:56 Pantoprazole 40 Mg Tablet PO 40 mg QDAC ANI Administration Prednisone 10 mg 04/22/24 21:00 04/23/24 08:54 Prednisone 5 Mg Tablet PO 10 mg BID ANI Administration Sodium Chloride 10 ml 04/20/24 02:13 04/22/24 20:49 Sodium Chloride Flush 0.9% 10 Ml Syringe IVP 10 ml PRN PRN Administration NEEDED PER PROVIDER ORDERS Sodium Chloride 10 ml 04/20/24 09:00 04/23/24 08:54 Sodium Chloride Flush 0.9% 10 Ml Syringe IVP 10 ml 0100,0900,1700 ANI Administration Objective Vital Signs/Intake & Output Reviewed Vital Signs: Yes Vital Signs: Vital Signs x48h Temp Pulse Resp BP Pulse Ox O2 Flow Rate 04/23/24 11:10 101 H 94 H 94/48 L 18 L 2 04/23/24 10:00 98 H 18 122/54 L 95 2 04/23/24 09:15 100 H 16 91/40 L 98 04/23/24 09:10 102 H 18 80/41 L 92 04/23/24 09:00 107 H 19 89/50 L 92 2 04/23/24 08:00 99.0 F 97 H 15 115/58 L 97 2 04/23/24 07:00 93 H 16 129/63 96 2 04/23/24 06:00 97 H 16 125/62 96 2 04/23/24 05:00 98.2 F 96 H 19 101/77 95 2 04/23/24 04:00 94 H 14 122/59 L 93 2 Intake & Output: Intake & Output 04/21/24 04/22/24 04/23/24 04/24/24 05:59 05:59 05:59 05:59 Intake Total 1000 / 1000 390 / 390 790 / 790 340 / 340 Output Total 500 / 500 1000 / 1000 750 / 750 150 / 150 Balance 500 / 500 -610 / -610 40 / 40 190 / 190 Weight (kg) 48 kg 47.5 kg 47 kg 47 kg Objective General Appearance: positive No acute distress and Alert Eyes Bilateral: positive Normal inspection, PERRL and EOMI ENT: positive ENT inspection nml and Pharynx nml Neck: positive Nml inspection, Thyroid nml, No JVD and Trachea midline Respiratory: positive Chest non-tender, No respiratory distress, Breath sounds nml and Other (Increased work of breathing) Cardiovascular: positive Regular rate & rhythm, Tachycardia and Other (Ejection murmur, Paroxysmal A-fib) Abdomen: positive Non-tender, No organomegaly and No distention Skin: positive Color nml, No rash and Warm Extremities: positive Non-tender and Full ROM Neurologic/Psychiatric: positive Oriented x3 and CN's nml (2-12) Lab Results 04/23/24 05:03 04/23/24 05:03 Other Labs: Lab Results x24hrs 04/23/24 04/22/24 04/22/24 Range/Units 05:03 11:09 11:06 WBC 10.9 H (4.8-10.8) x10^3/uL RBC 3.80 L (4.20-5.40) 10^6/uL Hgb 12.0 (12.0-16.0) g/dL Hct 38.1 (37.0-47.0) % MCV 100.3 H (81.0-99.0) fL MCH 31.6 H (27.0-31.0) pg MCHC 31.5 L (32.0-36.0) g/dL RDW 14.3 (12.0-15.0) % Plt Count 268 (130-450) 10^3/uL MPV 10.3 (7.9-10.8) fL Neut # (Auto) 9.6 H (1.5-6.6) 10^3/uL Lymph # (Auto) 0.6 L (1.5-3.5) 10^3/uL [place] # (Auto) 0.6 (0.0-1.0) 10^3/uL Eos # (Auto) 0.0 (0.0-0.7) 10^3/uL Baso # (Auto) 0.0 (0.0-0.1) 10^3/uL Absolute Nucleated RBC 0.00 x10^3/uL Nucleated RBC % 0.0 /100WBC VBG pH 7.448 H (7.31-7.41) Ionized Calcium 1.16 (1.15-1.33) mmol/L Sodium 138 (135-145) mmol/L Potassium 4.3 (3.5-4.5) mmol/L Chloride 102 (101-111) mmol/L Carbon Dioxide 32 (21-32) mmol/L Anion Gap 4.0 L (6-13) BUN 32 H (6-20) mg/dL Creatinine 0.5 L (0.6-1.3) mg/dL Estimated GFR (MDRD) 118 (>89) Glucose 107 H (74-104) mg/dL Calcium 9.5 (8.5-10.3) mg/dL Phosphorus 3.2 (2.5-5.0) mg/dL Magnesium 1.7 (1.7-2.3) mg/dL Troponin I High Sens 120.5 H* (2.3-14.8) ng/L Vitamin B12 605 (180-914) pg/mL Diagnostic Imaging Diagnostic Imaging Results: positive Final report reviewed Assessment/Plan Problem List (1) COPD exacerbation: Impression: Patient completed Solu-Medrol course. Continue prednisone 40 mg daily for 5 days. No longer requiring BiPAP overnight; will try to get her trilogy device on discharge. Continue DuoNebs every 4 hours. Completed 3 days of azithromycin; remains on 2 more days of Rocephin for possible concomitant community-acquired pneumonia. Patient is requiring 2 L of oxygen at rest; will do ambulatory pulse oximetry study to determine oxygen needs at home. (2) Acute respiratory failure with hypoxia and hypercapnia: Impression: See above. Requiring 2 L of oxygen. Will do ambulatory pulse oximetry study on discharge. (3) Community acquired bacterial pneumonia: Impression: Respiratory viral panel negative. Completed 3 days of azithromycin. Will complete 5-day course of Rocephin; will transition to Augmentin if discharged prior to this being completed. (4) Elevated troponin: Impression: Troponinemia likely due to demand ischemia. Echo ordered, pending. No active chest pain at this time. Continue to monitor. (5) Paroxysmal atrial fibrillation: Impression: Continue digoxin per outpatient medication. Patient not on anticoagulation due to history of GI bleeds. (6) Chronic diastolic heart failure: Impression: History of diastolic heart failure per documentation. No echo on record. Echo was completed this hospitalization, read remains pending. (7) Hyperkalemia: Impression: Resolved. Continue to monitor.
[2024-04-23] MEDS: predniSONE 20 MG TABLET PO SCH (12:39)
--- NOTE | 2024-04-23 13:41 | Discharge Summary ---
"Discharge Summary Admit Date: 04/20/24 Discharge Date: 04/23/24 Discharging Provider: Dr. Dsouza Primary Care Provider: Mary Hector Code Status: Do Not Attempt Resuscitation Discharge Facility Name: Home with home health DIAGNOSES Admission Diagnoses: COPD exacerbation Elevated troponin Paroxysmal atrial fibrillation Chronic diastolic heart failure Discharge Diagnoses with Status of Each Condition: COPD exacerbationpatient completed Solu-Medrol course. Will continue prednisone 40 mg for 4 additional days after discharge. May need continuous pressure airway support. Trilogy ordered. Continue inhalers on discharge. Completed 3 days of azithromycin, will need 2 more days of Augmentin. She is requiring 2 L of oxygen at rest, will send home with oxygen. Acute respiratory failure with hypoxia and hypercapniawill be sending home with oxygen. Community-acquired pneumoniaRVP panel was negative. Completed 3 days of azithromycin. Will complete 2 more days of Augmentin; completed 3 days of Rocephin. Elevated troponinlikely due to demand ischemia. Echo ordered, completed, but read is pending. Paroxysmal atrial fibrillationcontinue digoxin for home medication. Not anticoagulation due to history of GI bleeds in the past. Chronic diastolic heart failurepatient is euvolemic at this time. Discharged without any diuretics. Hyperkalemiaresolved. HPI History of Present Illness: Per Dr. Gaspar: Mrs. Torres is an 83 yoF with a history of COPD, Systolic heart failure, and atrial fibrillation. She presented with shortness of breath for week. She had cough with minimal sputum production, but this is her baseline. She denied any chestpain. she has not had any fever or known sick contacts. In the ED, she was hypoxic on room air. ABG was consistent with hypercapnic respiratory failure. chest xray was negative for large infiltrates but there were bibasilar opacities that could not be excluded as early pneumonia. After discussion with the ED physician, and the worsening of respiratory status, I have agreed to admit patient to the hospitalist service for further evaluation. during my evaluation patient remain on the BIPAP. she was able to communicate and was alert and oriented x 3. Daughter was at bedside. This evaluation was performed using telemedicine tools,including phone and live video. CONSULTS | PROCEDURES Consultations: Physical therapy, Occupational Therapy, respiratory therapy, social work Procedures: Chest x-ray HOSPITAL COURSE Hospital Course: Patient is a 83-year-old female with a history of COPD not on home oxygen, heart failure with preserved ejection fraction who presented with increasing shortness of breath for 1 week. She did have a cough with minimal sputum production, not increased from baseline. She no fevers or chills. She was placed on BiPAP initially, this was slowly weaned off. She was requiring it just overnight, but did has not required it for the last 24 hours. She is requiring 2 L of oxygen still. She completed a course of Solu-Medrol, and will be transitioned to oral steroids, prednisone for total of 5 days. She was also treated for concomitant bacterial pneumonia. She received 3 days of azithromycin. She also received 3 days of Rocephin, and we will discharge her home with 2 more days of Augmentin. Her daughter, as well as her [id number] are both present at bedside. She is in the healthcare field, and they we will provide support for her once discharged. Home health care orders have also been placed for home PT, OT, nursing, associate of science in nursing. She was advised extensively to follow-up with her primary care physician. She was also advised to complete a sleep study in the outpatient setting. She demonstrated understanding of the above. ALLERGIES Allergies Allergy/AdvReac Type Severity Reaction Status Date / Time gluten Allergy Severe GI bleed Verified 04/19/24 23:14 MEDICATIONS Ambulatory Orders Medication Instructions Recorded Confirmed digoxin 125 mcg (0.125 mg) tablet 125 mcg PO DAILY 01/01/23 04/19/24 cyanocobalamin (vitamin B-12) 2,000 mcg PO DAILY #14 nataliya 07/01/23 04/19/24 2,000 mcg lozenges melatonin 3 mg tablet 3 mg PO HS PRN sleep 03/14/24 04/19/24 multivitamin-ferrous 1 tab PO QDAY 03/14/24 04/19/24 fumarate-folic acid 18 mg-400 mcg tablet (Centrum) nitroglycerin 0.4 mg sublingual 0.4 mg sublingual Q5M 03/14/24 04/19/24 tablet pantoprazole 20 mg tablet,delayed 20 mg PO BID 03/14/24 04/19/24 release amoxicillin 500 mg-potassium 1 tab PO BID #4 tabs 04/22/24 clavulanate 125 mg tablet (Augmentin) prednisone 20 mg tablet 40 mg (2 x 20 mg) PO DAILYWM 5 04/23/24 days #10 tabs PHYSICAL EXAM AT DISCHARGE General Appearance: positive No acute distress, Alert and Other (Fatigued) Eyes Bilateral: positive Normal inspection, PERRL, EOMI and Conjunctivae nml ENT: positive ENT inspection nml, Pharynx nml and No signs of dehydration Neck: positive Nml inspection, Thyroid nml and Trachea midline Respiratory: positive Chest non-tender, No respiratory distress and Breath sounds nml; negative Wheezes, Rales or Rhonchi Cardiovascular: positive No murmur and Irregularly irregular; negative Tachycardia, Diastolic murmur, Friction rub or Decreased pulse(s) Peripheral Pulses: positive 2+ Abdomen: positive Non-tender and No distention; negative Tenderness, Guarding, Rebound, Hepatomegaly, Splenomegaly or Mass Back: positive Nml inspection; negative CVA tenderness (R) or CVA tenderness (L) Skin: positive Color nml, No rash, Warm and Dry Extremities: positive Non-tender, Full ROM and No pedal edema; negative Joint swelling Neurologic/Psychiatric: positive Oriented x3 and Mood/affect nml LABS 04/23/24 05:03 04/23/24 05:03 DIAGNOSTIC IMAGING Diagnostic Imaging Results: Final report reviewed QUALITY (Female Hip Fx Only) Was patient sent home on osteoporosis medication?: No FOLLOW UP Follow Up: Follow up with PCP. TIME SPENT Time Spent in Discharge (Minutes): 30 Discharge Plan Discharge Patient Disposition: 06 Home Health Service Condition: Stable Prescriptions: New amoxicillin-pot clavulanate [Augmentin] 500-125 mg tablet 1 tab PO BID Qty: 4 0RF Rx Instructions: take 2 tabs twice a day for 3 days prednisone 20 mg Tablet 40 mg PO DAILYWM 5 Days Qty: 10 0RF Continued digoxin 125 MCG tablet 125 mcg PO DAILY cyanocobalamin (vitamin B-12) 2,000 MCG lozenge 2,000 mcg PO DAILY Qty: 14 0RF nitroglycerin 0.4 mg tablet, sublingual 0.4 mg sublingual Q5M Rx Instructions: Place 1 tablet under the tongue every 5 mins PRN for chest pain pantoprazole 20 mg tablet,delayed release (DR/EC) 20 mg PO BID Rx Instructions: Take 1 tablet by mouth twice a day Centrum 18-400 mg-mcg tablet 1 tab PO QDAY melatonin 3 mg tablet 3 mg PO HS PRN (Reason: sleep) Activity Restrictions: Activity as Tolerated Diet: Regular Assessment: You came in because you are having difficulty breathing. This was likely due to an exacerbation of your COPD. Although your symptoms have gotten better, you are still requiring oxygen. As such, we will sending you home with oxygen which you will use at rest and with activity. We were also concerned that you may have had a pneumonia as well. You received 5 days of antibiotics; I have sent 2 more days of antibiotics to your pharmacy, [facility]. I have also sent 4 more days of prednisone which she will take once a day to complete your steroid course. Cardiac echo, or an ultrasound of your heart was done, while you are here. The results are still not back; once I receive them, I will either give you a call or forward them to your primary care physician who will go over the results with you. While you are here, physical therapy/Occupational Therapy also saw you, and recommended home health assistance. This has been ordered for you. We are glad you are feeling better, and you have great support at home. Thank you for allowing us to take care of you. Print Language: [place] Patient Instructions: Heart Failure, Chronic Lung Disease Be Active, Chronic Lung Disease Dyspnea Scale Stand Alone Forms: PCP List"
[2024-04-23 16:16] VITALS: O2SAT 94
[2024-04-23] MEDS: ONDANSETRON 4 MG/2 ML VIAL IVP PRN (18:10)
== END 2024-04-23 18:50 | disposition home health service (06) | DRG 189 ==
LOC: ED 23:01 → ICU 23:01 → SUATTDRO 04-21 11:39
PROVIDERS: ADMIT Hospitalist; ATTEND Internal Medicine
DX: Z20.822 Contact with and (suspected) exposure to COVID-19; D72.829 Elevated white blood cell count, unspecified; I50.32 Chronic diastolic (congestive) heart failure; R79.89 Other specified abnormal findings of blood chemistry; Z87.891 Personal history of nicotine dependence; Z79.899 Other long term (current) drug therapy; R94.31 Abnormal electrocardiogram [ECG] [EKG]; Z20.828 Contact with and (suspected) exposure to other viral communicable diseases; J44.1 Chronic obstructive pulmonary disease with (acute) exacerbation; I24.89 Other forms of acute ischemic heart disease; I48.0 Paroxysmal atrial fibrillation; Z20.818 Contact with and (suspected) exposure to other bacterial communicable diseases; I49.1 Atrial premature depolarization; I50.33 Acute on chronic diastolic (congestive) heart failure; J15.9 Unspecified bacterial pneumonia; J96.02 Acute respiratory failure with hypercapnia; E87.5 Hyperkalemia; D75.89 Other specified diseases of blood and blood-forming organs; J44.0 Chronic obstructive pulmonary disease with (acute) lower respiratory infection; R73.9 Hyperglycemia, unspecified; J96.01 Acute respiratory failure with hypoxia